=== PATIENT | female | born 1940 | race African-American/Black ===

== ENCOUNTER → 2017-01-14 | Outpatient (CLI) | payer MEDICARE, MEDICAID ==
[2017-01-14 14:41] LABS: HEMATOCRIT 32.5 % (36.0-47.0); HEMOGLOBIN 10.5 g/dL (12.0-15.5); MEAN CORPUSCULAR HEMOGLOBIN 29.6 pg (27.0-33.4); MEAN CORPUSCULAR HGB CONC 32.4 g/dL (32.0-36.0); MEAN CORPUSCULAR VOLUME 91 fl (80-97); RED BLOOD COUNT 3.55 10^6/uL (3.72-5.28); RED CELL DISTRIBUTION WIDTH 15.2 % (11.5-14.0)
[2017-01-14 15:05] LABS: ANION GAP 13 (5-19); BLOOD UREA NITROGEN 22 mg/dL (7-20); CALCIUM 9.3 mg/dL (8.4-10.2); CARBON DIOXIDE 22 mmol/L (22-30); CHLORIDE 108 mmol/L (98-107); GLUCOSE 99 mg/dL (75-110)
[2017-01-14 15:25] LABS: APPEARANCE,URINE SLIGHTLY-CLOUDY; BILIRUBIN,URINE NEGATIVE (NEGATIVE); GLUCOSE, URINE NEGATIVE (NEGATIVE); KETONES,URINE NEGATIVE (NEGATIVE); LEUKOCYTE ESTERASE,URINE NEGATIVE (NEGATIVE); NITRITE,URINE NEGATIVE (NEGATIVE); PROTEIN,URINE 100 mg/dL (NEGATIVE); URINE SPECIFIC GRAVITY 1.019
== END ==
LOC: OD 13:59
PROVIDERS: ATTEND Internal Medicine Nephrology
DX: I12.9 Hypertensive chronic kidney disease with stage 1 through stage 4 chronic kidney disease, or unspecified chronic kidney disease (principal); N18.3 Chronic kidney disease, stage 3 (moderate)
CPT/HCPCS: 36415; 80048; 81001; 84443; 85027

== ENCOUNTER → 2017-01-17 | Outpatient (CLI) | payer MEDICARE, MEDICAID ==
[2017-01-17 12:49] LABS: HEMATOCRIT 35.5 % (36.0-47.0); HEMOGLOBIN 11.4 g/dL (12.0-15.5); HGB HCT DIFFERENCE -1.3; MEAN CORPUSCULAR HEMOGLOBIN 29.8 pg (27.0-33.4); MEAN CORPUSCULAR VOLUME 93 fl (80-97); RED BLOOD COUNT 3.82 10^6/uL (3.72-5.28); RED CELL DISTRIBUTION WIDTH 15.5 % (11.5-14.0); WHITE BLOOD COUNT 5.1 10^3/uL (4.0-10.5)
--- NOTE | 2017-01-17 13:01 | EKG REPORT ---
SEVERITY:- ABNORMAL ECG - SINUS TACHYCARDIA VENTRICULAR TRIGEMINY PROBABLE LEFT VENTRICULAR HYPERTROPHY ABNORMAL T, CONSIDER ISCHEMIA, LATERAL LEADS CONSIDER OLD ANTERIOR WA : Confirmed by: Braulio Damon MD 17-Jan-2017 13:00:29
[2017-01-17 13:16] LABS: APPEARANCE,URINE SLIGHTLY-CLOUDY; BILIRUBIN,URINE NEGATIVE (NEGATIVE); GLUCOSE, URINE NEGATIVE (NEGATIVE); KETONES,URINE NEGATIVE (NEGATIVE); LEUKOCYTE ESTERASE,URINE NEGATIVE (NEGATIVE); NITRITE,URINE NEGATIVE (NEGATIVE); PROTEIN,URINE 30 mg/dL (NEGATIVE); URINE SPECIFIC GRAVITY 1.018
== END ==
LOC: OD 11:38
PROVIDERS: ATTEND Physician Assistant Medical
DX: R00.0 Tachycardia, unspecified (principal); N18.3 Chronic kidney disease, stage 3 (moderate); R60.9 Edema, unspecified; I12.9 Hypertensive chronic kidney disease with stage 1 through stage 4 chronic kidney disease, or unspecified chronic kidney disease; J81.0 Acute pulmonary edema; K59.00 Constipation, unspecified
CPT/HCPCS: 36415; 81001; 85027; 93005; 93010

== ENCOUNTER → 2017-01-20 | Outpatient (CLI) | payer MEDICARE, MEDICAID ==
--- NOTE | 2017-01-20 12:56 | RADIOLOGY REPORT (SQ) ---
EXAM DESCRIPTION: U/S RETROPERITON (RENAL/AORTA) COMPLETED DATE/TIME: 01/20/2017 12:32 pm REASON FOR STUDY: CHRONIC KIDNEY DISEASE STAGE 3 N18.3 CHRONIC KIDNEY DISEASE, STAGE 3 (MODERATE) I 12.9 HYPERTENSIVE CHRONIC KIDNEY DISEASE W STG 1-4/UNSP CHR COMPARISON: None. TECHNIQUE: Dynamic and static grayscale images acquired of the kidneys and bladder and recorded on P ACS. Additional selected color Doppler and spectral images recorded. LIMITATIONS: Evaluation of the left kidney was limited because of body habitus and bowel gas. FINDINGS: RIGHT KIDNEY: Normal size, 9.2 cm. Mild cortical thinning. Normal echogenicity. No solid or suspicious masses. No hydronephrosis. No calcifications. LEFT KIDNEY: Normal size, 8.8 cm. Normal echogenicity. No solid or suspicious masses. No hydronephr osis. No calcifications. BLADDER: Not able to be seen. OTHER FINDINGS: No other significant finding. IMPRESSION: There is mild cortical thinning. No other abnormality is appreciated in this somewhat l imited study. TECHNICAL DOCUMENTATION: JOB ID: [id number]- All Rights Reserved
== END ==
LOC: RAD 11:39
PROVIDERS: ATTEND Internal Medicine Nephrology
DX: I12.9 Hypertensive chronic kidney disease with stage 1 through stage 4 chronic kidney disease, or unspecified chronic kidney disease (principal); N18.3 Chronic kidney disease, stage 3 (moderate)
CPT/HCPCS: 76770

== ENCOUNTER → 2017-01-25 | Outpatient (CLI) | payer MEDICARE, MEDICAID ==
--- NOTE | 2017-01-26 09:07 | XCELERA REPORT ---
[address] [address] Transthoracic Echocardiogram Report Name: NEIDA YEPEZ Age: 77 yrs Gender: Female : 1940 Patient Status: Outpatient Patient Location: Study Date: 01/25/2017 11:22 AM Height: 64 in Weight: 217 lb BSA: 2.0 m2 Procedure: A complete two-dimensional transthoracic echocardiogram was performed (2D, M-mode, spectral and color flow Doppler). The study was technically adequate with some images being suboptimal in quality. Reason For Study: ACUTE PULMONARY EDEMA J81.0 Ordering Physician: Mehnaz UPTON Performed By: Kirk Candelario Interpretation Summary The Ejection Fraction estimate is 25-30% Left ventricular systolic function is severely reduced. There is borderline concentric left ventricular hypertrophy. The left ventricle is borderline dilated. Doppler measurements suggest pseudonormalized left ventricular relaxation, which is associated with grade II/IV or mild to moderate diastolic dysfunction There is apical wall akinesis There is septal wall akinesis There is mid to distal anterior wall akinesis The right ventricular systolic function is borderline reduced. The left atrium is mildly dilated. The right atrium is normal in size A patent foramen ovale is present. There is a mild to moderate amount of mitral regurgitation There is no mitral valve stenosis. There is a trace amount of aortic regurgitation There is no aortic valve stenosis Right ventricular systolic pressure is estimated to be elevated at 40- 50mmHg. There is mild to moderate pulmonary hypertension by echo There is a trace to mild amount of tricuspid regurgitation The aortic root is not well visualized. The inferior vena cava appeared normal and decreased < 50% with respiration (RAP 10-15 mmHg) Minimal pericardial effusion. MMode/2D Measurements \T\ Calculations RVDd: 2.4 cm LVIDd: 5.2 cm FS: 13.1 % Ao root diam: IVSd: 1.0 cm LVIDs: 4.5 cm EDV(Teich): 2.9 cm LVPWd: 1.2 cm 127.3 ml Ao root area: ESV(Teich): 91.6 ml 6.8 cm2 EF(Teich): 28.0 % LA dimension: 3.9 cm LVLd ap4: 9.1 cm SV(MOD-sp4): EDV(MOD-sp4): 44.0 ml 150.0 ml LVLs ap4: 7.9 cm ESV(MOD-sp4): 106.0 ml EF(MOD-sp4): 29.3 % Doppler Measurements \T\ Calculations MV E max mallorie: MV P1/2t max mallorie: Ao V2 max: LV V1 max P.3 cm/sec 79.8 cm/sec 155.1 cm/sec 2.5 mmHg MV A max mallorie: MV P1/2t: 52.3 msec Ao max PG: LV V1 max: 55.1 cm/sec MVA(P1/2t): 4.2 cm2 9.6 mmHg 79.7 cm/sec MV E/A: 1.4 MV dec slope: 446.8 cm/sec2 PA V2 max: PI end-d mallorie: TR max mallorie: RAP systole: 94.3 cm/sec 186.2 cm/sec 300.0 cm/sec 10.0 mmHg PA max PG: TR max P.6 mmHg 36.0 mmHg RVSP(TR): 46.0 mmHg Left Ventricle The left ventricle is borderline dilated. There is borderline concentric left ventricular hypertrophy. Left ventricular systolic function is severely reduced. The Ejection Fraction estimate is 25-30%. Doppler measurements suggest pseudonormalized left ventricular relaxation, which is associated with grade II/IV or mild to moderate diastolic dysfunction. There is septal wall akinesis. There is apical wall akinesis. There is mid to distal anterior wall akinesis. Right Ventricle The right ventricle is normal in size, thickness and function. There is normal right ventricular wall thickness. The right ventricular systolic function is borderline reduced. Atria The right atrium is normal in size. The left atrium is mildly dilated. A patent foramen ovale is present. Mitral Valve The mitral valve leaflets are sclerotic and show some degree of functional abnormality. There is no mitral valve stenosis. There is a mild to moderate amount of mitral regurgitation. Aortic Valve The aortic valve is sclerotic and shows some degree of functional abnormality. There is no aortic valve stenosis. There is a trace amount of aortic regurgitation. Tricuspid Valve The tricuspid valve is not well visualized, but is grossly normal. There is no tricuspid stenosis. There is a trace to mild amount of tricuspid regurgitation. There is mild to moderate pulmonary hypertension by echo. Right ventricular systolic pressure is estimated to be elevated at 40- 50mmHg. Pulmonic Valve The pulmonic valve is not well visualized. Great Vessels The aortic root is not well visualized. The inferior vena cava appeared normal and decreased < 50% with respiration (RAP 10-15 mmHg). Effusions Minimal pericardial effusion. : Mehnaz UPTON Shyamal
== END ==
LOC: SP 10:53
PROVIDERS: ATTEND Internal Medicine Nephrology
DX: J81.0 Acute pulmonary edema (principal); R00.0 Tachycardia, unspecified
CPT/HCPCS: 93306

== ENCOUNTER 2017-06-01 12:46 | Inpatient (IN) | payer MEDICARE, MEDICAID ==
[2017-06-01] MEDS ORDERED: NORMAL SALINE 1000 ML 1,000 ML IV ONE (13:19)
--- NOTE | 2017-06-01 13:24 | ER Document Report ---
ED Fall - General Mode of Arrival: Ambulatory Information source: Patient TRAVEL OUTSIDE OF THE [place] IN LAST 30 DAYS: No - General Chief Complaint: Fall Stated Complaint: FALL Time Seen by Provider: 06/01/17 12:59 Notes: Patient is a 77 year old female that presents to the emergency department today with complaints of generalized weakness. Patient states that she was weak and she lost balance during the fall. Patient states that she would normally have strength to pick herself up but she was unable to do so after this fall and she was down for 3 days on the ground. History is limited. (YORDAN MATOS) - Related data Allergies/Adverse Reactions: Penicillins Allergy (Verified 06/01/17 13:26) Home Medications: Current Home Medications Clonidine HCl 0.2 mg PO BID 06/01/17 [History] Furosemide [Lasix 40 mg Tablet] 40 mg PO DAILY 06/01/17 [History] Nitroglycerin [Nitrostat 0.4 mg (1/150 Gr) Tabs 25/Bottle] 1 tab SL Q5M PRN MDD 3 tab 06/01/17 [History] Ondansetron HCl [Zofran 4 mg Tablet] 1 tab PO TIDP PRN 06/01/17 [History] Past Medical History - General Information source: Patient - Social History Smoking Status: Unknown if Ever Smoked Cigarette use (# per day): No Chew tobacco use (# tins/day): No Frequency of alcohol use: None Drug Abuse: None Lives with: Family Family History: Reviewed & Not Pertinent Patient has suicidal ideation: No Patient has homicidal ideation: No - Past Medical History Cardiac Medical History: Reports: Hx Hypertension Past Surgical History: Reports: Hx Tonsillectomy - Immunizations Hx Diphtheria, Pertussis, Tetanus Vaccination: - unknown Review of Systems - Review of Systems Constitutional: See HPI, Weakness - general, fall and on ground for 3 days EENT: No symptoms reported Cardiovascular: No symptoms reported Respiratory: No symptoms reported Gastrointestinal: No symptoms reported Genitourinary: No symptoms reported Female Genitourinary: No symptoms reported Musculoskeletal: No symptoms reported Skin: No symptoms reported Hematologic/Lymphatic: No symptoms reported Neurological/Psychological: No symptoms reported -: Yes All other systems reviewed and negative Physical Exam - Vital signs Vitals: Temp Pulse Resp BP Pulse Ox 97.5 F 103 H 16 156/89 H 98 06/01/17 12:58 06/01/17 12:58 06/01/17 12:58 06/01/17 12:58 06/01/17 12:58 - Notes Notes: Physical Exam: General: Alert, covered in urine and feces consistent with history. HEENT: Normocephalic. Atraumatic. PERRL. Extraocular movements intact. Oropharynx clear. See neuro. Neck: Supple. Non-tender. Respiratory: No respiratory distress. Clear and equal breath sounds bilaterally. Cardiovascular: Tachycardic, regular rhythm. Abdominal: Morbidly obese. Non-tender. No distension. Normal Bowel Sounds. Back: Non-tender. No deformity or step off. Extremities: Moves all four extremities. Upper extremities: Normal inspection. Normal ROM. Lower extremities: Bilateral lower extremity edema. Normal ROM. Neurological: Normal cognition. AAOx4. Normal speech. Right sided facial tick which patient states is new. 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 Psychological: Normal affect. Normal Mood. Skin: Warm. Dry. Normal color. (YORDAN MATOS) - Vital Signs Vital signs: Temp Pulse Resp BP Pulse Ox 97.5 F 103 H 16 156/89 H 98 06/01/17 12:58 06/01/17 12:58 06/01/17 12:58 06/01/17 12:58 06/01/17 12:58 - Laboratory Laboratory results interpreted by me: 06/01/17 13:50 Urine Protein 30 H Urine Urobilinogen 4.0 H Procedures - Additional Procedures IV insertion Notes: 06/01/17 14:42 Ultrasound guided 20-gauge IV placed in the cubital fossa on the right area was cleaned with alcohol's prep blood flow no complications patient tolerated well ( ARIELLE CRAWFORD) Scribe Documentation - Scribe Written by Scribe:: Willie Sevilla, 06/01/2017 1365 acting as scribe for :: Tomasz
--- NOTE | 2017-06-01 14:00 | RADIOLOGY REPORT (SQ) ---
EXAM DESCRIPTION: CT HEAD WITHOUT COMPLETED DATE/TIME: 06/01/2017 1:41 pm REASON FOR STUDY: fall, LE weakness COMPARISON: CT brain 08/07/2015, 07/15/2015 TECHNIQUE: Axial images acquired through the brain without intravenous contrast. Images reviewed wi th bone, brain and subdural windows. Images stored on PACS. All CT scanners at this facility use dose modulation, iterative reconstruction, and/or weight based d osing when appropriate to reduce radiation dose to as low as reasonably achievable (ALARA). [facility]: Dose Right [facility]: CareDose [facility]: Dose Right [facility]: Teradose 4D [facility]: Smart Technologies RADIATION DOSE: CT Rad equipment meets quality standard of care and radiation dose reduction techniq ues were employed. CTDIvol: 64.6 mGy. DLP: 1163 mGy-cm. mGy. LIMITATIONS: None. FINDINGS: VENTRICLES: Normal size and contour. CEREBRUM: Extensive low attenuation in the bifrontal and biparietal white matter from chronic small v essel disease. 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 No CT evidence of acute large territory ischemic change, acute intracranial hemorrhage, mass effect, or midline shift. CEREBELLUM: No masses. No hemorrhage. No alteration of density. No evidence for acute infarction. EXTRAAXIAL SPACES: No fluid collections. No masses. ORBITS AND GLOBE: No intra- or extraconal masses. Normal contour of globe without masses. CALVARIUM: No fracture. PARANASAL SINUSES: No fluid or mucosal thickening. SOFT TISSUES: No mass or hematoma. OTHER: No other significant finding. IMPRESSION: Diffuse chronic small vessel ischemic change in the hemispheric white matter, left thala mus, and left basal ganglia. No acute changes EVIDENCE OF ACUTE STROKE: NO. COMMENT: Quality ID # [id number]: Final reports with documentation of one or more dose reduction techniques (e.g., Automated exposure control, adjustment of the mA and/or kV according to patient size, use of iterative reconstruction technique) TECHNICAL DOCUMENTATION: JOB ID: [id number]- All Rights Reserved
[2017-06-01 14:29] LABS: AMORPHOUS SEDIMENT,URINE TRACE /HPF; APPEARANCE,URINE SLIGHTLY-CLOUDY; BILIRUBIN,URINE NEGATIVE (NEGATIVE); GLUCOSE, URINE NEGATIVE (NEGATIVE); KETONES,URINE NEGATIVE (NEGATIVE); LEUKOCYTE ESTERASE,URINE NEGATIVE (NEGATIVE); NITRITE,URINE NEGATIVE (NEGATIVE); PROTEIN,URINE 30 mg/dL (NEGATIVE)
[2017-06-01 14:56] LABS: ABSOLUTE LYMPHOCYTES (AUTO) 0.8 10^3/uL (0.5-4.7); ABSOLUTE MONOCYTES (AUTO) 0.8 10^3/uL (0.1-1.4); ABSOLUTE NEUT (AUTO) 8.6 10^3/uL (1.7-8.2); BASOPHILS % (AUTO) 0.1 % (0-2); HEMATOCRIT 33.4 % (36.0-47.0); HGB HCT DIFFERENCE -0.4; LYMPHOCYTES % (AUTO) 7.4 % (13-45); MEAN CORPUSCULAR HEMOGLOBIN 30.7 pg (27.0-33.4); MEAN CORPUSCULAR HGB CONC 32.9 g/dL (32.0-36.0); MEAN CORPUSCULAR VOLUME 94 fl (80-97); MONOCYTES % (AUTO) 7.7 % (3-13); RED BLOOD COUNT 3.58 10^6/uL (3.72-5.28); RED CELL DISTRIBUTION WIDTH 17.5 % (11.5-14.0); SEGMENTED NEUTROPHILS % (AUTO) 84.8 % (42-78); WHITE BLOOD COUNT 10.2 10^3/uL (4.0-10.5)
[2017-06-01 15:33] LABS: ALANINE AMINOTRANSFERASE 54 U/L (9-52); ALBUMIN 3.2 g/dL (3.5-5.0); ALKALINE PHOSPHATASE 121 U/L (38-126); ANION GAP 15 (5-19); ASPARTATE AMINO TRANSFERASE 54 U/L (14-36); BILIRUBIN,TOTAL 3.1 mg/dL (0.2-1.3); BLOOD UREA NITROGEN 61 mg/dL (7-20); CALCIUM 9.4 mg/dL (8.4-10.2); CARBON DIOXIDE 24 mmol/L (22-30); CHLORIDE 116 mmol/L (98-107); CREATINE KINASE 388 U/L (30-135); CREATININE RESULT 1.91 mg/dL (0.52-1.25); GLUCOSE 90 mg/dL (75-110); MAGNESIUM 2.6 mg/dL (1.6-2.3); POTASSIUM 3.8 mmol/L (3.6-5.0); SODIUM 154.9 mmol/L (137-145); TOTAL PROTEIN 6.7 g/dL (6.3-8.2)
[2017-06-01 15:41] LABS: CREATINE KINASE MB 4.19 ng/mL (<4.55)
[2017-06-01 15:43] LABS: TROPONIN I 0.116 ng/mL
--- NOTE | 2017-06-01 19:34 | EKG REPORT ---
SEVERITY:- ABNORMAL ECG - SINUS TACHYCARDIA ATRIAL PREMATURE COMPLEX LEFT VENTRICULAR HYPERTROPHY CONSIDER ANTERIOR INFARCT : Confirmed by: Cat Lazaro MD 01-Jun-2017 19:33:05
[2017-06-01] MEDS ORDERED: NORMAL SALINE 1000 ML 1,000 ML IV PRN (20:25)
[2017-06-01] MEDS ORDERED: NITROGLYCERIN 0.4 MG/TAB 25 TAB/BOTTLE SL PRN (20:29)
--- NOTE | 2017-06-01 20:53 | PDOC H&P ---
History of Present Illness Admission Date/PCP: 06/01/17 16:28 Patient complains of: Fall at home History of Present Illness: NEIDA YEPEZ is a 77 year old female known to my practice who presented to the ED with compliant of fall at home while in the process of getting off her dinner room chair. She lost her balance and landed on the floor. Patient reported that due to her generalized weakness she was unable to lift herself off the floor and has been laying in same position for 3 days before she was discovered earlier today. She denied any preceding chest pain, palpitation or dizziness. She denied loss of consciousness, nausea, vomiting, diarrhea, or voiding symptoms. No headache . She reported right sided chest pain with motion and coughing. She has not had any thing to eat or drink in the last 3 days. Her initial evaluation in the ED was remarkable for electrolyte abnormalities and elevated serum total CK level. Her head CT scan suggested old infarcts. She was advised admission and further evaluation and management. Past Medical History Cardiac Medical History: Reports: Hypertension Hematology: Reports: Anemia Past Surgical History Past Surgical History: Reports: Tonsillectomy Social History Lives with: Family Smoking Status: Unknown if Ever Smoked Frequency of Alcohol Use: None Hx Recreational Drug Use: No Drugs: None Hx Prescription Drug Abuse: No Family History Family History: Reviewed & Not Pertinent Parental Family History Reviewed: Yes Children Family History Reviewed: Yes Sibling(s) Family History Reviewed.: Yes Medication/Allergy Home Medications: Carvedilol [Coreg 12.5 mg Tablet] 12.5 mg PO Q12 06/01/17 Clonidine HCl [Catapres 0.2 mg Tablet] 0.2 mg PO Q12 06/01/17 Furosemide [Lasix 40 mg Tablet] 40 mg PO QAM 06/01/17 Nitroglycerin [Nitrostat 0.4 mg (1/150 Gr) Tabs 25/Bottle] 1 tab SL Q5MP PRN Ondansetron HCl [Zofran 4 mg Tablet] 1 tab PO TIDP PRN 06/01/17 Allergies/Adverse Reactions: Penicillins Allergy (Verified 06/01/17 13:26) Review of Systems Constitutional: PRESENT: weakness - generalized Eyes: PRESENT: visual disturbances Ears: PRESENT: hearing changes Nose, Mouth, and Throat: ABSENT: as per HPI, headache(s), mouth pain, sore throat, vertigo, other Cardiovascular: PRESENT: chest pain - right sided with motion and coughing Respiratory: PRESENT: cough - intermittent Gastrointestinal: ABSENT: abdominal pain, constipation, diarrhea, hematemesis, hematochezia, nausea, vomiting Genitourinary: ABSENT: dysuria, hematuria Musculoskeletal: ABSENT: joint swelling Integumentary: ABSENT: rash, wounds Neurological: PRESENT: memory loss, weakness - facial related to old stroke Psychiatric: ABSENT: anxiety, depression, homidical ideation, suicidal ideation Endocrine: ABSENT: cold intolerance, heat intolerance, menstrual abnormalities, polydipsia, polyuria Hematologic/Lymphatic: ABSENT: easy bleeding, easy bruising, lymphadenopathy Allergic/Immunologic: ABSENT: seasonal rhinorrhea Physical Exam Vital Signs: Temp Pulse Resp BP Pulse Ox 97.5 F 103 H 19 165/81 H 97 06/01/17 12:58 06/01/17 12:58 06/01/17 18:01 06/01/17 18:01 06/01/17 18:01 Intake & Output 05/31/17 06/01/17 06/02/17 06:59 06:59 06:59 Intake Total 1000 Output Total 375 Balance 625 General appearance: PRESENT: no acute distress Head exam: PRESENT: atraumatic, normocephalic Eye exam: PRESENT: conjunctiva pink, EOMI, PERRLA. ABSENT: scleral icterus Mouth exam: PRESENT: dry mucosa Teeth exam: PRESENT: poor dentation Neck exam: PRESENT: full ROM. ABSENT: carotid bruit, JVD, lymphadenopathy, thyromegaly Respiratory exam: PRESENT: clear to auscultation kishan, decreased breath sounds - at lung bases Cardiovascular exam: PRESENT: RRR. ABSENT: diastolic murmur, rubs, systolic murmur Pulses: PRESENT: normal dorsalis pedis pul, +2 pedal pulses bilateral Vascular exam: PRESENT: normal capillary refill. ABSENT: pallor GI/Abdominal exam: PRESENT: normal bowel sounds, soft. ABSENT: distended, guarding, mass, organolmegaly, rebound, tenderness Rectal exam: PRESENT: deferred Gentrourinary exam: PRESENT: indwelling catheter Extremities exam: ABSENT: pedal edema Musculoskeletal exam: PRESENT: deformity - related to multiple joints involvement with arthritis Neurological exam: PRESENT: alert, awake, oriented to person, oriented to place , oriented to time, CN II-XII grossly intact, motor sensory deficit Psychiatric exam: PRESENT: appropriate affect, normal mood. ABSENT: homicidal ideation, suicidal ideation Skin exam: PRESENT: dry, intact, warm. ABSENT: cyanosis, rash Results Laboratory Results: 06/01/17 18:30 Lactic Acid 3.0 H Impressions: Head CT 06/01/17 13:19 IMPRESSION: Diffuse chronic small vessel ischemic change in the hemispheric white matter, left thalamus, and left basal ganglia. No acute changes EVIDENCE OF ACUTE STROKE: NO. Assessment & Plan - Diagnosis (1) Fall at home Qualifiers: Encounter type: initial encounter Qualified Code(s): W19.XXXA - Unspecified fall, initial encounter; Y92.099 - Unspecified place in other non- institutional residence as the place of occurrence of the external cause; Y92.099 - Unspecified place in other non-institutional residence as the place of occurrence of the external cause Is this a current diagnosis for this admission?: Yes Plan: See admitting attending orders (2) Probable sepsis Is this a current diagnosis for this admission?: Yes Plan: See admitting attending orders (3) Dehydration, severe Is this a current diagnosis for this admission?: Yes Plan: See admitting attending orders (4) Hypernatremia Is this a current diagnosis for this admission?: Yes Plan: See admitting attending orders (5) Facial droop Is this a current diagnosis for this admission?: Yes Plan: Related to prior stroke. See admitting attending orders (6) Hypertension Qualifiers: Hypertension type: essential hypertension Qualified Code(s): I10 - Essential (primary) hypertension Is this a current diagnosis for this admission?: Yes Plan: See admitting attending orders (7) Osteoarthritis Qualifiers: Osteoarthritis location: multiple joints Osteoarthritis type: primary Qualified Code(s): M15.0 - Primary generalized (osteo)arthritis Is this a current diagnosis for this admission?: Yes Plan: See admitting attending orders - Time Time Spent: 50 to 70 Minutes Medications reviewed and adjusted accordingly: Yes Anticipated discharge: Home with Homehealth Within: Other - Inpatient Certification Based on my medical assessment, after consideration of the patient's comorbidities, presenting symptoms, or acuity I expect that the services needed warrant INPATIENT care.: Yes I certify that my determination is in accordance with my understanding of Medicare's requirements for reasonable and necessary INPATIENT services [42 CFR 412.3e].: Yes Medical Necessity: Need Close Monitoring Due to Risk of Patient Decompensation, Need For IV Fluids, Need For Continuous Telemetry Monitoring, Need for IV Antibiotics, Risk of Complication if Not Cared For in Hospital 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
[2017-06-01] MEDS ORDERED: AZTREONAM 1 GM in DEXTROSE 5%-WATER 50 ML IV ONE (22:00)
[2017-06-01] MEDS: CARVEDILOL 12.5 MG TABLET PO SCH (22:55)
[2017-06-01] MEDS: CLONIDINE HCL 0.2 MG TABLET PO SCH (22:55)
[2017-06-02 05:20] LABS: ABSOLUTE LYMPHOCYTES (AUTO) 0.9 10^3/uL (0.5-4.7); ABSOLUTE MONOCYTES (AUTO) 0.6 10^3/uL (0.1-1.4); ABSOLUTE NEUT (AUTO) 6.6 10^3/uL (1.7-8.2); BASOPHILS % (AUTO) 0.3 % (0-2); EOSINOPHILS % (AUTO) 0.1 % (0-6); LYMPHOCYTES % (AUTO) 10.7 % (13-45); MEAN CORPUSCULAR HGB CONC 33.3 g/dL (32.0-36.0); MEAN CORPUSCULAR VOLUME 93 fl (80-97); MONOCYTES % (AUTO) 7.6 % (3-13); RED BLOOD COUNT 2.89 10^6/uL (3.72-5.28); RED CELL DISTRIBUTION WIDTH 17.5 % (11.5-14.0); SEGMENTED NEUTROPHILS % (AUTO) 81.3 % (42-78); WHITE BLOOD COUNT 8.1 10^3/uL (4.0-10.5)
[2017-06-02 05:53] LABS: ALANINE AMINOTRANSFERASE 45 U/L (9-52); ALBUMIN 2.3 g/dL (3.5-5.0); ALKALINE PHOSPHATASE 79 U/L (38-126); ANION GAP 15 (5-19); ASPARTATE AMINO TRANSFERASE 34 U/L (14-36); BILIRUBIN,DIRECT 1.2 mg/dL (0.0-0.4); BILIRUBIN,TOTAL 1.6 mg/dL (0.2-1.3); BLOOD UREA NITROGEN 56 mg/dL (7-20); CALCIUM 8.2 mg/dL (8.4-10.2); CARBON DIOXIDE 20 mmol/L (22-30); CHLORIDE 118 mmol/L (98-107); CREATININE RESULT 1.85 mg/dL (0.52-1.25); GLUCOSE 148 mg/dL (75-110); MAGNESIUM 2.4 mg/dL (1.6-2.3); PHOSPHORUS 4.3 mg/dL (2.5-4.5); POTASSIUM 3.6 mmol/L (3.6-5.0); SODIUM 152.6 mmol/L (137-145); TOTAL PROTEIN 5.5 g/dL (6.3-8.2)
[2017-06-02] MEDS ORDERED: WATER IV SCH (06:00)
[2017-06-02] MEDS ORDERED: AZTREONAM IV SCH (06:00)
[2017-06-02] MEDS ORDERED: DEXTROSE 5% IV SCH (06:00)
[2017-06-02] MEDS: LANSOPRAZOLE 30 MG TAB.RAP.DR PO SCH (06:14)
[2017-06-02] MEDS: AZTREONAM 0.5 GM in DEXTROSE 5%-WATER 50 ML IV SCH ×3 (06:14→22:22)
[2017-06-02] MEDS ORDERED: DEXTROSE 5%-1/2 NORMAL SALINE 1,000 ML IV PRN (10:15)
--- NOTE | 2017-06-02 10:22 | PDOC PROGRESS REPORT ---
Subjective Progress Note for:: 06/02/17 Subjective:: Was admitted yesterday because of the fall and dehydration's and renal failure and possible sepsis Patient's has a history of the right-sided facial droop which patient says since last 6 month but patients denied any weakness but the patient's CT scan was suggestive of old stroke Into the family members patient have a since weakness last 3 days before the patient was walking patient have a facial droop in the past Initial workup patient's kidney failure and possible sepsis Will start on antibiotic Patient's troponin was elevated most likely due to the chronic kidney disease She has denied any chest pain denied any shortness of the breath Physical Exam Vital Signs: Temp Pulse Resp BP Pulse Ox 98.4 F 71 18 95/43 L 100 06/02/17 07:00 06/02/17 07:00 06/02/17 07:00 06/02/17 07:00 06/02/17 07:00 Intake & Output 06/01/17 06/02/17 06/03/17 06:59 06:59 06:59 Intake Total 2234 Output Total 775 Balance 1459 General appearance: PRESENT: no acute distress Eye exam: PRESENT: PERRLA Mouth exam: PRESENT: neck supple Respiratory exam: PRESENT: clear to auscultation kishan Cardiovascular exam: PRESENT: +S1, +S2 GI/Abdominal exam: PRESENT: normal bowel sounds, soft Extremities exam: ABSENT: pedal edema Neurological exam: PRESENT: alert, awake Additional comments: Right-sided facial droops and a right-sided weakness in the both upper and lower extremities present Psychiatric exam: PRESENT: anxious Skin exam: PRESENT: dry Results Laboratory Results: 06/02/17 04:00 06/02/17 04:00 06/01/17 06/02/17 06/02/17 18:30 04:00 04:00 WBC 8.1 RBC 2.89 L Hgb 9.0 L Hct 27.0 L MCV 93 MCH 31.0 MCHC 33.3 RDW 17.5 H Plt Count 210 Seg Neutrophils % 81.3 H Lymphocytes % 10.7 L Monocytes % 7.6 Eosinophils % 0.1 Basophils % 0.3 Absolute Neutrophils 6.6 Absolute Lymphocytes 0.9 Absolute Monocytes 0.6 Absolute Eosinophils 0.0 Absolute Basophils 0.0 Sodium 152.6 H Potassium 3.6 Chloride 118 H Carbon Dioxide 20 L Anion Gap 15 BUN 56 H Creatinine 1.85 H Est GFR ( Amer) 32 L Est GFR (Non-Af Amer) 27 L Glucose 148 H Lactic Acid 3.0 H Calcium 8.2 L Phosphorus 4.3 Magnesium 2.4 H Total Bilirubin 1.6 H AST 34 ALT 45 Alkaline Phosphatase 79 Total Protein 5.5 L Albumin 2.3 L Impressions: Head CT 06/01/17 13:19 IMPRESSION: Diffuse chronic small vessel ischemic change in the hemispheric white matter, left thalamus, and left basal ganglia. No acute changes EVIDENCE OF ACUTE STROKE: NO. Assessment & Plan - Diagnosis (1) Dehydration, severe Is this a current diagnosis for this admission?: Yes Plan: Patient IV fluid to D5 one half normal saline (2) Fall at home Qualifiers: Encounter type: initial encounter Qualified Code(s): W19.XXXA - Unspecified fall, initial encounter; Y92.099 - Unspecified place in other non- institutional residence as the place of occurrence of the external cause; Y92.099 - Unspecified place in other non-institutional residence as the place of occurrence of the external cause Is this a current diagnosis for this admission?: Yes Plan: We will rule out the any acute strokes and MRI of the head at the physical therapy and speech therapy evaluations (3) Hypernatremia Is this a current diagnosis for this admission?: Yes Plan: We will change the IV fluid to D5 one half normal saline (4) Probable sepsis Is this a current diagnosis for this admission?: Yes Plan: We will wait for the cultures continues to IV antibiotic part of the chest x-ray (5) Hypertension Qualifiers: Hypertension type: essential hypertension Qualified Code(s): I10 - Essential (primary) hypertension Is this a current diagnosis for this admission?: Yes Plan: Currently stable (6) Elevated troponin Is this a current diagnosis for this admission?: Yes Plan: Likely a troponin leak will repeat the EKG and the serial cardiac enzyme - Time Time Spent with patient: 15-24 minutes Medications reviewed and adjusted accordingly: Yes Anticipated discharge: SNF Within: Other - Inpatient Certification Medical Necessity: Need Close Monitoring Due to Risk of Patient Decompensation Post Hospital Care: D/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
[2017-06-02] MEDS: ENOXAPARIN SODIUM INJ 30 MG/0.3 ML DISP.SYRIN SUBCUT SCH (10:35)
[2017-06-02] MEDS: CARVEDILOL 12.5 MG TABLET PO SCH ×2 (11:08→22:22)
[2017-06-02] MEDS: CLONIDINE HCL 0.2 MG TABLET PO SCH ×2 (11:08→22:09)
[2017-06-02 11:34] LABS: CREATINE KINASE MB 1.4 ng/mL (<4.55); TROPONIN I 0.11 ng/mL
--- NOTE | 2017-06-02 12:53 | RADIOLOGY REPORT (SQ) ---
EXAM DESCRIPTION: MRI HEAD WITHOUT COMPLETED DATE/TIME: 06/02/2017 12:41 pm REASON FOR STUDY: rt side wekness COMPARISON: CT 06/01/2017 TECHNIQUE: Multiplanar imaging includes non-contrasted T1, T2, FLAIR, and diffusion with ADC map seq uences. Images stored on PACS. Multiplanar imaging includes non-contrasted T1, T2, FLAIR, and diffusion with ADC map sequences. Add itional heme sensitive imaging. Images stored on PACS. LIMITATIONS: None. FINDINGS: ANATOMY: No anomalies. Normal vascular flow voids. Pituitary fossa normal. CSF SPACES: Atrophy induced prominence of ventricles and CSF spaces. CEREBRUM: High signal intensity lesions scattered throughout the white matter on FLAIR imaging with d istribution suggesting micro-vascular ischemic changes. No evidence of hemorrhage, mass, or extraaxi al fluid collection. POSTERIOR FOSSA: No signal alteration. No hemorrhage. No edema, masses or mass effect. Internal margy tory canals, cerebello-pontine angles, mastoids normal. DIFFUSION IMAGING: Negative for acute or sub-acute infarction. ORBITS: No masses. Globes normal. PARANASAL SINUSES: No fluid levels. Mucosa normal. OTHER: No other significant finding. IMPRESSION: ATROPHY AND CHRONIC MICRO-VASCULAR ISCHEMIC CHANGES. OTHERWISE NORMAL MRI OF THE BRAIN W ITHOUT INTRAVENOUS GADOLINIUM CONTRAST. EVIDENCE OF ACUTE STROKE: NO. TECHNICAL DOCUMENTATION: JOB ID: [id number] [employer]- All Rights Reserved
--- NOTE | 2017-06-02 13:08 | RADIOLOGY REPORT (SQ) ---
EXAM DESCRIPTION: CHEST SINGLE VIEW COMPLETED DATE/TIME: 06/02/2017 12:52 pm REASON FOR STUDY: sepsis COMPARISON: 08/07/2015 EXAM PARAMETERS: NUMBER OF VIEWS: One view. TECHNIQUE: Single frontal radiographic view of the chest acquired. RADIATION DOSE: NA LIMITATIONS: None. FINDINGS: LUNGS AND PLEURA: Extensive dense opacity at the right lung base. MEDIASTINUM AND HILAR STRUCTURES: No masses. Contour normal. HEART AND VASCULAR STRUCTURES: Heart enlarged. Vascular congestion. BONES: No acute findings. HARDWARE: None in the chest. OTHER: No other significant finding. IMPRESSION: Dense right lower lobe pneumonia. Vascular congestion P TECHNICAL DOCUMENTATION: JOB ID: [id number] [employer]- All Rights Reserved
--- NOTE | 2017-06-02 15:44 | EKG REPORT ---
SEVERITY:- ABNORMAL ECG - SINUS RHYTHM PROBABLE LEFT ATRIAL ABNORMALITY ABNRM R PROG, CONSIDER ASMI OR LEAD PLACEMENT NONSPECIFIC T ABNORMALITIES, INFERIOR LEADS BORDERLINE PROLONGED QT INTERVAL : Confirmed by: Cat Lazaro MD 02-Jun-2017 15:43:15
[2017-06-02 17:39] LABS: CREATINE KINASE MB 2.53 ng/mL (<4.55)
[2017-06-02 17:42] LABS: TROPONIN I 0.119 ng/mL
[2017-06-02] MEDS: NYSTATIN TOPICAL POWDER 15 GM TP SCH (22:23)
[2017-06-02 23:09] LABS: CREATINE KINASE MB 3.01 ng/mL (<4.55); TROPONIN I 0.105 ng/mL
[2017-06-03] MEDS: AZTREONAM 0.5 GM in DEXTROSE 5%-WATER 50 ML IV SCH ×3 (05:10→22:54)
[2017-06-03] MEDS: LANSOPRAZOLE 30 MG TAB.RAP.DR PO SCH (05:10)
[2017-06-03 06:53] LABS: ABSOLUTE EOSINOPHILS # (AUTO) 0.1 10^3/uL (0.0-0.6); ABSOLUTE LYMPHOCYTES (AUTO) 1.1 10^3/uL (0.5-4.7); BASOPHILS % (AUTO) 0.1 % (0-2); MONOCYTES % (AUTO) 10.8 % (3-13); RED CELL DISTRIBUTION WIDTH 17.1 % (11.5-14.0)
[2017-06-03 06:58] LABS: ABSOLUTE MONOCYTES (AUTO) 0.8 10^3/uL (0.1-1.4); ABSOLUTE NEUT (AUTO) 5.1 10^3/uL (1.7-8.2); EOSINOPHILS % (AUTO) 0.8 % (0-6); HEMATOCRIT 24.6 % (36.0-47.0); HGB HCT DIFFERENCE -0.9; LYMPHOCYTES % (AUTO) 15.2 % (13-45); MEAN CORPUSCULAR HEMOGLOBIN 29.7 pg (27.0-33.4); MEAN CORPUSCULAR VOLUME 93 fl (80-97); RED BLOOD COUNT 2.66 10^6/uL (3.72-5.28); SEGMENTED NEUTROPHILS % (AUTO) 73.1 % (42-78)
[2017-06-03 07:01] LABS: ANION GAP 11 (5-19); BLOOD UREA NITROGEN 52 mg/dL (7-20); CALCIUM 7.9 mg/dL (8.4-10.2); CARBON DIOXIDE 22 mmol/L (22-30); CHLORIDE 112 mmol/L (98-107); CREATININE RESULT 1.95 mg/dL (0.52-1.25); GLUCOSE 118 mg/dL (75-110); POTASSIUM 3.5 mmol/L (3.6-5.0); SODIUM 144.8 mmol/L (137-145)
[2017-06-03 07:16] LABS: HEMOGLOBIN 7.9 g/dL (12.0-15.5)
[2017-06-03] MEDS: CARVEDILOL 12.5 MG TABLET PO SCH ×2 (10:17→22:52)
[2017-06-03] MEDS: ENOXAPARIN SODIUM INJ 30 MG/0.3 ML DISP.SYRIN SUBCUT SCH (10:17)
[2017-06-03] MEDS: CLONIDINE HCL 0.2 MG TABLET PO SCH ×2 (10:17→22:53)
[2017-06-03] MEDS: NYSTATIN TOPICAL POWDER 15 GM TP SCH ×2 (10:17→22:53)
[2017-06-03] MEDS ORDERED: NORMAL SALINE 250 ML IV PRN ×2 (10:28)
[2017-06-03] MEDS ORDERED: POTASSIUM CHLORIDE 10 MEQ TABLET.SA PO ONE (10:29)
--- NOTE | 2017-06-03 11:00 | PDOC PROGRESS REPORT ---
Subjective Progress Note for:: 06/03/17 Subjective:: Patient is currently doing much better Since MRI of the head was negative for any acute stroke Patient also hemoglobin was 7.9 but patients denied any blood in the stools no black stools Patient's otherwise denied any headache denied any chest pain Physical Exam Vital Signs: Temp Pulse Resp BP Pulse Ox 98.6 F 74 18 119/55 L 100 06/03/17 07:14 06/03/17 07:14 06/03/17 07:14 06/03/17 07:14 06/03/17 07:14 Intake & Output 06/02/17 06/03/17 06/04/17 06:59 06:59 06:59 Intake Total 2234 2822 Output Total 775 800 Balance 1459 2022 General appearance: PRESENT: no acute distress Eye exam: PRESENT: PERRLA Mouth exam: PRESENT: dry mucosa Neck exam: ABSENT: carotid bruit, full ROM, JVD, lymphadenopathy, meningismus, tenderness, thyromegaly, tracheal deviation, tracheostomy, other Respiratory exam: PRESENT: clear to auscultation kishan Cardiovascular exam: PRESENT: +S1, +S2 GI/Abdominal exam: PRESENT: normal bowel sounds, soft. ABSENT: tenderness Extremities exam: ABSENT: pedal edema Neurological exam: PRESENT: alert, awake, oriented to person, oriented to place Additional comments: Right-sided facial droops Psychiatric exam: PRESENT: depressed Skin exam: PRESENT: dry Results Laboratory Results: 06/03/17 05:44 06/03/17 05:44 06/03/17 06/03/17 05:44 05:44 WBC 7.0 RBC 2.66 L Hgb 7.9 L Hct 24.6 L MCV 93 MCH 29.7 MCHC 32.0 RDW 17.1 H Plt Count 242 Seg Neutrophils % 73.1 Lymphocytes % 15.2 Monocytes % 10.8 Eosinophils % 0.8 Basophils % 0.1 Absolute Neutrophils 5.1 Absolute Lymphocytes 1.1 Absolute Monocytes 0.8 Absolute Eosinophils 0.1 Absolute Basophils 0.0 Sodium 144.8 Potassium 3.5 L Chloride 112 H Carbon Dioxide 22 Anion Gap 11 BUN 52 H Creatinine 1.95 H Est GFR ( Amer) 30 L Est GFR (Non-Af Amer) 25 L Glucose 118 H Calcium 7.9 L 06/02/17 06/02/17 06/02/17 10:58 10:58 16:35 Creatine Kinase 131 238 H CK-MB (CK-2) 1.40 Troponin I 0.110 06/02/17 06/02/17 06/02/17 16:35 22:26 22:26 Creatine Kinase 233 H CK-MB (CK-2) 2.53 3.01 Troponin I 0.119 0.105 Impressions: Head CT 06/01/17 13:19 IMPRESSION: Diffuse chronic small vessel ischemic change in the hemispheric white matter, left thalamus, and left basal ganglia. No acute changes EVIDENCE OF ACUTE STROKE: NO. Chest X-Ray 06/02/17 00:00 IMPRESSION: Dense right lower lobe pneumonia. Vascular congestion P Head MRI 06/02/17 00:00 IMPRESSION: ATROPHY AND CHRONIC MICRO-VASCULAR ISCHEMIC CHANGES. OTHERWISE NORMAL MRI OF THE BRAIN WITHOUT INTRAVENOUS GADOLINIUM CONTRAST. EVIDENCE OF ACUTE STROKE: NO. Assessment & Plan - Diagnosis (1) Dehydration, severe Is this a current diagnosis for this admission?: Yes Plan: Patient IV fluid to D5 one half normal saline (2) Fall at home Qualifiers: Encounter type: initial encounter Qualified Code(s): W19.XXXA - Unspecified fall, initial encounter; Y92.099 - Unspecified place in other non- institutional residence as the place of occurrence of the external cause; Y92.099 - Unspecified place in other non-institutional residence as the place of occurrence of the external cause Is this a current diagnosis for this admission?: Yes Plan: We will rule out the any acute strokes and MRI of the head at the physical therapy and speech therapy evaluations (3) Hypernatremia Is this a current diagnosis for this admission?: Yes Plan: Deborah all improving (4) Probable sepsis Is this a current diagnosis for this admission?: Yes Plan: We will wait for the cultures continues to IV antibiotic part of the chest x-ray (5) Hypertension Qualifiers: Hypertension type: essential hypertension Qualified Code(s): I10 - Essential (primary) hypertension Is this a current diagnosis for this admission?: Yes Plan: Currently stable (6) Elevated troponin Is this a current diagnosis for this admission?: Yes Plan: Most likely a from chronic kidney disease patient's denied any cardiac complain (7) Anemia Qualifiers: Anemia type: other cause Is this a current diagnosis for this admission?: Yes Plan: Patient with no active GI bleed will transfuse the 1 unit of the blood and may be considered a Procrit injections and also get the stool for guaiac - Time Time Spent with patient: 15-24 minutes Medications reviewed and adjusted accordingly: Yes Anticipated discharge: Other Within: Other - Inpatient Certification Medical Necessity: Need Close Monitoring Due to Risk of Patient Decompensation, Need For IV Fluids, Need for IV Antibiotics 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
--- NOTE | 2017-06-03 12:31 | RADIOLOGY REPORT (SQ) ---
EXAM DESCRIPTION: CT ABD/PELVIS NO ORAL OR IV COMPLETED DATE/TIME: 06/03/2017 12:12 pm REASON FOR STUDY: anemiaabd pain/sepsis COMPARISON: None. TECHNIQUE: CT scan of the abdomen and pelvis performed without intravenous or oral contrast. Images reviewed with lung, soft tissue, and bone windows. Reconstructed coronal and sagittal MPR images revi ewed. All images stored on PACS. All CT scanners at this facility use dose modulation, iterative reconstruction, and/or weight based d osing when appropriate to reduce radiation dose to as low as reasonably achievable (ALARA). [facility]: Dose Right [facility]: CareDose [facility]: Dose Right [facility]: Teradose 4D [facility]: Smart Thermedical RADIATION DOSE: CT Rad equipment meets quality standard of care and radiation dose reduction techniq ues were employed. CTDIvol: 26.8 mGy. DLP: 1525 mGy-cm.mGy. LIMITATIONS: Study is limited somewhat due to motion artifact and the patient's body habitus. FINDINGS: LOWER CHEST: Small right pleural effusion is identified with some associated airspace cons olidation which could represent atelectatic changes or a pneumonic infiltrate. NON-CONTRASTED LIVER, SPLEEN, ADRENALS: Evaluation limited by lack of IV contrast. No identified sign ificant masses. PANCREAS: No masses. No peripancreatic inflammatory changes. GALLBLADDER: No identified stones by CT criteria. No inflammatory changes to suggest cholecystitis. RIGHT KIDNEY AND URETER: No suspicious masses. Assessment limited by lack of IV contrast. No signif icant calcifications. No hydronephrosis or hydroureter. LEFT KIDNEY AND URETER: No suspicious masses. Assessment limited by lack of IV contrast. No signifi cant calcifications. No hydronephrosis or hydroureter. AORTA AND RETROPERITONEUM: No aneurysm. There is some ectasia of the abdominal aorta and iliac vesse ls with vascular calcifications. No retroperitoneal masses or adenopathy. BOWEL AND PERITONEAL CAVITY: No obvious masses or inflammatory changes. No free fluid. APPENDIX: Normal. PELVIS, BLADDER, AND ABDOMINAL WALL:No abnormal masses. No free fluid. The bladder is not well evalu ated due to its non distended state. Malhotra catheter is identified within the bladder. BONES: There is grade 1 anterolisthesis of L4 in relation to L5 OTHER: No other significant finding. IMPRESSION: Somewhat limited study as noted above. Small right pleural effusion with some associate d airspace consolidation which could represent atelectatic changes or pneumonic infiltrate. NO SIGNI FICANT OR ACUTE PROCESS IN THE ABDOMEN OR PELVIS. COMMENT: Quality ID # [id number]: Final reports with documentation of one or more dose reduction techniques (e.g., Automated exposure control, adjustment of the mA and/or kV according to patient size, use of iterative reconstruction technique) TECHNICAL DOCUMENTATION: JOB ID: [id number] [employer]- All Rights Reserved
--- NOTE | 2017-06-03 15:44 | PDOC CONSULTATION ---
Consultation Consult Date: 06/03/17 Attending physician:: JOE GREGG Consult reason:: Cerebrovascular accident, falls History of Present Illness Admission Date/PCP: 06/01/17 16:28 Patient complains of: Lethargy History of Present Illness: NEIDA YEPEZ is a 77 year old female known to my practice who presented to the ED with compliant of fall at home while in the process of getting off her dinner room chair. She lost her balance and landed on the floor. Patient reported that due to her generalized weakness she was unable to lift herself off the floor and has been laying in same position for 3 days before she was discovered earlier today. She denied any preceding chest pain, palpitation or dizziness. She denied loss of consciousness, nausea, vomiting, diarrhea, or voiding symptoms. No headache . She reported right sided chest pain with motion and coughing. She has not had any thing to eat or drink in the last 3 days. Her initial evaluation in the ED was remarkable for electrolyte abnormalities and elevated serum total CK level. Her head CT scan suggested old infarcts. She was advised admission and further evaluation and management. This history was reviewed and confirmed. I was asked to evaluate patient because of elevated troponin I. Patient was also noted to be more lethargic today. Patient also has an abnormal EKG. Patient on repeated questioning denied any chest pain and denied any shortness of breath. She did have a fall at home. Past Medical History Cardiac Medical History: Reports: Hypertension Hematology: Reports: Anemia Past Surgical History Past Surgical History: Reports: Tonsillectomy Social History Information Source: Patient Lives with: Family Smoking Status: Unknown if Ever Smoked Frequency of Alcohol Use: None Hx Recreational Drug Use: No Drugs: None Hx Prescription Drug Abuse: No - Advance Directive Resuscitation Status: Full Code Surrogate healthcare decision maker:: Patient's children Family History Family History: Hypertension Parental Family History Reviewed: Yes Children Family History Reviewed: Yes Sibling(s) Family History Reviewed.: Yes Medication/Allergy Home Medications: Carvedilol [Coreg 12.5 mg Tablet] 12.5 mg PO Q12 06/01/17 Clonidine HCl [Catapres 0.2 mg Tablet] 0.2 mg PO Q12 06/01/17 Furosemide [Lasix 40 mg Tablet] 40 mg PO QAM 06/01/17 Nitroglycerin [Nitrostat 0.4 mg (1/150 Gr) Tabs 25/Bottle] 1 tab SL Q5MP PRN Ondansetron HCl [Zofran 4 mg Tablet] 1 tab PO TIDP PRN 06/01/17 Allergies/Adverse Reactions: Penicillins Allergy (Verified 06/01/17 13:26) Review of Systems Review of Systems: Please see history of present illness and past medical history as wall. Constitutional: No fever or chills reported. Head : No recent chronic headaches, recent head injury. Eyes: No recent eye pain, diplopia, redness, discharge, acute visual changes. Ears: No recent chronic ear pain, acute hearing loss, ear discharge. Oral cavity: No recent ulcerations, bleeding, oral cavity discomfort. Neck: No recent acute neck pain reported. Hematologic: No recent easy bruising or bleeding or hematologic malignancy reported. Lymphatic: No recent lymphatic malignancy, chronic lymphadenopathy reported yet Cardiovascular system review: See history of present illness. Respiratory system review: No recent chronic cough, hemoptysis, blood clots in the lungs reported. Mild Shortness of breath on exertion Gastrointestinal system review: Negative for any recent acute or chronic abdominal pain, hematemesis, melena, recent change in bowel habits. Genitourinary system review: No recent acute or chronic hematuria, flank pain, UTI etc. reported. Skin system review: Negative for any recent abnormal bruising, no rash, no pruritus reported. Neurologic: History of Miller's palsy involving left side face, questionable history of prior stroke. Patient presents with fall. Psychologic: No history of major psychosis or major depression reported. Musculoskeletal: Minor aches and pains reported. No acute joint swelling reported. Endocrine: No recent polyuria, polydipsia, recent heat or cold intolerance. Physical Exam Vital Signs: Temp Pulse Resp BP Pulse Ox 98.0 F 72 18 107/56 L 100 06/03/17 11:32 06/03/17 11:32 06/03/17 11:32 06/03/17 11:32 06/03/17 11:32 Intake & Output 06/02/17 06/03/17 06/04/17 06:59 06:59 06:59 Intake Total 2234 2822 0 Output Total 775 800 Balance 1459 2022 0 Exam: GENERAL: well-nourished and in no acute distress. Alert and oriented x3, patient however noted to be lethargic. HEAD: Atraumatic, normocephalic. EYES: Pupils equal round and reactive to light, extraocular movements intact, sclera anicteric, conjunctiva are normal. ENT: TMs normal, nares patent, oropharynx clear without exudates. Moist mucous membranes. No oral ulcerations or bleeding gums noted NECK: supple without lymphadenopathy. Trachea is central. No cervical or axillary lymphadenopathy noted. Carotids are 2+, JVD WNL LUNGS: Respiration seems nonlabored, no significant accessory muscle action noted. Breath sounds clear to auscultation bilaterally and equal noted. No wheezes rales or rhonchi noted. No significant dullness noted on percussion. CHEST: Palpation of the chest wall shows no significant chest wall tenderness. No other significant abnormalities noted. 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 ABDOMEN: Soft, no significant tenderness appreciated, normoactive bowel sounds. No guarding, no rebound. No rigidity noted . No masses appreciated. EXTREMITIES: Pedal pulses are 1-2+, no calf tenderness noted. No clubbing or cyanosis.trace to 1+ pedal edema noted NEUROLOGICAL: Focused neurological exam showed no significant neurologic deficit. Normal speech, no focal weakness appreciated except for Miller's paralysis left-sided face. PSYCH: Not performed because of underlying lethargy. SKIN: No significant ecchymosis, rash, ulcerations or signs of pruritus noted. MUSCULOSKELETAL EXAM: No significant joint swelling noted. Results Laboratory Results: 06/03/17 05:44 06/03/17 05:44 06/03/17 06/03/17 06/03/17 05:44 05:44 11:30 WBC 7.0 RBC 2.66 L Hgb 7.9 L Hct 24.6 L MCV 93 MCH 29.7 MCHC 32.0 RDW 17.1 H Plt Count 242 Seg Neutrophils % 73.1 Lymphocytes % 15.2 Monocytes % 10.8 Eosinophils % 0.8 Basophils % 0.1 Absolute Neutrophils 5.1 Absolute Lymphocytes 1.1 Absolute Monocytes 0.8 Absolute Eosinophils 0.1 Absolute Basophils 0.0 Sodium 144.8 Potassium 3.5 L Chloride 112 H Carbon Dioxide 22 Anion Gap 11 BUN 52 H Creatinine 1.95 H Est GFR ( Amer) 30 L Est GFR (Non-Af Amer) 25 L Glucose 118 H Calcium 7.9 L Blood Type A POSITIVE Antibody Screen NEGATIVE 06/02/17 06/02/17 06/02/17 10:58 10:58 16:35 Creatine Kinase 131 238 H CK-MB (CK-2) 1.40 Troponin I 0.110 06/02/17 06/02/17 06/02/17 16:35 22:26 22:26 Creatine Kinase 233 H CK-MB (CK-2) 2.53 3.01 Troponin I 0.119 0.105 EKG Comments: Sinus tachycardia, QS complex V1 to V3 suggestive of prior anterior WI. Impressions: Head CT 06/01/17 13:19 IMPRESSION: Diffuse chronic small vessel ischemic change in the hemispheric white matter, left thalamus, and left basal ganglia. No acute changes EVIDENCE OF ACUTE STROKE: NO. Chest X-Ray 06/02/17 00:00 IMPRESSION: Dense right lower lobe pneumonia. Vascular congestion P Head MRI 06/02/17 00:00 IMPRESSION: ATROPHY AND CHRONIC MICRO-VASCULAR ISCHEMIC CHANGES. OTHERWISE NORMAL MRI OF THE BRAIN WITHOUT INTRAVENOUS GADOLINIUM CONTRAST. EVIDENCE OF ACUTE STROKE: NO. Abdomen/Pelvis CT 06/03/17 00:00 IMPRESSION: Somewhat limited study as noted above. Small right pleural effusion with some associated airspace consolidation which could represent atelectatic changes or pneumonic infiltrate. NO SIGNIFICANT OR ACUTE PROCESS IN THE ABDOMEN OR PELVIS. Assessment & Plan - Diagnosis (1) Elevated troponin Is this a current diagnosis for this admission?: Yes (2) Hypertension Qualifiers: Hypertension type: essential hypertension Qualified Code(s): I10 - Essential (primary) hypertension Is this a current diagnosis for this admission?: Yes (3) Fall at home Qualifiers: Encounter type: initial encounter Qualified Code(s): W19.XXXA - Unspecified fall, initial encounter; Y92.099 - Unspecified place in other non- institutional residence as the place of occurrence of the external cause; Y92.099 - Unspecified place in other non-institutional residence as the place of occurrence of the external cause Is this a current diagnosis for this admission?: Yes (4) Probable sepsis Is this a current diagnosis for this admission?: Yes (5) Anemia Qualifiers: Anemia type: unspecified type Qualified Code(s): D64.9 - Anemia, unspecified Is this a current diagnosis for this admission?: Yes (6) Abnormal electrocardiogram Is this a current diagnosis for this admission?: Yes - Notes Notes: Elevated troponin I: Exact etiology not clear but could be related to cardiac dysrhythmia, coronary artery disease, transient hypotension, hypertension. Patient will benefit from a stress test and this should be scheduled prior to discharge or as an outpatient. Hypertension: Blood pressure seems under reasonable control. Fall at home: Exact etiology not clear but could be related to cardiac dysrhythmia, severe hypertension or hypotension, electrolyte abnormalities and metabolic problem. Sepsis: Agree with obtaining blood cultures and empiric antibiotic therapy. Anemia: Patient has been noted to have significant drop in hemoglobin. Agree with blood transfusion. Abnormal electrocardiogram: Indicative of underlying CAD and prior anterior WI. 2D echo has been ordered will be reviewed. Will add Ranexa to patient's regimen. We will also recommend beta-magdalena and statin therapy. - Time Time Spent: 30 to 50 Minutes - CODE STATUS was discussed, patient remains full code. Surrogate decision-maker unchanged. Multiple medical problems were addressed. More than 50% of the time spent coordinating care, discussing management plans with involved caregivers. Management plans discussed with involved personnels. Medical decision making was of moderate to high complexity , patient's has multiple comorbidities. Medications reviewed and adjusted accordingly: Yes
--- NOTE | 2017-06-03 16:02 | XCELERA REPORT ---
[address] [address] Transthoracic Echocardiogram Report Name: NEIDA YEPEZ Age: 77 yrs Gender: Female : 1940 Patient Status: Inpatient Patient Location: [address] [place] [address] Study Date: 06/03/2017 02:48 PM Height: 67 in Weight: 187 lb BSA: 2.0 m2 Procedure: A complete two-dimensional transthoracic echocardiogram was performed (2D, M-mode, spectral and color flow Doppler). The study was technically difficult with many images being suboptimal in quality. Reason For Study: abn troponins Ordering Physician: HUDSON BENZ Performed By: Amparo Niño Interpretation Summary Left ventricular systolic function is moderate to severely reduced. The Ejection Fraction estimate is 30-35% apical and anterior wall thinning The left ventricle is mildly dilated. Doppler measurements suggest pseudonormalized left ventricular relaxation, which is associated with grade II/IV or mild to moderate diastolic dysfunction There is mid to distal anterior wall akinesis There is apical wall akinesis Borderline right ventricular enlargement. The left atrium is mildly dilated. The right atrium is normal in size There is a moderate amount of mitral regurgitation There is no mitral valve stenosis. No aortic regurgitation is present. There is no aortic valve stenosis There is a trace to mild amount of tricuspid regurgitation There is mild pulmonary hypertension by echo Right ventricular systolic pressure is estimated to be elevated at 30- 40mmHg. The aortic root is not well visualized but is probably normal size. The inferior vena cava was not well visualized There is no pericardial effusion. MMode/2D Measurements & Calculations RVDd: 2.9 cm LVIDd: 6.0 cm FS: 15.2 % MV Diam: IVSd: 0.93 cm LVIDs: 5.1 cm EDV(Teich): 2.4 cm LVPWd: 0.90 cm 181.3 ml ESV(Teich): 123.9 ml EF(Teich): 31.6 % Ao root diam: LVOT diam: 1.9 cm LA A2Cs: 26.5 cm2LA A4Cs: 2.9 cm LVOT area: 2.8 cm2 23.9 cm2 Ao root area: 6.6 cm2 LA dimension: 3.9 cm LA length: 5.5 cm LA Vol Index (BP): LA Volume: 97.9 ml 49.8 ml/m2 Doppler Measurements & Calculations MV E max mallorie: MV area (1 diam): MV P1/2t max mallorie: Ao V2 max: 61.4 cm/sec 4.4 cm2 61.7 cm/sec 159.0 cm/sec MV A max mallorie: MV Flow area MV P1/2t: 68.4 msec Ao max P.5 cm/sec MVA(P1/2t): 3.2 cm2 10.1 mmHg MV E/A: 2.0 (1diam): 4.4 cm2 MV dec slope: GERMAN(V,D): 1.6 cm2 264.1 cm/sec2 LV V1 max PG: MR max mallorie: PA V2 max: PI end-d mallorie: 3.1 mmHg 488.7 cm/sec 106.6 cm/sec 203.2 cm/sec LV V1 max: MR max PG: PA max P.5 mmHg 87.6 cm/sec 95.5 mmHg LV dP/dt: 606.0 mmHg/s TR max mallorie: 273.6 cm/sec TR max P.0 mmHg Left Ventricle The left ventricle is mildly dilated. apical and anterior wall thinning. Left ventricular systolic function is moderate to severely reduced. The Ejection Fraction estimate is 30-35%. Doppler measurements suggest pseudonormalized left ventricular relaxation, which is associated with grade II/IV or mild to moderate diastolic dysfunction. There is mid to distal anterior wall akinesis. There is apical wall akinesis. Right Ventricle Borderline right ventricular enlargement. There is normal right ventricular wall thickness. The right ventricular systolic function is normal. Atria The right atrium is normal in size. The left atrium is mildly dilated. A patent foramen ovale is present. Mitral Valve The mitral valve leaflets are sclerotic, but show no functional abnormalities. There is no mitral valve stenosis. There is a moderate amount of mitral regurgitation. Aortic Valve The aortic valve is grossly normal. There is no aortic valve stenosis. No aortic regurgitation is present. Tricuspid Valve The tricuspid valve is not well visualized, but is grossly normal. There is no tricuspid stenosis. There is a trace to mild amount of tricuspid regurgitation. There is mild pulmonary hypertension by echo. Right ventricular systolic pressure is estimated to be elevated at 30-40mmHg. Pulmonic Valve The pulmonic valve is not well visualized. Great Vessels The aortic root is not well visualized but is probably normal size. The inferior vena cava was not well visualized. Effusions There is no pericardial effusion. : HUDSON BENZ > Hudson Benz
[2017-06-03 20:08] LABS: HEMATOCRIT 30.5 % (36.0-47.0); HGB HCT DIFFERENCE 0.1; MEAN CORPUSCULAR HEMOGLOBIN 31.2 pg (27.0-33.4); MEAN CORPUSCULAR HGB CONC 33.5 g/dL (32.0-36.0); MEAN CORPUSCULAR VOLUME 93 fl (80-97); RED BLOOD COUNT 3.27 10^6/uL (3.72-5.28); RED CELL DISTRIBUTION WIDTH 16.3 % (11.5-14.0)
[2017-06-03 20:09] LABS: HEMOGLOBIN 10.2 g/dL (12.0-15.5)
[2017-06-03 22:26] LABS: ARTERIAL BLOOD BASE EXCESS -2.4 mmol/L; ARTERIAL BLOOD O2 SATURATION 88.5 % (94-98)
[2017-06-03] MEDS: RANOLAZINE 500 MG TAB.SR.12H PO SCH (22:53)
[2017-06-03] MEDS: ATORVASTATIN CALCIUM 10 MG TABLET PO SCH (22:53)
[2017-06-04] MEDS: LANSOPRAZOLE 30 MG TAB.RAP.DR PO SCH (05:42)
[2017-06-04] MEDS: AZTREONAM 0.5 GM in DEXTROSE 5%-WATER 50 ML IV SCH ×3 (05:43→22:14)
[2017-06-04 06:50] LABS: ANION GAP 10 (5-19); BLOOD UREA NITROGEN 46 mg/dL (7-20); CALCIUM 8.4 mg/dL (8.4-10.2); CARBON DIOXIDE 21 mmol/L (22-30); CHLORIDE 110 mmol/L (98-107); CREATININE RESULT 1.64 mg/dL (0.52-1.25); GLUCOSE 112 mg/dL (75-110); POTASSIUM 4.4 mmol/L (3.6-5.0); SODIUM 141.1 mmol/L (137-145)
--- NOTE | 2017-06-04 10:29 | PDOC PROGRESS REPORT ---
Subjective Progress Note for:: 06/04/17 Subjective:: Patient is currently doing fair Denied any chest pain denied any shortness of the breath Seen by the cardiology and and the Ranexa Patient's CT abdomen and pelvis was all stable Physical Exam Vital Signs: Temp Pulse Resp BP Pulse Ox 98.1 F 83 18 135/62 H 100 06/04/17 08:00 06/04/17 08:00 06/04/17 08:00 06/04/17 08:00 06/04/17 08:00 Intake & Output 06/03/17 06/04/17 06/05/17 06:59 06:59 06:59 Intake Total 2822 3725 Output Total 800 750 Balance 2021 2975 Weight 97.3 kg General appearance: PRESENT: no acute distress Eye exam: PRESENT: PERRLA Mouth exam: PRESENT: dry mucosa Neck exam: ABSENT: JVD Respiratory exam: PRESENT: clear to auscultation kishan Cardiovascular exam: PRESENT: +S1, +S2 GI/Abdominal exam: PRESENT: normal bowel sounds, soft Extremities exam: ABSENT: pedal edema Neurological exam: PRESENT: alert, awake, oriented to person, oriented to place Skin exam: PRESENT: dry Results Laboratory Results: 06/03/17 19:55 06/04/17 05:31 06/03/17 06/03/17 06/03/17 11:30 19:55 21:50 WBC 7.0 RBC 3.27 L Hgb 10.2 L D Hct 30.5 L MCV 93 MCH 31.2 MCHC 33.5 RDW 16.3 H Plt Count 236 Carbonic Acid 1.33 HCO3/H2CO3 Ratio 17:1 ABG pH 7.34 L ABG pCO2 44.3 ABG pO2 58.0 L ABG HCO3 23.4 ABG O2 Saturation 88.5 L ABG Base Excess -2.4 FiO2 3L Sodium Potassium Chloride Carbon Dioxide Anion Gap BUN Creatinine Est GFR ( Amer) Est GFR (Non-Af Amer) Glucose Calcium Blood Type A POSITIVE Antibody Screen NEGATIVE 06/04/17 05:31 WBC RBC Hgb Hct MCV MCH MCHC RDW Plt Count Carbonic Acid HCO3/H2CO3 Ratio ABG pH ABG pCO2 ABG pO2 ABG HCO3 ABG O2 Saturation ABG Base Excess FiO2 Sodium 141.1 Potassium 4.4 Chloride 110 H Carbon Dioxide 21 L Anion Gap 10 BUN 46 H Creatinine 1.64 H Est GFR ( Amer) 37 L Est GFR (Non-Af Amer) 30 L Glucose 112 H Calcium 8.4 Blood Type Antibody Screen 06/02/17 06/02/17 06/02/17 10:58 10:58 16:35 Creatine Kinase 131 238 H CK-MB (CK-2) 1.40 Troponin I 0.110 06/02/17 06/02/17 06/02/17 16:35 22:26 22:26 Creatine Kinase 233 H CK-MB (CK-2) 2.53 3.01 Troponin I 0.119 0.105 Impressions: Head CT 06/01/17 13:19 IMPRESSION: Diffuse chronic small vessel ischemic change in the hemispheric white matter, left thalamus, and left basal ganglia. No acute changes EVIDENCE OF ACUTE STROKE: NO. Chest X-Ray 06/02/17 00:00 IMPRESSION: Dense right lower lobe pneumonia. Vascular congestion P Head MRI 06/02/17 00:00 IMPRESSION: ATROPHY AND CHRONIC MICRO-VASCULAR ISCHEMIC CHANGES. OTHERWISE NORMAL MRI OF THE BRAIN WITHOUT INTRAVENOUS GADOLINIUM CONTRAST. EVIDENCE OF ACUTE STROKE: NO. Abdomen/Pelvis CT 06/03/17 00:00 IMPRESSION: Somewhat limited study as noted above. Small right pleural effusion with some associated airspace consolidation which could represent atelectatic changes or pneumonic infiltrate. NO SIGNIFICANT OR ACUTE PROCESS IN THE ABDOMEN OR PELVIS. Assessment & Plan - Diagnosis (1) Dehydration, severe Is this a current diagnosis for this admission?: Yes Plan: Currently all stable (2) Fall at home Qualifiers: Encounter type: initial encounter Qualified Code(s): W19.XXXA - Unspecified fall, initial encounter; Y92.099 - Unspecified place in other non- institutional residence as the place of occurrence of the external cause; Y92.099 - Unspecified place in other non-institutional residence as the place of occurrence of the external cause Is this a current diagnosis for this admission?: Yes Plan: We will rule out the any acute strokes and MRI of the head at the physical therapy and speech therapy evaluations (3) Hypernatremia Is this a current diagnosis for this admission?: Yes Plan: Deborah all improving (4) Probable sepsis Is this a current diagnosis for this admission?: Yes Plan: We will wait for the cultures continues to IV antibiotic part of the chest x-ray (5) Hypertension Qualifiers: Hypertension type: essential hypertension Qualified Code(s): I10 - Essential (primary) hypertension Is this a current diagnosis for this admission?: Yes Plan: Currently stable (6) Elevated troponin Is this a current diagnosis for this admission?: Yes Plan: Currently stable follow with the cardiology (7) Anemia Qualifiers: Anemia type: other cause Is this a current diagnosis for this admission?: Yes Plan: Post blood transfusions - Time Time Spent with patient: 15-24 minutes Medications reviewed and adjusted accordingly: Yes Anticipated discharge: Other Within: Other - Inpatient Certification Medical Necessity: Need Close Monitoring Due to Risk of Patient Decompensation, Need for IV Antibiotics 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
[2017-06-04] MEDS: CARVEDILOL 12.5 MG TABLET PO SCH ×2 (11:15→22:14)
[2017-06-04] MEDS: ENOXAPARIN SODIUM INJ 30 MG/0.3 ML DISP.SYRIN SUBCUT SCH (11:15)
[2017-06-04] MEDS: NYSTATIN TOPICAL POWDER 15 GM TP SCH ×2 (11:15→22:13)
[2017-06-04] MEDS: CLONIDINE HCL 0.2 MG TABLET PO SCH ×2 (11:15→22:14)
[2017-06-04] MEDS: RANOLAZINE 500 MG TAB.SR.12H PO SCH ×2 (11:17→22:14)
--- NOTE | 2017-06-04 16:57 | PDOC PROGRESS REPORT ---
Subjective Progress Note for:: 06/04/17 Subjective:: Patient doing somewhat better. She still remains quite ill. She is more alert. Chest x-ray and CT scan report reviewed. It seems patient may have underlying CHF from pleural effusion. Patient did receive some blood transfusion. 2D echo results reviewed showed severely depressed LVEF with evidence of prior myocardial infarction. So far telemetry strips not showing any sustained tachycardia or bradycardia arrhythmias. Patient is maintaining sinus rhythm. Physical Exam Vital Signs: Temp Pulse Resp BP Pulse Ox 98.3 F 77 18 120/54 L 100 06/04/17 12:00 06/04/17 14:00 06/04/17 12:00 06/04/17 12:00 06/04/17 12:00 Intake & Output 06/03/17 06/04/17 06/05/17 06:59 06:59 06:59 Intake Total 2822 3725 Output Total 800 750 Balance 2021 2975 Weight 97.3 kg Exam: GENERAL: well-nourished and in no acute distress. Alert and oriented x3 HEAD: Atraumatic, normocephalic. EYES: Pupils equal round and reactive to light, extraocular movements intact, sclera anicteric, conjunctiva are normal. ENT: TMs normal, nares patent, oropharynx clear without exudates. Moist mucous membranes. No oral ulcerations or bleeding gums noted NECK: supple without lymphadenopathy. Trachea is central. No cervical or axillary lymphadenopathy noted. Carotids are 2+, JVD WNL LUNGS: Respiration seems nonlabored, no significant accessory muscle action noted. Bibasilar fine crackles noted and right basal dullness noted on percussion. CHEST: Palpation of the chest wall shows no significant chest wall tenderness. No other significant abnormalities noted. 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 ABDOMEN: Soft, no significant tenderness appreciated, normoactive bowel sounds. No guarding, no rebound. No rigidity noted . No masses appreciated. EXTREMITIES: Pedal pulses are 1-2+, no calf tenderness noted. No clubbing or cyanosis. 1+ pedal edema noted NEUROLOGICAL: Focused neurological exam showed no significant neurologic deficit. Normal speech, no focal weakness appreciated. PSYCH: Normal mood, normal affect. Judgment and insight within normal limits. SKIN: No significant ecchymosis, rash, ulcerations or signs of pruritus noted. MUSCULOSKELETAL EXAM: No significant joint swelling noted. Results Laboratory Results: 06/03/17 19:55 06/04/17 05:31 06/03/17 06/03/17 06/04/17 19:55 21:50 05:31 WBC 7.0 RBC 3.27 L Hgb 10.2 L D Hct 30.5 L MCV 93 MCH 31.2 MCHC 33.5 RDW 16.3 H Plt Count 236 Carbonic Acid 1.33 HCO3/H2CO3 Ratio 17:1 ABG pH 7.34 L ABG pCO2 44.3 ABG pO2 58.0 L ABG HCO3 23.4 ABG O2 Saturation 88.5 L ABG Base Excess -2.4 FiO2 3L Sodium 141.1 Potassium 4.4 Chloride 110 H Carbon Dioxide 21 L Anion Gap 10 BUN 46 H Creatinine 1.64 H Est GFR ( Amer) 37 L Est GFR (Non-Af Amer) 30 L Glucose 112 H Calcium 8.4 06/02/17 06/02/17 06/02/17 10:58 10:58 16:35 Creatine Kinase 131 238 H CK-MB (CK-2) 1.40 Troponin I 0.110 06/02/17 06/02/17 06/02/17 16:35 22:26 22:26 Creatine Kinase 233 H CK-MB (CK-2) 2.53 3.01 Troponin I 0.119 0.105 Impressions: Head CT 06/01/17 13:19 IMPRESSION: Diffuse chronic small vessel ischemic change in the hemispheric white matter, left thalamus, and left basal ganglia. No acute changes EVIDENCE OF ACUTE STROKE: NO. Chest X-Ray 06/02/17 00:00 IMPRESSION: Dense right lower lobe pneumonia. Vascular congestion P Head MRI 06/02/17 00:00 IMPRESSION: ATROPHY AND CHRONIC MICRO-VASCULAR ISCHEMIC CHANGES. OTHERWISE NORMAL MRI OF THE BRAIN WITHOUT INTRAVENOUS GADOLINIUM CONTRAST. EVIDENCE OF ACUTE STROKE: NO. Abdomen/Pelvis CT 06/03/17 00:00 IMPRESSION: Somewhat limited study as noted above. Small right pleural effusion with some associated airspace consolidation which could represent atelectatic changes or pneumonic infiltrate. NO SIGNIFICANT OR ACUTE PROCESS IN THE ABDOMEN OR PELVIS. Assessment & Plan - Diagnosis (1) Elevated troponin Is this a current diagnosis for this admission?: Yes (2) Hypertension Qualifiers: Hypertension type: essential hypertension Qualified Code(s): I10 - Essential (primary) hypertension Is this a current diagnosis for this admission?: Yes (3) Fall at home Qualifiers: Encounter type: initial encounter Qualified Code(s): W19.XXXA - Unspecified fall, initial encounter; Y92.099 - Unspecified place in other non- institutional residence as the place of occurrence of the external cause; Y92.099 - Unspecified place in other non-institutional residence as the place of occurrence of the external cause Is this a current diagnosis for this admission?: Yes (4) Probable sepsis Is this a current diagnosis for this admission?: Yes (5) Anemia Qualifiers: Anemia type: unspecified type Qualified Code(s): D64.9 - Anemia, unspecified Is this a current diagnosis for this admission?: Yes (6) Abnormal electrocardiogram Is this a current diagnosis for this admission?: Yes (7) Congestive heart failure Qualifiers: Congestive heart failure type: combined Congestive heart failure chronicity : chronic Qualified Code(s): I50.42 - Chronic combined systolic (congestive) and diastolic (congestive) heart failure Is this a current diagnosis for this admission?: Yes - Notes Notes: Elevated troponin I: Exact etiology not clear but could be related to cardiac dysrhythmia, coronary artery disease, transient hypotension, hypertension. Patient will benefit from a stress test and this should be scheduled prior to discharge or as an outpatient. Troponin I elevation has remained stable. Feel that patient had chronic CHF and also had a prior myocardial infarction sometimes ago as there is already thinning of the myocardial wall. Hypertension: Blood pressure seems under reasonable control. Fall at home: Exact etiology not clear but could be related to cardiac dysrhythmia, severe hypertension or hypotension, electrolyte abnormalities and metabolic problem. Sepsis: Agree with obtaining blood cultures and empiric antibiotic therapy. Anemia: Patient has been noted to have significant drop in hemoglobin. Agree with blood transfusion. Abnormal electrocardiogram: Indicative of underlying CAD and prior anterior GA. Recommend ASHANTI inhibitor/ARB/entresto therapy. Will add Ranexa to patient's regimen. We will also recommend beta-magdalena and statin therapy. - Time Time with patient: 15-25 minutes
[2017-06-04] MEDS: DOCUSATE SODIUM 100 MG CAPSULE PO SCH (17:30)
[2017-06-04] MEDS: ATORVASTATIN CALCIUM 10 MG TABLET PO SCH (22:14)
[2017-06-05] MEDS: LANSOPRAZOLE 30 MG TAB.RAP.DR PO SCH (05:29)
[2017-06-05] MEDS: AZTREONAM 0.5 GM in DEXTROSE 5%-WATER 50 ML IV SCH ×3 (05:30→22:20)
[2017-06-05 07:59] LABS: ANION GAP 13 (5-19); BLOOD UREA NITROGEN 47 mg/dL (7-20); CALCIUM 8.1 mg/dL (8.4-10.2); CARBON DIOXIDE 19 mmol/L (22-30); CHLORIDE 108 mmol/L (98-107); CREATININE RESULT 1.34 mg/dL (0.52-1.25); GLUCOSE 95 mg/dL (75-110); POTASSIUM 4.9 mmol/L (3.6-5.0)
[2017-06-05] MEDS: ENOXAPARIN SODIUM INJ 30 MG/0.3 ML DISP.SYRIN SUBCUT SCH (10:29)
[2017-06-05] MEDS: FUROSEMIDE 20 MG TABLET PO SCH (10:31)
[2017-06-05] MEDS: CARVEDILOL 12.5 MG TABLET PO SCH ×2 (10:32→22:19)
[2017-06-05] MEDS: CLONIDINE HCL 0.2 MG TABLET PO SCH ×2 (10:32→22:19)
[2017-06-05] MEDS: RANOLAZINE 500 MG TAB.SR.12H PO SCH ×2 (10:35→22:19)
[2017-06-05] MEDS: NYSTATIN TOPICAL POWDER 15 GM TP SCH ×2 (10:37→22:19)
[2017-06-05] MEDS: POLYETHYLENE GLYCOL 3350 POWDER 17 GM/1 PACKET PO SCH (10:37)
[2017-06-05] MEDS: DOCUSATE SODIUM 100 MG CAPSULE PO SCH ×2 (10:37→18:39)
--- NOTE | 2017-06-05 10:42 | PDOC PROGRESS REPORT ---
Subjective Progress Note for:: 06/05/17 Subjective:: Patient is currently doing fair Had any chest pain Denied shortness of the breath Physical Exam Vital Signs: Temp Pulse Resp BP Pulse Ox 98.3 F 73 20 122/72 100 06/05/17 07:42 06/05/17 07:42 06/05/17 07:42 06/05/17 07:42 06/05/17 07:42 Intake & Output 06/04/17 06/05/17 06/06/17 06:59 06:59 06:59 Intake Total 3725 1045 Output Total 750 750 Balance 2975 295 Weight 97.3 kg 96.6 kg General appearance: PRESENT: no acute distress, well-developed, well-nourished Head exam: PRESENT: atraumatic, normocephalic Eye exam: PRESENT: conjunctiva pink, EOMI, PERRLA. ABSENT: scleral icterus Ear exam: PRESENT: normal external ear exam Mouth exam: PRESENT: moist, tongue midline Neck exam: PRESENT: full ROM. ABSENT: carotid bruit, JVD, lymphadenopathy, thyromegaly Respiratory exam: PRESENT: clear to auscultation kishan Cardiovascular exam: PRESENT: RRR. ABSENT: diastolic murmur, rubs, systolic murmur Pulses: PRESENT: normal dorsalis pedis pul, +2 pedal pulses bilateral Vascular exam: PRESENT: normal capillary refill GI/Abdominal exam: PRESENT: normal bowel sounds, soft. ABSENT: distended, guarding, mass, organolmegaly, rebound, tenderness Rectal exam: PRESENT: deferred Neurological exam: PRESENT: alert, awake, oriented to person, oriented to place , oriented to time, oriented to situation, CN II-XII grossly intact. ABSENT: motor sensory deficit Psychiatric exam: PRESENT: appropriate affect, normal mood. ABSENT: homicidal ideation, suicidal ideation Skin exam: PRESENT: dry, intact, warm. ABSENT: cyanosis, rash Results Laboratory Results: 06/03/17 19:55 06/05/17 07:24 06/05/17 07:24 Sodium 140.0 Potassium 4.9 Chloride 108 H Carbon Dioxide 19 L Anion Gap 13 BUN 47 H Creatinine 1.34 H Est GFR ( Amer) 47 L Est GFR (Non-Af Amer) 38 L Glucose 95 Calcium 8.1 L 06/02/17 06/02/17 06/02/17 10:58 10:58 16:35 Creatine Kinase 131 238 H CK-MB (CK-2) 1.40 Troponin I 0.110 06/02/17 06/02/17 06/02/17 16:35 22:26 22:26 Creatine Kinase 233 H CK-MB (CK-2) 2.53 3.01 Troponin I 0.119 0.105 Impressions: Head CT 06/01/17 13:19 IMPRESSION: Diffuse chronic small vessel ischemic change in the hemispheric white matter, left thalamus, and left basal ganglia. No acute changes EVIDENCE OF ACUTE STROKE: NO. Chest X-Ray 06/02/17 00:00 IMPRESSION: Dense right lower lobe pneumonia. Vascular congestion P Head MRI 06/02/17 00:00 IMPRESSION: ATROPHY AND CHRONIC MICRO-VASCULAR ISCHEMIC CHANGES. OTHERWISE NORMAL MRI OF THE BRAIN WITHOUT INTRAVENOUS GADOLINIUM CONTRAST. EVIDENCE OF ACUTE STROKE: NO. Abdomen/Pelvis CT 06/03/17 00:00 IMPRESSION: Somewhat limited study as noted above. Small right pleural effusion with some associated airspace consolidation which could represent atelectatic changes or pneumonic infiltrate. NO SIGNIFICANT OR ACUTE PROCESS IN THE ABDOMEN OR PELVIS. Assessment & Plan - Diagnosis (1) Dehydration, severe Is this a current diagnosis for this admission?: Yes Plan: resolved (2) Fall at home Qualifiers: Encounter type: initial encounter Qualified Code(s): W19.XXXA - Unspecified fall, initial encounter; Y92.099 - Unspecified place in other non- institutional residence as the place of occurrence of the external cause; Y92.099 - Unspecified place in other non-institutional residence as the place of occurrence of the external cause Is this a current diagnosis for this admission?: Yes Plan: We will rule out the any acute strokes and MRI of the head at the physical therapy and speech therapy evaluations (3) Hypernatremia Is this a current diagnosis for this admission?: Yes Plan: Resolved (4) Probable sepsis Is this a current diagnosis for this admission?: Yes Plan: We will wait for the cultures continues to IV antibiotic part of the chest x-ray (5) Hypertension Qualifiers: Hypertension type: essential hypertension Qualified Code(s): I10 - Essential (primary) hypertension Is this a current diagnosis for this admission?: Yes Plan: Currently stable (6) Elevated troponin Is this a current diagnosis for this admission?: Yes Plan: Currently on the Lasix and the Ranexa follow with the cardiology (7) Anemia Qualifiers: Anemia type: other cause Is this a current diagnosis for this admission?: Yes Plan: B consider GI consult in the morning - Time Time Spent with patient: 15-24 minutes Medications reviewed and adjusted accordingly: Yes Anticipated discharge: SNF Within: Other - Inpatient Certification Medical Necessity: Need Close Monitoring Due to Risk of Patient Decompensation Post Hospital Care: D/C 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
[2017-06-05 11:13] LABS: ABSOLUTE EOSINOPHILS # (AUTO) 0.1 10^3/uL (0.0-0.6); ABSOLUTE LYMPHOCYTES (AUTO) 0.9 10^3/uL (0.5-4.7); ABSOLUTE MONOCYTES (AUTO) 0.8 10^3/uL (0.1-1.4); BASOPHILS % (AUTO) 0.3 % (0-2); EOSINOPHILS % (AUTO) 0.8 % (0-6); HEMATOCRIT 30.9 % (36.0-47.0); HEMOGLOBIN 10.1 g/dL (12.0-15.5); HGB HCT DIFFERENCE -0.6; LYMPHOCYTES % (AUTO) 12.6 % (13-45); MEAN CORPUSCULAR HEMOGLOBIN 30.7 pg (27.0-33.4); MEAN CORPUSCULAR HGB CONC 32.6 g/dL (32.0-36.0); MEAN CORPUSCULAR VOLUME 94 fl (80-97); MONOCYTES % (AUTO) 12.1 % (3-13); RED BLOOD COUNT 3.27 10^6/uL (3.72-5.28); RED CELL DISTRIBUTION WIDTH 16.5 % (11.5-14.0); SEGMENTED NEUTROPHILS % (AUTO) 74.2 % (42-78); WHITE BLOOD COUNT 6.8 10^3/uL (4.0-10.5)
[2017-06-05] MEDS ORDERED: FUROSEMIDE INJ/PF 20 MG/2 ML SDV IV ONE (14:00)
--- NOTE | 2017-06-05 20:21 | PDOC PROGRESS REPORT ---
Subjective Progress Note for:: 06/05/17 Subjective:: Patient doing somewhat better. She still remains quite ill. She is more alert. Chest x-ray and CT scan report reviewed. It seems patient may have underlying CHF from pleural effusion. Patient did receive some blood transfusion. 2D echo results reviewed showed severely depressed LVEF with evidence of prior myocardial infarction. So far telemetry strips not showing any sustained tachycardia or bradycardia arrhythmias. Patient is maintaining sinus rhythm. Nurse told me that she has noted some apneic spell in this lady. Patient was also noted to be somewhat volume overloaded. IV Lasix 20 mg was ordered. Have also started patient on entresto. Physical Exam Vital Signs: Temp Pulse Resp BP Pulse Ox 98.1 F 85 20 127/79 H 92 06/05/17 15:50 06/05/17 19:00 06/05/17 15:50 06/05/17 15:50 06/05/17 15:50 Intake & Output 06/04/17 06/05/17 06/06/17 06:59 06:59 06:59 Intake Total 3725 1045 830 Output Total 750 750 550 Balance 2975 295 280 Weight 97.3 kg 96.6 kg Exam: GENERAL: well-nourished and in no acute distress. Alert and oriented x3 HEAD: Atraumatic, normocephalic. EYES: Pupils equal round and reactive to light, extraocular movements intact, sclera anicteric, conjunctiva are normal. ENT: TMs normal, nares patent, oropharynx clear without exudates. Moist mucous membranes. No oral ulcerations or bleeding gums noted NECK: supple without lymphadenopathy. Trachea is central. No cervical or axillary lymphadenopathy noted. Carotids are 2+, JVD 8-10 cm LUNGS: Respiration seems nonlabored, no significant accessory muscle action noted. Bibasilar fine crackles with right basal dullness noted on percussion. CHEST: Palpation of the chest wall shows no significant chest wall tenderness. No other significant abnormalities noted. 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 ABDOMEN: Soft, no significant tenderness appreciated, normoactive bowel sounds. No guarding, no rebound. No rigidity noted . No masses appreciated. EXTREMITIES: Pedal pulses are 1-2+, no calf tenderness noted. No clubbing or cyanosis.trace to 1+ pedal edema noted NEUROLOGICAL: Focused neurological exam showed no significant neurologic deficit. Normal speech, no focal weakness appreciated, except lower motor neuron type left side face. PSYCH: Normal mood, normal affect. Judgment and insight within normal limits. SKIN: No significant ecchymosis, rash, ulcerations or signs of pruritus noted. MUSCULOSKELETAL EXAM: No significant joint swelling noted. Results Laboratory Results: 06/05/17 07:24 06/05/17 07:24 06/05/17 06/05/17 07:24 07:24 WBC 6.8 RBC 3.27 L Hgb 10.1 L Hct 30.9 L MCV 94 MCH 30.7 MCHC 32.6 RDW 16.5 H Plt Count 261 Seg Neutrophils % 74.2 Lymphocytes % 12.6 L Monocytes % 12.1 Eosinophils % 0.8 Basophils % 0.3 Absolute Neutrophils 5.0 Absolute Lymphocytes 0.9 Absolute Monocytes 0.8 Absolute Eosinophils 0.1 Absolute Basophils 0.0 Sodium 140.0 Potassium 4.9 Chloride 108 H Carbon Dioxide 19 L Anion Gap 13 BUN 47 H Creatinine 1.34 H Est GFR ( Amer) 47 L Est GFR (Non-Af Amer) 38 L Glucose 95 Calcium 8.1 L 06/02/17 06/02/17 06/02/17 10:58 10:58 16:35 Creatine Kinase 131 238 H CK-MB (CK-2) 1.40 Troponin I 0.110 06/02/17 06/02/17 06/02/17 16:35 22:26 22:26 Creatine Kinase 233 H CK-MB (CK-2) 2.53 3.01 Troponin I 0.119 0.105 EKG Comments: Sinus rhythm with occasional APCs and VPCs. Impressions: Head CT 06/01/17 13:19 IMPRESSION: Diffuse chronic small vessel ischemic change in the hemispheric white matter, left thalamus, and left basal ganglia. No acute changes EVIDENCE OF ACUTE STROKE: NO. Chest X-Ray 06/02/17 00:00 IMPRESSION: Dense right lower lobe pneumonia. Vascular congestion P Head MRI 06/02/17 00:00 IMPRESSION: ATROPHY AND CHRONIC MICRO-VASCULAR ISCHEMIC CHANGES. OTHERWISE NORMAL MRI OF THE BRAIN WITHOUT INTRAVENOUS GADOLINIUM CONTRAST. EVIDENCE OF ACUTE STROKE: NO. Abdomen/Pelvis CT 06/03/17 00:00 IMPRESSION: Somewhat limited study as noted above. Small right pleural effusion with some associated airspace consolidation which could represent atelectatic changes or pneumonic infiltrate. NO SIGNIFICANT OR ACUTE PROCESS IN THE ABDOMEN OR PELVIS. Assessment & Plan - Diagnosis (1) Elevated troponin Is this a current diagnosis for this admission?: Yes (2) Hypertension Qualifiers: Hypertension type: essential hypertension Qualified Code(s): I10 - Essential (primary) hypertension Is this a current diagnosis for this admission?: Yes (3) Fall at home Qualifiers: Encounter type: initial encounter Qualified Code(s): W19.XXXA - Unspecified fall, initial encounter; Y92.099 - Unspecified place in other non- institutional residence as the place of occurrence of the external cause; Y92.099 - Unspecified place in other non-institutional residence as the place of occurrence of the external cause Is this a current diagnosis for this admission?: Yes (4) Probable sepsis Is this a current diagnosis for this admission?: Yes (5) Anemia Qualifiers: Anemia type: unspecified type Qualified Code(s): D64.9 - Anemia, unspecified Is this a current diagnosis for this admission?: Yes (6) Abnormal electrocardiogram Is this a current diagnosis for this admission?: Yes (7) Congestive heart failure Qualifiers: Congestive heart failure type: combined Congestive heart failure chronicity : chronic Qualified Code(s): I50.42 - Chronic combined systolic (congestive) and diastolic (congestive) heart failure Is this a current diagnosis for this admission?: Yes - Notes Notes: Congestive heart failure: Most likely related to systolic and diastolic dysfunction combined with some volume overload. Anemia contributing. Have placed patient on entresto and also gave orders for IV Lasix 20 mg. Elevated troponin I: Exact etiology not clear but could be related to cardiac dysrhythmia, coronary artery disease, transient hypotension, hypertension. Patient will benefit from a stress test and this should be scheduled prior to discharge or as an outpatient. Troponin I elevation has remained stable. Feel that patient had chronic CHF and also had a prior myocardial infarction sometimes ago as there is already thinning of the myocardial wall. Hypertension: Blood pressure seems under reasonable control. Fall at home: Exact etiology not clear but could be related to cardiac dysrhythmia, severe hypertension or hypotension, electrolyte abnormalities and metabolic problem. Sepsis: Agree with obtaining blood cultures and empiric antibiotic therapy. Anemia: Patient has been noted to have significant drop in hemoglobin. Patient received blood transfusion. Maintain hemoglobin above 9 g percent. Abnormal electrocardiogram: Indicative of underlying CAD and prior anterior WI. Recommend ASHANTI inhibitor/ARB/entresto therapy. Patient's medical regimen has been optimized. Dr. Lazaro similar to follow from tomorrow. - Time Time with patient: Greater than 35 minutes - More than 50% of the time spent coordinating care, discussing management plans with involved caregivers. Management plans discussed with involved personnels. Medical decision making was of moderate to high complexity, patient's has multiple comorbidities. Medications reviewed and adjusted accordingly: Yes
[2017-06-05] MEDS: ATORVASTATIN CALCIUM 10 MG TABLET PO SCH (22:19)
[2017-06-05] MEDS: SACUBITRIL/VALSARTAN 24 MG/26 MG TABLET PO SCH (22:19)
[2017-06-06] MEDS: LANSOPRAZOLE 30 MG TAB.RAP.DR PO SCH (06:02)
[2017-06-06] MEDS: AZTREONAM 0.5 GM in DEXTROSE 5%-WATER 50 ML IV SCH ×2 (06:02→13:40)
[2017-06-06 07:32] LABS: ABSOLUTE EOSINOPHILS # (AUTO) 0.1 10^3/uL (0.0-0.6); ABSOLUTE NEUT (AUTO) 4.7 10^3/uL (1.7-8.2); BASOPHILS % (AUTO) 0.4 % (0-2); EOSINOPHILS % (AUTO) 1.2 % (0-6); HEMATOCRIT 33.2 % (36.0-47.0); HEMOGLOBIN 10.8 g/dL (12.0-15.5); HGB HCT DIFFERENCE -0.8; LYMPHOCYTES % (AUTO) 14.9 % (13-45); MEAN CORPUSCULAR HEMOGLOBIN 30.3 pg (27.0-33.4); MEAN CORPUSCULAR HGB CONC 32.5 g/dL (32.0-36.0); MEAN CORPUSCULAR VOLUME 93 fl (80-97); MONOCYTES % (AUTO) 14.1 % (3-13); RED BLOOD COUNT 3.56 10^6/uL (3.72-5.28); RED CELL DISTRIBUTION WIDTH 16.4 % (11.5-14.0); SEGMENTED NEUTROPHILS % (AUTO) 69.4 % (42-78); WHITE BLOOD COUNT 6.8 10^3/uL (4.0-10.5)
[2017-06-06 09:28] LABS: ANION GAP 9 (5-19); BLOOD UREA NITROGEN 47 mg/dL (7-20); CALCIUM 8.6 mg/dL (8.4-10.2); CARBON DIOXIDE 22 mmol/L (22-30); CHLORIDE 109 mmol/L (98-107); CREATININE RESULT 1.43 mg/dL (0.52-1.25); GLUCOSE 106 mg/dL (75-110); POTASSIUM 5.1 mmol/L (3.6-5.0); SODIUM 139.8 mmol/L (137-145)
[2017-06-06] MEDS: FUROSEMIDE 20 MG TABLET PO SCH (10:41)
[2017-06-06] MEDS: POLYETHYLENE GLYCOL 3350 POWDER 17 GM/1 PACKET PO SCH (10:41)
[2017-06-06] MEDS: CLONIDINE HCL 0.2 MG TABLET PO SCH ×2 (10:41→22:07)
[2017-06-06] MEDS: CARVEDILOL 12.5 MG TABLET PO SCH ×2 (10:41→22:07)
[2017-06-06] MEDS: DOCUSATE SODIUM 100 MG CAPSULE PO SCH ×2 (10:41→16:52)
[2017-06-06] MEDS: RANOLAZINE 500 MG TAB.SR.12H PO SCH ×2 (10:41→22:07)
[2017-06-06] MEDS: SACUBITRIL/VALSARTAN 24 MG/26 MG TABLET PO SCH ×2 (10:42→22:07)
[2017-06-06] MEDS: ENOXAPARIN SODIUM INJ 30 MG/0.3 ML DISP.SYRIN SUBCUT SCH (10:42)
[2017-06-06] MEDS: NYSTATIN TOPICAL POWDER 15 GM TP SCH ×2 (10:42→22:07)
--- NOTE | 2017-06-06 18:10 | PDOC PROGRESS REPORT ---
Subjective Progress Note for:: 06/06/17 Subjective:: Nursing staff reported some degree of difficulty with swallowing, particular with thin liquid. P.O intake fair. There is concern with constipation. No chest pain or difficulty with breathing. Interval events and cardiology consultation and recommendations noted. Reason For Visit: SEVERE DEHYDRATION,FALL Physical Exam Vital Signs: Temp Pulse Resp BP Pulse Ox 98.2 F 72 18 116/61 98 06/06/17 15:00 06/06/17 15:00 06/06/17 15:00 06/06/17 15:00 06/06/17 15:00 Intake & Output 06/05/17 06/06/17 06/07/17 06:59 06:59 06:59 Intake Total 1045 1313 168 Output Total 197 002 9413 Balance 295 363 -832 Weight 96.6 kg General appearance: PRESENT: no acute distress, cooperative Head exam: PRESENT: atraumatic, normocephalic Eye exam: PRESENT: conjunctiva pink, EOMI, PERRLA. ABSENT: scleral icterus Mouth exam: PRESENT: dry mucosa - fairly dry Teeth exam: PRESENT: poor dentation Respiratory exam: PRESENT: decreased breath sounds - at lung bases Cardiovascular exam: PRESENT: RRR. ABSENT: diastolic murmur, rubs, systolic murmur Vascular exam: PRESENT: normal capillary refill. ABSENT: pallor GI/Abdominal exam: PRESENT: normal bowel sounds, soft. ABSENT: distended, guarding, mass, organolmegaly, rebound, tenderness Extremities exam: ABSENT: pedal edema Musculoskeletal exam: PRESENT: deformity - due to multiple joints involvement with arthritis Neurological exam: PRESENT: alert - and appropriate in simple responses, awake, motor sensory deficit Psychiatric exam: PRESENT: appropriate affect, normal mood. ABSENT: homicidal ideation, suicidal ideation Skin exam: PRESENT: dry, intact, warm. ABSENT: cyanosis, rash Results Laboratory Results: 06/06/17 06:15 06/06/17 08:51 06/06/17 06/06/17 06/06/17 06:15 06:15 08:51 WBC 6.8 RBC 3.56 L Hgb 10.8 L Hct 33.2 L MCV 93 MCH 30.3 MCHC 32.5 RDW 16.4 H Plt Count 254 Seg Neutrophils % 69.4 Lymphocytes % 14.9 Monocytes % 14.1 H Eosinophils % 1.2 Basophils % 0.4 Absolute Neutrophils 4.7 Absolute Lymphocytes 1.0 Absolute Monocytes 1.0 Absolute Eosinophils 0.1 Absolute Basophils 0.0 Sodium Cancelled 139.8 Potassium Cancelled 5.1 H Chloride Cancelled 109 H Carbon Dioxide Cancelled 22 Anion Gap Cancelled 9 BUN Cancelled 47 H Creatinine Cancelled 1.43 H Est GFR ( Amer) Cancelled 43 L Est GFR (Non-Af Amer) Cancelled 36 L Glucose Cancelled 106 Calcium Cancelled 8.6 06/02/17 06/02/17 06/02/17 10:58 10:58 16:35 Creatine Kinase 131 238 H CK-MB (CK-2) 1.40 Troponin I 0.110 06/02/17 06/02/17 06/02/17 16:35 22:26 22:26 Creatine Kinase 233 H CK-MB (CK-2) 2.53 3.01 Troponin I 0.119 0.105 Impressions: Head CT 06/01/17 13:19 IMPRESSION: Diffuse chronic small vessel ischemic change in the hemispheric white matter, left thalamus, and left basal ganglia. No acute changes EVIDENCE OF ACUTE STROKE: NO. Chest X-Ray 06/02/17 00:00 IMPRESSION: Dense right lower lobe pneumonia. Vascular congestion P Head MRI 06/02/17 00:00 IMPRESSION: ATROPHY AND CHRONIC MICRO-VASCULAR ISCHEMIC CHANGES. OTHERWISE NORMAL MRI OF THE BRAIN WITHOUT INTRAVENOUS GADOLINIUM CONTRAST. EVIDENCE OF ACUTE STROKE: NO. Abdomen/Pelvis CT 06/03/17 00:00 IMPRESSION: Somewhat limited study as noted above. Small right pleural effusion with some associated airspace consolidation which could represent atelectatic changes or pneumonic infiltrate. NO SIGNIFICANT OR ACUTE PROCESS IN THE ABDOMEN OR PELVIS. Assessment & Plan - Diagnosis (1) Fall at home Qualifiers: Encounter type: initial encounter Qualified Code(s): W19.XXXA - Unspecified fall, initial encounter; Y92.099 - Unspecified place in other non- institutional residence as the place of occurrence of the external cause; Y92.099 - Unspecified place in other non-institutional residence as the place of occurrence of the external cause Is this a current diagnosis for this admission?: Yes (2) Probable sepsis Is this a current diagnosis for this admission?: Yes (3) Dehydration, severe Is this a current diagnosis for this admission?: Yes (4) Hypernatremia Is this a current diagnosis for this admission?: Yes (5) Facial droop Is this a current diagnosis for this admission?: Yes (6) Hypertension Qualifiers: Hypertension type: essential hypertension Qualified Code(s): I10 - Essential (primary) hypertension Is this a current diagnosis for this admission?: Yes (7) Osteoarthritis Qualifiers: Osteoarthritis location: multiple joints Osteoarthritis type: primary Qualified Code(s): M15.0 - Primary generalized (osteo)arthritis Is this a current diagnosis for this admission?: Yes (8) Combined systolic and diastolic congestive heart failure Qualifiers: Congestive heart failure chronicity: chronic Qualified Code(s): I50.42 - Chronic combined systolic (congestive) and diastolic (congestive) heart failure Is this a current diagnosis for this admission?: Yes Plan: Continue current medication management. Monitor BP and renal indices on diuretic therapy with Entresto. (9) Constipation by delayed colonic transit Is this a current diagnosis for this admission?: Yes Plan: Continue Polyethylene Glycol. Add Dulcolax 10 mg HI x 1 dose tonight. - Time Time Spent with patient: 35 or more minutes Medications reviewed and adjusted accordingly: Yes Anticipated discharge: SNF - for short term rehabilitation Within: Other - Inpatient Certification Based on my medical assessment, after consideration of the patient's comorbidities, presenting symptoms, or acuity I expect that the services needed warrant INPATIENT care.: Yes I certify that my determination is in accordance with my understanding of Medicare's requirements for reasonable and necessary INPATIENT services [42 CFR 412.3e].: Yes Medical Necessity: Need Close Monitoring Due to Risk of Patient Decompensation, Need For Continuous Telemetry Monitoring, Need for IV Antibiotics, Risk of Complication if Not Cared For in Hospital Post Hospital Care: D/C or Transfer Summary - Plan Summary Plan Summary: D/C Aztreonam. See other attending physician orders. environmental emergencies planner will look into SNF placement for rehabilitation when medically cleared.
[2017-06-06] MEDS: ATORVASTATIN CALCIUM 10 MG TABLET PO SCH (22:07)
--- NOTE | 2017-06-06 22:13 | PROGRESS NOTE E ---
Progress Note NAME: NEIDA YEPEZ : 1940 AGE: 77Y DATE: 06/06/2017 ROOM: 528 SUBJECTIVE: The patient is very lethargic and appears to be short of breath. She is very drowsy and answers in monosyllables. She complains of shortness of breath. She does have some PND and orthopnea. She has no leg edema. Note that the patient has no arrhythmias. There are no TIA or CVA symptoms. OBJECTIVE: GENERAL: On examination the patient is moderately obese, in distress due to shortness of breath. HEENT: Head is atraumatic, normocephalic. Eyes: Pupils are equal, round and regular, reactive to light and accommodation. Extraocular movements are normal. There is no conjunctival pallor. There is no scleral icterus. ENT is negative. NECK: Supple. There is a JVD present. There is no lymphadenopathy. There is no goiter. Carotids are equal. There is no bruit. LUNGS: Show absent breath sounds in both bases with a few rales. HEART: There is murmur of mitral regurgitation and tricuspid regurgitation present. S1 and S2 is heard. There is no S3 gallop. There is no S4 gallop. There is a systolic murmur in the left sternal border and the apex. There is no rub. ABDOMEN: Soft, nontender. There is no hepatosplenomegaly. Bowel sounds are well heard. There are no tender areas or masses. EXTREMITIES: Femorals are diminished. There are no femoral bruits. Leg pulses are diminished. There is trace pedal edema noted. CENTRAL NERVOUS SYSTEM: The patient is conscious, awake, but very drowsy and lethargic, but moves all 4 extremities. PSYCHIATRIC: The patient is not in a state to examine the patient psychiatrically. INTAKE/OUTPUT: The patient's 24-hour intake is 1313 mL, output is 915 mL. DIAGNOSTIC STUDIES: Note that the patient's echocardiogram done on 06/03, shows severely depressed ejection fraction of 30-35%. The patient's sodium is 139.8, potassium 5.1, chloride is 109, CO2 is 22. The patient's BUN is 47, creatinine 1.43, and GFR is 43 mL which is stage 4 chronic kidney disease. IMPRESSION: 1. CONGESTIVE HEART FAILURE. 2. ELEVATED TROPONIN I. 3. HYPERTENSION. 4. FALL AT HOME. 5. CONGESTIVE HEART FAILURE, ACUTE ON CHRONIC. 6. CARDIOMYOPATHY WITH SEVERELY REDUCED LV EJECTION FRACTION. 7. PROBABLE SEPSIS. 8. ANEMIA. 9. ABNORMAL EKG. PLAN: The congestive heart failure is likely related to systolic and diastolic dysfunction combined with some volume overload due to the patient's renal function. Anemia was contributing to this. The patient has been started on Entresto and also is on day 6. The patient is also on Coreg. Elevated troponin I exactly not clear but most likely related to the patient's congestive heart failure, transient hypotension, and hypertension. Blood pressure seems to be under reasonably at home. Fall at home, not clear but could be related to severe hypertension or hypotension. Continue current treatment. The patient's EKG shows underlying CAD and prior anterior [place]. Recommend Entresto therapy. Note 35 minutes spent on the patient with more than 50% of the time spent on direct patient care. The patient's medications have been reviewed and continue the patient's Coreg, atorvastatin, and the patient's Entresto. Continue the patient on Lasix. We will check a chest x-ray in the a.m. CODE STATUS: Note that the patient is a full code. Her granddaughter is the surrogate healthcare decision maker. DICTATING PHYSICIAN: RADHA RAHMAN M.D. [id number] CORINNA#: [id number] ID: [id number] JOB#: [id number] ACCT: [id number] cc: >
[2017-06-07 05:40] LABS: ANION GAP 10 (5-19); BLOOD UREA NITROGEN 44 mg/dL (7-20); CALCIUM 8.7 mg/dL (8.4-10.2); CARBON DIOXIDE 23 mmol/L (22-30); CHLORIDE 108 mmol/L (98-107); CREATININE RESULT 1.29 mg/dL (0.52-1.25); GLUCOSE 73 mg/dL (75-110); SODIUM 141.3 mmol/L (137-145)
[2017-06-07] MEDS: LANSOPRAZOLE 30 MG TAB.RAP.DR PO SCH (05:47)
[2017-06-07] MEDS: ENOXAPARIN SODIUM INJ 30 MG/0.3 ML DISP.SYRIN SUBCUT SCH (09:19)
[2017-06-07] MEDS: NYSTATIN TOPICAL POWDER 15 GM TP SCH ×2 (09:26→22:02)
[2017-06-07] MEDS: DOCUSATE SODIUM 100 MG CAPSULE PO SCH ×2 (09:29→18:25)
[2017-06-07] MEDS: FUROSEMIDE 20 MG TABLET PO SCH (09:29)
[2017-06-07] MEDS: CARVEDILOL 12.5 MG TABLET PO SCH ×2 (09:29→21:23)
[2017-06-07] MEDS: CLONIDINE HCL 0.2 MG TABLET PO SCH ×2 (09:29→21:23)
[2017-06-07] MEDS: RANOLAZINE 500 MG TAB.SR.12H PO SCH ×2 (09:34→21:24)
[2017-06-07] MEDS: POLYETHYLENE GLYCOL 3350 POWDER 17 GM/1 PACKET PO SCH (09:34)
[2017-06-07] MEDS: SACUBITRIL/VALSARTAN 24 MG/26 MG TABLET PO SCH ×2 (09:34→21:23)
[2017-06-07] MEDS ORDERED: BISACODYL 10 MG SUPP.RECT PR ONE (15:00)
--- NOTE | 2017-06-07 20:02 | PDOC PROGRESS REPORT ---
Subjective Progress Note for:: 06/07/17 Subjective:: Patient reported satisfactory bowel movement post administration of Dulcolax suppository earlier today. No abdominal pain , nausea or vomiting. Patient reported improved P.O intake at dinner. No chest pain or difficulty with breathing. No fever or chills. Reason For Visit: SEVERE DEHYDRATION,FALL Physical Exam Vital Signs: Temp Pulse Resp BP Pulse Ox 98.2 F 76 16 119/62 99 06/07/17 16:27 06/07/17 16:27 06/07/17 16:27 06/07/17 16:27 06/07/17 16:27 Intake & Output 06/06/17 06/07/17 06/08/17 06:59 06:59 06:59 Intake Total 1313 273 430 Output Total 950 2600 600 Balance 880 -2411 -265 Weight 96.6 kg Physical Exam: General appearance: PRESENT: no acute distress, cooperative Head exam: PRESENT: atraumatic, normocephalic Eye exam: PRESENT: conjunctiva pink, EOMI, PERRLA. ABSENT: scleral icterus Mouth exam: PRESENT: dry mucosa - fairly dry Teeth exam: PRESENT: poor dentition Respiratory exam: PRESENT: decreased breath sounds - at lung bases Cardiovascular exam: PRESENT: RRR. ABSENT: diastolic murmur, rubs, systolic murmur Vascular exam: PRESENT: normal capillary refill. ABSENT: pallor GI/Abdominal exam: PRESENT: normal bowel sounds, soft. ABSENT: distended, guarding, mass, organomegaly, rebound, tenderness Extremities exam: ABSENT: pedal edema Musculoskeletal exam: PRESENT: deformity - due to multiple joints involvement with arthritis Neurological exam: PRESENT: alert - and appropriate in simple responses, awake, motor sensory deficit Psychiatric exam: PRESENT: appropriate affect, normal mood. ABSENT: homicidal ideation, suicidal ideation Skin exam: PRESENT: dry, intact, warm. ABSENT: cyanosis, rash Results Laboratory Results: 06/06/17 06:15 06/07/17 04:02 06/07/17 04:02 Sodium 141.3 Potassium 5.0 Chloride 108 H Carbon Dioxide 23 Anion Gap 10 BUN 44 H Creatinine 1.29 H Est GFR ( Amer) 49 L Est GFR (Non-Af Amer) 40 L Glucose 73 L Calcium 8.7 11/23/17 11/23/17 11/23/17 10:58 10:58 16:35 Creatine Kinase 131 238 H CK-MB (CK-2) 1.40 Troponin I 0.110 06/02/17 06/02/17 06/02/17 16:35 22:26 22:26 Creatine Kinase 233 H CK-MB (CK-2) 2.53 3.01 Troponin I 0.119 0.105 Impressions: Head CT 06/01/17 13:19 IMPRESSION: Diffuse chronic small vessel ischemic change in the hemispheric white matter, left thalamus, and left basal ganglia. No acute changes EVIDENCE OF ACUTE STROKE: NO. Chest X-Ray 06/02/17 00:00 IMPRESSION: Dense right lower lobe pneumonia. Vascular congestion P Head MRI 06/02/17 00:00 IMPRESSION: ATROPHY AND CHRONIC MICRO-VASCULAR ISCHEMIC CHANGES. OTHERWISE NORMAL MRI OF THE BRAIN WITHOUT INTRAVENOUS GADOLINIUM CONTRAST. EVIDENCE OF ACUTE STROKE: NO. Abdomen/Pelvis CT 06/03/17 00:00 IMPRESSION: Somewhat limited study as noted above. Small right pleural effusion with some associated airspace consolidation which could represent atelectatic changes or pneumonic infiltrate. NO SIGNIFICANT OR ACUTE PROCESS IN THE ABDOMEN OR PELVIS. Assessment & Plan - Diagnosis (1) Fall at home Qualifiers: Encounter type: initial encounter Qualified Code(s): W19.XXXA - Unspecified fall, initial encounter; Y92.099 - Unspecified place in other non- institutional residence as the place of occurrence of the external cause; Y92.099 - Unspecified place in other non-institutional residence as the place of occurrence of the external cause Is this a current diagnosis for this admission?: Yes (2) Probable sepsis Is this a current diagnosis for this admission?: Yes (3) Dehydration, severe Is this a current diagnosis for this admission?: Yes (4) Hypernatremia Is this a current diagnosis for this admission?: Yes (5) Facial droop Is this a current diagnosis for this admission?: Yes (6) Hypertension Qualifiers: Hypertension type: essential hypertension Qualified Code(s): I10 - Essential (primary) hypertension Is this a current diagnosis for this admission?: Yes (7) Osteoarthritis Qualifiers: Osteoarthritis location: multiple joints Osteoarthritis type: primary Qualified Code(s): M15.0 - Primary generalized (osteo)arthritis Is this a current diagnosis for this admission?: Yes (8) Combined systolic and diastolic congestive heart failure Qualifiers: Congestive heart failure chronicity: chronic Qualified Code(s): I50.42 - Chronic combined systolic (congestive) and diastolic (congestive) heart failure Is this a current diagnosis for this admission?: Yes (9) Constipation by delayed colonic transit Is this a current diagnosis for this admission?: Yes - Time Time Spent with patient: 25-34 minutes Medications reviewed and adjusted accordingly: Yes Anticipated discharge: SNF - for short term rehabilitation. Within: Other - Inpatient Certification Based on my medical assessment, after consideration of the patient's comorbidities, presenting symptoms, or acuity I expect that the services needed warrant INPATIENT care.: Yes I certify that my determination is in accordance with my understanding of Medicare's requirements for reasonable and necessary INPATIENT services [42 CFR 412.3e].: Yes Medical Necessity: Need Close Monitoring Due to Risk of Patient Decompensation, Need For IV Fluids, Need For Continuous Telemetry Monitoring, Need for IV Antibiotics, Risk of Diagnosis Which Will Require Inpatient Eval/Care/Monitoring Post Hospital Care: D/C or Transfer Summary - Plan Summary Plan Summary: Continue current medication management. Disposition plan for SNF short term rehabilitation was discussed with patient during this bedside visit and she is in agreement.
[2017-06-07] MEDS: ATORVASTATIN CALCIUM 10 MG TABLET PO SCH (21:23)
--- NOTE | 2017-06-07 23:18 | PROGRESS NOTE E ---
Progress Note NAME: NEIDA YEPEZ : 1940 AGE: 77Y DATE: 06/07/2017 ROOM: 528 SUBJECTIVE: When I saw the patient, she was still lethargic and short of breath. She denies any chest pain or discomfort. Oral intake last night was not very good. There was no arrhythmia seen and there were no TIA or CVA symptoms. She does have some PND and orthopnea. She also has some shortness of breath. OBJECTIVE: GENERAL: On examination the patient is moderately obese and looks chronically ill. VITAL SIGNS: She is afebrile with a temperature of 98.1 degrees Fahrenheit, pulse of 77 beats per minute, blood pressure 96/45, respirations of 14 per minute, 02 sats are 99% on 2.5 L nasal cannula. HEENT: Head is atraumatic, normocephalic. Eyes: Pupils are equal, round and regular, reactive to light and accommodation. Extraocular movements are normal. There is no conjunctival pallor. There is no scleral icterus. ENT is negative. NECK: Supple. There is JVD present. There is no lymphadenopathy. There is no goiter. Carotids are equal. There is no bruit. LUNGS: Show absent breath sounds in both bases with a few rales. HEART: There is murmur of mitral regurgitation and tricuspid regurgitation present. S1 and S2 is heard. There is no S3 gallop. There is no S4 gallop. There is a systolic murmur in the left sternal border and the apex. There is no rub. ABDOMEN: Soft, nontender. There is no hepatosplenomegaly. Bowel sounds are well heard. There are no tender areas or masses. EXTREMITIES: Femorals are diminished. There are no femoral bruits. Leg pulses are diminished. There is trace pedal edema noted. There is no cyanosis or clubbing. CENTRAL NERVOUS SYSTEM: The patient is awake but very drowsy and lethargic but moves all 4 extremities. PSYCHIATRIC: The patient is not in a state to examine the patient's psyche. DIAGNOSTIC STUDIES: The patient's sodium is 141.3, potassium 5.0, chloride is 108, CO2 is 23. The patient's BUN is 44, creatinine 1.29, and GFR is reduced at 49, which is chronic kidney disease stage 3. The patient's 24 hour intake is 273 mL; output is 2600 mL. IMPRESSION: 1. CONGESTIVE HEART FAILURE. 2. ELEVATED TROPONIN I. 3. HYPERTENSION. 4. FALL AT HOME. 5. CONGESTIVE HEART FAILURE, ACUTE ON CHRONIC. 6. CARDIOMYOPATHY WITH SEVERELY REDUCED LV EJECTION FRACTION. 7. PROBABLE SEPSIS. 8. ANEMIA. 9. ABNORMAL EKG. PLAN: Would recommend to continue the patient's Coreg. The patient is also on *------*. Continue diuretics. The patient's medications have been reviewed. Continue Ranexa. Continue atorvastatin. Note: The patient's decision making was highly complex in nature in view of the patient not doing much improvement on current therapy. Discussed with attending physician. Note: 35 minutes spent on this patient with more than 50% of the time spent on direct patient care and also review of the patient's medications. DICTATING PHYSICIAN: RADHA RAHMAN M.D. [id number] MERAY#: [id number] ID: [id number] JOB#: [id number] ACCT: [id number] cc: >
[2017-06-08] MEDS: LANSOPRAZOLE 30 MG TAB.RAP.DR PO SCH (05:38)
[2017-06-08 07:45] LABS: ANION GAP 8 (5-19); BLOOD UREA NITROGEN 39 mg/dL (7-20); CALCIUM 8.8 mg/dL (8.4-10.2); CARBON DIOXIDE 26 mmol/L (22-30); CHLORIDE 108 mmol/L (98-107); CREATININE RESULT 1.12 mg/dL (0.52-1.25); GLUCOSE 73 mg/dL (75-110); POTASSIUM 5.3 mmol/L (3.6-5.0); SODIUM 142.1 mmol/L (137-145)
[2017-06-08] MEDS: FUROSEMIDE 20 MG TABLET PO SCH (11:38)
[2017-06-08] MEDS: POLYETHYLENE GLYCOL 3350 POWDER 17 GM/1 PACKET PO SCH (11:38)
[2017-06-08] MEDS: CLONIDINE HCL 0.2 MG TABLET PO SCH ×2 (11:39→21:07)
[2017-06-08] MEDS: DOCUSATE SODIUM 100 MG CAPSULE PO SCH ×2 (11:39→17:15)
[2017-06-08] MEDS: RANOLAZINE 500 MG TAB.SR.12H PO SCH ×2 (11:39→21:08)
[2017-06-08] MEDS: SACUBITRIL/VALSARTAN 24 MG/26 MG TABLET PO SCH ×2 (11:40→21:08)
[2017-06-08] MEDS: NYSTATIN TOPICAL POWDER 15 GM TP SCH ×2 (11:40→21:08)
[2017-06-08] MEDS: CARVEDILOL 12.5 MG TABLET PO SCH ×2 (11:40→21:08)
[2017-06-08] MEDS: ENOXAPARIN SODIUM INJ 30 MG/0.3 ML DISP.SYRIN SUBCUT SCH (11:41)
--- NOTE | 2017-06-08 18:41 | PDOC PROGRESS REPORT ---
Subjective Progress Note for:: 06/08/17 Subjective:: Patient denied any chest pain or difficulty with breathing. No abdominal pain , nausea or vomiting. Patient reported improved P.O intake at dinner. No fever or chills. Reason For Visit: SEVERE DEHYDRATION,FALL Physical Exam Vital Signs: Temp Pulse Resp BP Pulse Ox 97.4 F 80 14 119/56 L 96 06/08/17 15:21 06/08/17 15:21 06/08/17 15:21 06/08/17 15:21 06/08/17 15:21 Intake & Output 06/07/17 06/08/17 06/09/17 06:59 06:59 06:59 Intake Total 273 533 Output Total 2600 1100 Balance -2327 -567 Weight 96.6 kg Physical Exam: General appearance: PRESENT: no acute distress, cooperative Head exam: PRESENT: atraumatic, normocephalic Eye exam: PRESENT: conjunctiva pink, EOMI, PERRLA. ABSENT: scleral icterus Mouth exam: PRESENT: dry mucosa - fairly dry Teeth exam: PRESENT: poor dentition Respiratory exam: PRESENT: decreased breath sounds - at lung bases Cardiovascular exam: PRESENT: RRR. ABSENT: diastolic murmur, rubs, systolic murmur Vascular exam: PRESENT: normal capillary refill. ABSENT: pallor GI/Abdominal exam: PRESENT: normal bowel sounds, soft. ABSENT: distended, guarding, mass, organomegaly, rebound, tenderness Extremities exam: ABSENT: pedal edema Musculoskeletal exam: PRESENT: deformity - due to multiple joints involvement with arthritis Neurological exam: PRESENT: alert - and appropriate in simple responses, awake, motor sensory deficit Psychiatric exam: PRESENT: appropriate affect, normal mood. ABSENT: homicidal ideation, suicidal ideation Skin exam: PRESENT: dry, intact, warm. ABSENT: cyanosis, rash Results Laboratory Results: 06/06/17 06:15 06/08/17 06:17 06/08/17 06:17 Sodium 142.1 Potassium 5.3 H Chloride 108 H Carbon Dioxide 26 Anion Gap 8 BUN 39 H Creatinine 1.12 Est GFR ( Amer) 57 L Est GFR (Non-Af Amer) 47 L Glucose 73 L Calcium 8.8 06/02/17 06/02/17 06/02/17 10:58 10:58 16:35 Creatine Kinase 131 238 H CK-MB (CK-2) 1.40 Troponin I 0.110 06/02/17 06/02/17 06/02/17 16:35 22:26 22:26 Creatine Kinase 233 H CK-MB (CK-2) 2.53 3.01 Troponin I 0.119 0.105 Impressions: Head CT 06/01/17 13:19 IMPRESSION: Diffuse chronic small vessel ischemic change in the hemispheric white matter, left thalamus, and left basal ganglia. No acute changes EVIDENCE OF ACUTE STROKE: NO. Chest X-Ray 06/02/17 00:00 IMPRESSION: Dense right lower lobe pneumonia. Vascular congestion P Head MRI 06/02/17 00:00 IMPRESSION: ATROPHY AND CHRONIC MICRO-VASCULAR ISCHEMIC CHANGES. OTHERWISE NORMAL MRI OF THE BRAIN WITHOUT INTRAVENOUS GADOLINIUM CONTRAST. EVIDENCE OF ACUTE STROKE: NO. Abdomen/Pelvis CT 06/03/17 00:00 IMPRESSION: Somewhat limited study as noted above. Small right pleural effusion with some associated airspace consolidation which could represent atelectatic changes or pneumonic infiltrate. NO SIGNIFICANT OR ACUTE PROCESS IN THE ABDOMEN OR PELVIS. Assessment & Plan - Diagnosis (1) Fall at home Qualifiers: Encounter type: initial encounter Qualified Code(s): W19.XXXA - Unspecified fall, initial encounter; Y92.099 - Unspecified place in other non- institutional residence as the place of occurrence of the external cause; Y92.099 - Unspecified place in other non-institutional residence as the place of occurrence of the external cause Is this a current diagnosis for this admission?: Yes (2) Probable sepsis Is this a current diagnosis for this admission?: Yes (3) Dehydration, severe Is this a current diagnosis for this admission?: Yes (4) Hypernatremia Is this a current diagnosis for this admission?: Yes (5) Facial droop Is this a current diagnosis for this admission?: Yes (6) Hypertension Qualifiers: Hypertension type: essential hypertension Qualified Code(s): I10 - Essential (primary) hypertension Is this a current diagnosis for this admission?: Yes (7) Osteoarthritis Qualifiers: Osteoarthritis location: multiple joints Osteoarthritis type: primary Qualified Code(s): M15.0 - Primary generalized (osteo)arthritis Is this a current diagnosis for this admission?: Yes (8) Combined systolic and diastolic congestive heart failure Qualifiers: Congestive heart failure chronicity: chronic Qualified Code(s): I50.42 - Chronic combined systolic (congestive) and diastolic (congestive) heart failure Is this a current diagnosis for this admission?: Yes (9) Constipation by delayed colonic transit Is this a current diagnosis for this admission?: Yes - Time Time Spent with patient: 25-34 minutes Medications reviewed and adjusted accordingly: Yes Anticipated discharge: SNF - for STR stay. Within: Other - Inpatient Certification Based on my medical assessment, after consideration of the patient's comorbidities, presenting symptoms, or acuity I expect that the services needed warrant INPATIENT care.: Yes I certify that my determination is in accordance with my understanding of Medicare's requirements for reasonable and necessary INPATIENT services [42 CFR 412.3e].: Yes Medical Necessity: Need Close Monitoring Due to Risk of Patient Decompensation, Need For Continuous Telemetry Monitoring, Risk of Complication if Not Cared For in Hospital Post Hospital Care: D/C or Transfer Summary - Plan Summary Plan Summary: Continue current medication management. Obtain BMP in AM.
[2017-06-08] MEDS: ATORVASTATIN CALCIUM 10 MG TABLET PO SCH (21:07)
--- NOTE | 2017-06-09 02:03 | PROGRESS NOTE E ---
Progress Note NAME: NEIDA YEPEZ : 1940 AGE: 77Y DATE: 06/08/2017 ROOM: 528 SUBJECTIVE: Note, that the patient is still lethargic but less so, and also less short of breath. She claims that she is not short of breath and is able to lie down flat. There is no PND. There is no chest pain. There is no arrhythmia seen but the patient does appear to be mildly short of breath. She states that she ate better today. There is only trace pedal edema noted in the extremities. OBJECTIVE: GENERAL: On examination, the patient is moderately obese, seems to be chronically ill. VITAL SIGNS: She is afebrile with a temperature of 97.6 degrees Fahrenheit, pulse 89 beats per minute, blood pressure 129/63, respirations 14 per minute, O2 sats are 99% on 2.5L of nasal cannula. HEAD: Atraumatic, normocephalic. EYES: Pupils are equal, round, regular, and reactive to light and accommodation. Extraocular movements are normal. There is no conjunctival pallor. There is no scleral icterus. ENT: Negative. NECK: Supple. There is still some mild JVD present. Carotids are equal. There is no bruit. There is no goiter. There is no lymphadenopathy. LUNGS: Absent breath sounds in both the bases and a few rales. CARDIAC: There is murmur of mitral regurgitation and tricuspid regurgitation present. S1 and S2 are heard. There is no S3 gallop. There is no S4 gallop. There is a systolic murmur in the left sternal border and the apex. There is no rub. ABDOMEN: Soft, nontender. There is no hepatosplenomegaly. Bowel sounds are well heard. There are no tender areas or masses. EXTREMITIES: Femorals are diminished. There are no femoral bruits. Leg pulses are diminished. There is trace pedal edema. There is no cyanosis or clubbing. CENTRAL NERVOUS SYSTEM: The patient is awake but drowsy and *------*. Moves all 4 extremities. PSYCHIATRIC: The patient is not in a state to examine the patient's psych. The patient's 24-hour intake is 533 mL; output is 1160 mL. LABORATORY DATA: Sodium 142.1, potassium is elevated at 5.3, chloride is 108, CO2 is 26, BUN is 39, creatinine is 1.12, GFR is 57 mL which is CKD stage 3. Glucose is 73, calcium is 8.8. IMPRESSION: 1. CONGESTIVE HEART FAILURE WITH SLIGHT IMPROVEMENT. 2. ELEVATED TROPONIN I. 3. HYPERTENSION. 4. FALL AT HOME. 5. CONGESTIVE HEART FAILURE, ACUTE ON CHRONIC. 6. CARDIOMYOPATHY WITH SEVERELY REDUCED LV EJECTION FRACTION. 7. PROBABLE SEPSIS. 8. ANEMIA. 9. ABNORMAL EKG. PLAN: 1. Continue the patient's Coreg. 2. Continue diuretics. 3. Continue Ranexa. 4. Continue atorvastatin. TIME SPENT: Note that 30 minutes was spent on this patient with more than 50% of the time spent on direct patient care, and also review of the patient's medications. Note that the patient's decision making was moderate to highly complex in nature. I discussed with the attending on the case. We will follow with you. DICTATING PHYSICIAN: RADHA RAHMAN M.D. [id number] MERAY#: [id number] ID: [id number] JOB#: [id number] ACCT: [id number] cc: >
[2017-06-09] MEDS: LANSOPRAZOLE 30 MG TAB.RAP.DR PO SCH (05:30)
[2017-06-09 07:35] LABS: ANION GAP 9 (5-19); BLOOD UREA NITROGEN 32 mg/dL (7-20); CALCIUM 8.9 mg/dL (8.4-10.2); CARBON DIOXIDE 26 mmol/L (22-30); CHLORIDE 106 mmol/L (98-107); CREATININE RESULT 0.99 mg/dL (0.52-1.25); GLUCOSE 85 mg/dL (75-110); POTASSIUM 4.9 mmol/L (3.6-5.0); SODIUM 141.3 mmol/L (137-145)
[2017-06-09 08:03] VITALS: BP 158/77
--- NOTE | 2017-06-09 08:36 | PDOC TRANSFER SUMMARY ---
General - Admit/Disc Date/PCP Admission Date/Primary Care Provider: 06/01/17 16:28 Discharge Date: 06/09/17 - Discharge Diagnosis (1) Fall at home Is this a current diagnosis for this admission?: Yes (2) Probable sepsis Is this a current diagnosis for this admission?: Yes (3) Dehydration, severe Is this a current diagnosis for this admission?: Yes (4) Hypernatremia Is this a current diagnosis for this admission?: Yes (5) Facial droop Is this a current diagnosis for this admission?: Yes (6) Hypertension Is this a current diagnosis for this admission?: Yes (7) Osteoarthritis Is this a current diagnosis for this admission?: Yes (8) Combined systolic and diastolic congestive heart failure Is this a current diagnosis for this admission?: Yes (9) Constipation by delayed colonic transit Is this a current diagnosis for this admission?: Yes - Additional Information Resuscitation Status: Full Code Discharge Diet: Cardiac Discharge Activity: Activity As Tolerated, Slowly Increase Activity Home Medications: Carvedilol [Coreg 12.5 mg Tablet] 12.5 mg PO Q12 06/01/17 Clonidine HCl [Catapres 0.2 mg Tablet] 0.2 mg PO Q12 06/01/17 Nitroglycerin [Nitrostat 0.4 mg (1/150 Gr) Tabs 25/Bottle] 1 tab SL Q5MP PRN Ondansetron HCl [Zofran 4 mg Tablet] 1 tab PO TIDP PRN 06/01/17 Atorvastatin Calcium [Lipitor 10 mg Tablet] 10 mg PO QHS tablet 06/09/17 Furosemide [Lasix 20 mg Tablet] 20 mg PO DAILY tablet 06/09/17 Nystatin [Mycostatin Topical Powder 15 gm] 1 applic TP Q12 bottle 06/09/17 Polyethylene Glycol 3350 [Miralax Powder 17 gm/Packet] 17 gm PO DAILY powd.pack 06/09/17 Ranolazine [Ranexa 500 mg Tab.sr] 500 mg PO Q12 #0 tab.sr.12h 06/09/17 Sacubitril/Valsartan [Entresto 24 mg/26 mg Tablet] 1 tab PO Q12 tablet History of Present Illness Admission Date/PCP: 05/12/2017 GUILLERMINA HAROONBryson Patient complains of: Fall and inability to get off the floor History of Present Illness: NEIDA YEPEZ is a 77 year old female known to my practice who presented to the ED with compliant of fall at home while in the process of getting off her dinner room chair. She lost her balance and landed on the floor. Patient reported that due to her generalized weakness she was unable to lift herself off the floor and has been laying in same position for 3 days before she was discovered earlier today. She denied any preceding chest pain, palpitation or dizziness. She denied loss of consciousness, nausea, vomiting, diarrhea, or voiding symptoms. No headache . She reported right sided chest pain with motion and coughing. She has not had any thing to eat or drink in the last 3 days. Her initial evaluation in the ED was remarkable for electrolyte abnormalities and elevated serum total CK level. Her head CT scan suggested old infarcts. She was advised admission for further evaluation and management. Hospital Course Hospital Course: Patient was found dehydrated and did improve with IV fluid infusion support. She was treated for presumptive UTI based on her urinalysis findings and generalized weakness. Her blood and urine cultures were no growth after appropriate days of incubation. She was seen in consultation by Dr Walker due to concern for acute on chronic CHF. Her echocardiogram did suggest combine systolic and diastolic CHF. Her mediation was adjusted as needed. Patient did participate minimally in physical therapy sessions. She is agreeable to transfer to [facility] for short term rehabilitation therapy. She will be discharged to the facility today. Physical Exam Vital Signs: Temp Pulse Resp BP Pulse Ox 97.3 F 86 16 158/77 H 98 06/09/17 07:34 06/09/17 07:34 06/09/17 07:34 06/09/17 07:34 06/09/17 07:34 Intake & Output 06/08/17 06/09/17 06/10/17 06:59 06:59 06:59 Intake Total 533 443 Output Total 1100 1275 Balance -567 -832 Weight 96.6 kg General appearance: PRESENT: no acute distress, cooperative Head exam: PRESENT: atraumatic, normocephalic Eye exam: PRESENT: conjunctiva pink, EOMI, PERRLA. ABSENT: scleral icterus Mouth exam: PRESENT: dry mucosa - fairly dry Teeth exam: PRESENT: poor dentition Respiratory exam: PRESENT: decreased breath sounds - at lung bases Cardiovascular exam: PRESENT: RRR. ABSENT: diastolic murmur, rubs, systolic murmur Vascular exam: PRESENT: normal capillary refill. ABSENT: pallor GI/Abdominal exam: PRESENT: normal bowel sounds, soft. ABSENT: distended, guarding, mass, organomegaly, rebound, tenderness Extremities exam: ABSENT: pedal edema Musculoskeletal exam: PRESENT: deformity - due to multiple joints involvement with arthritis Neurological exam: PRESENT: alert - and appropriate in simple responses, awake, motor sensory deficit Psychiatric exam: PRESENT: appropriate affect, normal mood. ABSENT: homicidal ideation, suicidal ideation Skin exam: PRESENT: dry, intact, warm. ABSENT: cyanosis, rash Results Laboratory Results: 06/06/17 06:15 06/09/17 06:11 06/09/17 06:11 Sodium 141.3 Potassium 4.9 Chloride 106 Carbon Dioxide 26 Anion Gap 9 BUN 32 H Creatinine 0.99 Est GFR ( Amer) > 60 Est GFR (Non-Af Amer) 55 L Glucose 85 Calcium 8.9 06/02/17 06/02/17 06/02/17 10:58 10:58 16:35 Creatine Kinase 131 238 H CK-MB (CK-2) 1.40 Troponin I 0.110 06/02/17 06/02/17 06/02/17 16:35 22:26 22:26 Creatine Kinase 233 H CK-MB (CK-2) 2.53 3.01 Troponin I 0.119 0.105 Impressions: Head CT 06/01/17 13:19 IMPRESSION: Diffuse chronic small vessel ischemic change in the hemispheric white matter, left thalamus, and left basal ganglia. No acute changes EVIDENCE OF ACUTE STROKE: NO. Chest X-Ray 06/02/17 00:00 IMPRESSION: Dense right lower lobe pneumonia. Vascular congestion P Head MRI 06/02/17 00:00 IMPRESSION: ATROPHY AND CHRONIC MICRO-VASCULAR ISCHEMIC CHANGES. OTHERWISE NORMAL MRI OF THE BRAIN WITHOUT INTRAVENOUS GADOLINIUM CONTRAST. EVIDENCE OF ACUTE STROKE: NO. Abdomen/Pelvis CT 06/03/17 00:00 IMPRESSION: Somewhat limited study as noted above. Small right pleural effusion with some associated airspace consolidation which could represent atelectatic changes or pneumonic infiltrate. NO SIGNIFICANT OR ACUTE PROCESS IN THE ABDOMEN OR PELVIS. Transfer Plan - Disposition Transfer Plan: [facility] for [facility] term rehabilitation stay. She will follow up with me in the office upon discharge from the facility. - Time Spent with Patient Time spent with patient: Greater than 30 Minutes - More than 50 % of my time was spent in care coordination and advance directive discussion with patient. She remain a full code at this time. Qualifiers PATEINT BEING DISCHARGED WITH ANY OF THE FOLLOWING DIAGNOSIS?: Heart Failure HF Pt being discharged on ACEI for LVEF less than 40%?: No Reason(s) for not prescribing ACEI:: Contraindicated HF Pt being discharged on ARBS for LVEF less than 40%?: Yes Reason(s) for not prescribing Warfarin:: Not indicated HF Pt discharged on evidence-based Beta Juan:: Yes Plan Discharge Plan: Transfer to [facility] for short term rehabilitation. Follow up in the office upon discharge from the facility
[2017-06-09] MEDS: RANOLAZINE 500 MG TAB.SR.12H PO SCH (09:34)
[2017-06-09] MEDS: CARVEDILOL 12.5 MG TABLET PO SCH (09:34)
[2017-06-09] MEDS: CLONIDINE HCL 0.2 MG TABLET PO SCH (09:34)
[2017-06-09] MEDS: FUROSEMIDE 20 MG TABLET PO SCH (09:34)
[2017-06-09] MEDS: ENOXAPARIN SODIUM INJ 30 MG/0.3 ML DISP.SYRIN SUBCUT SCH (09:34)
[2017-06-09] MEDS: SACUBITRIL/VALSARTAN 24 MG/26 MG TABLET PO SCH (09:34)
[2017-06-09] MEDS: DOCUSATE SODIUM 100 MG CAPSULE PO SCH (09:34)
[2017-06-09] MEDS: POLYETHYLENE GLYCOL 3350 POWDER 17 GM/1 PACKET PO SCH (09:34)
[2017-06-09] MEDS: NYSTATIN TOPICAL POWDER 15 GM TP SCH (09:35)
== END 2017-06-09 12:00 | DRG 640 ==
LOC: ER 12:46 → EH 16:28 → 5 19:45
PROVIDERS: ADMIT Internal Medicine Geriatric Medicine; ATTEND Internal Medicine Geriatric Medicine
DX: E87.0 Hyperosmolality and hypernatremia (principal); E86.0 Dehydration; I50.43 Acute on chronic combined systolic (congestive) and diastolic (congestive) heart failure; I42.9 Cardiomyopathy, unspecified; A41.9 Sepsis, unspecified organism; N39.0 Urinary tract infection, site not specified; D64.9 Anemia, unspecified; I11.0 Hypertensive heart disease with heart failure; K59.00 Constipation, unspecified; I69.392 Facial weakness following cerebral infarction; M19.90 Unspecified osteoarthritis, unspecified site; Z79.899 Other long term (current) drug therapy; Z88.0 Allergy status to penicillin; W19.XXXA Unspecified fall, initial encounter; Y93.9 Activity, unspecified; Y92.019 Unspecified place in single-family (private) house as the place of occurrence of the external cause; Y99.9 Unspecified external cause status
CPT/HCPCS: 36415; 36430; 51702; 70450; 70551; 71010; 74176; 80048; 80053; 81001; 82550; 82553; 82803; 83605; 83735; 84100; 84443; 84484; 85025; 85027; 86850; 86900; 86901; 86920; 87040; 87086; 93005; 93010; 93306; 96360; 99285; G8978-GP; G8979-GP; G8996-GN; G8997-GN; G8998-GN; J1650; J1940; J3490; J7030; P9016

== ENCOUNTER 2017-06-29 22:20 | Inpatient (IN) | payer MEDICARE, MEDICAID ==
--- NOTE | 2017-06-29 22:38 | ER Document Report ---
ED Respiratory Problem - General Chief Complaint: Shortness Of Breath Stated Complaint: SHORTNESS OF BREATH Time Seen by Provider: 06/29/17 22:28 Notes: 77 years old female with multiple medical history, including CHF, brought in today with 1 nausea duration of increase in shortness of breath. She states she has been having shortness of breath for a month. Largely bedbound. And the facility also noted swelling of both extra lower extremities. Patient denies any chest pain left arm numbness tingling sensation nausea vomiting. Denies any fever chills cough or other constitutional symptoms. TRAVEL OUTSIDE OF THE [place] IN LAST 30 DAYS: No - Related Data Allergies/Adverse Reactions: Penicillins Allergy (Verified 06/01/17 13:26) Past Medical History - Social History Smoking Status: Former Smoker Family History: Hypertension - Past Medical History Cardiac Medical History: Reports: Hx Hypertension Renal/ Medical History: Denies: Hx Peritoneal Dialysis Past Surgical History: Reports: Hx Tonsillectomy - Immunizations Hx Diphtheria, Pertussis, Tetanus Vaccination: - unknown Review of Systems - Review of Systems Notes: REVIEW OF SYSTEMS: CONSTITUTIONAL : Denies fever, chills, or sweats. Denies recent illness. EENT: Denies eye, ear, throat, or mouth pain or symptoms. Denies nasal or sinus congestion or discharge. Denies throat, tongue, or mouth swelling or difficulty swallowing. CARDIOVASCULAR: Denies chest pain. Denies palpitations or racing or irregular heart beat. Denies ankle edema. RESPIRATORY: As per history of complain GASTROINTESTINAL: Denies abdominal pain or distention. Denies nausea, vomiting , or diarrhea. Denies blood in vomitus, stools, or per rectum. Denies black, tarry stools. Denies constipation. GENITOURINARY: Denies difficulty urinating, painful urination, burning, frequency, blood in urine, or discharge. FEMALE GENITOURINARY: Denies vaginal bleeding, heavy or abnormal periods, irregular periods. Denies vaginal discharge or odor. MUSCULOSKELETAL: Denies back or neck pain or stiffness. Denies joint pain or swelling. SKIN: HEMATOLOGIC : Denies easy bruising or bleeding. LYMPHATIC: Denies swollen, enlarged glands. NEUROLOGICAL: Denies confusion or altered mental status. Denies passing out or loss of consciousness. Denies dizziness or lightheadedness. Denies headache. Denies weakness or paralysis or loss of use of either side. Denies problems with gait or speech. Denies sensory loss, numbness, or tingling. Denies seizures. PSYCHIATRIC: Denies anxiety or stress. Denies depression, suicidal ideation, or homicidal ideation. ALL OTHER SYSTEMS REVIEWED AND NEGATIVE. PHYSICAL EXAMINATION: GENERAL: Hirsutism noted over the face,Not in acute distress, HEAD: Atraumatic, normocephalic. EYES: Pupils equal round and reactive to light, extraocular movements intact, conjunctiva are normal. ENT: Nares patent, oropharynx clear without exudates. Moist mucous membranes. NECK: Normal range of motion, supple without lymphadenopathy LUNGS: Breath sounds clear to auscultation bilaterally and equal. No wheezes rales or rhonchi. No obvious rales or rhonchi is heard HEART: Regular rate and rhythm without murmurs ABDOMEN: Soft, nontender, nondistended abdomen. No guarding, no rebound. No masses appreciated. Female : deferred Musculoskeletal: No cyanosis, 2-3+ pitting edema noted over the ankle, no discoloration of the skin. NEUROLOGICAL: Cranial nerves grossly intact. Normal speech, normal gait. Normal sensory, motor exams PSYCH: Normal mood, normal affect. SKIN: Warm, Dry, normal turgor, no rashes or lesions noted. Dictation was performed using [employer] voice recognition software Physical Exam - Vital signs Vitals: Resp BP Pulse Ox 17 158/93 H 100 06/29/17 22:31 06/29/17 22:31 06/29/17 22:31 Course - Re-evaluation Re-evalutation: 06/30/17 05:32 Case was discussed with primary care physician, admitted to the hospital - Vital Signs Vital signs: Temp Pulse Resp BP Pulse Ox 98.3 F 13 140/65 H 100 06/30/17 03:10 06/30/17 02:01 06/30/17 02:01 06/30/17 02:01 - Laboratory Result Diagrams: 06/30/17 00:44 06/30/17 00:44 Laboratory results interpreted by me: 06/30/17 06/30/17 06/30/17 00:44 00:44 00:44 RBC 2.94 L Hgb 9.3 L Hct 27.9 L RDW 15.9 H Plt Count 142 L Carbon Dioxide 31 H BUN 25 H Creatinine 1.64 H Est GFR ( Amer) 37 L Est GFR (Non-Af Amer) 30 L Glucose 132 H Creatine Kinase 27 L NT-Pro-B Natriuret Pep 59878 H Total Protein 5.8 L Albumin 2.8 L Urine Urobilinogen Ur Leukocyte Esterase 06/30/17 03:40 RBC Hgb Hct RDW Plt Count Carbon Dioxide BUN Creatinine Est GFR ( Amer) Est GFR (Non-Af Amer) Glucose Creatine Kinase NT-Pro-B Natriuret Pep Total Protein Albumin Urine Urobilinogen 4.0 H Ur Leukocyte Esterase TRACE H Discharge - Discharge Clinical Impression: Congestive heart failure Qualifiers: Congestive heart failure type: systolic Congestive heart failure chronicity: acute Qualified Code(s): I50.21 - Acute systolic (congestive) heart failure Pneumonia Qualifiers: Pneumonia type: due to unspecified organism Laterality: right Lung location: lower lobe of lung Qualified Code(s): J18.1 - Lobar pneumonia, unspecified organism Admitting Provider: [facility] Unit Admitted: [facility]
[2017-06-30 01:14] LABS: ABSOLUTE EOSINOPHILS # (AUTO) 0.1 10^3/uL (0.0-0.6); ABSOLUTE LYMPHOCYTES (AUTO) 1.2 10^3/uL (0.5-4.7); ABSOLUTE MONOCYTES (AUTO) 0.6 10^3/uL (0.1-1.4); BASOPHILS % (AUTO) 0.6 % (0-2); EOSINOPHILS % (AUTO) 2.5 % (0-6); HEMATOCRIT 27.9 % (36.0-47.0); HEMOGLOBIN 9.3 g/dL (12.0-15.5); LYMPHOCYTES % (AUTO) 24.4 % (13-45); MEAN CORPUSCULAR HEMOGLOBIN 31.6 pg (27.0-33.4); MEAN CORPUSCULAR HGB CONC 33.3 g/dL (32.0-36.0); MEAN CORPUSCULAR VOLUME 95 fl (80-97); MONOCYTES % (AUTO) 12.1 % (3-13); RED BLOOD COUNT 2.94 10^6/uL (3.72-5.28); RED CELL DISTRIBUTION WIDTH 15.9 % (11.5-14.0); SEGMENTED NEUTROPHILS % (AUTO) 60.4 % (42-78); WHITE BLOOD COUNT 4.9 10^3/uL (4.0-10.5)
[2017-06-30 01:18] LABS: ALANINE AMINOTRANSFERASE 21 U/L (9-52); ALBUMIN 2.8 g/dL (3.5-5.0); ALKALINE PHOSPHATASE 69 U/L (38-126); ANION GAP 8 (5-19); ASPARTATE AMINO TRANSFERASE 17 U/L (14-36); BILIRUBIN,DIRECT 0.2 mg/dL (0.0-0.4); BILIRUBIN,TOTAL 0.4 mg/dL (0.2-1.3); BLOOD UREA NITROGEN 25 mg/dL (7-20); CALCIUM 8.8 mg/dL (8.4-10.2); CARBON DIOXIDE 31 mmol/L (22-30); CHLORIDE 105 mmol/L (98-107); CREATINE KINASE 27 U/L (30-135); CREATININE RESULT 1.64 mg/dL (0.52-1.25); GLUCOSE 132 mg/dL (75-110); POTASSIUM 4.5 mmol/L (3.6-5.0); SODIUM 144.1 mmol/L (137-145); TOTAL PROTEIN 5.8 g/dL (6.3-8.2)
[2017-06-30 01:35] LABS: TROPONIN I 0.047 ng/mL
--- NOTE | 2017-06-30 04:10 | RADIOLOGY REPORT (SQ) ---
EXAM DESCRIPTION: CHEST SINGLE VIEW CLINICAL HISTORY: 77 years, Female, diff breathing COMPARISON: 06/02/2017. NUMBER OF VIEWS: 1 FINDINGS: Moderate mixed interstitial and airspace patchiness of both lung harrell along the right lung base and left upper lobe. Small obscuration/effusion of the right costophrenic angle. Moderate right lung volume. Moderate enlargement of the cardiac silhouette. Atherosclerosis. IMPRESSION: Multifocal pneumonia pattern. Differential diagnosis includes CHF. Interval worsening. 2010 [employer]- All Rights Reserved
[2017-06-30 04:17] LABS: AMORPHOUS SEDIMENT,URINE TRACE /HPF; APPEARANCE,URINE SLIGHTLY-CLOUDY; BILIRUBIN,URINE NEGATIVE (NEGATIVE); GLUCOSE, URINE NEGATIVE (NEGATIVE); KETONES,URINE NEGATIVE (NEGATIVE); LEUKOCYTE ESTERASE,URINE TRACE (NEGATIVE); NITRITE,URINE NEGATIVE (NEGATIVE); PROTEIN,URINE NEGATIVE (NEGATIVE); URINE SPECIFIC GRAVITY 1.019
[2017-06-30] MEDS ORDERED: FUROSEMIDE INJ/PF 20 MG/2 ML SDV IV ONE (04:26)
[2017-06-30] MEDS ORDERED: LEVOFLOXACIN 500 MG/D5W RTU 500 MG/100 ML RTUPB IV ONE (04:33)
[2017-06-30] MEDS ORDERED: (PENDING PHARMACY ID) (Ondansetron Hcl [Zofran 4 Mg Tablet] 4 MG) PO PRN (14:23)
[2017-06-30] MEDS ORDERED: NITROGLYCERIN 0.4 MG/TAB 25 TAB/BOTTLE SL PRN (14:23)
[2017-06-30] MEDS ORDERED: ONDANSETRON 4 MG TAB.RAPDIS PO PRN (14:25)
[2017-06-30 16:18] LABS: CREATINE KINASE MB 0.91 ng/mL (<4.55); TROPONIN I 0.052 ng/mL
[2017-06-30] MEDS: NYSTATIN TOPICAL POWDER 15 GM TP SCH (17:40)
[2017-06-30] MEDS: CLONIDINE HCL 0.2 MG TABLET PO SCH (21:11)
[2017-06-30] MEDS: RANOLAZINE 500 MG TAB.SR.12H PO SCH (21:12)
[2017-06-30] MEDS: SACUBITRIL/VALSARTAN 24 MG/26 MG TABLET PO SCH (21:12)
[2017-06-30] MEDS: ATORVASTATIN CALCIUM 10 MG TABLET PO SCH (21:12)
[2017-06-30] MEDS: CARVEDILOL 12.5 MG TABLET PO SCH (21:12)
--- NOTE | 2017-06-30 21:41 | PDOC H&P ---
History of Present Illness Admission Date/PCP: 06/30/17 07:11 MIKO GOMEZ MD History of Present Illness: NEIDA YEPEZ is a 77 year old female,, She has chronic combined systolic and diastolic heart failure she was recently discharged from this hospital on 2016 to longterm for rehabilitation, she was transferred from the longterm to the emergency room because of progressive shortness of breath, she was evaluated in the ER she was found to be in congestive heart failure. Past Medical History Cardiac Medical History: Reports: Congestive Heart Failure, Hyperlipidema, Hypertension Hematology: Reports: Anemia Past Surgical History Past Surgical History: Reports: Tonsillectomy Social History Smoking Status: Current Some Day Smoker Number of Years Smokin Last Time Smoked: couple of weeks ago Frequency of Alcohol Use: None Hx Recreational Drug Use: No Drugs: None Hx Prescription Drug Abuse: No - Advance Directive Resuscitation Status: Full Code Family History Family History: Hypertension Parental Family History Reviewed: Yes Children Family History Reviewed: Yes Sibling(s) Family History Reviewed.: Yes Medication/Allergy Home Medications: Atorvastatin Calcium [Lipitor 10 mg Tablet] 10 mg PO QHS 06/30/17 Carvedilol [Coreg 12.5 mg Tablet] 12.5 mg PO Q12 06/30/17 Clonidine HCl [Catapres 0.2 mg Tablet] 0.2 mg PO Q12 06/30/17 Furosemide [Lasix 20 mg Tablet] 20 mg PO DAILY 06/30/17 Nitroglycerin [Nitrostat 0.4 mg (1/150 Gr) Tabs 25/Bottle] 1 tab SL Q5MP PRN Nystatin [Mycostatin Topical Powder 15 gm] 1 applic TP BID 06/30/17 Ondansetron HCl [Zofran 4 mg Tablet] 4 mg PO TIDP PRN 06/30/17 Polyethylene Glycol 3350 [Miralax Powder 17 gm/Packet] 1 packet PO DAILY Ranolazine [Ranexa 500 mg Tab.sr] 500 mg PO Q12 06/30/17 Sacubitril/Valsartan [Entresto 24 mg/26 mg Tablet] 1 tab PO Q12 06/30/17 Allergies/Adverse Reactions: Penicillins Allergy (Verified 06/01/17 13:26) Review of Systems Constitutional: ABSENT: chills, fever(s), headache(s), weight gain, weight loss Eyes: ABSENT: visual disturbances Ears: ABSENT: hearing changes Cardiovascular: PRESENT: dyspnea on exertion, edema Respiratory: ABSENT: cough, hemoptysis Gastrointestinal: ABSENT: abdominal pain, constipation, diarrhea, hematemesis, hematochezia, nausea, vomiting Genitourinary: ABSENT: dysuria, hematuria Musculoskeletal: ABSENT: joint swelling Integumentary: ABSENT: rash, wounds Neurological: ABSENT: abnormal gait, abnormal speech, confusion, dizziness, focal weakness, syncope Psychiatric: ABSENT: anxiety, depression, homidical ideation, suicidal ideation Endocrine: ABSENT: cold intolerance, heat intolerance, menstrual abnormalities, polydipsia, polyuria Hematologic/Lymphatic: ABSENT: easy bleeding, easy bruising, lymphadenopathy Physical Exam Vital Signs: Temp Pulse Resp BP Pulse Ox 98.4 F 90 18 148/67 H 100 06/30/17 20:37 06/30/17 20:37 06/30/17 20:37 06/30/17 20:37 06/30/17 20:37 Intake & Output 06/29/17 06/30/17 07/01/17 06:59 06:59 06:59 Intake Total 10 Balance 10 Weight 98.1 kg General appearance: PRESENT: mild distress Head exam: PRESENT: atraumatic, normocephalic Eye exam: PRESENT: conjunctiva pink, EOMI, PERRLA Neck exam: PRESENT: full ROM Respiratory exam: PRESENT: crackles Cardiovascular exam: PRESENT: RRR, +S1, +S2 GI/Abdominal exam: PRESENT: normal bowel sounds, soft Rectal exam: PRESENT: deferred Extremities exam: PRESENT: pedal edema, other Neurological exam: PRESENT: alert Psychiatric exam: PRESENT: appropriate affect, normal mood Skin exam: PRESENT: dry, intact, warm. ABSENT: cyanosis, rash Results Laboratory Results: 06/30/17 06/30/17 15:35 15:35 Creatine Kinase 32 CK-MB (CK-2) 0.91 Troponin I 0.052 Impressions: Chest X-Ray 06/30/17 00:00 IMPRESSION: Multifocal pneumonia pattern. Differential diagnosis includes CHF. Interval worsening. 2010 [employer]- All Rights Reserved Assessment & Plan - Diagnosis (1) Acute combined systolic (congestive) and diastolic (congestive) heart failure Is this a current diagnosis for this admission?: Yes Plan: Patient presented with acute exacerbation of chronic systolic heart failure she is admitted for management
[2017-06-30] MEDS: NORMAL SALINE 250 ML with FUROSEMIDE 250 MG IV PRN ×2 (22:24)
[2017-06-30 22:31] LABS: CREATINE KINASE MB 0.69 ng/mL (<4.55); TROPONIN I 0.051 ng/mL
[2017-07-01 06:44] LABS: CREATINE KINASE MB 0.52 ng/mL (<4.55); TROPONIN I 0.049 ng/mL
[2017-07-01 08:57] LABS: ALANINE AMINOTRANSFERASE 19 U/L (9-52); ALBUMIN 2.6 g/dL (3.5-5.0); ALKALINE PHOSPHATASE 67 U/L (38-126); ANION GAP 8 (5-19); ASPARTATE AMINO TRANSFERASE 13 U/L (14-36); BILIRUBIN,DIRECT 0.3 mg/dL (0.0-0.4); BILIRUBIN,TOTAL 0.6 mg/dL (0.2-1.3); BLOOD UREA NITROGEN 21 mg/dL (7-20); CALCIUM 8.9 mg/dL (8.4-10.2); CARBON DIOXIDE 32 mmol/L (22-30); CHLORIDE 102 mmol/L (98-107); CREATININE RESULT 1.56 mg/dL (0.52-1.25); GLUCOSE 97 mg/dL (75-110); POTASSIUM 4.5 mmol/L (3.6-5.0); SODIUM 141.8 mmol/L (137-145); TOTAL PROTEIN 5.6 g/dL (6.3-8.2)
[2017-07-01] MEDS: CARVEDILOL 12.5 MG TABLET PO SCH ×2 (09:19→21:54)
[2017-07-01] MEDS: POLYETHYLENE GLYCOL 3350 POWDER 17 GM/1 PACKET PO SCH (09:20)
[2017-07-01] MEDS: SACUBITRIL/VALSARTAN 24 MG/26 MG TABLET PO SCH (09:20)
[2017-07-01] MEDS: CLONIDINE HCL 0.2 MG TABLET PO SCH ×2 (09:20→21:53)
[2017-07-01] MEDS: NYSTATIN TOPICAL POWDER 15 GM TP SCH ×2 (09:20→17:06)
[2017-07-01] MEDS: RANOLAZINE 500 MG TAB.SR.12H PO SCH ×2 (09:20→21:53)
[2017-07-01] MEDS ORDERED: SACUBITRIL/VALSARTAN 24 MG/26 MG TABLET PO ONE (10:00)
[2017-07-01] MEDS ORDERED: FUROSEMIDE 20 MG TABLET PO SCH (10:00)
[2017-07-01] MEDS ORDERED: FUROSEMIDE INJ/PF 40 MG/4 ML SDV IV SCH (10:00)
--- NOTE | 2017-07-01 20:33 | PDOC PROGRESS REPORT ---
Subjective Progress Note for:: 07/01/17 Subjective:: Patient was admitted for the management of decompensated chronic systolic and diastolic heart failure. She is presently on intravenous furosemide infusion she is diuresing quite effectively she also add the medication entresto dose adjusted upwards. She was seen by the bedside she was coherent she told me she feels better she is less edematous Reason For Visit: CHF Physical Exam Vital Signs: Temp Pulse Resp BP Pulse Ox 97.7 F 73 16 131/55 H 100 07/01/17 15:16 07/01/17 19:00 07/01/17 15:16 07/01/17 15:16 07/01/17 15:16 Intake & Output 06/30/17 07/01/17 07/02/17 06:59 06:59 06:59 Intake Total 567 931 Output Total 6945 0865 Balance -883 -1894 Weight 96.8 kg General appearance: PRESENT: no acute distress Eye exam: PRESENT: PERRLA Respiratory exam: PRESENT: clear to auscultation kishan Cardiovascular exam: PRESENT: +S1, +S2 GI/Abdominal exam: PRESENT: soft Extremities exam: PRESENT: pedal edema Neurological exam: PRESENT: alert, CN II-XII grossly intact Results Laboratory Results: 07/01/17 05:39 07/01/17 05:39 Sodium 141.8 Potassium 4.5 Chloride 102 Carbon Dioxide 32 H Anion Gap 8 BUN 21 H Creatinine 1.56 H Est GFR ( Amer) 39 L Est GFR (Non-Af Amer) 32 L Glucose 97 Calcium 8.9 Total Bilirubin 0.6 AST 13 L ALT 19 Alkaline Phosphatase 67 Total Protein 5.6 L Albumin 2.6 L 06/30/17 06/30/17 06/30/17 15:35 15:35 21:40 Creatine Kinase 32 < 20 L CK-MB (CK-2) 0.91 Troponin I 0.052 06/30/17 07/01/17 07/01/17 21:40 05:39 05:39 Creatine Kinase < 20 L CK-MB (CK-2) 0.69 0.52 Troponin I 0.051 0.049 Impressions: Chest X-Ray 06/30/17 00:00 IMPRESSION: Multifocal pneumonia pattern. Differential diagnosis includes CHF. Interval worsening. 2010 [employer] All Rights Reserved Assessment & Plan - Diagnosis (1) Acute combined systolic (congestive) and diastolic (congestive) heart failure Is this a current diagnosis for this admission?: Yes Plan: She will continue the present intravenous furosemide infusion
[2017-07-01] MEDS: NORMAL SALINE 250 ML with FUROSEMIDE 250 MG IV PRN ×2 (21:29)
[2017-07-01] MEDS: ATORVASTATIN CALCIUM 10 MG TABLET PO SCH (21:53)
[2017-07-01] MEDS: SACUBITRIL/VALSARTAN 49 MG/51 MG TABLET PO SCH (21:55)
[2017-07-01 22:04] LABS: ABSOLUTE EOSINOPHILS # (AUTO) 0.1 10^3/uL (0.0-0.6); ABSOLUTE LYMPHOCYTES (AUTO) 1.2 10^3/uL (0.5-4.7); ABSOLUTE MONOCYTES (AUTO) 0.5 10^3/uL (0.1-1.4); ABSOLUTE NEUT (AUTO) 2.2 10^3/uL (1.7-8.2); BASOPHILS % (AUTO) 0.9 % (0-2); EOSINOPHILS % (AUTO) 2.2 % (0-6); HEMATOCRIT 30.7 % (36.0-47.0); HEMOGLOBIN 10.2 g/dL (12.0-15.5); HGB HCT DIFFERENCE -0.1; LYMPHOCYTES % (AUTO) 29.6 % (13-45); MEAN CORPUSCULAR HEMOGLOBIN 31.2 pg (27.0-33.4); MEAN CORPUSCULAR HGB CONC 33.2 g/dL (32.0-36.0); MEAN CORPUSCULAR VOLUME 94 fl (80-97); MONOCYTES % (AUTO) 11.6 % (3-13); RED BLOOD COUNT 3.27 10^6/uL (3.72-5.28); RED CELL DISTRIBUTION WIDTH 15.5 % (11.5-14.0); SEGMENTED NEUTROPHILS % (AUTO) 55.7 % (42-78)
[2017-07-02] MEDS: RANOLAZINE 500 MG TAB.SR.12H PO SCH (09:18)
[2017-07-02] MEDS: CLONIDINE HCL 0.2 MG TABLET PO SCH (09:18)
[2017-07-02] MEDS: CARVEDILOL 12.5 MG TABLET PO SCH (09:18)
[2017-07-02] MEDS: SACUBITRIL/VALSARTAN 49 MG/51 MG TABLET PO SCH (09:18)
[2017-07-02] MEDS: NYSTATIN TOPICAL POWDER 15 GM TP SCH (09:19)
[2017-07-02] MEDS: POLYETHYLENE GLYCOL 3350 POWDER 17 GM/1 PACKET PO SCH (09:19)
[2017-07-02 09:23] LABS: ALANINE AMINOTRANSFERASE 18 U/L (9-52); ALBUMIN 2.7 g/dL (3.5-5.0); ALKALINE PHOSPHATASE 70 U/L (38-126); ASPARTATE AMINO TRANSFERASE 13 U/L (14-36); BILIRUBIN,DIRECT 0.3 mg/dL (0.0-0.4); BILIRUBIN,TOTAL 0.5 mg/dL (0.2-1.3); BLOOD UREA NITROGEN 22 mg/dL (7-20); CALCIUM 8.8 mg/dL (8.4-10.2); CHLORIDE 92 mmol/L (98-107); CREATININE RESULT 1.52 mg/dL (0.52-1.25); GLUCOSE 93 mg/dL (75-110); POTASSIUM 3.7 mmol/L (3.6-5.0); TOTAL PROTEIN 5.8 g/dL (6.3-8.2)
[2017-07-02 09:30] LABS: ANION GAP 8 (5-19); CARBON DIOXIDE 39 mmol/L (22-30)
--- NOTE | 2017-07-02 14:31 | PDOC TRANSFER SUMMARY ---
General - Admit/Disc Date/PCP Admission Date/Primary Care Provider: 06/30/17 07:11 MIKO GOMEZ MD Discharge Date: 07/02/17 - Discharge Diagnosis (1) Acute combined systolic (congestive) and diastolic (congestive) heart failure Is this a current diagnosis for this admission?: Yes - Additional Information Resuscitation Status: Full Code Discharge Activity: Activity As Tolerated, Balance Activity w/Rest, Weigh Daily Prescriptions: Torsemide [Demadex] 20 mg PO DAILY #900 tablet Home Medications: Atorvastatin Calcium [Lipitor 10 mg Tablet] 10 mg PO QHS 06/30/17 Carvedilol [Coreg 12.5 mg Tablet] 12.5 mg PO Q12 06/30/17 Clonidine HCl [Catapres 0.2 mg Tablet] 0.2 mg PO Q12 06/30/17 Nitroglycerin [Nitrostat 0.4 mg (1/150 Gr) Tabs 25/Bottle] 1 tab SL Q5MP PRN Nystatin [Mycostatin Topical Powder 15 gm] 1 applic TP BID 06/30/17 Ondansetron HCl [Zofran 4 mg Tablet] 4 mg PO TIDP PRN 06/30/17 Polyethylene Glycol 3350 [Miralax Powder 17 gm/Packet] 1 packet PO DAILY Ranolazine [Ranexa 500 mg Tab.sr] 500 mg PO Q12 06/30/17 Sacubitril/Valsartan [Entresto 49 mg/51 mg Tablet] 1 tab PO Q12 tablet Torsemide [Demadex] 20 mg PO DAILY #900 tablet 07/02/17 History of Present Illness Admission Date/PCP: 06/30/17 07:11 MIKO GOMEZ MD History of Present Illness: NEIDA YEPEZ is a 77 year old female,, She has chronic combined systolic and diastolic heart failure she was recently [facility] this [facility], she was transferred from the jail to the emergency room because of progressive shortness of breath, she was evaluated in the ER she was found to be in congestive heart failure. Hospital Course Hospital Course: Patient was admitted for the management of decompensated chronic combined systolic and diastolic heart failure. She was treated with IV furosemide infusion she diuresed very well, she uses entresto, the dose was adjusted upwards. She came from [facility] home we are she is presently undergoing rehabilitation/physical therapy. She be transferred back to continue the physical therapy, the furosemide was discontinued and she is prescribed Demadex in place of furosemide Physical Exam Vital Signs: Temp Pulse Resp BP Pulse Ox 97.5 F 72 16 126/57 H 100 07/02/17 11:28 07/02/17 11:28 07/02/17 11:28 07/02/17 11:28 07/02/17 11:28 Intake & Output 07/01/17 07/02/17 07/03/17 06:59 06:59 06:59 Intake Total 567 1233 237 Output Total 1450 6076 1200 Balance -723 -4843 -963 Weight 96.8 kg 95.1 kg General appearance: PRESENT: no acute distress, well-developed, well-nourished Head exam: PRESENT: atraumatic, normocephalic Eye exam: PRESENT: conjunctiva pink, EOMI, PERRLA Ear exam: PRESENT: normal external ear exam Mouth exam: PRESENT: moist, tongue midline Respiratory exam: PRESENT: clear to auscultation kishan Cardiovascular exam: PRESENT: RRR Pulses: PRESENT: normal dorsalis pedis pul Vascular exam: PRESENT: normal capillary refill GI/Abdominal exam: PRESENT: normal bowel sounds, soft Rectal exam: PRESENT: deferred Extremities exam: PRESENT: full ROM Neurological exam: PRESENT: alert Psychiatric exam: PRESENT: appropriate affect, normal mood Skin exam: PRESENT: dry, intact, warm Results Laboratory Results: 07/01/17 21:40 07/02/17 08:30 07/01/17 07/02/17 21:40 08:30 WBC 4.0 RBC 3.27 L Hgb 10.2 L Hct 30.7 L MCV 94 MCH 31.2 MCHC 33.2 RDW 15.5 H Plt Count 195 Seg Neutrophils % 55.7 Lymphocytes % 29.6 Monocytes % 11.6 Eosinophils % 2.2 Basophils % 0.9 Absolute Neutrophils 2.2 Absolute Lymphocytes 1.2 Absolute Monocytes 0.5 Absolute Eosinophils 0.1 Absolute Basophils 0.0 Sodium 139.0 Potassium 3.7 Chloride 92 L Carbon Dioxide 39 H Anion Gap 8 BUN 22 H Creatinine 1.52 H Est GFR ( Amer) 40 L Est GFR (Non-Af Amer) 33 L Glucose 93 Calcium 8.8 Total Bilirubin 0.5 AST 13 L ALT 18 Alkaline Phosphatase 70 Total Protein 5.8 L Albumin 2.7 L 06/30/17 06/30/17 06/30/17 15:35 15:35 21:40 Creatine Kinase 32 < 20 L CK-MB (CK-2) 0.91 Troponin I 0.052 06/30/17 07/01/17 07/01/17 21:40 05:39 05:39 Creatine Kinase < 20 L CK-MB (CK-2) 0.69 0.52 Troponin I 0.051 0.049 Impressions: Chest X-Ray 06/30/17 00:00 IMPRESSION: Multifocal pneumonia pattern. Differential diagnosis includes CHF. Interval worsening. 2011 [employer]- All Rights Reserved
[2017-07-02 17:12] VITALS: BP 130/40
== END 2017-07-02 17:39 | DRG 291 ==
LOC: ER 22:20 → EH 06-30 07:11 → 3W 06-30 12:27
PROVIDERS: ADMIT Internal Medicine; ATTEND Internal Medicine
DX: I50.43 Acute on chronic combined systolic (congestive) and diastolic (congestive) heart failure (principal); J18.1 Lobar pneumonia, unspecified organism; E78.5 Hyperlipidemia, unspecified; I11.0 Hypertensive heart disease with heart failure; D64.9 Anemia, unspecified; F17.210 Nicotine dependence, cigarettes, uncomplicated; Z79.899 Other long term (current) drug therapy; Z88.0 Allergy status to penicillin; Z82.49 Family history of ischemic heart disease and other diseases of the circulatory system
CPT/HCPCS: 36415; 71010; 80053; 81001; 82550; 82553; 83880; 84484; 85025; 87040; 87077; 87186; 96365; 96375; 99285; G8978-GP; G8979-GP; J1940; J1956; J3490; J7050

== ENCOUNTER 2017-07-13 03:21 | Inpatient (IN) | payer MEDICARE, MEDICAID ==
[2017-07-13] MEDS ORDERED: NITROGLYCERIN 2% OINTMENT 1 GM PACKET TP ONE (03:40)
[2017-07-13] MEDS ORDERED: FUROSEMIDE INJ/PF 40 MG/4 ML SDV IV ONE (03:40)
--- NOTE | 2017-07-13 03:46 | ER Document Report ---
ED Respiratory Problem - General Stated Complaint: DIFFICULTY BREATHING Time Seen by Provider: 07/13/17 03:34 Notes: Patient is a 77 year old female that comes from [place] [facility] for chief complaint of difficulty breathing. Patient comes by EMS, was given 1 sublingual nitroglycerin, 325 mg of aspirin. Patient states that she has had increased difficulty breathing over the past day, states yesterday she felt fine , she denies chest pain, nausea or vomiting, abdominal pain, fever. Past medical history of CHF, on torsemide 20 mg daily, also has a history of hypertension and hyperlipidemia. TRAVEL OUTSIDE OF THE [place] IN LAST 30 DAYS: No - Related Data Allergies/Adverse Reactions: Penicillins Allergy (Verified 06/01/17 13:26) Past Medical History - General Information source: Patient, Transfer Record, Emergency Med Personnel - Social History Smoking Status: Current Every Day Smoker Smoking Education Provided: Yes - <3 min Frequency of alcohol use: None Drug Abuse: None Lives with: Intermediate Family History: Hypertension - Past Medical History Cardiac Medical History: Reports: Hx Congestive Heart Failure, Hx Hypercholesterolemia, Hx Hypertension Renal/ Medical History: Denies: Hx Peritoneal Dialysis Past Surgical History: Reports: Hx Tonsillectomy - Immunizations Hx Diphtheria, Pertussis, Tetanus Vaccination: - unknown Review of Systems - Review of Systems Constitutional: See HPI EENT: No symptoms reported Cardiovascular: See HPI Respiratory: See HPI Gastrointestinal: No symptoms reported Genitourinary: No symptoms reported Female Genitourinary: No symptoms reported Musculoskeletal: No symptoms reported Skin: No symptoms reported Hematologic/Lymphatic: No symptoms reported Neurological/Psychological: No symptoms reported Physical Exam - Vital signs Vitals: Resp Pulse Ox 23 H 100 07/13/17 03:41 07/13/17 03:41 Interpretation: Normal - General General appearance: Alert, Anxious In distress: Mild - HEENT Head: Normocephalic, Atraumatic Eyes: Normal Pupils: PERRL - Respiratory Respiratory status: Respiratory distress, Labored, Tachypnea Breath sounds: Decreased air movement, Rales - Cardiovascular Rhythm: Regular, Tachycardia Heart sounds: Normal auscultation, S1 appreciated, S2 appreciated Murmur: No - Abdominal Inspection: Normal Distension: No distension Bowel sounds: Normal Tenderness: Nontender Organomegaly: No organomegaly - Back Back: Normal, Nontender - Extremities General upper extremity: Normal inspection, Nontender, Normal color, Normal ROM , Normal temperature General lower extremity: Normal inspection, Nontender, Normal color, Normal ROM , Normal temperature, Normal weight bearing. No: Laron's sign - Neurological Neuro grossly intact: Yes Cognition: Normal Orientation: AAOx4 [place] Coma Scale Eye Opening: Spontaneous [place] Coma Scale Verbal: Oriented [place] Coma Scale Motor: Obeys Commands [place] Coma Scale Total: 15 Speech: Normal Motor strength normal: LUE, RUE, LLE, RLE Sensory: Normal - Psychological Associated symptoms: Normal affect, Normal mood - Skin Skin Temperature: Warm Skin Moisture: Dry Skin Color: Normal Course - Re-evaluation Re-evalutation: On my initial evaluation patient is tachypneic with respirations in the 30s, she has rales on exam, she has moderate respiratory distress. Tachycardic. Pulse oxygenation 83-85% on room air. Patient was sat upright, placed on oxygen , BiPAP was called for. Will monitor closely. EKG showing sinus tachycardia at a rate of 124. There is artifact. No T-wave inversions or ST segment elevation in consecutive leads. V2 questionable in appearance but there is no elevation in consecutive leads and when evaluated closely does not appear to be any significant elevation. Reviewed with Dr. Bejarano. Patient denying any chest pain, just shortness of breath. Patient reevaluated, she no longer has tachypnea or labored breathing, still has rales on examination, hypoxia resolved. She states she is comfortable on BiPAP. Patient has been given nitroglycerin, Lasix. CBC unremarkable, chemistry approximately baseline, troponin comparable to prior , BNP is significantly elevated compared to prior. Chest x-ray showing pneumonia versus CHF, presentation is consistent with CHF exacerbation, she does not have a fever or leukocytosis, I do not suspect pneumonia at this time. 07/13/[address] Bejarano. Discussed with Dr. Valiente, patient's provider, patient will be admitted to the [facility]. Patient states agreement with this plan. - Vital Signs Vital signs: Temp Pulse Resp BP Pulse Ox 23 H 100 07/13/17 03:41 07/13/17 03:41 - Laboratory Result Diagrams: 07/13/17 03:55 07/13/17 03:55 Laboratory results interpreted by me: 07/13/17 07/13/17 07/13/17 03:55 03:55 03:55 RBC 3.25 L Hgb 9.9 L Hct 30.8 L RDW 15.1 H VBG HCO3 Carbon Dioxide 33 H BUN 32 H Creatinine 1.74 H Est GFR ( Amer) 34 L Est GFR (Non-Af Amer) 28 L Glucose 145 H Direct Bilirubin 0.6 H NT-Pro-B Natriuret Pep 97857 H Albumin 3.4 L 07/13/17 03:55 RBC Hgb Hct RDW VBG HCO3 35.0 H Carbon Dioxide BUN Creatinine Est GFR ( Amer) Est GFR (Non-Af Amer) Glucose Direct Bilirubin NT-Pro-B Natriuret Pep Albumin Critical Care Note - Critical Care Note Total time excluding time spent on procedures (mins): 35 - Respiratory distress , hypoxia, CHF exacerbation Comments: Please allow 35 minutes of critical care time for treatment of patient with respiratory distress, hypoxia, CHF exacerbation. Multiple re-evaluations. Treatment with nitroglycerin, Lasix, BiPAP therapy. Time spent reviewing previous records. Consultation and admission to the hospital. Discharge - Discharge Clinical Impression: Respiratory distress, Hypoxia Acute exacerbation of CHF (congestive heart failure) Qualifiers: Congestive heart failure type: combined Qualified Code(s): I50.43 - Acute on chronic combined systolic (congestive) and diastolic (congestive) heart failure Condition: Stable Disposition: ADMITTED INPATIENT Admitting Provider: Hospitalist Unit Admitted: [facility]
[2017-07-13 04:11] LABS: VENOUS BLOOD BASE EXCESS 8.6 mmol/L; VENOUS BLOOD PH 7.4 (7.30-7.42)
[2017-07-13 04:13] LABS: ABSOLUTE EOSINOPHILS # (AUTO) 0.1 10^3/uL (0.0-0.6); ABSOLUTE LYMPHOCYTES (AUTO) 1.1 10^3/uL (0.5-4.7); ABSOLUTE MONOCYTES (AUTO) 0.5 10^3/uL (0.1-1.4); ABSOLUTE NEUT (AUTO) 5.8 10^3/uL (1.7-8.2); BASOPHILS % (AUTO) 0.5 % (0-2); EOSINOPHILS % (AUTO) 1.8 % (0-6); HEMATOCRIT 30.8 % (36.0-47.0); HEMOGLOBIN 9.9 g/dL (12.0-15.5); LYMPHOCYTES % (AUTO) 14.2 % (13-45); MEAN CORPUSCULAR HEMOGLOBIN 30.4 pg (27.0-33.4); MEAN CORPUSCULAR VOLUME 95 fl (80-97); MONOCYTES % (AUTO) 7.2 % (3-13); PLATELET COUNT 288 10^3/uL (150-450); RED BLOOD COUNT 3.25 10^6/uL (3.72-5.28); RED CELL DISTRIBUTION WIDTH 15.1 % (11.5-14.0); SEGMENTED NEUTROPHILS % (AUTO) 76.3 % (42-78); TOTAL CELLS COUNTED % (AUTO) 100 %; WHITE BLOOD COUNT 7.6 10^3/uL (4.0-10.5)
--- NOTE | 2017-07-13 04:35 | RADIOLOGY REPORT (SQ) ---
EXAM DESCRIPTION: CHEST SINGLE VIEW CLINICAL HISTORY: 77 years, Female, shortness of breath, hypoxia COMPARISON: 06/30/2017. LIMITATIONS: None. FINDINGS: Mixed small airspace and mild interstitial opacity, small opacity-effusion of the right costophrenic angle, mild enlargement of the cardiac silhouette, and atherosclerosis. Mild osteoarthritis and disc desiccation. IMPRESSION: Multifocal pneumonia and/or CHF pattern similar in appearance compared with prior exam from 06/30/2017. Differential diagnosis includes chronic interstitial lung disease. Cannot exclude underlying neoplastic processes. Consider 7-12 week surveillance radiographs with clinically warranted therapy. 2010 [employer]- All Rights Reserved
[2017-07-13 04:38] LABS: ALANINE AMINOTRANSFERASE 23 U/L (9-52); ALBUMIN 3.4 g/dL (3.5-5.0); ALKALINE PHOSPHATASE 76 U/L (38-126); ANION GAP 12 (5-19); ASPARTATE AMINO TRANSFERASE 20 U/L (14-36); BILIRUBIN,DIRECT 0.6 mg/dL (0.0-0.4); BILIRUBIN,TOTAL 0.9 mg/dL (0.2-1.3); BLOOD UREA NITROGEN 32 mg/dL (7-20); CALCIUM 9.2 mg/dL (8.4-10.2); CARBON DIOXIDE 33 mmol/L (22-30); CHLORIDE 99 mmol/L (98-107); GLUCOSE 145 mg/dL (75-110); POTASSIUM 4.5 mmol/L (3.6-5.0); SODIUM 144.2 mmol/L (137-145)
[2017-07-13 04:50] LABS: TROPONIN I 0.043 ng/mL
--- NOTE | 2017-07-13 10:29 | EKG REPORT ---
SEVERITY:- ABNORMAL ECG - SINUS TACHYCARDIA PROBABLE LVH WITH SECONDARY REPOL ABNRM : Confirmed by: Hudson Walker 13-Jul-2017 10:28:50
[2017-07-13] MEDS ORDERED: (PENDING PHARMACY ID) (Ondansetron Hcl [Zofran 4 Mg Tablet] 4 MG) PO PRN (16:15)
[2017-07-13] MEDS ORDERED: NITROGLYCERIN 0.4 MG/TAB 25 TAB/BOTTLE SL PRN (16:15)
[2017-07-13] MEDS ORDERED: ONDANSETRON 4 MG TAB.RAPDIS PO PRN (17:20)
[2017-07-13 17:36] LABS: INTERNATIONAL RATION (INR) 1.15; PROTHROMBIN TIME 15.5 SEC (11.4-15.4)
[2017-07-13 17:37] LABS: PARTIAL THROMBOPLASTIN TIME 28.1 SEC (23.5-35.8)
[2017-07-13 17:51] LABS: ARTERIAL BLOOD BASE EXCESS 8.5 mmol/L; ARTERIAL BLOOD H2CO3 1.66 mmol/L (1.05-1.35); ARTERIAL BLOOD HCO3 35.3 mmol/L (20-26); ARTERIAL BLOOD O2 SATURATION 97.2 % (94-98); ARTERIAL BLOOD PCO2 55.1 mmHg (35-45); ARTERIAL BLOOD PH 7.42 (7.35-7.45); ARTERIAL BLOOD PO2 94.3 mmHg (80-100)
[2017-07-13 17:58] LABS: ARTERIAL BLOOD FIO2 40%
[2017-07-13] MEDS: CARVEDILOL 12.5 MG TABLET PO SCH (17:59)
[2017-07-13] MEDS: RANOLAZINE 500 MG TAB.SR.12H PO SCH (18:00)
[2017-07-13] MEDS: FUROSEMIDE 20 MG TABLET PO SCH (18:00)
[2017-07-13] MEDS: SACUBITRIL/VALSARTAN 49 MG/51 MG TABLET PO SCH (18:00)
[2017-07-13] MEDS: CLONIDINE HCL 0.2 MG TABLET PO SCH (18:00)
[2017-07-13] MEDS: POLYETHYLENE GLYCOL 3350 POWDER 17 GM/1 PACKET PO SCH (18:01)
[2017-07-13] MEDS: NYSTATIN TOPICAL POWDER 15 GM TP SCH (18:01)
[2017-07-13 18:02] LABS: CREATINE KINASE MB 0.82 ng/mL (<4.55); TROPONIN I 0.063 ng/mL
[2017-07-13 18:06] LABS: FREE T4 (FREE THYROXINE) 1.91 ng/dL (0.78-2.19)
[2017-07-13 18:20] LABS: THYROID STIMULATING HORMONE 0.61 uIU/mL (0.47-4.68)
--- NOTE | 2017-07-13 22:27 | PDOC H&P ---
History of Present Illness Admission Date/PCP: 07/13/17 05:43 MIKO GOMEZ MD History of Present Illness: NEIDA YEPEZ is a 77 year old female, She has history of chronic systolic and diastolic heart failure, she was recently admitted to this hospital, [facility] at that time she was admitted for decompensated chronic systolic heart failure she now present with similar symptoms of shortness of breath in the emergency room she was found to be hypoxemic and she was supported with a noninvasive positive pressure ventilation BiPAP machine. Past Medical History Cardiac Medical History: Reports: Congestive Heart Failure, Hyperlipidema, Hypertension Psychiatric Medical History: Denies: Depression Hematology: Reports: Anemia Past Surgical History Past Surgical History: Reports: Tonsillectomy Social History Lives with: Prison Smoking Status: Current Some Day Smoker Number of Years Smokin Frequency of Alcohol Use: None Hx Recreational Drug Use: No Drugs: None Hx Prescription Drug Abuse: No Family History Family History: Hypertension Medication/Allergy Home Medications: Atorvastatin Calcium [Lipitor 10 mg Tablet] 10 mg PO QHS 06/30/17 Carvedilol [Coreg 12.5 mg Tablet] 12.5 mg PO Q12 06/30/17 Clonidine HCl [Catapres 0.2 mg Tablet] 0.2 mg PO Q12 06/30/17 Nitroglycerin [Nitrostat 0.4 mg (1/150 Gr) Tabs 25/Bottle] 1 tab SL Q5MP PRN Nystatin [Mycostatin Topical Powder 15 gm] 1 applic TP BID 06/30/17 Ondansetron HCl [Zofran 4 mg Tablet] 4 mg PO TIDP PRN 06/30/17 Polyethylene Glycol 3350 [Miralax Powder 17 gm/Packet] 1 packet PO DAILY Ranolazine [Ranexa 500 mg Tab.sr] 500 mg PO Q12 06/30/17 Sacubitril/Valsartan [Entresto 49 mg/51 mg Tablet] 1 tab PO Q12 tablet Furosemide [Lasix 20 mg Tablet] 20 mg PO DAILY 07/13/17 Allergies/Adverse Reactions: Penicillins Allergy (Verified 06/01/17 13:26) Physical Exam Vital Signs: Temp Pulse Resp BP Pulse Ox 98.3 F 72 23 H 124/42 L 100 07/13/17 15:54 07/13/17 15:54 07/13/17 17:10 07/13/17 15:54 07/13/17 17:10 Intake & Output 07/12/17 07/13/17 07/14/17 06:59 06:59 06:59 Intake Total 20 Balance 20 Weight 95.254 kg Results Laboratory Results: 07/13/17 07/13/17 17:05 17:10 Carbonic Acid 1.66 H HCO3/H2CO3 Ratio 21:1 ABG pH 7.42 ABG pCO2 55.1 H ABG pO2 94.3 ABG HCO3 35.3 H ABG O2 Saturation 97.2 ABG Base Excess 8.5 FiO2 40% TSH 0.61 Free T4 1.91 07/13/17 07/13/17 17:05 17:05 Creatine Kinase 38 CK-MB (CK-2) 0.82 Troponin I 0.063 Impressions: Chest X-Ray 07/13/17 03:42 IMPRESSION: Multifocal pneumonia and/or CHF pattern similar in appearance compared with prior exam from 06/30/2017. Differential diagnosis includes chronic interstitial lung disease. Cannot exclude underlying neoplastic processes. Consider 7-12 week surveillance radiographs with clinically warranted therapy. 2011 [employer]- All Rights Reserved
[2017-07-13] MEDS: ATORVASTATIN CALCIUM 10 MG TABLET PO SCH (23:00)
[2017-07-13] MEDS: HEPARIN SOD (PORCINE) 5,000 UNIT/ML 1 ML SYRINGE SUBCUT SCH (23:00)
[2017-07-13 23:18] LABS: CREATINE KINASE MB 1.1 ng/mL (<4.55); TROPONIN I 0.052 ng/mL
[2017-07-14 04:55] LABS: ABSOLUTE EOSINOPHILS # (AUTO) 0.1 10^3/uL (0.0-0.6); ABSOLUTE MONOCYTES (AUTO) 0.4 10^3/uL (0.1-1.4); ABSOLUTE NEUT (AUTO) 2.2 10^3/uL (1.7-8.2); BASOPHILS % (AUTO) 0.6 % (0-2); EOSINOPHILS % (AUTO) 3.5 % (0-6); HEMATOCRIT 25.5 % (36.0-47.0); HEMOGLOBIN 8.6 g/dL (12.0-15.5); LYMPHOCYTES % (AUTO) 26.1 % (13-45); MEAN CORPUSCULAR HEMOGLOBIN 31.7 pg (27.0-33.4); MEAN CORPUSCULAR HGB CONC 33.6 g/dL (32.0-36.0); MEAN CORPUSCULAR VOLUME 94 fl (80-97); PLATELET COUNT 243 10^3/uL (150-450); RED CELL DISTRIBUTION WIDTH 14.8 % (11.5-14.0); SEGMENTED NEUTROPHILS % (AUTO) 58.8 % (42-78); TOTAL CELLS COUNTED % (AUTO) 100 %; WHITE BLOOD COUNT 3.8 10^3/uL (4.0-10.5)
[2017-07-14 05:12] LABS: ALANINE AMINOTRANSFERASE 27 U/L (9-52); ALBUMIN 3.1 g/dL (3.5-5.0); ALKALINE PHOSPHATASE 71 U/L (38-126); ASPARTATE AMINO TRANSFERASE 16 U/L (14-36); BILIRUBIN,DIRECT 0.5 mg/dL (0.0-0.4); BILIRUBIN,TOTAL 0.7 mg/dL (0.2-1.3); CHOLESTEROL 157.88 mg/dL (0-200); CREATINE KINASE 42 U/L (30-135); TOTAL PROTEIN 6.4 g/dL (6.3-8.2); TRIGLYCERIDES 75 mg/dL (<150)
[2017-07-14 05:22] LABS: CREATINE KINASE MB 0.87 ng/mL (<4.55); TROPONIN I 0.044 ng/mL
[2017-07-14 05:24] LABS: DIRECT LDL 87 mg/dL (<100)
[2017-07-14 05:27] LABS: APPEARANCE,URINE CLOUDY; BILIRUBIN,URINE NEGATIVE (NEGATIVE); COLOR,URINE AMBER; GLUCOSE, URINE NEGATIVE (NEGATIVE); KETONES,URINE NEGATIVE (NEGATIVE); LEUKOCYTE ESTERASE,URINE TRACE (NEGATIVE); NITRITE,URINE NEGATIVE (NEGATIVE); PROTEIN,URINE NEGATIVE (NEGATIVE); URINE SPECIFIC GRAVITY 1.014
[2017-07-14] MEDS: CLONIDINE HCL 0.2 MG TABLET PO SCH ×2 (06:52→17:36)
[2017-07-14] MEDS: CARVEDILOL 12.5 MG TABLET PO SCH ×2 (06:52→17:35)
[2017-07-14] MEDS: SACUBITRIL/VALSARTAN 49 MG/51 MG TABLET PO SCH ×2 (06:52→17:36)
[2017-07-14] MEDS: RANOLAZINE 500 MG TAB.SR.12H PO SCH ×2 (06:52→17:36)
[2017-07-14] MEDS: HEPARIN SOD (PORCINE) 5,000 UNIT/ML 1 ML SYRINGE SUBCUT SCH ×3 (06:52→21:41)
[2017-07-14] MEDS: NYSTATIN TOPICAL POWDER 15 GM TP SCH ×2 (09:45→17:37)
--- NOTE | 2017-07-14 13:18 | PDOC H&P ---
History of Present Illness Admission Date/PCP: 07/13/17 05:43 MIKO GOMEZ MD History of Present Illness: Patient 77-year-old female with history of combined chronic systolic and diastolic heart failure, she was just recently discharged from this hospital on 07/02/2017 when she presented with acute decompensated chronic systolic and diastolic heart failure. On the last admission the entresto dose was adjusted, she was also taken off furosemide this was changed to Demadex, she came to the emergency room for evaluation of shortness of breath, in the emergency room she was supported with a noninvasive positive pressure ventilation BiPAP machine. Past Medical History Cardiac Medical History: Reports: Congestive Heart Failure, Hyperlipidema, Hypertension Hematology: Reports: Anemia Past Surgical History Past Surgical History: Reports: Tonsillectomy Social History Lives with: Shelter Smoking Status: Current Some Day Smoker Number of Years Smokin Frequency of Alcohol Use: None Hx Recreational Drug Use: No Drugs: None Hx Prescription Drug Abuse: No Family History Family History: Hypertension Parental Family History Reviewed: Yes Children Family History Reviewed: Yes Sibling(s) Family History Reviewed.: Yes Medication/Allergy Home Medications: RX: Atorvastatin Calcium [Lipitor 10 mg Tablet] 10 mg PO QHS 06/30/17 RX: Carvedilol [Coreg 12.5 mg Tablet] 12.5 mg PO Q12 06/30/17 RX: Clonidine HCl [Catapres 0.2 mg Tablet] 0.2 mg PO Q12 06/30/17 RX: Nitroglycerin [Nitrostat 0.4 mg (1/150 Gr) Tabs 25/Bottle] 1 tab SL Q5MP PRN 06/30/17 RX: Nystatin [Mycostatin Topical Powder 15 gm] 1 applic TP BID 06/30/17 RX: Ondansetron HCl [Zofran 4 mg Tablet] 4 mg PO TIDP PRN 06/30/17 RX: Polyethylene Glycol 3350 [Miralax Powder 17 gm/Packet] 1 packet PO DAILY RX: Ranolazine [Ranexa 500 mg Tab.sr] 500 mg PO Q12 06/30/17 RX: Sacubitril/Valsartan [Entresto 49 mg/51 mg Tablet] 1 tab PO Q12 tablet Furosemide [Lasix 20 mg Tablet] 20 mg PO DAILY 07/13/17 Allergies/Adverse Reactions: Penicillins Allergy (Verified 06/01/17 13:26) Review of Systems Constitutional: PRESENT: weakness Eyes: ABSENT: visual disturbances Ears: ABSENT: hearing changes Cardiovascular: PRESENT: dyspnea on exertion, orthropnea Respiratory: PRESENT: cough, dyspnea Gastrointestinal: ABSENT: abdominal pain, constipation, diarrhea, hematemesis, hematochezia, nausea, vomiting Genitourinary: ABSENT: dysuria, hematuria Musculoskeletal: ABSENT: joint swelling Integumentary: ABSENT: rash, wounds Neurological: ABSENT: abnormal gait, abnormal speech, confusion, dizziness, focal weakness, syncope Psychiatric: ABSENT: anxiety, depression, homidical ideation, suicidal ideation Endocrine: ABSENT: cold intolerance, heat intolerance, menstrual abnormalities, polydipsia, polyuria Hematologic/Lymphatic: ABSENT: easy bleeding, easy bruising, lymphadenopathy Physical Exam Vital Signs: Temp Pulse Resp BP Pulse Ox 98.7 F 83 23 H 119/53 L 100 07/14/17 11:44 07/14/17 11:44 07/14/17 11:44 07/14/17 11:44 07/14/17 11:44 Intake & Output 07/13/17 07/14/17 07/15/17 06:59 06:59 06:59 Intake Total 257 237 Output Total 2 Balance 257 235 Weight 89.1 kg General appearance: PRESENT: no acute distress, well-developed, well-nourished Head exam: PRESENT: atraumatic, normocephalic Eye exam: PRESENT: conjunctiva pink, EOMI, PERRLA Ear exam: PRESENT: normal external ear exam Mouth exam: PRESENT: moist, tongue midline Neck exam: PRESENT: full ROM Respiratory exam: PRESENT: crackles Cardiovascular exam: PRESENT: RRR, +S1, +S2 Pulses: PRESENT: normal dorsalis pedis pul, +2 pedal pulses bilateral Vascular exam: PRESENT: normal capillary refill GI/Abdominal exam: PRESENT: normal bowel sounds, soft Rectal exam: PRESENT: deferred Neurological exam: PRESENT: alert, awake, oriented to person, oriented to place , oriented to time, oriented to situation, CN II-XII grossly intact Psychiatric exam: PRESENT: appropriate affect, normal mood Skin exam: PRESENT: dry, intact, warm Results Laboratory Results: 07/14/17 04:38 07/13/17 07/13/17 07/14/17 17:05 17:10 04:38 WBC RBC Hgb Hct MCV MCH MCHC RDW Plt Count Seg Neutrophils % Lymphocytes % Monocytes % Eosinophils % Basophils % Absolute Neutrophils Absolute Lymphocytes Absolute Monocytes Absolute Eosinophils Absolute Basophils Carbonic Acid 1.66 H HCO3/H2CO3 Ratio 21:1 ABG pH 7.42 ABG pCO2 55.1 H ABG pO2 94.3 ABG HCO3 35.3 H ABG O2 Saturation 97.2 ABG Base Excess 8.5 FiO2 40% Total Bilirubin 0.7 AST 16 ALT 27 Alkaline Phosphatase 71 Total Protein 6.4 Albumin 3.1 L Triglycerides 75 Cholesterol 157.88 LDL Cholesterol Direct 87 VLDL Cholesterol 15.0 HDL Cholesterol 38 L TSH 0.61 Free T4 1.91 Urine Color Urine Appearance Urine pH Ur Specific [place] Urine Protein Urine Glucose (UA) Urine Ketones Urine Blood Urine Nitrite Ur Leukocyte Esterase Urine WBC (Auto) Urine RBC (Auto) 07/14/17 07/14/17 04:38 05:00 WBC 3.8 L RBC 2.70 L Hgb 8.6 L Hct 25.5 L MCV 94 MCH 31.7 MCHC 33.6 RDW 14.8 H Plt Count 243 Seg Neutrophils % 58.8 Lymphocytes % 26.1 Monocytes % 11.0 Eosinophils % 3.5 Basophils % 0.6 Absolute Neutrophils 2.2 Absolute Lymphocytes 1.0 Absolute Monocytes 0.4 Absolute Eosinophils 0.1 Absolute Basophils 0.0 Carbonic Acid HCO3/H2CO3 Ratio ABG pH ABG pCO2 ABG pO2 ABG HCO3 ABG O2 Saturation ABG Base Excess FiO2 Total Bilirubin AST ALT Alkaline Phosphatase Total Protein Albumin Triglycerides Cholesterol LDL Cholesterol Direct VLDL Cholesterol HDL Cholesterol TSH Free T4 Urine Color ERICA Urine Appearance CLOUDY Urine pH 5.0 Ur Specific [place] 1.014 Urine Protein NEGATIVE Urine Glucose (UA) NEGATIVE Urine Ketones NEGATIVE Urine Blood NEGATIVE Urine Nitrite NEGATIVE Ur Leukocyte Esterase TRACE H Urine WBC (Auto) 14 Urine RBC (Auto) 13 07/13/17 07/13/17 07/13/17 17:05 17:05 22:15 Creatine Kinase 38 41 CK-MB (CK-2) 0.82 Troponin I 0.063 07/13/17 07/14/17 07/14/17 22:15 04:38 04:38 Creatine Kinase 42 CK-MB (CK-2) 1.10 0.87 Troponin I 0.052 0.044 Impressions: Chest X-Ray 07/13/17 03:42 IMPRESSION: Multifocal pneumonia and/or CHF pattern similar in appearance compared with prior exam from 06/30/2017. Differential diagnosis includes chronic interstitial lung disease. Cannot exclude underlying neoplastic processes. Consider 7-12 week surveillance radiographs with clinically warranted therapy. 2010 [employer]- All Rights Reserved Assessment & Plan - Diagnosis (1) Acute combined systolic and diastolic ACC/AHA stage C congestive heart failure Is this a current diagnosis for this admission?: Yes Plan: She is admitted for management
[2017-07-14] MEDS ORDERED: ACETAMINOPHEN 325 MG TABLET PO PRN (13:25)
--- NOTE | 2017-07-14 16:03 | RADIOLOGY REPORT (SQ) ---
EXAM DESCRIPTION: NM LUNG VENT/PERF SCAN COMPLETED DATE/TIME: 07/14/2017 3:44 pm REASON FOR STUDY: SUSPECT PE COMPARISON: Single-view chest radiograph from yesterday. RADIONUCLIDE AND DOSE: 5.07 millicuries TC-99m MAA Intravenous 30.4 millicuries TC-99m DTPA Inhaled aerosol TECHNIQUE: Eight views of the lungs acquired post ventilation of DTPA aerosol. Eight matching views of the lungs acquired following injection of MAA. LIMITATIONS: None. FINDINGS: VENTILATION: Symmetric and homogeneous distribution of DTPA aerosol during ventilatory pha se. No significant areas of photopenia. PERFUSION: Perfusion images with normal homogenous activity and no wedge-shaped or segmental defects. No ventilation-perfusion mismatches. OTHER: No other significant finding. IMPRESSION: NORMAL VENTILATION-PERFUSION LUNG SCAN. NEGATIVE FOR PULMONARY EMBOLI. TECHNICAL DOCUMENTATION: JOB ID: [id number] [employer]- All Rights Reserved
--- NOTE | 2017-07-14 17:07 | PDOC PROGRESS REPORT ---
Subjective Progress Note for:: 07/14/17 Subjective:: She was seen by the bedside VQ scan was done it was negative for pulmonary embolus, she has no new complaints today Reason For Visit: HEART FAILURE Physical Exam Vital Signs: Temp Pulse Resp BP Pulse Ox 98.7 F 84 23 H 119/53 L 100 07/14/17 11:44 07/14/17 14:00 07/14/17 11:44 07/14/17 11:44 07/14/17 11:44 Intake & Output 07/13/17 07/14/17 07/15/17 06:59 06:59 06:59 Intake Total 257 237 Output Total 2 Balance 257 235 Weight 89.1 kg General appearance: PRESENT: no acute distress, well-developed, well-nourished Head exam: PRESENT: atraumatic, normocephalic Eye exam: PRESENT: conjunctiva pink, EOMI, PERRLA Ear exam: PRESENT: normal external ear exam Mouth exam: PRESENT: moist, tongue midline Neck exam: PRESENT: full ROM Respiratory exam: PRESENT: clear to auscultation kishan Cardiovascular exam: PRESENT: RRR, +S1, +S2 Pulses: PRESENT: normal dorsalis pedis pul, +2 pedal pulses bilateral Vascular exam: PRESENT: normal capillary refill GI/Abdominal exam: PRESENT: normal bowel sounds, soft Rectal exam: PRESENT: deferred Neurological exam: PRESENT: alert, awake, oriented to person, oriented to place , oriented to time, oriented to situation, CN II-XII grossly intact. ABSENT: motor sensory deficit Psychiatric exam: PRESENT: appropriate affect, normal mood. ABSENT: homicidal ideation, suicidal ideation Skin exam: PRESENT: dry, intact, warm. ABSENT: cyanosis, rash Results Laboratory Results: 07/14/17 04:38 07/13/17 07/13/17 07/14/17 17:05 17:10 04:38 WBC RBC Hgb Hct MCV MCH MCHC RDW Plt Count Seg Neutrophils % Lymphocytes % Monocytes % Eosinophils % Basophils % Absolute Neutrophils Absolute Lymphocytes Absolute Monocytes Absolute Eosinophils Absolute Basophils Carbonic Acid 1.66 H HCO3/H2CO3 Ratio 21:1 ABG pH 7.42 ABG pCO2 55.1 H ABG pO2 94.3 ABG HCO3 35.3 H ABG O2 Saturation 97.2 ABG Base Excess 8.5 FiO2 40% Total Bilirubin 0.7 AST 16 ALT 27 Alkaline Phosphatase 71 Total Protein 6.4 Albumin 3.1 L Triglycerides 75 Cholesterol 157.88 LDL Cholesterol Direct 87 VLDL Cholesterol 15.0 HDL Cholesterol 38 L TSH 0.61 Free T4 1.91 Urine Color Urine Appearance Urine pH Ur Specific [place] Urine Protein Urine Glucose (UA) Urine Ketones Urine Blood Urine Nitrite Ur Leukocyte Esterase Urine WBC (Auto) Urine RBC (Auto) 07/14/17 07/14/17 04:38 05:00 WBC 3.8 L RBC 2.70 L Hgb 8.6 L Hct 25.5 L MCV 94 MCH 31.7 MCHC 33.6 RDW 14.8 H Plt Count 243 Seg Neutrophils % 58.8 Lymphocytes % 26.1 Monocytes % 11.0 Eosinophils % 3.5 Basophils % 0.6 Absolute Neutrophils 2.2 Absolute Lymphocytes 1.0 Absolute Monocytes 0.4 Absolute Eosinophils 0.1 Absolute Basophils 0.0 Carbonic Acid HCO3/H2CO3 Ratio ABG pH ABG pCO2 ABG pO2 ABG HCO3 ABG O2 Saturation ABG Base Excess FiO2 Total Bilirubin AST ALT Alkaline Phosphatase Total Protein Albumin Triglycerides Cholesterol LDL Cholesterol Direct VLDL Cholesterol HDL Cholesterol TSH Free T4 Urine Color ERICA Urine Appearance CLOUDY Urine pH 5.0 Ur Specific [place] 1.014 Urine Protein NEGATIVE Urine Glucose (UA) NEGATIVE Urine Ketones NEGATIVE Urine Blood NEGATIVE Urine Nitrite NEGATIVE Ur Leukocyte Esterase TRACE H Urine WBC (Auto) 14 Urine RBC (Auto) 13 07/13/17 07/13/17 07/13/17 17:05 17:05 22:15 Creatine Kinase 38 41 CK-MB (CK-2) 0.82 Troponin I 0.063 07/13/17 07/14/17 07/14/17 22:15 04:38 04:38 Creatine Kinase 42 CK-MB (CK-2) 1.10 0.87 Troponin I 0.052 0.044 Impressions: Lung Scan-VQ NM 07/13/17 00:00 IMPRESSION: NORMAL VENTILATION-PERFUSION LUNG SCAN. NEGATIVE FOR PULMONARY EMBOLI. Chest X-Ray 07/13/17 03:42 IMPRESSION: Multifocal pneumonia and/or CHF pattern similar in appearance compared with prior exam from 06/30/2017. Differential diagnosis includes chronic interstitial lung disease. Cannot exclude underlying neoplastic processes. Consider 7-12 week surveillance radiographs with clinically warranted therapy. 2010 [employer]- All Rights Reserved Assessment & Plan - Diagnosis (1) Acute combined systolic and diastolic ACC/AHA stage C congestive heart failure Is this a current diagnosis for this admission?: Yes Plan: Continue treatment
[2017-07-14] MEDS: FUROSEMIDE 20 MG TABLET PO SCH (17:36)
[2017-07-14] MEDS: POLYETHYLENE GLYCOL 3350 POWDER 17 GM/1 PACKET PO SCH (17:37)
[2017-07-14] MEDS: ATORVASTATIN CALCIUM 10 MG TABLET PO SCH (21:41)
[2017-07-15] MEDS: HEPARIN SOD (PORCINE) 5,000 UNIT/ML 1 ML SYRINGE SUBCUT SCH ×2 (05:36→13:46)
[2017-07-15] MEDS: RANOLAZINE 500 MG TAB.SR.12H PO SCH (05:36)
[2017-07-15] MEDS: CARVEDILOL 12.5 MG TABLET PO SCH (05:36)
[2017-07-15] MEDS: SACUBITRIL/VALSARTAN 49 MG/51 MG TABLET PO SCH (05:36)
[2017-07-15] MEDS: CLONIDINE HCL 0.2 MG TABLET PO SCH (05:36)
[2017-07-15 05:44] LABS: ABSOLUTE EOSINOPHILS # (AUTO) 0.1 10^3/uL (0.0-0.6); ABSOLUTE LYMPHOCYTES (AUTO) 1.1 10^3/uL (0.5-4.7); ABSOLUTE MONOCYTES (AUTO) 0.5 10^3/uL (0.1-1.4); ABSOLUTE NEUT (AUTO) 2.3 10^3/uL (1.7-8.2); BASOPHILS % (AUTO) 0.5 % (0-2); EOSINOPHILS % (AUTO) 3.2 % (0-6); HEMATOCRIT 25.3 % (36.0-47.0); HEMOGLOBIN 8.4 g/dL (12.0-15.5); LYMPHOCYTES % (AUTO) 27.8 % (13-45); MEAN CORPUSCULAR HEMOGLOBIN 31.3 pg (27.0-33.4); MEAN CORPUSCULAR HGB CONC 33.4 g/dL (32.0-36.0); MEAN CORPUSCULAR VOLUME 94 fl (80-97); MONOCYTES % (AUTO) 12.2 % (3-13); PLATELET COUNT 241 10^3/uL (150-450); RED BLOOD COUNT 2.69 10^6/uL (3.72-5.28); RED CELL DISTRIBUTION WIDTH 14.2 % (11.5-14.0); SEGMENTED NEUTROPHILS % (AUTO) 56.3 % (42-78); TOTAL CELLS COUNTED % (AUTO) 100 %; WHITE BLOOD COUNT 4.1 10^3/uL (4.0-10.5)
[2017-07-15] MEDS: NYSTATIN TOPICAL POWDER 15 GM TP SCH (10:33)
--- NOTE | 2017-07-15 11:28 | PDOC TRANSFER SUMMARY ---
General - Admit/Disc Date/PCP Admission Date/Primary Care Provider: 07/13/17 05:43 MIKO GOMEZ MD Discharge Date: 07/15/17 - Discharge Diagnosis (1) Acute combined systolic and diastolic ACC/AHA stage C congestive heart failure Is this a current diagnosis for this admission?: Yes - Additional Information Home Medications: Atorvastatin Calcium [Lipitor 10 mg Tablet] 10 mg PO QHS 06/30/17 Carvedilol [Coreg 12.5 mg Tablet] 12.5 mg PO Q12 06/30/17 Clonidine HCl [Catapres 0.2 mg Tablet] 0.2 mg PO Q12 06/30/17 Nitroglycerin [Nitrostat 0.4 mg (1/150 Gr) Tabs 25/Bottle] 1 tab SL Q5MP PRN Nystatin [Mycostatin Topical Powder 15 gm] 1 applic TP BID 06/30/17 Ondansetron HCl [Zofran 4 mg Tablet] 4 mg PO TIDP PRN 06/30/17 Polyethylene Glycol 3350 [Miralax Powder 17 gm/Packet] 1 packet PO DAILY Ranolazine [Ranexa 500 mg Tab.sr] 500 mg PO Q12 06/30/17 Sacubitril/Valsartan [Entresto 49 mg/51 mg Tablet] 1 tab PO Q12 tablet Furosemide [Lasix 20 mg Tablet] 20 mg PO DAILY 07/13/17 History of Present Illness Admission Date/PCP: 07/13/17 05:43 MIKO GOMEZ MD History of Present Illness: NEIDA YEPEZ is a 77 year old female patient was admitted when she presented with acute combined systolic and diastolic heart failure Hospital Course Hospital Course: She was admitted for the management of acute combined systolic and diastolic heart failure, she was continued on her regular medication for CHF, she required noninvasive positive pressure ventilation with BiPAP initially on admission but for the most part she uses the device at night when she sleeps suggesting that she may need sleep study to determine if she has sleep apnea and she may require the device at night. [facility] is presently the [facility], [facility] for [facility] care and also for physical therapy which she needs the most. She may need to use positive pressure ventilation at night. She presently uses BiPAP with the setting of IPAP 14 EPAP 10 Physical Exam Vital Signs: Temp Pulse Resp BP Pulse Ox 97.5 F 75 21 H 130/63 H 100 07/15/17 07:38 07/15/17 07:38 07/15/17 07:38 07/15/17 07:38 07/15/17 07:38 Intake & Output 07/14/17 07/15/17 07/16/17 06:59 06:59 06:59 Intake Total 257 745 Output Total 2 Balance 257 743 Weight 89.1 kg 94.7 kg General appearance: PRESENT: no acute distress, well-developed, well-nourished Head exam: PRESENT: atraumatic, normocephalic Eye exam: PRESENT: conjunctiva pink, EOMI, PERRLA Ear exam: PRESENT: normal external ear exam Mouth exam: PRESENT: moist, tongue midline Respiratory exam: PRESENT: clear to auscultation kishan Cardiovascular exam: PRESENT: RRR, +S1, systolic murmur Pulses: PRESENT: normal dorsalis pedis pul Vascular exam: PRESENT: normal capillary refill GI/Abdominal exam: PRESENT: normal bowel sounds, soft Rectal exam: PRESENT: deferred Extremities exam: PRESENT: full ROM. ABSENT: calf tenderness, clubbing, pedal edema Neurological exam: PRESENT: alert, awake, oriented to person, oriented to place , oriented to time, oriented to situation, CN II-XII grossly intact Psychiatric exam: PRESENT: appropriate affect, normal mood Skin exam: PRESENT: dry, intact, warm Results Laboratory Results: 07/15/17 04:54 07/15/17 04:54 WBC 4.1 RBC 2.69 L Hgb 8.4 L Hct 25.3 L MCV 94 MCH 31.3 MCHC 33.4 RDW 14.2 H Plt Count 241 Seg Neutrophils % 56.3 Lymphocytes % 27.8 Monocytes % 12.2 Eosinophils % 3.2 Basophils % 0.5 Absolute Neutrophils 2.3 Absolute Lymphocytes 1.1 Absolute Monocytes 0.5 Absolute Eosinophils 0.1 Absolute Basophils 0.0 07/13/17 07/13/17 07/13/17 17:05 17:05 22:15 Creatine Kinase 38 41 CK-MB (CK-2) 0.82 Troponin I 0.063 01/03/18 01/04/18 01/04/18 22:15 04:38 04:38 Creatine Kinase 42 CK-MB (CK-2) 1.10 0.87 Troponin I 0.052 0.044 Impressions: Lung Scan-VQ NM 07/13/17 00:00 IMPRESSION: NORMAL VENTILATION-PERFUSION LUNG SCAN. NEGATIVE FOR PULMONARY EMBOLI. Chest X-Ray 07/13/17 03:42 IMPRESSION: Multifocal pneumonia and/or CHF pattern similar in appearance compared with prior exam from 06/30/2017. Differential diagnosis includes chronic interstitial lung disease. Cannot exclude underlying neoplastic processes. Consider 7-12 week surveillance radiographs with clinically warranted therapy. 2010 [employer]- All Rights Reserved Plan Discharge Plan: [facility] be transferred [facility] to the [facility] for [facility] care, she should use noninvasive positive pressure ventilation with BiPAP at night for sleep, the setting should be IPAP 14, EPAP 10 FiO2 21%
[2017-07-15 12:48] VITALS: BP 144/82
== END 2017-07-15 15:16 | DRG 293 ==
LOC: ER 03:21 → EH 05:43 → 3W 13:51
PROVIDERS: ADMIT Internal Medicine; ATTEND Internal Medicine
PROC: 5A09457 Assistance with Respiratory Ventilation, 24-96 Consecutive Hours, Continuous Positive Airway Pressure (ICD-10-PCS; principal; 2017-07-13)
DX: I11.0 Hypertensive heart disease with heart failure (principal); I50.43 Acute on chronic combined systolic (congestive) and diastolic (congestive) heart failure; E78.5 Hyperlipidemia, unspecified; F17.200 Nicotine dependence, unspecified, uncomplicated; E78.00 Pure hypercholesterolemia, unspecified; Z82.49 Family history of ischemic heart disease and other diseases of the circulatory system; Z88.0 Allergy status to penicillin; Z79.899 Other long term (current) drug therapy
CPT/HCPCS: 36415; 36600; 71045; 78582; 80053; 80061; 80076; 81001; 82550; 82553; 82803; 83036; 83880; 84439; 84443; 84484; 85025; 85610; 85730; 93005; 93010; 94660; 96374; 99285; A9540; A9567; J1644; J1940; J3490; Q9969

== ENCOUNTER 2017-08-15 13:24 | Inpatient (IN) | payer MEDICARE, MEDICAID ==
[2017-08-15 14:11] LABS: INTERNATIONAL RATION (INR) 1.15; PROTHROMBIN TIME 15.5 SEC (11.4-15.4)
--- NOTE | 2017-08-15 14:25 | RADIOLOGY REPORT (SQ) ---
EXAM DESCRIPTION: CHEST SINGLE VIEW COMPLETED DATE/TIME: 08/15/2017 2:17 pm REASON FOR STUDY: bed 15 sepsis protocol COMPARISON: Chest films 06/02/2017, 06/30/2017, 07/13/2017 EXAM PARAMETERS: NUMBER OF VIEWS: One view. TECHNIQUE: Single frontal radiographic view of the chest acquired. RADIATION DOSE: NA LIMITATIONS: None. FINDINGS: LUNGS AND PLEURA: Minimal bibasilar airspace disease atelectasis versus developing pneumon ia. There is mild perihilar airspace disease left greater than right, question mild pulmonary edema. Trace right pleural fluid in the lateral costophrenic sulcus. No pneumothorax MEDIASTINUM AND HILAR STRUCTURES: No masses. Contour normal. HEART AND VASCULAR STRUCTURES: Stable moderate to marked cardiomegaly BONES: No acute findings. HARDWARE: None in the chest. OTHER: No other significant finding. IMPRESSION: Mild bibasilar airspace disease atelectasis versus pneumonia. Trace right pleural effusion and mild bilateral perihilar airspace disease left greater than right, q uestion mild fluid overload or pulmonary edema TECHNICAL DOCUMENTATION: JOB ID: [id number]- All Rights Reserved
[2017-08-15 14:27] LABS: ABSOLUTE LYMPHOCYTES (AUTO) 1.1 10^3/uL (0.5-4.7); ABSOLUTE MONOCYTES (AUTO) 0.4 10^3/uL (0.1-1.4); BASOPHILS % (AUTO) 0.7 % (0-2); EOSINOPHILS % (AUTO) 0.3 % (0-6); HEMATOCRIT 27.1 % (36.0-47.0); LYMPHOCYTES % (AUTO) 19.5 % (13-45); MEAN CORPUSCULAR HEMOGLOBIN 31.8 pg (27.0-33.4); MEAN CORPUSCULAR HGB CONC 33.1 g/dL (32.0-36.0); MEAN CORPUSCULAR VOLUME 96 fl (80-97); RED BLOOD COUNT 2.82 10^6/uL (3.72-5.28); RED CELL DISTRIBUTION WIDTH 15.8 % (11.5-14.0); SEGMENTED NEUTROPHILS % (AUTO) 72.5 % (42-78); TOTAL CELLS COUNTED % (AUTO) 100 %; WHITE BLOOD COUNT 5.5 10^3/uL (4.0-10.5)
[2017-08-15 14:46] LABS: PLATELET COUNT 262 10^3/uL (150-450)
[2017-08-15 14:47] LABS: ANISOCYTOSIS SLIGHT; HYPOCHROMASIA 1+; PLATELET CLUMPS PRESENT; POLYCHROMASIA 1+; ROULEAUX SLIGHT; TOXIC GRANULATION SLIGHT; TOXIC VACUOLATION PRESENT
--- NOTE | 2017-08-15 14:53 | RADIOLOGY REPORT (SQ) ---
EXAM DESCRIPTION: CT HEAD WITHOUT COMPLETED DATE/TIME: 08/15/2017 2:42 pm REASON FOR STUDY: facial droop left COMPARISON: MRI brain 06/02/2017 CT brain 06/01/2017, 08/07/2015, 07/15/2015 TECHNIQUE: Axial images acquired through the brain without intravenous contrast. Images reviewed wi th bone, brain and subdural windows. Images stored on PACS. All CT scanners at this facility use dose modulation, iterative reconstruction, and/or weight based d osing when appropriate to reduce radiation dose to as low as reasonably achievable (ALARA). [facility]: Dose Right [facility]: CareDose [facility]: Dose Right [facility]: Teradose 4D [facility]: [employer] RADIATION DOSE: CT Rad equipment meets quality standard of care and radiation dose reduction techniq ues were employed. CTDIvol: 64.6 mGy. DLP: 1163 mGy-cm. mGy. LIMITATIONS: Motion artifact FINDINGS: VENTRICLES: Normal size and contour. CEREBRUM: No CT evidence of large territory acute ischemic change, acute intracranial hemorrhage, mas s effect, or midline shift. Extensive low attenuation in the bifrontal and biparietal white matter wi th old lacunar infarcts in the bilateral basal ganglia CEREBELLUM: Motion artifact through the posterior fossa structures. No midline shift or acute hemorr amy EXTRAAXIAL SPACES: No fluid collections. No masses. ORBITS AND GLOBE: No intra- or extraconal masses. Normal contour of globe without masses. CALVARIUM: No fracture. PARANASAL SINUSES: No fluid or mucosal thickening. SOFT TISSUES: No mass or hematoma. OTHER: No other significant finding. IMPRESSION: Limited study from motion artifact. No acute findings. 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 EVIDENCE OF ACUTE STROKE: NO. COMMENT: Quality ID # [id number]: Final reports with documentation of one or more dose reduction techniques (e.g., Automated exposure control, adjustment of the mA and/or kV according to patient size, use of iterative reconstruction technique) TECHNICAL DOCUMENTATION: JOB ID: [id number] [employer]- All Rights Reserved
[2017-08-15] MEDS ORDERED: FUROSEMIDE INJ/PF 40 MG/4 ML SDV IV ONE (15:00)
[2017-08-15 15:47] LABS: APPEARANCE,URINE SLIGHTLY-CLOUDY; BILIRUBIN,URINE NEGATIVE (NEGATIVE); COLOR,URINE YELLOW; GLUCOSE, URINE NEGATIVE (NEGATIVE); KETONES,URINE NEGATIVE (NEGATIVE); LEUKOCYTE ESTERASE,URINE TRACE (NEGATIVE); NITRITE,URINE NEGATIVE (NEGATIVE); PROTEIN,URINE 30 mg/dL (NEGATIVE); URINE SPECIFIC GRAVITY 1.016
--- NOTE | 2017-08-15 16:36 | ER Document Report ---
ED General - General Chief Complaint: Respiratory Distress Stated Complaint: SHORTNESS OF BREATH Time Seen by Provider: 08/15/17 14:08 Mode of Arrival: Stretcher Information source: Patient, Emergency Med Personnel, [facility] Records TRAVEL OUTSIDE OF THE [place] IN LAST 30 DAYS: No - HPI Patient complains to provider of: SOB Onset: Other - [employer] Quality of pain: No pain Associated symptoms: Shortness of breath. denies: Chest pain, Chills, Nonproductive cough, Productive cough, Fever, Vomiting, Slow to respond, Sweating Exacerbated by: Movement Similar symptoms previously: Yes Recently seen / treated by doctor: Yes Notes: Patient states that she was short of breath at 2 AM. It resolved and then she became more short of breath just prior to arrival. Patient states she used to live alone in an apartment but now she is in a penit[facility]. She states she is on O2 at the penitentiary at all times. She is nonambulatory. Is have a history of tobacco abuse. Pulse ox is 80% at the penitentiary prior to arrival - Related Data Allergies/Adverse Reactions: Penicillins Allergy (Verified 08/15/17 18:01) Past Medical History - General Information source: Patient, Transfer Record, Emergency Med Personnel, [facility] Records - Social History Smoking Status: Current Some Day Smoker Chew tobacco use (# tins/day): No Frequency of alcohol use: None Drug Abuse: None Lives with: Long-Term Family History: Hypertension Patient has suicidal ideation: No Patient has homicidal ideation: No - Past Medical History Cardiac Medical History: Reports: Hx Congestive Heart Failure, Hx Hypercholesterolemia, Hx Hypertension Renal/ Medical History: Denies: Hx Peritoneal Dialysis Psychiatric Medical History: Denies: Hx Depression Infectious Medical History: Reports: Other - sepsis Past Surgical History: Reports: Hx Tonsillectomy - Immunizations Hx Diphtheria, Pertussis, Tetanus Vaccination: - unknown Review of Systems - Review of Systems Constitutional: No symptoms reported EENT: No symptoms reported Cardiovascular: No symptoms reported Respiratory: Short of breath Gastrointestinal: No symptoms reported Genitourinary: No symptoms reported Female Genitourinary: No symptoms reported Musculoskeletal: Leg swelling Skin: No symptoms reported Hematologic/Lymphatic: No symptoms reported Neurological/Psychological: No symptoms reported Physical Exam - Vital signs Vitals: Resp Pulse Ox 26 H 95 08/15/17 13:41 08/15/17 13:41 Heart rate is 89 pulse ox is 100% on 2 L - Notes Notes: PHYSICAL EXAMINATION: GENERAL: Obese -Hungarian female sitting up in bed. Mild respiratory distress. HEAD: Atraumatic, normocephalic. EYES: Pupils equal round and reactive to light, extraocular movements intact, conjunctiva are normal. ENT: Nares patent, oropharynx clear without exudates. Moist mucous membranes. NECK: Normal range of motion, supple without lymphadenopathy LUNGS: Breath sounds clear to auscultation bilaterally and equal. No wheezes rales or rhonchi. HEART: Regular rate and rhythm ABDOMEN: Obese, soft, nontender, nondistended abdomen. No guarding, no rebound. No masses appreciated. Female : deferred Musculoskeletal: +2 pitting edema b/l LE. Patient can lift the left leg off the bed just slightly. Her right leg she can contract the muscles but she cannot lift it off the bed. NEUROLOGICAL: Cranial nerves grossly intact with the exception of the facial droop. Patient states it is like that because she does not have her dentures in on the right side. Normal speech Normal sensory. PSYCH: Normal mood, normal affect. SKIN: Warm, Dry, normal turgor, no rashes or lesions noted. Course - Re-evaluation Re-evalutation: 08/15/17 16:36 Continue to wait for chemistries. The first chemistries were hemolyzed. Lab was called. They just now took the blood. Waiting for results so I can have the patient admitted. 08/15/17 18:31 I called the lab looking for the troponin. She states that the initial troponin hemolyzed. And then the lab did not redraw the correct tube when they redrew chemistries. So I asked her simply to please come draw blood now for troponin she stated they are on their way. 08/15/17 20:17 Labs- All tests 24 hr 08/15/17 08/15/17 08/15/17 13:46 14:06 14:06 WBC 5.5 RBC 2.82 L Hgb 9.0 L Hct 27.1 L MCV 96 MCH 31.8 MCHC 33.1 RDW 15.8 H Plt Count 262 Seg Neutrophils % 72.5 Lymphocytes % 19.5 Monocytes % 7.0 Eosinophils % 0.3 Basophils % 0.7 Absolute Neutrophils 4.0 Absolute Lymphocytes 1.1 Absolute Monocytes 0.4 Absolute Eosinophils 0.0 Absolute Basophils 0.0 Toxic Granulation SLIGHT Toxic Vacuolation PRESENT Clumped Platelets PRESENT Platelet Comment Not Reportable Polychromasia 1+ Hypochromasia 1+ Anisocytosis SLIGHT Rouleaux SLIGHT PT 15.5 H INR 1.15 VBG pH VBG pCO2 VBG HCO3 VBG Base Excess Sodium Cancelled Potassium Cancelled Chloride Cancelled Carbon Dioxide Cancelled Anion Gap Cancelled BUN Cancelled Creatinine Cancelled Est GFR ( Amer) Cancelled Est GFR (Non-Af Amer) Cancelled Glucose Cancelled POC Glucose Lactic Acid Calcium Cancelled Total Bilirubin Cancelled Direct Bilirubin Cancelled Neonat Total Bilirubin Cancelled Neonat Direct Bilirubin Cancelled Neonat Indirect Bili Cancelled AST Cancelled ALT Cancelled Alkaline Phosphatase Cancelled Troponin I Total Protein Cancelled Albumin Cancelled Urine Color Urine Appearance Urine pH Ur Specific [place] Urine Protein Urine Glucose (UA) Urine Ketones Urine Blood Urine Nitrite Urine Bilirubin Urine Urobilinogen Ur Leukocyte Esterase Urine WBC (Auto) Urine RBC (Auto) U Hyaline Cast (Auto) Urine Bacteria (Auto) Squamous Epi Cells Auto Urine Mucus (Auto) Urine Ascorbic Acid 08/15/17 08/15/17 08/15/17 14:06 14:06 14:06 WBC RBC Hgb Hct MCV MCH MCHC RDW Plt Count Seg Neutrophils % Lymphocytes % Monocytes % Eosinophils % Basophils % Absolute Neutrophils Absolute Lymphocytes Absolute Monocytes Absolute Eosinophils Absolute Basophils Toxic Granulation Toxic Vacuolation Clumped Platelets Platelet Comment Polychromasia Hypochromasia Anisocytosis Rouleaux PT INR VBG pH Cancelled VBG pCO2 Cancelled VBG HCO3 Cancelled VBG Base Excess Cancelled Sodium Potassium Chloride Carbon Dioxide Anion Gap BUN Creatinine Est GFR ( Amer) Est GFR (Non-Af Amer) Glucose POC Glucose Lactic Acid 1.5 Calcium Total Bilirubin Direct Bilirubin Neonat Total Bilirubin Neonat Direct Bilirubin Neonat Indirect Bili AST ALT Alkaline Phosphatase Troponin I Cancelled Total Protein Albumin Urine Color Urine Appearance Urine pH Ur Specific [place] Urine Protein Urine Glucose (UA) Urine Ketones Urine Blood Urine Nitrite Urine Bilirubin Urine Urobilinogen Ur Leukocyte Esterase Urine WBC (Auto) Urine RBC (Auto) U Hyaline Cast (Auto) Urine Bacteria (Auto) Squamous Epi Cells Auto Urine Mucus (Auto) Urine Ascorbic Acid 08/15/17 08/15/17 08/15/17 14:20 15:06 16:44 WBC RBC Hgb Hct MCV MCH MCHC RDW Plt Count Seg Neutrophils % Lymphocytes % Monocytes % Eosinophils % Basophils % Absolute Neutrophils Absolute Lymphocytes Absolute Monocytes Absolute Eosinophils Absolute Basophils Toxic Granulation Toxic Vacuolation Clumped Platelets Platelet Comment Polychromasia Hypochromasia Anisocytosis Rouleaux PT INR VBG pH VBG pCO2 VBG HCO3 VBG Base Excess Sodium 141.7 Potassium 4.7 Chloride 102 Carbon Dioxide 31 H Anion Gap 9 BUN 24 H Creatinine 1.62 H Est GFR ( Amer) 37 L Est GFR (Non-Af Amer) 31 L Glucose 90 POC Glucose 109 Lactic Acid Calcium 9.8 Total Bilirubin 0.9 Direct Bilirubin 0.5 H Neonat Total Bilirubin Not Reportable Neonat Direct Bilirubin Not Reportable Neonat Indirect Bili Not Reportable AST 16 ALT 17 Alkaline Phosphatase 61 Troponin I Total Protein 6.9 Albumin 3.6 Urine Color YELLOW Urine Appearance SLIGHTLY-CLOUDY Urine pH 6.0 Ur Specific [place] 1.016 Urine Protein 30 H Urine Glucose (UA) NEGATIVE Urine Ketones NEGATIVE Urine Blood NEGATIVE Urine Nitrite NEGATIVE Urine Bilirubin NEGATIVE Urine Urobilinogen 4.0 H Ur Leukocyte Esterase TRACE H Urine WBC (Auto) 3 Urine RBC (Auto) 0 U Hyaline Cast (Auto) 5 Urine Bacteria (Auto) TRACE Squamous Epi Cells Auto 2 Urine Mucus (Auto) RARE Urine Ascorbic Acid NEGATIVE 08/15/17 08/15/17 16:44 17:30 WBC RBC Hgb Hct MCV MCH MCHC RDW Plt Count Seg Neutrophils % Lymphocytes % Monocytes % Eosinophils % Basophils % Absolute Neutrophils Absolute Lymphocytes Absolute Monocytes Absolute Eosinophils Absolute Basophils Toxic Granulation Toxic Vacuolation Clumped Platelets Platelet Comment Polychromasia Hypochromasia Anisocytosis Rouleaux PT INR VBG pH Cancelled 7.37 VBG pCO2 Cancelled 54.8 VBG HCO3 Cancelled 30.6 VBG Base Excess Cancelled 4.3 Sodium Potassium Chloride Carbon Dioxide Anion Gap BUN Creatinine Est GFR ( Amer) Est GFR (Non-Af Amer) Glucose POC Glucose Lactic Acid Calcium Total Bilirubin Direct Bilirubin Neonat Total Bilirubin Neonat Direct Bilirubin Neonat Indirect Bili AST ALT Alkaline Phosphatase Troponin I Total Protein Albumin Urine Color Urine Appearance Urine pH Ur Specific [place] Urine Protein Urine Glucose (UA) Urine Ketones Urine Blood Urine Nitrite Urine Bilirubin Urine Urobilinogen Ur Leukocyte Esterase Urine WBC (Auto) Urine RBC (Auto) U Hyaline Cast (Auto) Urine Bacteria (Auto) Squamous Epi Cells Auto Urine Mucus (Auto) Urine Ascorbic Acid Head CT 08/15/17 14:21 IMPRESSION: Limited study from motion artifact. No acute findings. 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 EVIDENCE OF ACUTE STROKE: NO. Chest X-Ray 08/15/17 18:54 IMPRESSION: No interval changes. Continued cardiomegaly and bilateral perihilar airspace disease concerning for heart failure. Patient was eating and she did have a choking episode. She did not become hypoxic however she stated she was short of breath. Repeat chest x-ray did not show any change. Patient remained stable at baseline. I did talk to Dr. Sue and he will put in orders for the patient. 08/15/17 20:18 - Vital Signs Vital signs: Temp Pulse Resp BP Pulse Ox 29 H 158/84 H 97 08/15/17 19:00 08/15/17 18:02 08/15/17 19:00 - Laboratory Result Diagrams: 08/15/17 14:06 08/15/17 16:44 Laboratory results interpreted by me: 08/15/17 08/15/17 08/15/17 13:46 14:06 15:06 RBC 2.82 L Hgb 9.0 L Hct 27.1 L RDW 15.8 H PT 15.5 H Carbon Dioxide BUN Creatinine Est GFR ( Amer) Est GFR (Non-Af Amer) Direct Bilirubin Urine Protein 30 H Urine Urobilinogen 4.0 H Ur Leukocyte Esterase TRACE H 08/15/17 16:44 RBC Hgb Hct RDW PT Carbon Dioxide 31 H BUN 24 H Creatinine 1.62 H Est GFR ( Amer) 37 L Est GFR (Non-Af Amer) 31 L Direct Bilirubin 0.5 H Urine Protein Urine Urobilinogen Ur Leukocyte Esterase - Diagnostic Test Radiology reviewed: Image reviewed, Reports reviewed - EKG Interpretation by Al EKG shows normal: Sinus rhythm Rate: Tachycardia - 101 [place]/QRS: Left axis deviation When compared to previous EKG there are: No significant change Discharge - Discharge Clinical Impression: CHF (congestive heart failure), Anemia, Obesity, Class II, BMI 35.0-39.9, with comorbidity (see actual BMI), Respiratory distress Condition: Stable Disposition: ADMITTED INPATIENT Admitting Provider: [facility] Unit Admitted: Telemetry
[2017-08-15 17:12] LABS: ALANINE AMINOTRANSFERASE 17 U/L (9-52); ALBUMIN 3.6 g/dL (3.5-5.0); ALKALINE PHOSPHATASE 61 U/L (38-126); ANION GAP 9 (5-19); ASPARTATE AMINO TRANSFERASE 16 U/L (14-36); BILIRUBIN,DIRECT 0.5 mg/dL (0.0-0.4); BILIRUBIN,TOTAL 0.9 mg/dL (0.2-1.3); BLOOD UREA NITROGEN 24 mg/dL (7-20); CALCIUM 9.8 mg/dL (8.4-10.2); CARBON DIOXIDE 31 mmol/L (22-30); CHLORIDE 102 mmol/L (98-107); GLUCOSE 90 mg/dL (75-110); POTASSIUM 4.7 mmol/L (3.6-5.0); SODIUM 141.7 mmol/L (137-145); TOTAL PROTEIN 6.9 g/dL (6.3-8.2)
[2017-08-15 17:38] LABS: VENOUS BLOOD BASE EXCESS 4.3 mmol/L; VENOUS BLOOD HCO3 30.6 mmol/L (20-32); VENOUS BLOOD PCO2 54.8 mmHg (35-63); VENOUS BLOOD PH 7.37 (7.30-7.42)
--- NOTE | 2017-08-15 19:26 | RADIOLOGY REPORT (SQ) ---
EXAM DESCRIPTION: CHEST SINGLE VIEW COMPLETED DATE/TIME: 08/15/2017 7:14 pm REASON FOR STUDY: sob while eating COMPARISON: Same day follow-up. Previous film 1400 hours EXAM PARAMETERS: NUMBER OF VIEWS: One view. TECHNIQUE: Single frontal radiographic view of the chest acquired. RADIATION DOSE: NA LIMITATIONS: None. FINDINGS: LUNGS AND PLEURA: Continued bilateral perihilar airspace disease concerning for heart fail ure. Pneumonia could present a similar appearance. Blunted costophrenic angles. Stable. MEDIASTINUM AND HILAR STRUCTURES: Stable. HEART AND VASCULAR STRUCTURES: Cardiomegaly stable. Likely vascular congestion. BONES: No acute findings. HARDWARE: None in the chest. OTHER: No other significant finding. IMPRESSION: No interval changes. Continued cardiomegaly and bilateral perihilar airspace disease co ncerning for heart failure. TECHNICAL DOCUMENTATION: JOB ID: [id number] [employer]- All Rights Reserved
[2017-08-15 20:45] LABS: TROPONIN I 0.141 ng/mL
--- NOTE | 2017-08-15 22:32 | EKG REPORT ---
SEVERITY:- OTHERWISE NORMAL ECG - SINUS TACHYCARDIA BORDERLINE LEFT AXIS DEVIATION : Confirmed by: Hudson Walker 15-Aug-2017 22:31:56
[2017-08-15] MEDS ORDERED: ONDANSETRON 4 MG TAB.RAPDIS PO PRN (22:53)
[2017-08-15] MEDS ORDERED: ACETAMINOPHEN 325 MG TABLET PO PRN (22:53)
[2017-08-15] MEDS ORDERED: NITROGLYCERIN 0.4 MG/TAB 25 TAB/BOTTLE SL PRN (22:53)
[2017-08-15] MEDS ORDERED: CARVEDILOL 12.5 MG TABLET PO ONE (23:30)
[2017-08-15] MEDS ORDERED: FUROSEMIDE 20 MG TABLET PO ONE (23:30)
[2017-08-15] MEDS ORDERED: SACUBITRIL/VALSARTAN 49 MG/51 MG TABLET PO ONE (23:30)
[2017-08-15] MEDS ORDERED: POLYETHYLENE GLYCOL 3350 POWDER 17 GM/1 PACKET PO ONE (23:30)
[2017-08-15] MEDS ORDERED: CLONIDINE HCL 0.2 MG TABLET PO ONE (23:30)
[2017-08-15] MEDS ORDERED: RANOLAZINE 500 MG TAB.SR.12H PO ONE (23:30)
[2017-08-15] MEDS ORDERED: ATORVASTATIN CALCIUM 10 MG TABLET PO ONE (23:30)
[2017-08-16] MEDS ORDERED: RANOLAZINE 500 MG TAB.SR.12H PO ONE (00:42)
[2017-08-16 05:19] LABS: CREATINE KINASE MB 0.9 ng/mL (<4.55)
[2017-08-16 05:28] LABS: TROPONIN I 0.138 ng/mL
[2017-08-16] MEDS ORDERED: FUROSEMIDE 20 MG TABLET PO SCH (10:00)
[2017-08-16] MEDS: RANOLAZINE 500 MG TAB.SR.12H PO SCH ×2 (10:35→21:44)
[2017-08-16] MEDS: CLONIDINE HCL 0.2 MG TABLET PO SCH ×2 (10:35→21:45)
[2017-08-16] MEDS: SACUBITRIL/VALSARTAN 49 MG/51 MG TABLET PO SCH ×2 (10:35→21:44)
[2017-08-16] MEDS: CARVEDILOL 12.5 MG TABLET PO SCH ×2 (10:35→21:44)
[2017-08-16] MEDS: POLYETHYLENE GLYCOL 3350 POWDER 17 GM/1 PACKET PO SCH (10:36)
[2017-08-16] MEDS: NYSTATIN TOPICAL POWDER 15 GM TP SCH ×2 (10:36→17:35)
[2017-08-16 13:04] LABS: CREATINE KINASE MB 0.68 ng/mL (<4.55); TROPONIN I 0.104 ng/mL
--- NOTE | 2017-08-16 17:40 | PDOC H&P ---
History of Present Illness Admission Date/PCP: 08/15/17 20:05 MIKO GOMEZ MD History of Present Illness: NEIDA YEPEZ is a 77 year old female, she has a history of chronic combined systolic and diastolic heart failure, chronic kidney disease stage III, morbid obesity, presently residing in detention home at [place], multiple hospitalization for decompensated chronic systolic heart failure. She also have obstructive sleep apnea, on BiPAP machine, she was [facility] for evaluation of shortness of breath she was found to be in CHF. Past Medical History Cardiac Medical History: Reports: Hyperlipidema, Hypertension, Other - Chronic systolic heart failure Renal/ Medical History: Reports: Chronic Kidney Disease Hematology: Reports: Anemia Past Surgical History Past Surgical History: Reports: Tonsillectomy Social History Lives with: Long Term Smoking Status: Current Some Day Smoker Frequency of Alcohol Use: None Hx Recreational Drug Use: No Drugs: None Hx Prescription Drug Abuse: No Family History Family History: Hypertension Parental Family History Reviewed: Yes Children Family History Reviewed: Yes Sibling(s) Family History Reviewed.: Yes Medication/Allergy Home Medications: Acetaminophen [Tylenol 325 mg Tablet] 650 mg PO Q6HP PRN 08/15/17 Atorvastatin Calcium [Lipitor 10 mg Tablet] 10 mg PO QHS 08/15/17 Carvedilol [Coreg 12.5 mg Tablet] 12.5 mg PO Q12 08/15/17 Clonidine HCl [Catapres 0.2 mg Tablet] 0.2 mg PO Q12 08/15/17 Furosemide [Lasix 20 mg Tablet] 20 mg PO DAILY 08/15/17 Nitroglycerin [Nitrostat 0.4 mg (1/150 Gr) Tabs 25/Bottle] 1 tab SL Q5MP PRN 11/25 Nystatin [Mycostatin Topical Powder 15 gm] 1 applic TP BID 08/15/17 Ondansetron HCl [Zofran 4 mg Tablet] 4 mg PO TIDP PRN 08/15/17 Polyethylene Glycol 3350 [Miralax Powder 17 gm/Packet] 1 packet PO DAILY Ranolazine [Ranexa] 500 mg PO Q12 08/15/17 Sacubitril/Valsartan [Entresto 49 mg-51 mg Tablet] 1 each PO Q12 02/05/18 Allergies/Adverse Reactions: Penicillins Allergy (Verified 08/15/17 18:01) Review of Systems Constitutional: ABSENT: chills, fever(s), headache(s), weight gain, weight loss Eyes: ABSENT: visual disturbances Ears: ABSENT: hearing changes Cardiovascular: PRESENT: dyspnea on exertion, edema Respiratory: ABSENT: cough, hemoptysis Gastrointestinal: ABSENT: abdominal pain, constipation, diarrhea, hematemesis, hematochezia, nausea, vomiting Genitourinary: ABSENT: dysuria, hematuria Musculoskeletal: ABSENT: joint swelling Integumentary: ABSENT: rash, wounds Neurological: ABSENT: abnormal gait, abnormal speech, confusion, dizziness, focal weakness, syncope Psychiatric: ABSENT: anxiety, depression, homidical ideation, suicidal ideation Endocrine: ABSENT: cold intolerance, heat intolerance, menstrual abnormalities, polydipsia, polyuria Hematologic/Lymphatic: ABSENT: easy bleeding, easy bruising, lymphadenopathy Physical Exam Vital Signs: Temp Pulse Resp BP Pulse Ox 97.5 F 75 20 111/49 L 99 08/16/17 16:14 08/16/17 16:14 08/16/17 16:14 08/16/17 16:14 08/16/17 16:14 Intake & Output 08/15/17 08/16/17 08/17/17 06:59 06:59 06:59 Intake Total 402 Output Total 1400 Balance -998 Weight 101.4 kg Head exam: PRESENT: atraumatic, normocephalic Eye exam: PRESENT: conjunctiva pink, EOMI, PERRLA Ear exam: PRESENT: normal external ear exam Mouth exam: PRESENT: moist, tongue midline Neck exam: PRESENT: full ROM Respiratory exam: PRESENT: crackles Cardiovascular exam: PRESENT: RRR, +S1, +S2 Pulses: PRESENT: normal dorsalis pedis pul, +2 pedal pulses bilateral Vascular exam: PRESENT: normal capillary refill GI/Abdominal exam: PRESENT: normal bowel sounds, soft Rectal exam: PRESENT: deferred Neurological exam: PRESENT: alert, awake, oriented to person, oriented to place , oriented to time, oriented to situation, CN II-XII grossly intact Psychiatric exam: PRESENT: appropriate affect, normal mood Skin exam: PRESENT: dry, intact, warm Results Laboratory Results: 08/16/17 08/16/17 08/16/17 03:56 03:56 12:19 Creatine Kinase 36 27 L CK-MB (CK-2) 0.90 Troponin I 0.138 08/16/17 12:19 Creatine Kinase CK-MB (CK-2) 0.68 Troponin I 0.104 Impressions: Head CT 08/15/17 14:21 IMPRESSION: Limited study from motion artifact. No acute findings. 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 EVIDENCE OF ACUTE STROKE: NO. Chest X-Ray 08/15/17 18:54 IMPRESSION: No interval changes. Continued cardiomegaly and bilateral perihilar airspace disease concerning for heart failure. Assessment & Plan - Diagnosis (1) Acute combined systolic and diastolic heart failure Is this a current diagnosis for this admission?: Yes Plan: She has chronic systolic heart failure, now presents with decompensated acute on chronic systolic heart failure, [facility], patient with recurrent hospital admission for decompensated CHF despite optimization of medical therapy (2) Morbid obesity Is this a current diagnosis for this admission?: Yes (3) Coronary artery disease Qualifiers: Coronary Disease-Associated Artery/Lesion type: [place] artery [place] vs. transplanted heart: [place] heart Associated angina: angina presence unspecified Qualified Code(s): I25.10 - Atherosclerotic heart disease of [place] coronary artery without angina pectoris Is this a current diagnosis for this admission?: Yes (4) Debility Is this a current diagnosis for this admission?: Yes
[2017-08-16] MEDS: FUROSEMIDE INJ/PF 40 MG/4 ML SDV IV SCH (17:51)
--- NOTE | 2017-08-16 21:08 | PDOC PROGRESS REPORT ---
Subjective Progress Note for:: 08/16/17 Subjective:: Patient was admitted for the management of decompensated chronic systolic heart failure, consultation to be requested from cardiology Reason For Visit: CHF EXACERBATION Physical Exam Vital Signs: Temp Pulse Resp BP Pulse Ox 97.5 F 75 20 111/49 L 99 08/16/17 16:14 08/16/17 16:14 08/16/17 16:14 08/16/17 16:14 08/16/17 16:14 Intake & Output 08/15/17 08/16/17 08/17/17 06:59 06:59 06:59 Intake Total 402 460 Output Total 1400 600 Balance -998 -140 Weight 101.4 kg General appearance: PRESENT: mild distress Head exam: PRESENT: atraumatic, normocephalic Eye exam: PRESENT: EOMI, PERRLA. ABSENT: scleral icterus Ear exam: PRESENT: normal external ear exam Mouth exam: PRESENT: moist, tongue midline Neck exam: PRESENT: full ROM Respiratory exam: PRESENT: clear to auscultation kishan Cardiovascular exam: PRESENT: RRR, +S1, +S2, systolic murmur Vascular exam: PRESENT: normal capillary refill GI/Abdominal exam: PRESENT: normal bowel sounds, soft Rectal exam: PRESENT: deferred Neurological exam: PRESENT: alert, CN II-XII grossly intact. ABSENT: motor sensory deficit Skin exam: PRESENT: dry, intact, warm Results Laboratory Results: 08/16/17 08/16/17 08/16/17 03:56 03:56 12:19 Creatine Kinase 36 27 L CK-MB (CK-2) 0.90 Troponin I 0.138 08/16/17 12:19 Creatine Kinase CK-MB (CK-2) 0.68 Troponin I 0.104 Impressions: Head CT 08/15/17 14:21 IMPRESSION: Limited study from motion artifact. No acute findings. 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 EVIDENCE OF ACUTE STROKE: NO. Chest X-Ray 08/15/17 18:54 IMPRESSION: No interval changes. Continued cardiomegaly and bilateral perihilar airspace disease concerning for heart failure. Assessment & Plan - Diagnosis (1) Acute combined systolic and diastolic heart failure Is this a current diagnosis for this admission?: Yes Plan: She will continue anti-CHF regimen (2) Coronary artery disease Qualifiers: Coronary Disease-Associated Artery/Lesion type: [place] artery [place] vs. transplanted heart: [place] heart Associated angina: angina presence unspecified Qualified Code(s): I25.10 - Atherosclerotic heart disease of [place] coronary artery without angina pectoris Is this a current diagnosis for this admission?: Yes (3) Debility Is this a current diagnosis for this admission?: Yes
[2017-08-16 21:23] LABS: CREATINE KINASE MB 0.59 ng/mL (<4.55); TROPONIN I 0.091 ng/mL
[2017-08-16] MEDS: ATORVASTATIN CALCIUM 10 MG TABLET PO SCH (21:44)
--- NOTE | 2017-08-16 22:53 | EKG REPORT ---
SEVERITY:- ABNORMAL ECG - SINUS RHYTHM PROBABLE LEFT ATRIAL ABNORMALITY LEFT VENTRICULAR HYPERTROPHY BORDERLINE T ABNORMALITIES, INFERIOR LEADS : Confirmed by: Hudson Walker 16-Aug-2017 22:52:01
[2017-08-17] MEDS: POLYETHYLENE GLYCOL 3350 POWDER 17 GM/1 PACKET PO SCH (09:32)
[2017-08-17] MEDS: CLONIDINE HCL 0.2 MG TABLET PO SCH ×2 (09:32→21:28)
[2017-08-17] MEDS: SACUBITRIL/VALSARTAN 49 MG/51 MG TABLET PO SCH ×2 (09:32→21:28)
[2017-08-17] MEDS: CARVEDILOL 12.5 MG TABLET PO SCH ×2 (09:32→21:28)
[2017-08-17] MEDS: RANOLAZINE 500 MG TAB.SR.12H PO SCH ×2 (09:32→21:28)
[2017-08-17] MEDS: NYSTATIN TOPICAL POWDER 15 GM TP SCH ×2 (09:33→17:43)
[2017-08-17] MEDS: FUROSEMIDE INJ/PF 40 MG/4 ML SDV IV SCH (17:43)
[2017-08-17] MEDS: ATORVASTATIN CALCIUM 10 MG TABLET PO SCH (21:29)
--- NOTE | 2017-08-17 21:51 | PDOC PROGRESS REPORT ---
Subjective Progress Note for:: 08/17/17 Subjective:: She was seen by the bedside, she is diuresing very well Reason For Visit: CHF EXACERBATION Physical Exam Vital Signs: Temp Pulse Resp BP Pulse Ox 98.0 F 69 20 143/64 H 97 08/17/17 19:40 08/17/17 19:40 08/17/17 19:40 08/17/17 19:40 08/17/17 19:40 Intake & Output 08/16/17 08/17/17 08/18/17 06:59 06:59 06:59 Intake Total 402 782 620 Output Total 1400 1650 Balance -998 -868 620 Weight 101.4 kg 103.7 kg General appearance: PRESENT: no acute distress Eye exam: PRESENT: PERRLA Respiratory exam: PRESENT: clear to auscultation kishan Cardiovascular exam: PRESENT: +S1, +S2 GI/Abdominal exam: PRESENT: soft Neurological exam: PRESENT: alert Results Laboratory Results: 08/16/17 08/16/17 08/16/17 03:56 03:56 12:19 Creatine Kinase 36 27 L CK-MB (CK-2) 0.90 Troponin I 0.138 08/16/17 08/16/17 08/16/17 12:19 20:47 20:47 Creatine Kinase 30 CK-MB (CK-2) 0.68 0.59 Troponin I 0.104 0.091 Impressions: Head CT 08/15/17 14:21 IMPRESSION: Limited study from motion artifact. No acute findings. 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 EVIDENCE OF ACUTE STROKE: NO. Chest X-Ray 08/15/17 18:54 IMPRESSION: No interval changes. Continued cardiomegaly and bilateral perihilar airspace disease concerning for heart failure. Assessment & Plan - Diagnosis (1) Acute combined systolic and diastolic heart failure Is this a current diagnosis for this admission?: Yes Plan: Continue present treatment
[2017-08-17 22:34] LABS: ABSOLUTE EOSINOPHILS # (AUTO) 0.1 10^3/uL (0.0-0.6); ABSOLUTE LYMPHOCYTES (AUTO) 1.2 10^3/uL (0.5-4.7); ABSOLUTE MONOCYTES (AUTO) 0.6 10^3/uL (0.1-1.4); ABSOLUTE NEUT (AUTO) 2.3 10^3/uL (1.7-8.2); BASOPHILS % (AUTO) 0.6 % (0-2); EOSINOPHILS % (AUTO) 2.5 % (0-6); HEMATOCRIT 24.6 % (36.0-47.0); HEMOGLOBIN 8.1 g/dL (12.0-15.5); LYMPHOCYTES % (AUTO) 28.5 % (13-45); MEAN CORPUSCULAR HEMOGLOBIN 31.4 pg (27.0-33.4); MEAN CORPUSCULAR HGB CONC 32.9 g/dL (32.0-36.0); MEAN CORPUSCULAR VOLUME 95 fl (80-97); MONOCYTES % (AUTO) 13.2 % (3-13); PLATELET COUNT 214 10^3/uL (150-450); RED BLOOD COUNT 2.58 10^6/uL (3.72-5.28); RED CELL DISTRIBUTION WIDTH 16.1 % (11.5-14.0); SEGMENTED NEUTROPHILS % (AUTO) 55.2 % (42-78); TOTAL CELLS COUNTED % (AUTO) 100 %; WHITE BLOOD COUNT 4.2 10^3/uL (4.0-10.5)
[2017-08-17 22:52] LABS: ALANINE AMINOTRANSFERASE 17 U/L (9-52); ALBUMIN 2.8 g/dL (3.5-5.0); ALKALINE PHOSPHATASE 43 U/L (38-126); ASPARTATE AMINO TRANSFERASE 17 U/L (14-36); BILIRUBIN,DIRECT 0.4 mg/dL (0.0-0.4); BILIRUBIN,TOTAL 0.7 mg/dL (0.2-1.3); BLOOD UREA NITROGEN 22 mg/dL (7-20); CALCIUM 8.5 mg/dL (8.4-10.2); GLUCOSE 108 mg/dL (75-110); TOTAL PROTEIN 5.6 g/dL (6.3-8.2)
[2017-08-17 23:04] LABS: ANION GAP 6 (5-19); CARBON DIOXIDE 33 mmol/L (22-30); CHLORIDE 101 mmol/L (98-107); SODIUM 139.7 mmol/L (137-145)
[2017-08-18 07:59] LABS: ABSOLUTE EOSINOPHILS # (AUTO) 0.1 10^3/uL (0.0-0.6); ABSOLUTE LYMPHOCYTES (AUTO) 1.3 10^3/uL (0.5-4.7); ABSOLUTE MONOCYTES (AUTO) 0.5 10^3/uL (0.1-1.4); ABSOLUTE NEUT (AUTO) 2.1 10^3/uL (1.7-8.2); BASOPHILS % (AUTO) 0.8 % (0-2); EOSINOPHILS % (AUTO) 2.8 % (0-6); HEMATOCRIT 25.8 % (36.0-47.0); HEMOGLOBIN 8.5 g/dL (12.0-15.5); LYMPHOCYTES % (AUTO) 31.3 % (13-45); MEAN CORPUSCULAR HEMOGLOBIN 31.7 pg (27.0-33.4); MEAN CORPUSCULAR HGB CONC 32.9 g/dL (32.0-36.0); MEAN CORPUSCULAR VOLUME 96 fl (80-97); PLATELET COUNT 218 10^3/uL (150-450); RED BLOOD COUNT 2.68 10^6/uL (3.72-5.28); RED CELL DISTRIBUTION WIDTH 16.2 % (11.5-14.0); SEGMENTED NEUTROPHILS % (AUTO) 52.1 % (42-78); TOTAL CELLS COUNTED % (AUTO) 100 %
--- NOTE | 2017-08-18 09:19 | EKG REPORT ---
SEVERITY:- ABNORMAL ECG - SINUS RHYTHM PROBABLE LEFT ATRIAL ABNORMALITY ANTERIOR INFARCT, AGE INDETERMINATE : Confirmed by: Hudson Walker 18-Aug-2017 09:18:43
[2017-08-18] MEDS: NYSTATIN TOPICAL POWDER 15 GM TP SCH ×2 (09:51→16:28)
[2017-08-18] MEDS: CLONIDINE HCL 0.2 MG TABLET PO SCH ×2 (09:52→21:23)
[2017-08-18] MEDS: CARVEDILOL 12.5 MG TABLET PO SCH ×2 (09:52→21:23)
[2017-08-18] MEDS: RANOLAZINE 500 MG TAB.SR.12H PO SCH ×2 (09:52→21:24)
[2017-08-18] MEDS: POLYETHYLENE GLYCOL 3350 POWDER 17 GM/1 PACKET PO SCH (09:52)
[2017-08-18] MEDS: SACUBITRIL/VALSARTAN 49 MG/51 MG TABLET PO SCH ×2 (09:52→21:24)
--- NOTE | 2017-08-18 11:17 | PDOC PROGRESS REPORT ---
Subjective Progress Note for:: 08/17/17 Subjective:: Patient is denying any chest pain. She remains somewhat short of breath. Patient claims that she cannot walk or ambulate. Patient otherwise denying any other significant complaints. Reason For Visit: CHF EXACERBATION Physical Exam Vital Signs: Temp Pulse Resp BP Pulse Ox 98.2 F 68 16 128/62 H 99 08/17/17 16:21 08/17/17 16:21 08/17/17 16:21 08/17/17 16:21 08/17/17 16:21 Intake & Output 08/16/17 08/17/17 08/18/17 06:59 06:59 06:59 Intake Total 402 782 620 Output Total 1400 1650 Balance -998 -868 620 Weight 101.4 kg 103.7 kg Exam: GENERAL: well-nourished and in no acute distress. Alert and oriented x3 HEAD: Atraumatic, normocephalic. EYES: Pupils equal round and reactive to light, extraocular movements intact, sclera anicteric, conjunctiva are normal. ENT: TMs normal, nares patent, oropharynx clear without exudates. Moist mucous membranes. No oral ulcerations or bleeding gums noted NECK: supple without lymphadenopathy. Trachea is central. No cervical or axillary lymphadenopathy noted. Carotids are 2+, JVD WNL LUNGS: Respiration seems nonlabored, no significant accessory muscle action noted. Bibasilar fine crackles are noted. No wheezes rales or rhonchi noted. No significant dullness noted on percussion. CHEST: Palpation of the chest wall shows no significant chest wall tenderness. No other significant abnormalities noted. 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 ABDOMEN: Soft, no significant tenderness appreciated, normoactive bowel sounds. No guarding, no rebound. No rigidity noted . No masses appreciated. EXTREMITIES: Pedal pulses are 1-2+, no calf tenderness noted. No clubbing or cyanosis. 1+ pedal edema noted NEUROLOGICAL: Focused neurological exam showed no significant neurologic deficit. Normal speech, no focal weakness appreciated. PSYCH: Normal mood, normal affect. Judgment and insight within normal limits. SKIN: No significant ecchymosis, rash, ulcerations or signs of pruritus noted. MUSCULOSKELETAL EXAM: No significant joint swelling noted. Results Laboratory Results: 08/16/17 08/16/17 08/16/17 03:56 03:56 12:19 Creatine Kinase 36 27 L CK-MB (CK-2) 0.90 Troponin I 0.138 08/16/17 08/16/17 08/16/17 12:19 20:47 20:47 Creatine Kinase 30 CK-MB (CK-2) 0.68 0.59 Troponin I 0.104 0.091 EKG Comments: Telemetry strips shows patient maintaining sinus rhythm Impressions: Head CT 08/15/17 14:21 IMPRESSION: Limited study from motion artifact. No acute findings. 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 EVIDENCE OF ACUTE STROKE: NO. Chest X-Ray 08/15/17 18:54 IMPRESSION: No interval changes. Continued cardiomegaly and bilateral perihilar airspace disease concerning for heart failure. Assessment & Plan - Diagnosis (1) Acute combined systolic and diastolic heart failure Is this a current diagnosis for this admission?: Yes (2) Elevated troponin Is this a current diagnosis for this admission?: Yes (3) Hypertension Qualifiers: Hypertension type: essential hypertension Qualified Code(s): I10 - Essential (primary) hypertension (4) Chronic kidney disease Qualifiers: Chronic kidney disease stage: stage 3 (moderate) Qualified Code(s): N18.3 - Chronic kidney disease, stage 3 (moderate) Is this a current diagnosis for this admission?: Yes (5) Coronary artery disease Qualifiers: Coronary Disease-Associated Artery/Lesion type: [place] artery [place] vs. transplanted heart: [place] heart Associated angina: angina presence unspecified Qualified Code(s): I25.10 - Atherosclerotic heart disease of [place] coronary artery without angina pectoris Is this a current diagnosis for this admission?: Yes (6) Ischemic cardiomyopathy Is this a current diagnosis for this admission?: Yes - Notes Notes: Patient doing reasonably stable on current therapy. Continue current therapy. We will discuss with toeing stockings about further management plans. Currently patient felt a borderline candidate for ischemia evaluation. Patient' s medical regimen reviewed. - Time Time with patient: 15-25 minutes - CODE STATUS was discussed, patient remains full code. Surrogate decision-maker unchanged. Multiple medical problems were addressed. More than 50% of the time spent coordinating care, discussing management plans with involved caregivers. Management plans discussed with involved personnels. Medical decision making was of moderate to high complexity , patient's has multiple comorbidities. Medications reviewed and adjusted accordingly: Yes
--- NOTE | 2017-08-18 11:22 | PDOC PROGRESS REPORT ---
Subjective Progress Note for:: 08/18/17 Subjective:: Patient is denying any chest pain. Patient comfortable laying in bed. Patient claims that she cannot walk or ambulate. Patient otherwise denying any other significant complaints. Telemetry strips reviewed showed sinus rhythm. Twelve-lead EKG is reviewed showed QS complex in V1 to V3 suggestive of prior anterior myocardial infarction , no acute ST-T wave changes noted. 2D echo has yet not been performed. Reason For Visit: CHF EXACERBATION Physical Exam Vital Signs: Temp Pulse Resp BP Pulse Ox 98.0 F 74 20 164/76 H 98 08/18/17 07:41 08/18/17 07:41 08/18/17 03:28 08/18/17 07:41 08/18/17 07:41 Intake & Output 08/17/17 08/18/17 08/19/17 06:59 06:59 06:59 Intake Total 782 740 Output Total 1650 1200 Balance -868 -460 Weight 103.7 kg 102.3 kg Exam: GENERAL: well-nourished and in no acute distress. Alert and oriented x3 HEAD: Atraumatic, normocephalic. EYES: Pupils equal round and reactive to light, extraocular movements intact, sclera anicteric, conjunctiva are normal. ENT: TMs normal, nares patent, oropharynx clear without exudates. Moist mucous membranes. No oral ulcerations or bleeding gums noted NECK: supple without lymphadenopathy. Trachea is central. No cervical or axillary lymphadenopathy noted. Carotids are 2+, JVD WNL LUNGS: Respiration seems nonlabored, no significant accessory muscle action noted. Breath sounds clear to auscultation bilaterally and equal noted. No wheezes rales or rhonchi noted. No significant dullness noted on percussion. CHEST: Palpation of the chest wall shows no significant chest wall tenderness. No other significant abnormalities noted. 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 ABDOMEN: Soft, no significant tenderness appreciated, normoactive bowel sounds. No guarding, no rebound. No rigidity noted . No masses appreciated. EXTREMITIES: Pedal pulses are 1-2+, no calf tenderness noted. No clubbing or cyanosis.trace to 1+ pedal edema noted NEUROLOGICAL: Focused neurological exam showed no significant neurologic deficit. Normal speech, patient does claim bilateral leg weakness.. PSYCH: Normal mood, normal affect. Judgment and insight within normal limits. SKIN: No significant ecchymosis, rash, ulcerations or signs of pruritus noted. MUSCULOSKELETAL EXAM: No significant joint swelling noted. Patient complains of bilateral lower extremity weakness. Results Laboratory Results: 08/18/17 06:50 08/17/17 08/17/17 08/18/17 22:24 22:24 06:50 WBC 4.2 4.0 RBC 2.58 L 2.68 L Hgb 8.1 L 8.5 L Hct 24.6 L 25.8 L MCV 95 96 MCH 31.4 31.7 MCHC 32.9 32.9 RDW 16.1 H 16.2 H Plt Count 214 218 Seg Neutrophils % 55.2 52.1 Lymphocytes % 28.5 31.3 Monocytes % 13.2 H 13.0 Eosinophils % 2.5 2.8 Basophils % 0.6 0.8 Absolute Neutrophils 2.3 2.1 Absolute Lymphocytes 1.2 1.3 Absolute Monocytes 0.6 0.5 Absolute Eosinophils 0.1 0.1 Absolute Basophils 0.0 0.0 Sodium 139.7 Potassium 4.0 Chloride 101 Carbon Dioxide 33 H Anion Gap 6 BUN 22 H Creatinine 1.40 H Est GFR ( Amer) 44 L Est GFR (Non-Af Amer) 37 L Glucose 108 Calcium 8.5 Total Bilirubin 0.7 AST 17 ALT 17 Alkaline Phosphatase 43 Total Protein 5.6 L Albumin 2.8 L 08/18/17 06:50 WBC RBC Hgb Hct MCV MCH MCHC RDW Plt Count Seg Neutrophils % Lymphocytes % Monocytes % Eosinophils % Basophils % Absolute Neutrophils Absolute Lymphocytes Absolute Monocytes Absolute Eosinophils Absolute Basophils Sodium Cancelled Potassium Cancelled Chloride Cancelled Carbon Dioxide Cancelled Anion Gap Cancelled BUN Cancelled Creatinine Cancelled Est GFR ( Amer) Cancelled Est GFR (Non-Af Amer) Cancelled Glucose Cancelled Calcium Cancelled Total Bilirubin Cancelled AST Cancelled ALT Cancelled Alkaline Phosphatase Cancelled Total Protein Cancelled Albumin Cancelled 08/16/17 08/16/17 08/16/17 03:56 03:56 12:19 Creatine Kinase 36 27 L CK-MB (CK-2) 0.90 Troponin I 0.138 02/06/18 02/06/18 02/06/18 12:19 20:47 20:47 Creatine Kinase 30 CK-MB (CK-2) 0.68 0.59 Troponin I 0.104 0.091 EKG Comments: Twelve-lead EKG reviewed showed QS complex in V1 through V3 without any acute ST -T wave changes. Telemetry strip shows sinus rhythm no sustained tachycardia or bradycardia arrhythmias noted. Impressions: Head CT 08/15/17 14:21 IMPRESSION: Limited study from motion artifact. No acute findings. 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 EVIDENCE OF ACUTE STROKE: NO. Chest X-Ray 08/15/17 18:54 IMPRESSION: No interval changes. Continued cardiomegaly and bilateral perihilar airspace disease concerning for heart failure. Assessment & Plan - Diagnosis (1) Acute combined systolic and diastolic heart failure Is this a current diagnosis for this admission?: Yes (2) Elevated troponin Is this a current diagnosis for this admission?: Yes (3) Hypertension Qualifiers: Hypertension type: essential hypertension Qualified Code(s): I10 - Essential (primary) hypertension (4) Debility, unspecified Is this a current diagnosis for this admission?: Yes (5) Chronic kidney disease Qualifiers: Chronic kidney disease stage: stage 3 (moderate) Qualified Code(s): N18.3 - Chronic kidney disease, stage 3 (moderate) Is this a current diagnosis for this admission?: Yes (6) Coronary artery disease Qualifiers: Coronary Disease-Associated Artery/Lesion type: [place] artery [place] vs. transplanted heart: [place] heart Associated angina: angina presence unspecified Qualified Code(s): I25.10 - Atherosclerotic heart disease of [place] coronary artery without angina pectoris Is this a current diagnosis for this admission?: Yes (7) Ischemic cardiomyopathy Is this a current diagnosis for this admission?: Yes - Notes Notes: Acute on chronic systolic and diastolic CHF. Currently patient diuresing well and seems reasonably well compensated. Patient is able to lay flat in bed without any shortness of breath. Patient has not been ambulating. Patient does have a Malhotra catheter. Cardiomyopathy: Patient has history of depressed LVEF. Medical regimen reviewed and seems fairly satisfactory. Have increased carvedilol to 25 mg p.o. every 12. May consider adding Norvasc if needed for blood pressure control. Elevated troponin: Most likely related to CHF. 2D echo is still pending. Feel patient is most likely just a borderline candidate for ischemia evaluation. Will discuss with primary care attending regarding this. Hypertension: Blood pressure is slightly on the high side. Have increase carvedilol to 25 mg p.o twice daily. Continue other antihypertensive therapy. General debility: Patient will benefit from physical therapy and general ambulation. This was discussed with the patient. - Time Time with patient: 15-25 minutes - CODE STATUS was discussed, patient remains full code. Surrogate decision-maker unchanged. Multiple medical problems were addressed. More than 50% of the time spent coordinating care, discussing management plans with involved caregivers. Management plans discussed with involved personnels. Medical decision making was of moderate to high complexity , patient's has multiple comorbidities. Medications reviewed and adjusted accordingly: Yes
[2017-08-18 11:23] LABS: ALANINE AMINOTRANSFERASE 18 U/L (9-52); ALBUMIN 3.1 g/dL (3.5-5.0); ALKALINE PHOSPHATASE 57 U/L (38-126); ANION GAP 10 (5-19); ASPARTATE AMINO TRANSFERASE 13 U/L (14-36); BILIRUBIN,DIRECT 0.4 mg/dL (0.0-0.4); BILIRUBIN,TOTAL 0.8 mg/dL (0.2-1.3); BLOOD UREA NITROGEN 21 mg/dL (7-20); CALCIUM 9.1 mg/dL (8.4-10.2); CARBON DIOXIDE 31 mmol/L (22-30); CHLORIDE 100 mmol/L (98-107); GLUCOSE 123 mg/dL (75-110); SODIUM 140.9 mmol/L (137-145); TOTAL PROTEIN 6.1 g/dL (6.3-8.2)
[2017-08-18] MEDS: FUROSEMIDE INJ/PF 40 MG/4 ML SDV IV SCH (16:28)
--- NOTE | 2017-08-18 19:31 | XCELERA REPORT ---
[address] [address] Transthoracic Echocardiogram Report Name: NEIDA YEPEZ Age: 77 yrs Gender: Female : 1940 Patient Status: Inpatient Patient Location: [address] [place] [address] Study Date: 08/18/2017 09:57 AM Height: 64 in Weight: 223 lb BSA: 2.0 m2 Procedure: A complete two-dimensional transthoracic echocardiogram was performed (2D, M-mode, spectral and color flow Doppler). The study was technically difficult with many images being suboptimal in quality. Reason For Study: nstemi Ordering Physician: HUDSON BENZ Performed By: Amparo Niño Interpretation Summary The Ejection Fraction estimate is 25-30% Left ventricular systolic function is severely reduced. There is borderline concentric left ventricular hypertrophy. The left ventricle is severely dilated. Doppler measurements suggest pseudonormalized left ventricular relaxation, which is associated with grade II/IV or mild to moderate diastolic dysfunction There is mid to distal anterior wall akinesis There is apical wall akinesis The right ventricular systolic function is mildly reduced. The right ventricle is mildly dilated. The right atrium is moderately dilated. The left atrium is mildly dilated. There is a trace to mild amount of mitral regurgitation There is no mitral valve stenosis. There is a trace amount of aortic regurgitation There is no aortic valve stenosis There is a mild amount of tricuspid regurgitation There is mild pulmonary hypertension by echo Right ventricular systolic pressure is estimated to be elevated at 40- 50mmHg. The aortic root is not well visualized but is probably normal size. The inferior vena cava appeared normal and decreased > 50% with respiration (RAP 5-10 mmHg) There is no pericardial effusion. MMode/2D Measurements & Calculations RVDd: 2.8 cm LVIDd: 7.2 cm FS: 15.4 % Ao root diam: 2.6 cm IVSd: 0.97 cm LVIDs: 6.1 cm EDV(Teich): 269.7 ml LVPWd: 1.00 cm ESV(Teich): 184.4 ml Ao root area: 5.1 cm2 EF(Teich): 31.6 % LA dimension: 4.1 cm Doppler Measurements & Calculations MV E max mallorie: MV P1/2t max mallorie: Ao V2 max: LV V1 max P.3 cm/sec 95.8 cm/sec 146.6 cm/sec 3.7 mmHg MV A max mallorie: MV P1/2t: 49.8 msec Ao max PG: LV V1 max: 71.1 cm/sec 8.6 mmHg 96.3 cm/sec MV E/A: 1.3 MVA(P1/2t): 4.4 cm2 MV dec slope: 563.6 cm/sec2 MV dec time: 0.17 sec PA V2 max: PI end-d mallorie: TR max mallorie: 73.5 cm/sec 192.7 cm/sec 304.0 cm/sec PA max PG: TR max P.2 mmHg 37.0 mmHg Left Ventricle The left ventricle is severely dilated. There is borderline concentric left ventricular hypertrophy. Left ventricular systolic function is severely reduced. The Ejection Fraction estimate is 25-30%. Doppler measurements suggest pseudonormalized left ventricular relaxation, which is associated with grade II/IV or mild to moderate diastolic dysfunction. There is mid to distal anterior wall akinesis. There is apical wall akinesis. Right Ventricle The right ventricle is mildly dilated. There is normal right ventricular wall thickness. The right ventricular systolic function is mildly reduced. Atria The right atrium is moderately dilated. The left atrium is mildly dilated. Interarterial septum not well visualized and not well dopplered. Cannot comment on ASD/PFO presence. Mitral Valve The mitral valve is grossly normal. There is no mitral valve stenosis. There is a trace to mild amount of mitral regurgitation. Aortic Valve The aortic valve is grossly normal. There is no aortic valve stenosis. There is a trace amount of aortic regurgitation. Tricuspid Valve The tricuspid valve is not well visualized, but is grossly normal. There is no tricuspid stenosis. There is a mild amount of tricuspid regurgitation. There is mild pulmonary hypertension by echo. Right ventricular systolic pressure is estimated to be elevated at 40-50mmHg. Pulmonic Valve The pulmonic valve is not well visualized. There is a mild amount of pulmonic regurgitation. Great Vessels The aortic root is not well visualized but is probably normal size. The inferior vena cava appeared normal and decreased > 50% with respiration (RAP 5-10 mmHg). Effusions There is no pericardial effusion. : HUDSON BENZ > Hudson Benz
--- NOTE | 2017-08-18 20:48 | PDOC CONSULTATION ---
Consultation Consult Date: 08/16/17 Attending physician:: MIKO GOMEZ Consult reason:: CHF History of Present Illness Admission Date/PCP: 08/15/17 20:05 MIKO GOMEZ MD Patient complains of: Shortness of breath and marked weakness History of Present Illness: NEIDA YEPEZ is a 77 year old female, she has a history of chronic combined systolic and diastolic heart failure, chronic kidney disease stage III, morbid obesity, presently residing in [facility] at [place], multiple hospitalization for decompensated chronic systolic heart failure. She also have obstructive sleep apnea, on BiPAP machine, she was transferred to the emergency room from the custodial for evaluation of shortness of breath she was found to be in CHF. Subsequently patient's troponin I came back elevated. On repeated questioning patient denied any chest pain. Patient describes significant ambulatory dysfunction and not being able to ambulate. Patient denied any sustained palpitations, syncope, near syncope. This history was reviewed and confirmed. This history was also supplemented. Past Medical History Cardiac Medical History: Reports: Congestive Heart Failure, Coronary Artery Disease, Myocardial Infarction, Hyperlipidema, Hypertension Renal/ Medical History: Reports: Chronic Kidney Disease Psychiatric Medical History: Denies: Depression Hematology: Reports: Anemia Past Surgical History Past Surgical History: Reports: Tonsillectomy Social History Information Source: Patient Lives with: [facility] Smoking Status: Current Some Day Smoker Frequency of Alcohol Use: None Hx Recreational Drug Use: No Drugs: None Hx Prescription Drug Abuse: No - Advance Directive Resuscitation Status: Full Code Family History Family History: Hypertension Parental Family History Reviewed: Yes Children Family History Reviewed: Yes Sibling(s) Family History Reviewed.: Yes Medication/Allergy Home Medications: Acetaminophen [Tylenol 325 mg Tablet] 650 mg PO Q6HP PRN 08/15/17 Atorvastatin Calcium [Lipitor 10 mg Tablet] 10 mg PO QHS 08/15/17 Carvedilol [Coreg 12.5 mg Tablet] 12.5 mg PO Q12 08/15/17 Clonidine HCl [Catapres 0.2 mg Tablet] 0.2 mg PO Q12 08/15/17 Furosemide [Lasix 20 mg Tablet] 20 mg PO DAILY 08/15/17 Nitroglycerin [Nitrostat 0.4 mg (1/150 Gr) Tabs 25/Bottle] 1 tab SL Q5MP PRN 11/25 Nystatin [Mycostatin Topical Powder 15 gm] 1 applic TP BID 08/15/17 Ondansetron HCl [Zofran 4 mg Tablet] 4 mg PO TIDP PRN 08/15/17 Polyethylene Glycol 3350 [Miralax Powder 17 gm/Packet] 1 packet PO DAILY Ranolazine [Ranexa] 500 mg PO Q12 08/15/17 Sacubitril/Valsartan [Entresto 49 mg-51 mg Tablet] 1 each PO Q12 08/15/17 Allergies/Adverse Reactions: Penicillins Allergy (Verified 08/15/17 18:01) Review of Systems Review of Systems: Please see history of present illness and past medical history as wall. Constitutional: No fever or chills reported. Head : No recent chronic headaches, recent head injury. Eyes: No recent eye pain, diplopia, redness, discharge, acute visual changes. Ears: No recent chronic ear pain, acute hearing loss, ear discharge. Oral cavity: No recent ulcerations, bleeding, oral cavity discomfort. Neck: No recent acute neck pain reported. Hematologic: No recent easy bruising or bleeding or hematologic malignancy reported. Lymphatic: No recent lymphatic malignancy, chronic lymphadenopathy reported yet Cardiovascular system review: See history of present illness. Respiratory system review: No recent chronic cough, hemoptysis, blood clots in the lungs reported. Shortness of breath on exertion Gastrointestinal system review: Negative for any recent acute or chronic abdominal pain, hematemesis, melena, recent change in bowel habits. Genitourinary system review: No recent acute or chronic hematuria, flank pain, UTI etc. reported. Skin system review: Negative for any recent abnormal bruising, no rash, no pruritus reported. Neurologic: No prior history of strokes, mini strokes, seizure disorder. Patient described marked weakness of both lower extremities. Psychologic: No history of major psychosis or major depression reported. Musculoskeletal: Minor aches and pains reported. No acute joint swelling reported. Patient claims generalized muscle weakness and marked weakness of both lower extremity. Endocrine: No recent polyuria, polydipsia, recent heat or cold intolerance. Physical Exam Vital Signs: Temp Pulse Resp BP Pulse Ox 97.5 F 75 20 111/49 L 99 08/16/17 16:14 08/16/17 16:14 08/16/17 16:14 08/16/17 16:14 08/16/17 16:14 Intake & Output 08/15/17 08/16/17 08/17/17 06:59 06:59 06:59 Intake Total 402 460 Output Total 1400 600 Balance -998 -140 Weight 101.4 kg Exam: GENERAL: well-nourished and in no acute distress. Alert and oriented x3 HEAD: Atraumatic, normocephalic. EYES: Pupils equal round and reactive to light, extraocular movements intact, sclera anicteric, conjunctiva are normal. ENT: TMs normal, nares patent, oropharynx clear without exudates. Moist mucous membranes. No oral ulcerations or bleeding gums noted NECK: supple without lymphadenopathy. Trachea is central. No cervical or axillary lymphadenopathy noted. Carotids are 2+, JVD WNL LUNGS: Respiration seems nonlabored, no significant accessory muscle action noted. Bibasilar fine crackles noted. No wheezes rales or rhonchi noted. No significant dullness noted on percussion. CHEST: Palpation of the chest wall shows no significant chest wall tenderness. No other significant abnormalities noted. 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 ABDOMEN: Soft, no significant tenderness appreciated, normoactive bowel sounds. No guarding, no rebound. No rigidity noted . No masses appreciated. EXTREMITIES: Pedal pulses are 1-2+, no calf tenderness noted. No clubbing or cyanosis.trace to 1+ pedal edema noted NEUROLOGICAL: Focused neurological exam showed no significant neurologic deficit. Normal speech, no focal weakness appreciated. PSYCH: Normal mood, normal affect. Judgment and insight within normal limits. SKIN: No significant ecchymosis, rash, ulcerations or signs of pruritus noted. MUSCULOSKELETAL EXAM: No significant joint swelling noted. Results Laboratory Results: 08/16/17 08/16/17 08/16/17 03:56 03:56 12:19 Creatine Kinase 36 27 L CK-MB (CK-2) 0.90 Troponin I 0.138 08/16/17 12:19 Creatine Kinase CK-MB (CK-2) 0.68 Troponin I 0.104 EKG Comments: Sinus tachycardia, loss of R-wave anterior precordial lead consistent with prior anterior myocardial infarction. No acute ST-T wave changes noted Impressions: Head CT 08/15/17 14:21 IMPRESSION: Limited study from motion artifact. No acute findings. 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 EVIDENCE OF ACUTE STROKE: NO. Chest X-Ray 08/15/17 18:54 IMPRESSION: No interval changes. Continued cardiomegaly and bilateral perihilar airspace disease concerning for heart failure. Assessment & Plan - Diagnosis (1) Acute on chronic combined systolic and diastolic congestive heart failure Is this a current diagnosis for this admission?: Yes (2) Elevated troponin Is this a current diagnosis for this admission?: Yes (3) Coronary artery disease Qualifiers: Coronary Disease-Associated Artery/Lesion type: [place] artery [place] vs. transplanted heart: [place] heart Associated angina: angina presence unspecified Qualified Code(s): I25.10 - Atherosclerotic heart disease of [place] coronary artery without angina pectoris Is this a current diagnosis for this admission?: Yes (4) Hypertension Qualifiers: Hypertension type: essential hypertension Qualified Code(s): I10 - Essential (primary) hypertension Is this a current diagnosis for this admission?: Yes (5) Debility Is this a current diagnosis for this admission?: Yes (6) Chronic kidney disease Qualifiers: Chronic kidney disease stage: stage 3 (moderate) Qualified Code(s): N18.3 - Chronic kidney disease, stage 3 (moderate) Is this a current diagnosis for this admission?: Yes (7) Ischemic cardiomyopathy Is this a current diagnosis for this admission?: Yes - Notes Notes: Acute on chronic combined systolic and diastolic heart failure: Agree with diuretic therapy. Patient's medical regimen reviewed and seems to be satisfactory. Will gradually escalate this regimen. Elevated troponin I: Probably related to CHF and hypoxemia. Patient denies any chest pain. Patient would be a poor candidate for any ischemia evaluation unless she has chest pain which is unrelieved by medical therapy. Coronary artery disease: Will optimize therapy. Currently therapy seems satisfactory. Hypertension: Recommend good control of blood pressure but avoid any hypo-or hypertension. General debility: Patient will benefit from physical therapy. Patient describes mild generalized weakness and bilateral lower extremity weakness. - Time Time Spent: 30 to 50 Minutes - CODE STATUS was discussed, patient remains full code. Surrogate decision-maker unchanged. Multiple medical problems were addressed. More than 50% of the time spent coordinating care, discussing management plans with involved caregivers. Management plans discussed with involved personnels. Medical decision making was of moderate to high complexity , patient's has multiple comorbidities. Medications reviewed and adjusted accordingly: Yes
[2017-08-18] MEDS: ATORVASTATIN CALCIUM 10 MG TABLET PO SCH (21:23)
--- NOTE | 2017-08-18 21:24 | PDOC PROGRESS REPORT ---
Subjective Progress Note for:: 08/18/17 Subjective:: Patient was seen by the bedside, she complained of pain in the right big toe, on inspection of the toe she has ingrown toenail. She lost the IV access and the IV furosemide was transitioned to p.o. Reason For Visit: CHF EXACERBATION Physical Exam Vital Signs: Temp Pulse Resp BP Pulse Ox 98.0 F 67 16 115/54 L 98 08/18/17 15:24 08/18/17 15:24 08/18/17 15:24 08/18/17 15:24 08/18/17 15:24 Intake & Output 08/17/17 08/18/17 08/19/17 06:59 06:59 06:59 Intake Total 782 740 450 Output Total 1650 1200 200 Balance -868 -460 250 Weight 103.7 kg 102.3 kg Head exam: PRESENT: atraumatic, normocephalic Eye exam: PRESENT: conjunctiva pink, EOMI, PERRLA Ear exam: PRESENT: normal external ear exam Mouth exam: PRESENT: moist, tongue midline Neck exam: PRESENT: full ROM Respiratory exam: PRESENT: clear to auscultation kishan Cardiovascular exam: PRESENT: RRR, +S1, +S2 Vascular exam: PRESENT: normal capillary refill GI/Abdominal exam: PRESENT: normal bowel sounds, soft Rectal exam: PRESENT: deferred Neurological exam: PRESENT: alert Skin exam: PRESENT: dry, intact, warm Results Laboratory Results: 08/18/17 06:50 08/18/17 10:37 08/17/17 08/17/17 08/18/17 22:24 22:24 06:50 WBC 4.2 4.0 RBC 2.58 L 2.68 L Hgb 8.1 L 8.5 L Hct 24.6 L 25.8 L MCV 95 96 MCH 31.4 31.7 MCHC 32.9 32.9 RDW 16.1 H 16.2 H Plt Count 214 218 Seg Neutrophils % 55.2 52.1 Lymphocytes % 28.5 31.3 Monocytes % 13.2 H 13.0 Eosinophils % 2.5 2.8 Basophils % 0.6 0.8 Absolute Neutrophils 2.3 2.1 Absolute Lymphocytes 1.2 1.3 Absolute Monocytes 0.6 0.5 Absolute Eosinophils 0.1 0.1 Absolute Basophils 0.0 0.0 Sodium 139.7 Potassium 4.0 Chloride 101 Carbon Dioxide 33 H Anion Gap 6 BUN 22 H Creatinine 1.40 H Est GFR ( Amer) 44 L Est GFR (Non-Af Amer) 37 L Glucose 108 Calcium 8.5 Total Bilirubin 0.7 AST 17 ALT 17 Alkaline Phosphatase 43 Total Protein 5.6 L Albumin 2.8 L 08/18/17 08/18/17 06:50 10:37 WBC RBC Hgb Hct MCV MCH MCHC RDW Plt Count Seg Neutrophils % Lymphocytes % Monocytes % Eosinophils % Basophils % Absolute Neutrophils Absolute Lymphocytes Absolute Monocytes Absolute Eosinophils Absolute Basophils Sodium Cancelled 140.9 Potassium Cancelled 4.0 Chloride Cancelled 100 Carbon Dioxide Cancelled 31 H Anion Gap Cancelled 10 BUN Cancelled 21 H Creatinine Cancelled 1.43 H Est GFR ( Amer) Cancelled 43 L Est GFR (Non-Af Amer) Cancelled 36 L Glucose Cancelled 123 H Calcium Cancelled 9.1 Total Bilirubin Cancelled 0.8 AST Cancelled 13 L ALT Cancelled 18 Alkaline Phosphatase Cancelled 57 Total Protein Cancelled 6.1 L Albumin Cancelled 3.1 L 08/16/17 08/16/17 08/16/17 03:56 03:56 12:19 Creatine Kinase 36 27 L CK-MB (CK-2) 0.90 Troponin I 0.138 08/16/17 08/16/17 08/16/17 12:19 20:47 20:47 Creatine Kinase 30 CK-MB (CK-2) 0.68 0.59 Troponin I 0.104 0.091 Impressions: Head CT 08/15/17 14:21 IMPRESSION: Limited study from motion artifact. No acute findings. 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 EVIDENCE OF ACUTE STROKE: NO. Chest X-Ray 08/15/17 18:54 IMPRESSION: No interval changes. Continued cardiomegaly and bilateral perihilar airspace disease concerning for heart failure. Assessment & Plan - Diagnosis (1) Acute combined systolic and diastolic heart failure Is this a current diagnosis for this admission?: Yes (2) Coronary artery disease Qualifiers: Coronary Disease-Associated Artery/Lesion type: [place] artery [place] vs. transplanted heart: [place] heart Associated angina: angina presence unspecified Qualified Code(s): I25.10 - Atherosclerotic heart disease of [place] coronary artery without angina pectoris Is this a current diagnosis for this admission?: Yes (3) Debility Is this a current diagnosis for this admission?: Yes
[2017-08-19] MEDS: POLYETHYLENE GLYCOL 3350 POWDER 17 GM/1 PACKET PO SCH (09:37)
[2017-08-19] MEDS: SACUBITRIL/VALSARTAN 49 MG/51 MG TABLET PO SCH ×2 (09:37→21:44)
[2017-08-19] MEDS: RANOLAZINE 500 MG TAB.SR.12H PO SCH ×2 (09:37→21:43)
[2017-08-19] MEDS: FUROSEMIDE 40 MG TABLET PO SCH ×2 (09:38→18:20)
[2017-08-19] MEDS: CARVEDILOL 12.5 MG TABLET PO SCH ×2 (09:38→21:44)
[2017-08-19] MEDS: CLONIDINE HCL 0.2 MG TABLET PO SCH ×2 (09:38→21:44)
[2017-08-19] MEDS: NYSTATIN TOPICAL POWDER 15 GM TP SCH ×2 (09:39→18:23)
--- NOTE | 2017-08-19 20:29 | PDOC PROGRESS REPORT ---
Subjective Progress Note for:: 08/19/17 Subjective:: Patient is denying any chest pain. Noted to be comfortable today and resting in bed propped up. No longer short of breath. Patient has some nasal cannula with some oxygen supplementation.. Patient claims that she cannot walk or ambulate. Patient otherwise denying any other significant complaints. Reason For Visit: CHF EXACERBATION Physical Exam Vital Signs: Temp Pulse Resp BP Pulse Ox 97.8 F 62 17 122/56 L 99 08/19/17 19:25 08/19/17 19:25 08/19/17 19:25 08/19/17 19:25 08/19/17 19:25 Intake & Output 08/18/17 08/19/17 08/20/17 06:59 06:59 06:59 Intake Total 740 570 496 Output Total 1200 1150 425 Balance -460 -580 71 Weight 102.3 kg Exam: GENERAL: well-nourished and in no acute distress. Alert and oriented x3 HEAD: Atraumatic, normocephalic. EYES: Pupils equal round and reactive to light, extraocular movements intact, sclera anicteric, conjunctiva are normal. ENT: TMs normal, nares patent, oropharynx clear without exudates. Moist mucous membranes. No oral ulcerations or bleeding gums noted NECK: supple without lymphadenopathy. Trachea is central. No cervical or axillary lymphadenopathy noted. Carotids are 2+, JVD WNL LUNGS: Respiration seems nonlabored, no significant accessory muscle action noted. Breath sounds clear to auscultation bilaterally and equal noted. No wheezes rales or rhonchi noted. No significant dullness noted on percussion. CHEST: Palpation of the chest wall shows no significant chest wall tenderness. No other significant abnormalities noted. 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 ABDOMEN: Soft, no significant tenderness appreciated, normoactive bowel sounds. No guarding, no rebound. No rigidity noted . No masses appreciated. EXTREMITIES: Pedal pulses are 1-2+, no calf tenderness noted. No clubbing or cyanosis.trace to 1+ pedal edema noted NEUROLOGICAL: Focused neurological exam showed no significant neurologic deficit. Normal speech, no focal weakness appreciated. PSYCH: Normal mood, normal affect. Judgment and insight within normal limits. SKIN: No significant ecchymosis, rash, ulcerations or signs of pruritus noted. MUSCULOSKELETAL EXAM: No significant joint swelling noted. Results Laboratory Results: 08/18/17 06:50 08/18/17 10:37 08/16/17 08/16/17 08/16/17 03:56 03:56 12:19 Creatine Kinase 36 27 L CK-MB (CK-2) 0.90 Troponin I 0.138 08/16/17 08/16/17 08/16/17 12:19 20:47 20:47 Creatine Kinase 30 CK-MB (CK-2) 0.68 0.59 Troponin I 0.104 0.091 EKG Comments: Showed sinus rhythm without any sustained tacky or bradycardia arrhythmias. Impressions: Head CT 08/15/17 14:21 IMPRESSION: Limited study from motion artifact. No acute findings. 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 EVIDENCE OF ACUTE STROKE: NO. Chest X-Ray 08/15/17 18:54 IMPRESSION: No interval changes. Continued cardiomegaly and bilateral perihilar airspace disease concerning for heart failure. Assessment & Plan - Diagnosis (1) Acute combined systolic and diastolic heart failure Is this a current diagnosis for this admission?: Yes (2) Elevated troponin Is this a current diagnosis for this admission?: Yes (3) Hypertension Qualifiers: Hypertension type: essential hypertension Qualified Code(s): I10 - Essential (primary) hypertension Is this a current diagnosis for this admission?: Yes (4) Ischemic cardiomyopathy Is this a current diagnosis for this admission?: Yes (5) Coronary artery disease Qualifiers: Coronary Disease-Associated Artery/Lesion type: [place] artery [place] vs. transplanted heart: [place] heart Associated angina: angina presence unspecified Qualified Code(s): I25.10 - Atherosclerotic heart disease of [place] coronary artery without angina pectoris Is this a current diagnosis for this admission?: Yes (6) Chronic kidney disease Qualifiers: Chronic kidney disease stage: stage 3 (moderate) Qualified Code(s): N18.3 - Chronic kidney disease, stage 3 (moderate) Is this a current diagnosis for this admission?: Yes - Notes Notes: 2D echo results reviewed. It shows apical and distal anterior wall akinesia consistent with underlying coronary artery disease and ischemic cardiomyopathy. LVEF is significantly depressed. However because of patient's marked general debility, do not feel patient will be a candidate for any cardiac catheterization in the absence of significant anginal symptoms. Feel that patient would also be not an optimal candidate for defibrillator placement. At this point will recommend optimization of medical therapy for both CAD and cardiomyopathy. Patient's medical regimen reviewed and seems to be in good regimen. Will discuss with Dr. Valiente. - Time Time with patient: 15-25 minutes - CODE STATUS was discussed, patient remains full code. Surrogate decision-maker unchanged. Multiple medical problems were addressed. More than 50% of the time spent coordinating care, discussing management plans with involved caregivers. Management plans discussed with involved personnels. Medical decision making was of moderate to high complexity , patient's has multiple comorbidities. Medications reviewed and adjusted accordingly: Yes
[2017-08-19] MEDS: ATORVASTATIN CALCIUM 10 MG TABLET PO SCH (21:44)
[2017-08-20] MEDS: POLYETHYLENE GLYCOL 3350 POWDER 17 GM/1 PACKET PO SCH (10:20)
[2017-08-20] MEDS: SACUBITRIL/VALSARTAN 49 MG/51 MG TABLET PO SCH ×2 (10:20→23:20)
[2017-08-20] MEDS: CLONIDINE HCL 0.2 MG TABLET PO SCH ×2 (10:21→23:20)
[2017-08-20] MEDS: CARVEDILOL 12.5 MG TABLET PO SCH ×2 (10:21→23:20)
[2017-08-20] MEDS: FUROSEMIDE 40 MG TABLET PO SCH ×2 (10:21→17:11)
[2017-08-20] MEDS: RANOLAZINE 500 MG TAB.SR.12H PO SCH ×2 (10:21→23:20)
[2017-08-20] MEDS: NYSTATIN TOPICAL POWDER 15 GM TP SCH ×2 (10:22→17:11)
--- NOTE | 2017-08-20 15:33 | PDOC PROGRESS REPORT ---
Subjective Progress Note for:: 08/20/17 Subjective:: Patient is denying any chest pain. Noted to be comfortable today and resting in bed propped up. No longer short of breath. Patient has some nasal cannula with some oxygen supplementation.. Patient claims that she cannot walk or ambulate. Patient otherwise denying any other significant complaints. Patient today noted to be alert and oriented 3 and was able to tell current president' s name. Reason For Visit: CHF EXACERBATION Physical Exam Vital Signs: Temp Pulse Resp BP Pulse Ox 98.1 F 71 16 136/46 H 97 08/20/17 12:17 08/20/17 12:17 08/20/17 12:17 08/20/17 12:17 08/20/17 12:17 Intake & Output 08/19/17 08/20/17 08/21/17 06:59 06:59 06:59 Intake Total 570 696 Output Total 1150 425 Balance -580 271 Weight 102.4 kg Exam: GENERAL: well-nourished and in no acute distress. Alert and oriented x3 HEAD: Atraumatic, normocephalic. EYES: Pupils equal round and reactive to light, extraocular movements intact, sclera anicteric, conjunctiva are normal. ENT: TMs normal, nares patent, oropharynx clear without exudates. Moist mucous membranes. No oral ulcerations or bleeding gums noted NECK: supple without lymphadenopathy. Trachea is central. No cervical or axillary lymphadenopathy noted. Carotids are 2+, JVD WNL LUNGS: Respiration seems nonlabored, no significant accessory muscle action noted. Breath sounds clear to auscultation bilaterally and equal noted. No wheezes rales or rhonchi noted. No significant dullness noted on percussion. CHEST: Palpation of the chest wall shows no significant chest wall tenderness. No other significant abnormalities noted. 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 ABDOMEN: Soft, no significant tenderness appreciated, normoactive bowel sounds. No guarding, no rebound. No rigidity noted . No masses appreciated. EXTREMITIES: Pedal pulses are 1-2+, no calf tenderness noted. No clubbing or cyanosis.trace to 1+ pedal edema noted NEUROLOGICAL: Focused neurological exam showed no significant neurologic deficit. Normal speech, generalized weakness and bilateral lower extremity weakness subjectively. Full exam was not performed. PSYCH: Normal mood, normal affect. Judgment and insight within normal limits. SKIN: No significant ecchymosis, rash, ulcerations or signs of pruritus noted. MUSCULOSKELETAL EXAM: No significant joint swelling noted. Results Laboratory Results: 08/18/17 06:50 08/18/17 10:37 08/16/17 08/16/17 08/16/17 03:56 03:56 12:19 Creatine Kinase 36 27 L CK-MB (CK-2) 0.90 Troponin I 0.138 08/16/17 08/16/17 08/16/17 12:19 20:47 20:47 Creatine Kinase 30 CK-MB (CK-2) 0.68 0.59 Troponin I 0.104 0.091 EKG Comments: Shows sinus rhythm without any sustained tacky or bradycardia arrhythmias. Impressions: Head CT 08/15/17 14:21 IMPRESSION: Limited study from motion artifact. No acute findings. 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 EVIDENCE OF ACUTE STROKE: NO. Chest X-Ray 08/15/17 18:54 IMPRESSION: No interval changes. Continued cardiomegaly and bilateral perihilar airspace disease concerning for heart failure. Assessment & Plan - Diagnosis (1) Acute combined systolic and diastolic heart failure Is this a current diagnosis for this admission?: Yes (2) Elevated troponin Is this a current diagnosis for this admission?: Yes (3) Hypertension Qualifiers: Hypertension type: essential hypertension Qualified Code(s): I10 - Essential (primary) hypertension Is this a current diagnosis for this admission?: Yes (4) Ischemic cardiomyopathy Is this a current diagnosis for this admission?: Yes (5) Coronary artery disease Qualifiers: Coronary Disease-Associated Artery/Lesion type: [place] artery [place] vs. transplanted heart: [place] heart Associated angina: angina presence unspecified Qualified Code(s): I25.10 - Atherosclerotic heart disease of [place] coronary artery without angina pectoris Is this a current diagnosis for this admission?: Yes (6) Chronic kidney disease Qualifiers: Chronic kidney disease stage: stage 3 (moderate) Qualified Code(s): N18.3 - Chronic kidney disease, stage 3 (moderate) Is this a current diagnosis for this admission?: Yes - Notes Notes: Patient seems compensated as regards CHF. Coronary artery disease seems stable without any symptoms of angina. Blood pressure seems reasonably well controlled. Medical regimen reviewed and seems satisfactory. Will continue to follow patient because of significant cardiac problems. - Time Time with patient: 15-25 minutes - CODE STATUS was discussed, patient remains full code. Surrogate decision-maker unchanged. Multiple medical problems were addressed. More than 50% of the time spent coordinating care, discussing management plans with involved caregivers. Management plans discussed with involved personnels. Medical decision making was of moderate to high complexity , patient's has multiple comorbidities. Medications reviewed and adjusted accordingly: Yes
--- NOTE | 2017-08-20 20:04 | PDOC PROGRESS REPORT ---
Subjective Progress Note for:: 08/19/17 Subjective:: She stays by herself until she was admitted to halfway home for rehabilitation due to inability to walk/ambulate, she has had multiple hospital admission for decompensated CHF. Reason For Visit: CHF EXACERBATION Physical Exam Vital Signs: Temp Pulse Resp BP Pulse Ox 97.6 F 73 18 147/60 H 96 08/20/17 16:27 08/20/17 17:14 08/20/17 16:27 08/20/17 17:14 08/20/17 16:27 Intake & Output 08/19/17 08/20/17 08/21/17 06:59 06:59 06:59 Intake Total 611 001 8919 Output Total 1150 425 650 Balance -580 271 640 Weight 102.4 kg General appearance: PRESENT: no acute distress, well-developed, well-nourished Head exam: PRESENT: atraumatic, normocephalic Eye exam: PRESENT: conjunctiva pink, EOMI, PERRLA Ear exam: PRESENT: normal external ear exam Mouth exam: PRESENT: moist, tongue midline Neck exam: PRESENT: full ROM Respiratory exam: PRESENT: clear to auscultation kishan Cardiovascular exam: PRESENT: RRR, +S1, +S2 Vascular exam: PRESENT: normal capillary refill GI/Abdominal exam: PRESENT: normal bowel sounds, soft Rectal exam: PRESENT: deferred Neurological exam: PRESENT: alert Psychiatric exam: PRESENT: appropriate affect, normal mood Skin exam: PRESENT: dry, intact, warm. ABSENT: cyanosis, rash Results Laboratory Results: 08/18/17 06:50 08/18/17 10:37 08/16/17 08/16/17 08/16/17 03:56 03:56 12:19 Creatine Kinase 36 27 L CK-MB (CK-2) 0.90 Troponin I 0.138 08/16/17 08/16/17 08/16/17 12:19 20:47 20:47 Creatine Kinase 30 CK-MB (CK-2) 0.68 0.59 Troponin I 0.104 0.091 Impressions: Head CT 08/15/17 14:21 IMPRESSION: Limited study from motion artifact. No acute findings. 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 EVIDENCE OF ACUTE STROKE: NO. Chest X-Ray 08/15/17 18:54 IMPRESSION: No interval changes. Continued cardiomegaly and bilateral perihilar airspace disease concerning for heart failure. Assessment & Plan - Diagnosis (1) Acute combined systolic and diastolic heart failure Is this a current diagnosis for this admission?: Yes (2) Coronary artery disease Qualifiers: Coronary Disease-Associated Artery/Lesion type: [place] artery [place] vs. transplanted heart: [place] heart Associated angina: angina presence unspecified Qualified Code(s): I25.10 - Atherosclerotic heart disease of [place] coronary artery without angina pectoris Is this a current diagnosis for this admission?: Yes (3) Debility Is this a current diagnosis for this admission?: Yes (4) Paraplegia Is this a current diagnosis for this admission?: Yes
--- NOTE | 2017-08-20 20:05 | PDOC PROGRESS REPORT ---
Subjective Progress Note for:: 08/20/17 Subjective:: She stays by herself until she was admitted to [facility] for rehabilitation due to inability to walk/ambulate, she has had multiple hospital admission for decompensated CHF. Reason For Visit: CHF EXACERBATION Physical Exam Vital Signs: Temp Pulse Resp BP Pulse Ox 97.6 F 73 18 147/60 H 96 08/20/17 16:27 08/20/17 17:14 08/20/17 16:27 08/20/17 17:14 08/20/17 16:27 Intake & Output 08/19/17 08/20/17 08/21/17 06:59 06:59 06:59 Intake Total 296 685 2416 Output Total 1150 425 650 Balance -580 271 640 Weight 102.4 kg General appearance: PRESENT: no acute distress, well-developed, well-nourished Head exam: PRESENT: atraumatic, normocephalic Eye exam: PRESENT: conjunctiva pink, EOMI, PERRLA Ear exam: PRESENT: normal external ear exam Mouth exam: PRESENT: moist, tongue midline Neck exam: PRESENT: full ROM Respiratory exam: PRESENT: clear to auscultation kishan Cardiovascular exam: PRESENT: RRR, +S1, +S2 Vascular exam: PRESENT: normal capillary refill GI/Abdominal exam: PRESENT: normal bowel sounds, soft Rectal exam: PRESENT: deferred Neurological exam: PRESENT: alert Psychiatric exam: PRESENT: appropriate affect, normal mood Skin exam: PRESENT: dry, intact, warm. ABSENT: cyanosis, rash Results Laboratory Results: 08/18/17 06:50 08/18/17 10:37 08/16/17 08/16/17 08/16/17 03:56 03:56 12:19 Creatine Kinase 36 27 L CK-MB (CK-2) 0.90 Troponin I 0.138 08/16/17 08/16/17 08/16/17 12:19 20:47 20:47 Creatine Kinase 30 CK-MB (CK-2) 0.68 0.59 Troponin I 0.104 0.091 Impressions: Head CT 08/15/17 14:21 IMPRESSION: Limited study from motion artifact. No acute findings. 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 EVIDENCE OF ACUTE STROKE: NO. Chest X-Ray 08/15/17 18:54 IMPRESSION: No interval changes. Continued cardiomegaly and bilateral perihilar airspace disease concerning for heart failure. Assessment & Plan - Diagnosis (1) Acute combined systolic and diastolic heart failure Is this a current diagnosis for this admission?: Yes (2) Coronary artery disease Qualifiers: Coronary Disease-Associated Artery/Lesion type: [place] artery [place] vs. transplanted heart: [place] heart Associated angina: angina presence unspecified Qualified Code(s): I25.10 - Atherosclerotic heart disease of [place] coronary artery without angina pectoris Is this a current diagnosis for this admission?: Yes (3) Debility Is this a current diagnosis for this admission?: Yes (4) Paraplegia Is this a current diagnosis for this admission?: Yes - Plan Summary Plan Summary: MRI of LS-spine and brain ordered for evaluation of paraplegia
[2017-08-20] MEDS: ATORVASTATIN CALCIUM 10 MG TABLET PO SCH (23:20)
--- NOTE | 2017-08-21 09:32 | RADIOLOGY REPORT (SQ) ---
EXAM DESCRIPTION: MRI HEAD WITHOUT COMPLETED DATE/TIME: 08/21/2017 9:19 am REASON FOR STUDY: paraparesis COMPARISON: CT dated 08/15/2017. MR dated 06/02/2017. TECHNIQUE: Multiplanar imaging includes non-contrasted T1, T2, FLAIR, and diffusion with ADC map seq uences. Images stored on PACS. LIMITATIONS: None. FINDINGS: ANATOMY: No anomalies. Normal vascular flow voids. Pituitary fossa normal. CSF SPACES: Atrophy induced prominence of ventricles and CSF spaces. CEREBRUM: High signal intensity lesions scattered throughout the white matter on FLAIR imaging with d istribution suggesting micro-vascular ischemic changes. No evidence of hemorrhage, mass, or extraaxi al fluid collection. POSTERIOR FOSSA: No signal alteration. No hemorrhage. No edema, masses or mass effect. Internal margy tory canals, cerebello-pontine angles, mastoids normal. DIFFUSION IMAGING: Negative for acute or sub-acute infarction. ORBITS: No masses. Globes normal. PARANASAL SINUSES: No fluid levels. Mucosa normal. OTHER: No other significant finding. IMPRESSION: ATROPHY AND CHRONIC MICRO-VASCULAR ISCHEMIC CHANGES. OTHERWISE NORMAL MRI OF THE BRAIN W ITHOUT INTRAVENOUS GADOLINIUM CONTRAST. EVIDENCE OF ACUTE STROKE: NO. TECHNICAL DOCUMENTATION: JOB ID: [id number] [employer]- All Rights Reserved
--- NOTE | 2017-08-21 09:35 | RADIOLOGY REPORT (SQ) ---
EXAM DESCRIPTION: MRI LUMBAR SPINE WITHOUT COMPLETED DATE/TIME: 08/21/2017 9:19 am REASON FOR STUDY: paraparesis COMPARISON: 01/23/2007. TECHNIQUE: Sagittal and Axial imaging includes T1, T2, STIR and gradient echo sequences. Coronal T2/ HASTE imaging. LIMITATIONS: None. FINDINGS: VISUALIZED UPPER ABDOMEN: Limited evaluation. No acute or suspicious findings suggested. SEGMENTATION: No transitional anatomy. The lowest well-developed disc space is labeled L5-S1. ALIGNMENT: 5 mm anterolisthesis of L 4 on L5. VERTEBRAE: Intact. BONE MARROW: Normal. No marrow replacement or reactive changes. DISC SIGNAL: Normal. No significant abnormal signal or loss of height. POSTERIOR ELEMENTS: Generally intact. No pars defect evident. HARDWARE: None in the spine. CORD AND CONUS: Normal in size and signal intensity. Conus at the appropriate level. SOFT TISSUES: No aortic aneurysm seen. No bulky retroperitoneal adenopathy or mass. No paraspinal mas s or fluid. L1-L2: No significant disc bulge. Mild facet arthropathy. No significant spinal stenosis or exit fo raminal stenosis. L2-L3: No significant disc bulge. Mild facet arthropathy. No significant spinal stenosis or exit fo raminal stenosis. L3-L4: Minimal diffuse posterior annular bulge. Moderate to severe facet arthropathy. No significan t spinal stenosis or exit foraminal stenosis. L4-L5: Mild diffuse posterior bulge. Severe facet arthropathy. No significant spinal stenosis. Mil d to moderate exit foraminal stenosis, worse on the right. L5-S1: Small left paracentral disc bulge. Left lateral recess stenosis with mild impingement of the left S1 nerve root. Moderate facet arthropathy. No significant spinal stenosis or exit foraminal st enosis. LOWER THORACIC: Incompletely imaged. No stenosis seen. SACRUM: Visualized upper sacrum intact. OTHER: No other significant findings. IMPRESSION: MULTILEVEL CHRONIC DEGENERATIVE CHANGES DESCRIBED ABOVE. SMALL LEFT PARACENTRAL DISC BULGE AT L5-S1 WITH IMPINGEMENT OF THE LEFT S1 NERVE ROOT. TECHNICAL DOCUMENTATION: JOB ID: [id number] [employer]- All Rights Reserved
[2017-08-21] MEDS: CARVEDILOL 12.5 MG TABLET PO SCH ×2 (09:55→21:47)
[2017-08-21] MEDS: RANOLAZINE 500 MG TAB.SR.12H PO SCH ×2 (09:56→21:48)
[2017-08-21] MEDS: CLONIDINE HCL 0.2 MG TABLET PO SCH (09:56)
[2017-08-21] MEDS: FUROSEMIDE 40 MG TABLET PO SCH ×2 (09:56→17:36)
[2017-08-21] MEDS: SACUBITRIL/VALSARTAN 49 MG/51 MG TABLET PO SCH (09:57)
[2017-08-21] MEDS: POLYETHYLENE GLYCOL 3350 POWDER 17 GM/1 PACKET PO SCH (09:57)
[2017-08-21] MEDS: NYSTATIN TOPICAL POWDER 15 GM TP SCH ×2 (09:59→17:37)
--- NOTE | 2017-08-21 14:26 | PDOC PROGRESS REPORT ---
Subjective Progress Note for:: 08/21/17 Subjective:: No new complaints except complaining of weakness both lower extremity. Results of brain MRI and lumbosacral spine MRI were reviewed. Patient is denying any chest pain. Noted to be comfortable today and resting in bed propped up. No longer short of breath. Patient has some nasal cannula with some oxygen supplementation.. Patient claims that she cannot walk or ambulate. Patient otherwise denying any other significant complaints. Reason For Visit: CHF EXACERBATION Physical Exam Vital Signs: Temp Pulse Resp BP Pulse Ox 98.2 F 70 18 121/53 L 100 08/21/17 11:39 08/21/17 14:00 08/21/17 11:39 08/21/17 11:39 08/21/17 11:39 Intake & Output 08/20/17 08/21/17 08/22/17 06:59 06:59 06:59 Intake Total 696 1690 Output Total 425 1000 Balance 271 690 Weight 102.4 kg Exam: GENERAL: well-nourished and in no acute distress. Alert and oriented x3 HEAD: Atraumatic, normocephalic. EYES: Pupils equal round and reactive to light, extraocular movements intact, sclera anicteric, conjunctiva are normal. ENT: TMs normal, nares patent, oropharynx clear without exudates. Moist mucous membranes. No oral ulcerations or bleeding gums noted NECK: supple without lymphadenopathy. Trachea is central. No cervical or axillary lymphadenopathy noted. Carotids are 2+, JVD WNL LUNGS: Respiration seems nonlabored, no significant accessory muscle action noted. Breath sounds clear to auscultation bilaterally and equal noted. No wheezes rales or rhonchi noted. No significant dullness noted on percussion. CHEST: Palpation of the chest wall shows no significant chest wall tenderness. No other significant abnormalities noted. HEART: [place] [employer], No PSH, 1/6 DARCI aortic area, 1/6 [place] systolic murmur mitral area, no rubs, no gallops. ABDOMEN: Soft, no significant tenderness appreciated, normoactive bowel sounds. No guarding, no rebound. No rigidity noted . No masses appreciated. EXTREMITIES: Pedal pulses are 1-2+, no calf tenderness noted. No clubbing or cyanosis.trace+ pedal edema noted NEUROLOGICAL: Focused neurological exam showed no significant neurologic deficit. Normal speech, bilateral lower extremity weakness appreciated. PSYCH: Normal mood, normal affect. Judgment and insight within normal limits. SKIN: No significant ecchymosis, rash, ulcerations or signs of pruritus noted. MUSCULOSKELETAL EXAM: No significant joint swelling noted. Results Laboratory Results: 08/18/17 06:50 08/18/17 10:37 08/16/17 08/16/17 08/16/17 03:56 03:56 12:19 Creatine Kinase 36 27 L CK-MB (CK-2) 0.90 Troponin I 0.138 08/16/17 08/16/17 08/16/17 12:19 20:47 20:47 Creatine Kinase 30 CK-MB (CK-2) 0.68 0.59 Troponin I 0.104 0.091 Impressions: Head CT 08/15/17 14:21 IMPRESSION: Limited study from motion artifact. No acute findings. 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 EVIDENCE OF ACUTE STROKE: NO. Chest X-Ray 08/15/17 18:54 IMPRESSION: No interval changes. Continued cardiomegaly and bilateral perihilar airspace disease concerning for heart failure. Head MRI 08/21/17 00:00 IMPRESSION: ATROPHY AND CHRONIC MICRO-VASCULAR ISCHEMIC CHANGES. OTHERWISE NORMAL MRI OF THE BRAIN WITHOUT INTRAVENOUS GADOLINIUM CONTRAST. EVIDENCE OF ACUTE STROKE: NO. Lumbar Spine MRI 08/21/17 00:00 IMPRESSION: MULTILEVEL CHRONIC DEGENERATIVE CHANGES DESCRIBED ABOVE. SMALL LEFT PARACENTRAL DISC BULGE AT L5-S1 WITH IMPINGEMENT OF THE LEFT S1 NERVE ROOT. Assessment & Plan - Diagnosis (1) Acute combined systolic and diastolic heart failure Is this a current diagnosis for this admission?: Yes (2) Elevated troponin Is this a current diagnosis for this admission?: Yes (3) Hypertension Qualifiers: Hypertension type: essential hypertension Qualified Code(s): I10 - Essential (primary) hypertension Is this a current diagnosis for this admission?: Yes (4) Ischemic cardiomyopathy Is this a current diagnosis for this admission?: Yes (5) Coronary artery disease Qualifiers: Coronary Disease-Associated Artery/Lesion type: [place] artery [place] vs. transplanted heart: [place] heart Associated angina: angina presence unspecified Qualified Code(s): I25.10 - Atherosclerotic heart disease of [place] coronary artery without angina pectoris Is this a current diagnosis for this admission?: Yes (6) Chronic kidney disease Qualifiers: Chronic kidney disease stage: stage 3 (moderate) Qualified Code(s): N18.3 - Chronic kidney disease, stage 3 (moderate) Is this a current diagnosis for this admission?: Yes - Notes Notes: Patient has remained stable for several days from cardiac standpoint. Patient does have significant cardiac related issues but has been stable. Her main concern at this point is difficulty with ambulation. So far on telemetry reviewed I have not noted any significant cardiac dysrhythmia. Patient medical regimen reviewed and is noted to be very satisfactory. At this point will sign off. Please reconsult if needed. - Time Time with patient: 15-25 minutes - CODE STATUS was discussed, patient remains full code. Surrogate decision-maker unchanged. Multiple medical problems were addressed. More than 50% of the time spent coordinating care, discussing management plans with involved caregivers. Management plans discussed with involved personnels. Medical decision making was of moderate to high complexity , patient's has multiple comorbidities. Medications reviewed and adjusted accordingly: Yes
--- NOTE | 2017-08-21 16:07 | PDOC PROGRESS REPORT ---
Subjective Progress Note for:: 08/21/17 Subjective:: She was seen by the bedside, MRI lumbar spine, showed multilevel chronic degenerative changes, small left paracentral disc bulge at L5-S1 with impingement of the left S1 nerve root MRI brain showed atrophy and chronic microvascular changes. No explanation for leg weakness on the basis of the MRI report, we will order a lumbar puncture. She is stable from cardiac standpoint , she was seen by newspaper vendor Dr. Walker, he signed off on the case today. Reason For Visit: CHF EXACERBATION Physical Exam Vital Signs: Temp Pulse Resp BP Pulse Ox 98.2 F 70 18 121/53 L 100 08/21/17 11:39 08/21/17 14:00 08/21/17 11:39 08/21/17 11:39 08/21/17 11:39 Intake & Output 08/20/17 08/21/17 08/22/17 06:59 06:59 06:59 Intake Total 696 1690 Output Total 425 1000 Balance 271 690 Weight 102.4 kg General appearance: PRESENT: no acute distress Eye exam: PRESENT: PERRLA Respiratory exam: PRESENT: clear to auscultation kishan Cardiovascular exam: PRESENT: +S1, +S2 GI/Abdominal exam: PRESENT: soft Neurological exam: PRESENT: alert, motor sensory deficit Results Laboratory Results: 08/18/17 06:50 08/18/17 10:37 08/16/17 08/16/17 08/16/17 03:56 03:56 12:19 Creatine Kinase 36 27 L CK-MB (CK-2) 0.90 Troponin I 0.138 08/16/17 08/16/17 08/16/17 12:19 20:47 20:47 Creatine Kinase 30 CK-MB (CK-2) 0.68 0.59 Troponin I 0.104 0.091 Impressions: Head CT 08/15/17 14:21 IMPRESSION: Limited study from motion artifact. No acute findings. 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 EVIDENCE OF ACUTE STROKE: NO. Chest X-Ray 08/15/17 18:54 IMPRESSION: No interval changes. Continued cardiomegaly and bilateral perihilar airspace disease concerning for heart failure. Head MRI 08/21/17 00:00 IMPRESSION: ATROPHY AND CHRONIC MICRO-VASCULAR ISCHEMIC CHANGES. OTHERWISE NORMAL MRI OF THE BRAIN WITHOUT INTRAVENOUS GADOLINIUM CONTRAST. EVIDENCE OF ACUTE STROKE: NO. Lumbar Spine MRI 08/21/17 00:00 IMPRESSION: MULTILEVEL CHRONIC DEGENERATIVE CHANGES DESCRIBED ABOVE. SMALL LEFT PARACENTRAL DISC BULGE AT L5-S1 WITH IMPINGEMENT OF THE LEFT S1 NERVE ROOT. Assessment & Plan - Diagnosis (1) Acute combined systolic and diastolic heart failure Is this a current diagnosis for this admission?: Yes (2) Coronary artery disease Qualifiers: Coronary Disease-Associated Artery/Lesion type: [place] artery [place] vs. transplanted heart: [place] heart Associated angina: angina presence unspecified Qualified Code(s): I25.10 - Atherosclerotic heart disease of [place] coronary artery without angina pectoris Is this a current diagnosis for this admission?: Yes (3) Debility Is this a current diagnosis for this admission?: Yes (4) Paraplegia Is this a current diagnosis for this admission?: Yes Plan: There is no explanation for the paraplegia on the basis of the MRI of the brain and the LS-spine.Will order lumbar puncture
[2017-08-21 17:21] LABS: INTERNATIONAL RATION (INR) 1.03; PROTHROMBIN TIME 14.3 SEC (11.4-15.4)
[2017-08-21] MEDS: ATORVASTATIN CALCIUM 10 MG TABLET PO SCH (21:48)
[2017-08-22] MEDS: CLONIDINE HCL 0.2 MG TABLET PO SCH ×3 (04:23→22:38)
[2017-08-22] MEDS: SACUBITRIL/VALSARTAN 49 MG/51 MG TABLET PO SCH ×3 (04:23→22:38)
[2017-08-22] MEDS: CARVEDILOL 12.5 MG TABLET PO SCH ×2 (09:15→22:38)
[2017-08-22] MEDS: NYSTATIN TOPICAL POWDER 15 GM TP SCH ×2 (09:15→17:04)
[2017-08-22] MEDS: FUROSEMIDE 40 MG TABLET PO SCH ×2 (09:16→17:01)
[2017-08-22] MEDS: RANOLAZINE 500 MG TAB.SR.12H PO SCH ×2 (09:16→22:38)
[2017-08-22] MEDS: POLYETHYLENE GLYCOL 3350 POWDER 17 GM/1 PACKET PO SCH (09:16)
--- NOTE | 2017-08-22 11:23 | RADIOLOGY REPORT (SQ) ---
EXAM DESCRIPTION: LUMBAR PUNCTURE; FLUORO/NEEDLE PLACEMENT/SPINE COMPLETED DATE/TIME: 08/22/2017 10:58 am REASON FOR STUDY: r/o guillian -barre syndrome; GULLIAN-BARRE SYNDROME COMPARISON: None. FLUOROSCOPY TIME: 0.2 minutes. 1 images saved to PACS. TECHNIQUE: Fluoroscopic guided lumbar puncture. LIMITATIONS: None. PROCEDURE: After written consent and assessment were obtained, the patient was brought into the fluo roscopy room and placed prone on the table. The patient's lower back was prepped in a sterile fashio n and an entry site was selected under live fluoroscopic guidance. The entry site was anesthetized wi th 1% lidocaine. A 18 gauge needle was advanced through the skin and into the thecal sac at the level of L2-L3. After approximately 11 ml was drained, the needle was removed and a sterile bandage was pl aced of the site. Specimens were sent to the lab for testing. A fluoroscopic spot image was saved t o PACS confirming level access. FINDINGS: Traumatic tap. Initially the fluid was blood tinged with progressive clearing. IMPRESSION: Lumbar puncture under fluoroscopy. No immediate complication. COMMENT: Patient medication list reviewed: Yes- Quality ID# [id number]:Eligible professional attests to doc umenting in the medical record they obtained, updated, or reviewed the patient's current medications. . Quality ID 145: Final reports for procedures using fluoroscopy that document radiation exposure kerri carroll, or exposure time and number of fluorographic images (if radiation exposure indices are not avail able) TECHNICAL DOCUMENTATION: JOB ID: [id number] [employer]- All Rights Reserved
[2017-08-22 11:42] LABS: COLOR TUBE 1 PINK; COLOR TUBE 2 PINK; CSF TUBE NUMBER 3
[2017-08-22 11:43] LABS: APPEARANCE TUBE 1 HAZY; APPEARANCE TUBE 2 HAZY; APPEARANCE TUBE 3 HAZY; APPEARANCE TUBE 4 SLIGHTLY HAZY; COLOR TUBE 4 COLORLESS; CSF TOTAL VOLUME 9.5 CC; RED BLOOD CELL,CSF 1005 /uL (0-10); VOLUME TUBE 4 3.5 CC
[2017-08-22 11:44] LABS: WHITE BLOOD CELL,CSF 1 /uL (0-5)
[2017-08-22 11:56] LABS: GLUCOSE,CSF 71 mg/dL (40-70); PROTEIN,CSF 45 mg/dL (12-60)
[2017-08-22 12:06] LABS: H. INFLUENZAE TYPE B AG NEGATIVE (NEGATIVE); S. PNEUMONIAE AG NEGATIVE (NEGATIVE); STREP. GROUP B AG NEGATIVE (NEGATIVE)
--- NOTE | 2017-08-22 21:42 | PDOC PROGRESS REPORT ---
Subjective Progress Note for:: 08/22/17 Subjective:: Patient was seen by the bedside she had lumbar puncture done today, the CSF protein and the white cell count is normal. She had MRI of the LS , MRI of the brain there is no definitive explanation for the weakness of lower extremities Reason For Visit: CHF EXACERBATION Physical Exam Vital Signs: Temp Pulse Resp BP Pulse Ox 97.2 F 67 17 138/62 H 100 08/22/17 19:35 08/22/17 19:35 08/22/17 19:35 08/22/17 19:35 08/22/17 19:35 Intake & Output 08/21/17 08/22/17 08/23/17 06:59 06:59 06:59 Intake Total 1690 1370 502 Output Total 1000 1225 1100 Balance 690 145 -598 Weight 103.9 kg General appearance: PRESENT: no acute distress Eye exam: PRESENT: PERRLA Respiratory exam: PRESENT: clear to auscultation kishan Cardiovascular exam: PRESENT: +S1, +S2 GI/Abdominal exam: PRESENT: soft Neurological exam: PRESENT: alert, motor sensory deficit Results Laboratory Results: 08/18/17 06:50 08/18/17 10:37 08/22/17 08/22/17 08/22/17 10:37 10:37 10:37 Fluid Tube Number 3 CSF Volume 9.5 CSF WBC 1 CSF RBC 1005 H CSF Color (1) PINK CSF Appearance (1) HAZY CSF Color (2) PINK CSF Appearance (2) HAZY CSF Color (3) CSF Appearance (3) HAZY CSF Color (4) COLORLESS CSF Appearance (4) SLIGHTLY HAZY CSF Comment Y CSF Glucose 71 H CSF Total Protein 45 08/22/17 10:37 Cerebral Spinal Fluid - Csf Gram Stain - Final 08/16/17 08/16/17 08/16/17 03:56 03:56 12:19 Creatine Kinase 36 27 L CK-MB (CK-2) 0.90 Troponin I 0.138 08/16/17 08/16/17 08/16/17 12:19 20:47 20:47 Creatine Kinase 30 CK-MB (CK-2) 0.68 0.59 Troponin I 0.104 0.091 Impressions: Head CT 08/15/17 14:21 IMPRESSION: Limited study from motion artifact. No acute findings. 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 EVIDENCE OF ACUTE STROKE: NO. Chest X-Ray 08/15/17 18:54 IMPRESSION: No interval changes. Continued cardiomegaly and bilateral perihilar airspace disease concerning for heart failure. Head MRI 08/21/17 00:00 IMPRESSION: ATROPHY AND CHRONIC MICRO-VASCULAR ISCHEMIC CHANGES. OTHERWISE NORMAL MRI OF THE BRAIN WITHOUT INTRAVENOUS GADOLINIUM CONTRAST. EVIDENCE OF ACUTE STROKE: NO. Lumbar Spine MRI 08/21/17 00:00 IMPRESSION: MULTILEVEL CHRONIC DEGENERATIVE CHANGES DESCRIBED ABOVE. SMALL LEFT PARACENTRAL DISC BULGE AT L5-S1 WITH IMPINGEMENT OF THE LEFT S1 NERVE ROOT. Guidance Fluoroscopy 08/22/17 00:00 IMPRESSION: Lumbar puncture under fluoroscopy. No immediate complication. Lumbar Puncture 08/22/17 00:00 IMPRESSION: Lumbar puncture under fluoroscopy. No immediate complication. Assessment & Plan - Diagnosis (1) Acute combined systolic and diastolic heart failure Is this a current diagnosis for this admission?: Yes (2) Coronary artery disease Qualifiers: Coronary Disease-Associated Artery/Lesion type: [place] artery [place] vs. transplanted heart: [place] heart Associated angina: angina presence unspecified Qualified Code(s): I25.10 - Atherosclerotic heart disease of [place] coronary artery without angina pectoris Is this a current diagnosis for this admission?: Yes (3) Debility Is this a current diagnosis for this admission?: Yes (4) Paraplegia Is this a current diagnosis for this admission?: Yes
[2017-08-22] MEDS: ATORVASTATIN CALCIUM 10 MG TABLET PO SCH (22:38)
[2017-08-23 10:00] LABS: ABSOLUTE EOSINOPHILS # (AUTO) 0.1 10^3/uL (0.0-0.6); ABSOLUTE MONOCYTES (AUTO) 0.3 10^3/uL (0.1-1.4); ABSOLUTE NEUT (AUTO) 2.1 10^3/uL (1.7-8.2); BASOPHILS % (AUTO) 0.5 % (0-2); HEMATOCRIT 30.5 % (36.0-47.0); HEMOGLOBIN 9.8 g/dL (12.0-15.5); LYMPHOCYTES % (AUTO) 29.6 % (13-45); MEAN CORPUSCULAR HGB CONC 32.3 g/dL (32.0-36.0); MEAN CORPUSCULAR VOLUME 96 fl (80-97); MONOCYTES % (AUTO) 8.3 % (3-13); PLATELET COUNT 121 10^3/uL (150-450); RED BLOOD COUNT 3.17 10^6/uL (3.72-5.28); RED CELL DISTRIBUTION WIDTH 15.7 % (11.5-14.0); SEGMENTED NEUTROPHILS % (AUTO) 58.6 % (42-78); TOTAL CELLS COUNTED % (AUTO) 100 %; WHITE BLOOD COUNT 3.5 10^3/uL (4.0-10.5)
[2017-08-23] MEDS: SACUBITRIL/VALSARTAN 49 MG/51 MG TABLET PO SCH ×2 (10:02→23:10)
[2017-08-23] MEDS: POLYETHYLENE GLYCOL 3350 POWDER 17 GM/1 PACKET PO SCH (10:02)
[2017-08-23] MEDS: FUROSEMIDE 40 MG TABLET PO SCH ×2 (10:02→17:03)
[2017-08-23] MEDS: RANOLAZINE 500 MG TAB.SR.12H PO SCH ×2 (10:02→23:10)
[2017-08-23] MEDS: CLONIDINE HCL 0.2 MG TABLET PO SCH ×2 (10:02→23:10)
[2017-08-23] MEDS: CARVEDILOL 12.5 MG TABLET PO SCH ×2 (10:02→23:09)
[2017-08-23 10:12] LABS: ALANINE AMINOTRANSFERASE 15 U/L (9-52); ALBUMIN 2.9 g/dL (3.5-5.0); ALKALINE PHOSPHATASE 53 U/L (38-126); ANION GAP 8 (5-19); ASPARTATE AMINO TRANSFERASE 14 U/L (14-36); BILIRUBIN,DIRECT 0.6 mg/dL (0.0-0.4); BILIRUBIN,TOTAL 0.6 mg/dL (0.2-1.3); BLOOD UREA NITROGEN 30 mg/dL (7-20); CARBON DIOXIDE 34 mmol/L (22-30); CHLORIDE 98 mmol/L (98-107); GLUCOSE 130 mg/dL (75-110); POTASSIUM 3.8 mmol/L (3.6-5.0); SODIUM 139.6 mmol/L (137-145); TOTAL PROTEIN 6.1 g/dL (6.3-8.2)
--- NOTE | 2017-08-23 18:35 | PDOC TRANSFER SUMMARY ---
General - Admit/Disc Date/PCP Admission Date/Primary Care Provider: 08/15/17 20:05 MIKO GOMEZ MD Discharge Date: 08/24/17 - Discharge Diagnosis (1) Acute combined systolic and diastolic heart failure Is this a current diagnosis for this admission?: Yes (2) Coronary artery disease Is this a current diagnosis for this admission?: Yes (3) Debility Is this a current diagnosis for this admission?: Yes (4) Paraplegia Is this a current diagnosis for this admission?: Yes - Additional Information Resuscitation Status: Full Code Discharge Diet: Cardiac Discharge Activity: Activity As Tolerated, Balance Activity w/Rest, Weigh Daily Prescriptions: Carvedilol [Coreg 12.5 mg Tablet] 25 mg PO Q12 #60 tablet Clonidine HCl 0.1 mg PO BID #60 tablet Furosemide [Lasix 40 mg Tablet] 40 mg PO BID #60 tablet Sacubitril/Valsartan [Entresto 97 mg-103 mg Tablet] 1 each PO BID #60 tablet Home Medications: Acetaminophen [Tylenol 325 mg Tablet] 650 mg PO Q6HP PRN 08/15/17 Atorvastatin Calcium [Lipitor 10 mg Tablet] 10 mg PO QHS 08/15/17 Nitroglycerin [Nitrostat 0.4 mg (1/150 Gr) Tabs 25/Bottle] 1 tab SL Q5MP PRN 11/25 Nystatin [Mycostatin Topical Powder 15 gm] 1 applic TP BID 08/15/17 Ondansetron HCl [Zofran 4 mg Tablet] 4 mg PO TIDP PRN 08/15/17 Polyethylene Glycol 3350 [Miralax Powder 17 gm/Packet] 1 packet PO DAILY Carvedilol [Coreg 12.5 mg Tablet] 25 mg PO Q12 #60 tablet 08/23/17 Clonidine HCl 0.1 mg PO BID #60 tablet 08/23/17 Furosemide [Lasix 40 mg Tablet] 40 mg PO BID #60 tablet 08/23/17 Sacubitril/Valsartan [Entresto 97 mg-103 mg Tablet] 1 each PO BID #60 tablet History of Present Illness Admission Date/PCP: 08/15/17 20:05 MIKO GOMEZ MD History of Present Illness: Patient presented with acute systolic heart failure Hospital Course Hospital Course: She has chronic systolic and diastolic heart failure she presented with decompensated congestive heart failure, she was treated with diuretic, she was seen by Dr. Walker, cardiology. She diuresed effectively, she has paraparesis, in the [facility] for [facility] the etiology of the paraparesis is not clear MRI of the brain, MRI of the spinal, lumbar spine was done did not show any significant disease to explain the weakness of the lower extremities because of concern for Guillain-Lewis syndrome lumbar puncture was done but it was normal the CSF protein, glucose was low normal on the CSF cell count was normal. She be transferred back to halfway to continue rehabilitation and physical therapy. The medication for CHF was adjusted, the entresto dose was adjusted upwards. Physical Exam Vital Signs: Temp Pulse Resp BP Pulse Ox 97.2 F 63 19 109/44 L 100 08/23/17 15:15 08/23/17 15:15 08/23/17 15:15 08/23/17 15:15 08/23/17 15:15 Intake & Output 08/22/17 08/23/17 08/24/17 06:59 06:59 06:59 Intake Total 1370 802 857 Output Total 1225 1675 525 Balance 145 -873 332 Weight 103.9 kg 103 kg General appearance: PRESENT: no acute distress, well-developed, well-nourished Head exam: PRESENT: atraumatic, normocephalic Eye exam: PRESENT: conjunctiva pink, EOMI, PERRLA. ABSENT: scleral icterus Ear exam: PRESENT: normal external ear exam Mouth exam: PRESENT: moist, tongue midline Respiratory exam: PRESENT: clear to auscultation kishan Cardiovascular exam: PRESENT: RRR Pulses: PRESENT: normal dorsalis pedis pul Vascular exam: PRESENT: normal capillary refill GI/Abdominal exam: PRESENT: normal bowel sounds, soft Rectal exam: PRESENT: deferred Extremities exam: PRESENT: full ROM Neurological exam: PRESENT: alert Skin exam: PRESENT: dry, intact, warm Results Laboratory Results: 08/23/17 09:37 08/23/17 09:37 08/23/17 08/23/17 09:37 09:37 WBC 3.5 L RBC 3.17 L Hgb 9.8 L Hct 30.5 L MCV 96 MCH 31.0 MCHC 32.3 RDW 15.7 H Plt Count 121 L Seg Neutrophils % 58.6 Lymphocytes % 29.6 Monocytes % 8.3 Eosinophils % 3.0 Basophils % 0.5 Absolute Neutrophils 2.1 Absolute Lymphocytes 1.0 Absolute Monocytes 0.3 Absolute Eosinophils 0.1 Absolute Basophils 0.0 Sodium 139.6 Potassium 3.8 Chloride 98 Carbon Dioxide 34 H Anion Gap 8 BUN 30 H Creatinine 1.49 H Est GFR ( Amer) 41 L Est GFR (Non-Af Amer) 34 L Glucose 130 H Calcium 9.0 Total Bilirubin 0.6 AST 14 ALT 15 Alkaline Phosphatase 53 Total Protein 6.1 L Albumin 2.9 L 08/22/17 10:37 Cerebral Spinal Fluid - Csf Gram Stain - Final 08/16/17 08/16/17 08/16/17 03:56 03:56 12:19 Creatine Kinase 36 27 L CK-MB (CK-2) 0.90 Troponin I 0.138 08/16/17 08/16/17 08/16/17 12:19 20:47 20:47 Creatine Kinase 30 CK-MB (CK-2) 0.68 0.59 Troponin I 0.104 0.091 Impressions: Head CT 08/15/17 14:21 IMPRESSION: Limited study from motion artifact. No acute findings. 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 EVIDENCE OF ACUTE STROKE: NO. Chest X-Ray 08/15/17 18:54 IMPRESSION: No interval changes. Continued cardiomegaly and bilateral perihilar airspace disease concerning for heart failure. Head MRI 08/21/17 00:00 IMPRESSION: ATROPHY AND CHRONIC MICRO-VASCULAR ISCHEMIC CHANGES. OTHERWISE NORMAL MRI OF THE BRAIN WITHOUT INTRAVENOUS GADOLINIUM CONTRAST. EVIDENCE OF ACUTE STROKE: NO. Lumbar Spine MRI 08/21/17 00:00 IMPRESSION: MULTILEVEL CHRONIC DEGENERATIVE CHANGES DESCRIBED ABOVE. SMALL LEFT PARACENTRAL DISC BULGE AT L5-S1 WITH IMPINGEMENT OF THE LEFT S1 NERVE ROOT. Guidance Fluoroscopy 08/22/17 00:00 IMPRESSION: Lumbar puncture under fluoroscopy. No immediate complication. Lumbar Puncture 08/22/17 00:00
--- NOTE | 2017-08-23 18:36 | PDOC PROGRESS REPORT ---
Subjective Progress Note for:: 08/22/17 Subjective:: Patient was seen by the bedside, she be [facility] morning Reason For Visit: CHF EXACERBATION Physical Exam Vital Signs: Temp Pulse Resp BP Pulse Ox 97.2 F 63 19 109/44 L 100 08/23/17 15:15 08/23/17 15:15 08/23/17 15:15 08/23/17 15:15 08/23/17 15:15 Intake & Output 08/22/17 08/23/17 08/24/17 06:59 06:59 06:59 Intake Total 1370 802 857 Output Total 1225 1675 525 Balance 145 -873 332 Weight 103.9 kg 103 kg General appearance: PRESENT: no acute distress Eye exam: PRESENT: PERRLA Respiratory exam: PRESENT: clear to auscultation kishan Cardiovascular exam: PRESENT: +S1, +S2 GI/Abdominal exam: PRESENT: soft Neurological exam: PRESENT: alert Results Laboratory Results: 08/23/17 09:37 08/23/17 09:37 08/23/17 08/23/17 09:37 09:37 WBC 3.5 L RBC 3.17 L Hgb 9.8 L Hct 30.5 L MCV 96 MCH 31.0 MCHC 32.3 RDW 15.7 H Plt Count 121 L Seg Neutrophils % 58.6 Lymphocytes % 29.6 Monocytes % 8.3 Eosinophils % 3.0 Basophils % 0.5 Absolute Neutrophils 2.1 Absolute Lymphocytes 1.0 Absolute Monocytes 0.3 Absolute Eosinophils 0.1 Absolute Basophils 0.0 Sodium 139.6 Potassium 3.8 Chloride 98 Carbon Dioxide 34 H Anion Gap 8 BUN 30 H Creatinine 1.49 H Est GFR ( Amer) 41 L Est GFR (Non-Af Amer) 34 L Glucose 130 H Calcium 9.0 Total Bilirubin 0.6 AST 14 ALT 15 Alkaline Phosphatase 53 Total Protein 6.1 L Albumin 2.9 L 08/22/17 10:37 Cerebral Spinal Fluid - Csf Gram Stain - Final 08/16/17 08/16/17 08/16/17 03:56 03:56 12:19 Creatine Kinase 36 27 L CK-MB (CK-2) 0.90 Troponin I 0.138 08/16/17 08/16/17 08/16/17 12:19 20:47 20:47 Creatine Kinase 30 CK-MB (CK-2) 0.68 0.59 Troponin I 0.104 0.091 Impressions: Head CT 08/15/17 14:21 IMPRESSION: Limited study from motion artifact. No acute findings. 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 EVIDENCE OF ACUTE STROKE: NO. Chest X-Ray 08/15/17 18:54 IMPRESSION: No interval changes. Continued cardiomegaly and bilateral perihilar airspace disease concerning for heart failure. Head MRI 08/21/17 00:00 IMPRESSION: ATROPHY AND CHRONIC MICRO-VASCULAR ISCHEMIC CHANGES. OTHERWISE NORMAL MRI OF THE BRAIN WITHOUT INTRAVENOUS GADOLINIUM CONTRAST. EVIDENCE OF ACUTE STROKE: NO. Lumbar Spine MRI 08/21/17 00:00 IMPRESSION: MULTILEVEL CHRONIC DEGENERATIVE CHANGES DESCRIBED ABOVE. SMALL LEFT PARACENTRAL DISC BULGE AT L5-S1 WITH IMPINGEMENT OF THE LEFT S1 NERVE ROOT. Guidance Fluoroscopy 08/22/17 00:00 IMPRESSION: Lumbar puncture under fluoroscopy. No immediate complication. Lumbar Puncture 08/22/17 00:00 IMPRESSION: Lumbar puncture under fluoroscopy. No immediate complication. Assessment & Plan - Diagnosis (1) Acute combined systolic and diastolic heart failure Is this a current diagnosis for this admission?: Yes (2) Coronary artery disease Qualifiers: Coronary Disease-Associated Artery/Lesion type: [place] artery [place] vs. transplanted heart: [place] heart Associated angina: angina presence unspecified Qualified Code(s): I25.10 - Atherosclerotic heart disease of [place] coronary artery without angina pectoris Is this a current diagnosis for this admission?: Yes (3) Debility Is this a current diagnosis for this admission?: Yes (4) Paraplegia Is this a current diagnosis for this admission?: Yes
[2017-08-23 22:37] LABS: HSV I DNA Negative (Negative)
[2017-08-23] MEDS: ATORVASTATIN CALCIUM 10 MG TABLET PO SCH (23:10)
[2017-08-24 08:18] LABS: HSV II DNA Negative (Negative)
[2017-08-24] MEDS: POLYETHYLENE GLYCOL 3350 POWDER 17 GM/1 PACKET PO SCH (10:54)
[2017-08-24] MEDS: SACUBITRIL/VALSARTAN 49 MG/51 MG TABLET PO SCH (10:55)
[2017-08-24] MEDS: CARVEDILOL 12.5 MG TABLET PO SCH (10:55)
[2017-08-24] MEDS: CLONIDINE HCL 0.2 MG TABLET PO SCH (10:55)
[2017-08-24] MEDS: FUROSEMIDE 40 MG TABLET PO SCH (10:55)
[2017-08-24] MEDS: RANOLAZINE 500 MG TAB.SR.12H PO SCH (10:55)
[2017-08-24 12:34] VITALS: BP 126/47
[2017-08-24 15:39] LABS: ALPHA-2-GLOBULIN 6.8 % (3.0-12.6); CSF ALBUMIN 34.9 % (56.8-76.4); TOTAL PROTEIN CSF PE 30.3 mg/dL (0.0-44.0)
[2017-08-25 07:23] LABS: CSF PE GAMMA GLOBULIN 13.4 % (3.0-13.0); PROT ELEC MSPIKE Not Observed % (Not Observed)
== END 2017-08-24 15:30 | DRG 291 ==
LOC: ER 13:24 → EH 20:05 → 5 21:05
PROVIDERS: ADMIT Internal Medicine; ATTEND Internal Medicine
PROC: 009U3ZX Drainage of Spinal Canal, Percutaneous Approach, Diagnostic (ICD-10-PCS; principal; 2017-08-22)
PROC: B01B1ZZ Fluoroscopy of Spinal Cord using Low Osmolar Contrast (ICD-10-PCS; 2017-08-22)
DX: I13.0 Hypertensive heart and chronic kidney disease with heart failure and stage 1 through stage 4 chronic kidney disease, or unspecified chronic kidney disease (principal); I50.43 Acute on chronic combined systolic (congestive) and diastolic (congestive) heart failure; G82.20 Paraplegia, unspecified; E78.5 Hyperlipidemia, unspecified; F17.200 Nicotine dependence, unspecified, uncomplicated; E78.00 Pure hypercholesterolemia, unspecified; I25.10 Atherosclerotic heart disease of native coronary artery without angina pectoris; N18.3 Chronic kidney disease, stage 3 (moderate); G47.33 Obstructive sleep apnea (adult) (pediatric); E66.01 Morbid (severe) obesity due to excess calories; R74.8 Abnormal levels of other serum enzymes; I25.5 Ischemic cardiomyopathy; L60.0 Ingrowing nail; Z68.39 Body mass index [BMI] 39.0-39.9, adult; I25.2 Old myocardial infarction; Z88.0 Allergy status to penicillin; Z99.81 Dependence on supplemental oxygen; Z82.49 Family history of ischemic heart disease and other diseases of the circulatory system; Z79.899 Other long term (current) drug therapy
CPT/HCPCS: 36415; 51702; 62270; 70450; 70551; 71045; 72148; 77003; 80053; 81001; 82550; 82553; 82803; 82945; 82962; 83605; 83880; 83916; 84157; 84166; 84484; 85025; 85610; 85730; 86403; 87015; 87040; 87070; 87077; 87086; 87116; 87186; 87205; 87206; 87210; 87252; 87529; 89050; 93005; 93010; 93306; 96374; 99285; J1940; J3490

== ENCOUNTER 2017-11-07 23:29 | Inpatient (IN) | payer MEDICARE, MEDICAID ==
--- NOTE | 2017-11-07 23:45 | ER Document Report ---
ED General - General Mode of Arrival: Medic Information source: Emergency Med Personnel TRAVEL OUTSIDE OF THE [place] IN LAST 30 DAYS: No <ALVARO CATALAN - Last Filed: 11/08/17 00:00> <MARLON TRISTAN - Last Filed: 11/08/17 01:56> - General Stated Complaint: RESPIRATORY DISTRESS Time Seen by Provider: 11/07/17 23:32 Notes: Patient is a 77 year old female with a history of CHF, CAD, [place], HTN, high cholesterol presents to the emergency department [facility] jail complaining due to respiratory distress. EMS states the patient was being changed when there was a sudden onset of shortness of breath as well as immobilization of the legs and arms. Upon arrival to the scene EMS state the patient had an oxygen rate of 70 on 3L of [place]. They proceeded to give 15 L of NRB which brought the patients SPO2 rate to 100%. EMS also reports a blood pressure of 190/102 upon arrival to the scene as well as the patient being able to movers her upper and lower extremities. Patient states she sleeps with BiPAP at night. (ALVARO CATALAN) - Related Data Allergies/Adverse Reactions: Penicillins Allergy (Verified 08/15/17 18:01) Past Medical History - General Information source: Emergency Med Personnel - Social History Smoking Status: Current Some Day Smoker Frequency of alcohol use: None Family History: Hypertension - Past Medical History Cardiac Medical History: Reports: Hx Congestive Heart Failure, Hx Coronary Artery Disease, Hx Heart Attack, Hx Hypercholesterolemia, Hx Hypertension Renal/ Medical History: Denies: Hx Peritoneal Dialysis Psychiatric Medical History: Denies: Hx Depression Past Surgical History: Reports: Hx Tonsillectomy - Immunizations Hx Diphtheria, Pertussis, Tetanus Vaccination: - unknown <ALVARO CATALAN - Last Filed: 11/08/17 00:00> Review of Systems - Review of Systems Constitutional: No symptoms reported EENT: No symptoms reported Cardiovascular: No symptoms reported Respiratory: See HPI Gastrointestinal: No symptoms reported Genitourinary: No symptoms reported Female Genitourinary: No symptoms reported Musculoskeletal: No symptoms reported Skin: No symptoms reported Hematologic/Lymphatic: No symptoms reported Neurological/Psychological: No symptoms reported -: Yes All other systems reviewed and negative <ALVARO CATALAN - Last Filed: 11/08/17 00:00> Physical Exam - Vital signs Interpretation: Tachypneic - General General appearance: Alert In distress: Mild - Respiratory Respiratory status: Respiratory distress Breath sounds: Decreased air movement, Rhonchi - Cardiovascular Rhythm: Regular - Abdominal Inspection: Obese - Back Back: Normal - Extremities General upper extremity: Normal inspection, Nontender, Normal ROM General lower extremity: Edema - 3+ lower extremities, Normal ROM - Neurological Neuro grossly intact: Yes [place] Coma Scale Eye Opening: Spontaneous [place] Coma Scale Verbal: Confused [place] Coma Scale Motor: Obeys Commands [place] Coma Scale Total: 14 - Psychological Associated symptoms: Normal affect, Normal mood - Skin Skin Temperature: Warm Skin Moisture: Dry Skin Color: Normal <MARLON TRISTAN - Last Filed: 11/08/17 01:56> - Vital signs Vitals: BP Pulse Ox 157/70 H 100 11/07/17 23:36 11/07/17 23:36 Course <ALVARO CATALAN - Last Filed: 11/08/17 00:00> - Laboratory Result Diagrams: 11/07/17 23:50 11/07/17 23:50 <MARLON TRISTAN - Last Filed: 11/08/17 01:56> - Re-evaluation Re-evalutation: 11/08/17 00:25 Patient still tachypneic. CO2 in the 80s. BiPAP ordered 11/08/17 00:55 Resting comfortably on BiPAP. 11/08/17 01:20 Patient is a 77-year-old female who is a full code. Patient presents with respiratory distress that began while she was lying down and they were changing her at her facility. Patient has a history of systolic and diastolic heart failure. She presented with respiratory distress and rhonchi in her bases bilaterally. Her initial oxygen saturation have been 70s for EMS. Patient was initially placed on 2 L nasal cannula here but due to her blood gas and respiratory status was upgraded to BiPAP. Patient has been given IV Lasix and nitroglycerin paste. Given her chest x-ray and BNP of 50,000, it is quite convincing with her physical exam that she is in respiratory distress due to heart failure. She has been discussed with Dr. Valiente and will be admitted to the [facility]. Explained this to patient who is agreeable to this plan. Stable at the time of admission (MARLON TRISTAN) - Vital Signs Vital signs: Temp Pulse Resp BP Pulse Ox 13 173/85 H 100 11/08/17 00:41 11/08/17 00:01 11/08/17 00:41 - Laboratory Laboratory results interpreted by me: 11/07/17 11/07/17 11/07/17 23:50 23:50 23:50 WBC 3.2 L RBC 2.97 L Hgb 9.0 L Hct 28.5 L MCHC 31.7 L RDW 15.9 H PT 16.2 H VBG pH VBG pCO2 VBG HCO3 Carbon Dioxide 34 H BUN 30 H Creatinine 1.41 H Est GFR ( Amer) 44 L Est GFR (Non-Af Amer) 36 L Glucose 157 H Direct Bilirubin 0.6 H AST 13 L NT-Pro-B Natriuret Pep 11/07/17 11/07/17 23:50 23:50 WBC RBC Hgb Hct MCHC RDW PT VBG pH 7.26 L VBG pCO2 81.1 H* VBG HCO3 35.3 H Carbon Dioxide BUN Creatinine Est GFR ( Amer) Est GFR (Non-Af Amer) Glucose Direct Bilirubin AST NT-Pro-B Natriuret Pep 77969 H Critical Care Note - Critical Care Note Total time excluding time spent on procedures (mins): 45 - Evaluation and management of respiratory distress, management of heart failure, multiple re- evaluations, coordination of admission, counseling of patient <MARLON TRISTAN - Last Filed: 11/08/17 01:56> Discharge <ALVARO CATALAN - Last Filed: 11/08/17 00:00> - Discharge Admitting Provider: Jossynj Unit Admitted: [facility] <MARLON TRISTAN - Last Filed: 11/08/17 01:56> - Discharge Clinical Impression: Obesity, Class II, 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 (MARLON TRISTAN) Scribe Documentation - Scribe Written by Willie:: Willie Grant, 11/07/2017 23:59 acting as scribe for :: Zack <ALVARO CATALAN - Last Filed: 11/08/17 00:00>
[2017-11-08 00:11] LABS: ABSOLUTE LYMPHOCYTES (AUTO) 0.6 10^3/uL (0.5-4.7); ABSOLUTE MONOCYTES (AUTO) 0.3 10^3/uL (0.1-1.4); ABSOLUTE NEUT (AUTO) 2.2 10^3/uL (1.7-8.2); BASOPHILS % (AUTO) 0.3 % (0-2); EOSINOPHILS % (AUTO) 0.9 % (0-6); HEMATOCRIT 28.5 % (36.0-47.0); LYMPHOCYTES % (AUTO) 18.8 % (13-45); MEAN CORPUSCULAR HEMOGLOBIN 30.5 pg (27.0-33.4); MEAN CORPUSCULAR HGB CONC 31.7 g/dL (32.0-36.0); MEAN CORPUSCULAR VOLUME 96 fl (80-97); MONOCYTES % (AUTO) 10.6 % (3-13); PLATELET COUNT 193 10^3/uL (150-450); RED BLOOD COUNT 2.97 10^6/uL (3.72-5.28); RED CELL DISTRIBUTION WIDTH 15.9 % (11.5-14.0); SEGMENTED NEUTROPHILS % (AUTO) 69.4 % (42-78); TOTAL CELLS COUNTED % (AUTO) 100 %; WHITE BLOOD COUNT 3.2 10^3/uL (4.0-10.5)
[2017-11-08 00:17] LABS: INTERNATIONAL RATION (INR) 1.24; PROTHROMBIN TIME 16.2 SEC (11.4-15.4); VENOUS BLOOD BASE EXCESS 5.4 mmol/L; VENOUS BLOOD HCO3 35.3 mmol/L (20-32); VENOUS BLOOD PH 7.26 (7.30-7.42)
[2017-11-08 00:26] LABS: VENOUS BLOOD PCO2 81.1 mmHg (35-63)
--- NOTE | 2017-11-08 00:27 | RADIOLOGY REPORT (SQ) ---
EXAM DESCRIPTION: CHEST SINGLE VIEW CLINICAL HISTORY: SOB COMPARISON: 08/15/2017 FINDINGS: Single frontal view of the chest. Atherosclerotic calcification tortuosity of the thoracic aorta. Cardiomegaly. Leads overlie the chest. Small bilateral pleural effusions with pulmonary vascular congestion. No pneumothorax. No acute osseous abnormality. Upper abdominal soft tissues are unremarkable. IMPRESSION: 1. Cardiomegaly with pulmonary vascular congestion and bilateral pleural effusions. Underlying consolidation not excluded. Continued follow-up to resolution recommended.
[2017-11-08] MEDS ORDERED: FUROSEMIDE INJ/PF 40 MG/4 ML SDV IV ONE ×2 (00:29→01:57)
[2017-11-08 00:41] LABS: ALANINE AMINOTRANSFERASE 18 U/L (9-52); ALBUMIN 3.7 g/dL (3.5-5.0); ALKALINE PHOSPHATASE 55 U/L (38-126); ANION GAP 10 (5-19); ASPARTATE AMINO TRANSFERASE 13 U/L (14-36); BILIRUBIN,DIRECT 0.6 mg/dL (0.0-0.4); BILIRUBIN,TOTAL 0.7 mg/dL (0.2-1.3); BLOOD UREA NITROGEN 30 mg/dL (7-20); CALCIUM 9.3 mg/dL (8.4-10.2); CARBON DIOXIDE 34 mmol/L (22-30); CHLORIDE 101 mmol/L (98-107); GLUCOSE 157 mg/dL (75-110); POTASSIUM 4.7 mmol/L (3.6-5.0); SODIUM 144.6 mmol/L (137-145); TOTAL PROTEIN 7.2 g/dL (6.3-8.2)
[2017-11-08 00:52] LABS: TROPONIN I 0.055 ng/mL
[2017-11-08] MEDS ORDERED: NITROGLYCERIN 2% OINTMENT 1 GM PACKET TP ONE (01:08)
[2017-11-08 03:31] LABS: APPEARANCE,URINE SLIGHTLY-CLOUDY; BILIRUBIN,URINE NEGATIVE (NEGATIVE); COLOR,URINE YELLOW; GLUCOSE, URINE NEGATIVE (NEGATIVE); KETONES,URINE NEGATIVE (NEGATIVE); LEUKOCYTE ESTERASE,URINE MODERATE (NEGATIVE); NITRITE,URINE NEGATIVE (NEGATIVE); PROTEIN,URINE 30 mg/dL (NEGATIVE); URINE SPECIFIC GRAVITY 1.014
[2017-11-08] MEDS: CLONIDINE HCL 0.2 MG TABLET PO SCH (09:50)
[2017-11-08] MEDS: CARVEDILOL 12.5 MG TABLET PO SCH (09:51)
[2017-11-08] MEDS ORDERED: FUROSEMIDE INJ/PF 40 MG/4 ML SDV IV SCH (10:00)
[2017-11-08] MEDS: SACUBITRIL/VALSARTAN 49 MG/51 MG TABLET PO SCH (11:23)
[2017-11-08 13:41] LABS: ARTERIAL BLOOD BASE EXCESS 7.8 mmol/L; ARTERIAL BLOOD FIO2 2L; ARTERIAL BLOOD H2CO3 2.13 mmol/L (1.05-1.35); ARTERIAL BLOOD HCO3 35.5 mmol/L (20-26); ARTERIAL BLOOD O2 SATURATION 96.1 % (94-98); ARTERIAL BLOOD PH 7.32 (7.35-7.45); ARTERIAL BLOOD PO2 91.7 mmHg (80-100); ARTERIAL BLOOD TOTAL CO2 37.7 mmol/L (21-25)
[2017-11-08 13:42] LABS: ARTERIAL BLOOD PCO2 70.9 mmHg (35-45)
--- NOTE | 2017-11-08 14:28 | EKG REPORT ---
SEVERITY:- BORDERLINE ECG - SINUS RHYTHM PROBABLE LEFT ATRIAL ABNORMALITY CONSIDER ANTERIOR INFARCT : Confirmed by: Hudson Walker 08-Nov-2017 14:27:04
[2017-11-08] MEDS ORDERED: NITROGLYCERIN 0.4 MG/TAB 25 TAB/BOTTLE SL PRN (18:41)
[2017-11-08] MEDS ORDERED: (PENDING PHARMACY ID) (Ondansetron Hcl [Zofran 4 Mg Tablet] 4 MG) PO PRN (18:41)
[2017-11-08] MEDS ORDERED: ACETAMINOPHEN 325 MG TABLET PO PRN (18:41)
[2017-11-08] MEDS ORDERED: CLONIDINE HCL 0.2 MG TABLET PO SCH (18:45)
[2017-11-08] MEDS ORDERED: SACUBITRIL/VALSARTAN 49 MG/51 MG TABLET PO SCH (18:45)
[2017-11-08] MEDS ORDERED: CARVEDILOL 12.5 MG TABLET PO SCH (19:00)
[2017-11-08] MEDS ORDERED: NYSTATIN TOPICAL POWDER 15 GM TOP ONE (20:00)
[2017-11-08 20:44] LABS: VENOUS BLOOD BASE EXCESS 7.1 mmol/L; VENOUS BLOOD HCO3 34.9 mmol/L (20-32); VENOUS BLOOD PH 7.32 (7.30-7.42)
[2017-11-08 20:47] LABS: VENOUS BLOOD PCO2 69.8 mmHg (35-63)
--- NOTE | 2017-11-08 21:09 | PDOC H&P ---
History of Present Illness Admission Date/PCP: 11/08/17 01:18 MIKO GOMEZ MD History of Present Illness: NEIDA YEPEZ is a 77 year old female,She has a history of chronic systolic and diastolic heart failure, paraplegia, resident of the long-term at [place] she came to the emergency room last night for evaluation of shortness of breath , she was found to be in congestive heart failure, the blood gas that was done showed hypercapnic respiratory acidosis, the breathing was supported with noninvasive positive pressure ventilation ,BiPAP. She is admitted to intermediate care unit. I discussed CODE STATUS with the patient, she has a history of multiple hospital admission for decompensated chronic systolic heart failure but patient insisted she wanted to be a full code she has always maintained that stance on CODE STATUS. She is paraplegic she is nonambulatory essentially bedbound the last time she was admitted she was evaluated for the paraplegia MRI brain was done and also lumbar spine no particular etiology was found. Past Medical History Cardiac Medical History: Reports: Congestive Heart Failure, Coronary Artery Disease, Myocardial Infarction, Hyperlipidema, Hypertension Hematology: Reports: Anemia Past Surgical History Past Surgical History: Reports: Tonsillectomy Social History Smoking Status: Current Some Day Smoker Frequency of Alcohol Use: None Hx Recreational Drug Use: No Drugs: None Hx Prescription Drug Abuse: No Family History Family History: Hypertension Parental Family History Reviewed: Yes Children Family History Reviewed: Yes Sibling(s) Family History Reviewed.: Yes Medication/Allergy Home Medications: Acetaminophen [Tylenol 325 mg Tablet] 650 mg PO Q6HP PRN 11/08/17 Atorvastatin Calcium [Lipitor 10 mg Tablet] 10 mg PO QHS 11/08/17 Carvedilol [Coreg 12.5 mg Tablet] 12.5 mg PO Q12 11/08/17 Clonidine HCl [Catapres 0.2 mg Tablet] 0.2 mg PO Q12 11/08/17 Furosemide [Lasix 20 mg Tablet] 20 mg PO DAILY 11/08/17 Nitroglycerin [Nitrostat] 0.4 mg SL Q5MP PRN 11/08/17 Nystatin [Mycostatin Topical Powder 15 gm] 1 applic TOP BID 11/08/17 Ondansetron HCl [Zofran 4 mg Tablet] 4 mg PO Q8HP PRN 11/08/17 Polyethylene Glycol 3350 [Miralax Powder 17 gm/Packet] 17 gm PO DAILY 11/08/17 Ranolazine [Ranexa] 500 mg PO Q12 11/08/17 Sacubitril/Valsartan [Entresto 49 mg-51 mg Tablet] 1 tab PO Q12 11/08/17 Allergies/Adverse Reactions: Penicillins Allergy (Verified 08/15/17 18:01) Review of Systems Constitutional: ABSENT: chills, fever(s), headache(s), weight gain, weight loss Eyes: ABSENT: visual disturbances Ears: ABSENT: hearing changes Cardiovascular: PRESENT: dyspnea on exertion Respiratory: ABSENT: cough, hemoptysis Gastrointestinal: ABSENT: abdominal pain, constipation, diarrhea, hematemesis, hematochezia, nausea, vomiting Genitourinary: ABSENT: dysuria, hematuria Musculoskeletal: ABSENT: joint swelling Integumentary: ABSENT: rash, wounds Neurological: ABSENT: abnormal gait, abnormal speech, confusion, dizziness, focal weakness, syncope Psychiatric: ABSENT: anxiety, depression, homidical ideation, suicidal ideation Endocrine: ABSENT: cold intolerance, heat intolerance, menstrual abnormalities, polydipsia, polyuria Hematologic/Lymphatic: ABSENT: easy bleeding, easy bruising, lymphadenopathy Physical Exam Vital Signs: Temp Pulse Resp BP Pulse Ox 97.5 F 72 14 174/95 H 98 11/08/17 16:07 11/08/17 16:07 11/08/17 16:50 11/08/17 16:07 11/08/17 16:50 Intake & Output 11/07/17 11/08/17 11/09/17 06:59 06:59 06:59 Intake Total 5 447 Output Total 0 1100 Balance 5 -653 Weight 112.5 kg 112.5 kg General appearance: PRESENT: mild distress Head exam: PRESENT: atraumatic, normocephalic Eye exam: PRESENT: PERRLA Ear exam: PRESENT: normal external ear exam Mouth exam: PRESENT: moist, tongue midline Neck exam: PRESENT: full ROM Respiratory exam: PRESENT: rales Cardiovascular exam: PRESENT: RRR, +S1, +S2, systolic murmur Vascular exam: PRESENT: normal capillary refill GI/Abdominal exam: PRESENT: normal bowel sounds, soft Rectal exam: PRESENT: deferred Neurological exam: PRESENT: alert, motor sensory deficit Psychiatric exam: PRESENT: appropriate affect, normal mood Skin exam: PRESENT: dry, intact, warm Results Laboratory Results: 11/08/17 11/08/17 11/08/17 01:50 12:50 20:25 Carbonic Acid 2.13 H Cancelled HCO3/H2CO3 Ratio 16:1 Cancelled ABG pH 7.32 L Cancelled ABG pCO2 70.9 H* Cancelled ABG pO2 91.7 Cancelled ABG HCO3 35.5 H Cancelled ABG O2 Saturation 96.1 Cancelled ABG Base Excess 7.8 Cancelled VBG pH VBG pCO2 VBG HCO3 VBG Base Excess FiO2 2L Cancelled Urine Color YELLOW Urine Appearance SLIGHTLY-CLOUDY Urine pH 5.0 Ur Specific [place] 1.014 Urine Protein 30 H Urine Glucose (UA) NEGATIVE Urine Ketones NEGATIVE Urine Blood SMALL H Urine Nitrite NEGATIVE Ur Leukocyte Esterase MODERATE H Urine WBC (Auto) 14 Urine RBC (Auto) 2 11/08/17 20:25 Carbonic Acid HCO3/H2CO3 Ratio ABG pH ABG pCO2 ABG pO2 ABG HCO3 ABG O2 Saturation ABG Base Excess VBG pH 7.32 VBG pCO2 69.8 H* VBG HCO3 34.9 H VBG Base Excess 7.1 FiO2 Urine Color Urine Appearance Urine pH Ur Specific [place] Urine Protein Urine Glucose (UA) Urine Ketones Urine Blood Urine Nitrite Ur Leukocyte Esterase Urine WBC (Auto) Urine RBC (Auto) Impressions: Chest X-Ray 11/07/17 23:33 IMPRESSION: 1. Cardiomegaly with pulmonary vascular congestion and bilateral pleural effusions. Underlying consolidation not excluded. Continued follow-up to resolution recommended. Assessment & Plan - Diagnosis (1) Acute combined systolic (congestive) and diastolic (congestive) heart failure Is this a current diagnosis for this admission?: Yes Plan: She has decompensated chronic systolic and diastolic heart failure, she is admitted for management (2) Acute hypercapnic respiratory failure Is this a current diagnosis for this admission?: Yes Plan: The etiology of the acute hypercapnic respiratory failure is most likely multifactorial, partly due to CHF, presently on noninvasive positive pressure ventilation, BiPAP (3) Paraplegia Is this a current diagnosis for this admission?: Yes
[2017-11-08] MEDS ORDERED: NORMAL SALINE 250 ML with FUROSEMIDE 250 MG IV PRN ×4 (21:10→22:00)
[2017-11-08 22:16] LABS: CREATINE KINASE MB 1.08 ng/mL (<4.55); TROPONIN I 0.051 ng/mL
[2017-11-09] MEDS: SACUBITRIL/VALSARTAN 49 MG/51 MG TABLET PO SCH ×3 (03:14→21:03)
[2017-11-09] MEDS: ATORVASTATIN CALCIUM 10 MG TABLET PO SCH ×2 (03:15→21:02)
[2017-11-09] MEDS: CLONIDINE HCL 0.2 MG TABLET PO SCH ×3 (03:15→21:03)
[2017-11-09] MEDS: RANOLAZINE 500 MG TAB.SR.12H PO SCH ×3 (03:15→21:04)
[2017-11-09] MEDS: CARVEDILOL 12.5 MG TABLET PO SCH ×3 (03:16→21:04)
[2017-11-09] MEDS: POLYETHYLENE GLYCOL 3350 POWDER 17 GM/1 PACKET PO SCH ×2 (03:25→21:06)
[2017-11-09] MEDS ORDERED: NITROGLYCERIN/D5W 50 MG/250 ML RTUINJ IV PRN ×2 (03:50)
[2017-11-09] MEDS ORDERED: LIDOCAINE 0.5% INJ-PF (5 MG/ML) 50 ML SDV ONE (04:38)
--- NOTE | 2017-11-09 07:29 | RADIOLOGY REPORT (SQ) ---
EXAM DESCRIPTION: CHEST SINGLE VIEW CLINICAL HISTORY: CENTRAL LINE PLACEMENT COMPARISON: 08/15/2017 FINDINGS: Single frontal view of the chest. Interval placement of right subclavian catheter. Tip projects medially across the mediastinum. Atherosclerotic calcification tortuosity of the thoracic aorta. Cardiomegaly. Leads overlie the chest. Small bilateral pleural effusions with pulmonary vascular congestion. No pneumothorax. No acute osseous abnormality. Upper abdominal soft tissues are unremarkable. IMPRESSION: 1. Interval placement of right subclavian central venous catheter. Tip projects across the midline. Tip could be in the left brachiocephalic vein however other locations not excluded. Recommend clinical correlation and possible repositioning. 2. Otherwise stable appearance of the chest. Electronically signed by: Jonathan Pedraza 11/09/2017 6:28 AM
--- NOTE | 2017-11-09 07:34 | OPERATIVE REPORT E ---
Operative Report NAME: NEIDA YEPEZ : 1940 AGE: 77Y DATE OF SURGERY: 11/09/2017 ROOM: 317 PREOPERATIVE DIAGNOSIS: Poor veins for intravenous access. POSTOPERATIVE DIAGNOSIS: Poor veins for intravenous access. OPERATION: Placement of right subclavian vein triple-lumen catheter. SURGEON: PEDRO CROSS M.D. ANESTHESIA: Local. INDICATIONS: This 77-year-old female who needed IV medications for hypertension and has had poor veins for peripheral IV access. PROCEDURE: The patient was placed in slight Trendelenburg position and the right infraclavicular and neck areas were then prepped and draped in the usual sterile fashion. Local anesthesia infiltrated and the right subclavian vein punctured and guidewire passed through the needle towards the direction of the superior vena cava. The insertion site was then dilated and a triple-lumen catheter inserted through the guidewire to a distance about 15 cm. Next, the guidewire was removed and all the three ports aspirated blood easily and instilled saline easily. Next, the catheter was then anchored to the skin with 3-0 silk and Biopatch placed at the insertion site and transparent sterile dressing was placed over the Biopatch and catheter. A chest x-ray will be obtained for placement. The patient tolerated the procedure well. DICTATING PHYSICIAN: PEDRO CROSS M.D. [id number] Y#: [id number] ID: [id number] JOB#: [id number] ACCT: [id number] cc:PEDRO CROSS M.D. >
[2017-11-09 08:57] LABS: HEMATOCRIT 26.6 % (36.0-47.0); HEMOGLOBIN 8.5 g/dL (12.0-15.5); MEAN CORPUSCULAR HEMOGLOBIN 30.6 pg (27.0-33.4); MEAN CORPUSCULAR HGB CONC 32.1 g/dL (32.0-36.0); MEAN CORPUSCULAR VOLUME 95 fl (80-97); PLATELET COUNT 172 10^3/uL (150-450); RED BLOOD COUNT 2.79 10^6/uL (3.72-5.28); RED CELL DISTRIBUTION WIDTH 15.9 % (11.5-14.0); WHITE BLOOD COUNT 2.5 10^3/uL (4.0-10.5)
[2017-11-09 09:13] LABS: ARTERIAL BLOOD H2CO3 1.64 mmol/L (1.05-1.35); ARTERIAL BLOOD HCO3 33.8 mmol/L (20-26); ARTERIAL BLOOD O2 SATURATION 96.1 % (94-98); ARTERIAL BLOOD PCO2 54.4 mmHg (35-45); ARTERIAL BLOOD PH 7.41 (7.35-7.45); ARTERIAL BLOOD PO2 82.9 mmHg (80-100); ARTERIAL BLOOD TOTAL CO2 35.5 mmol/L (21-25)
[2017-11-09 09:14] LABS: ARTERIAL BLOOD FIO2 30%
[2017-11-09 09:15] LABS: BLOOD UREA NITROGEN 27 mg/dL (7-20); CALCIUM 9.1 mg/dL (8.4-10.2); CHLORIDE 97 mmol/L (98-107); GLUCOSE 108 mg/dL (75-110); SODIUM 145.9 mmol/L (137-145)
[2017-11-09 09:16] LABS: POTASSIUM 4.2 mmol/L (3.6-5.0)
[2017-11-09 09:21] LABS: ANION GAP 10 (5-19); CARBON DIOXIDE 39 mmol/L (22-30)
[2017-11-09] MEDS: NYSTATIN TOPICAL POWDER 15 GM TOP SCH ×2 (11:20→17:48)
[2017-11-09] MEDS: CIPROFLOXACIN 400 MG/D5W RTU 400 MG/200 ML RTUPB IV SCH ×2 (11:20→21:05)
--- NOTE | 2017-11-09 19:57 | PDOC PROGRESS REPORT ---
Subjective Progress Note for:: 11/09/17 Subjective:: Patient was admitted for the management of acute systolic heart failure associated with hypertensive emergency, presently on furosemide infusion started on nitro infusion Reason For Visit: OBESITY, CLASS II BMI 35-39.9, WITH COMORBIDITY Physical Exam Vital Signs: Temp Pulse Resp BP Pulse Ox 97.4 F 98 18 166/75 H 96 11/09/17 15:31 11/09/17 18:45 11/09/17 15:31 11/09/17 18:45 11/09/17 12:00 Intake & Output 11/08/17 11/09/17 11/10/17 06:59 06:59 06:59 Intake Total 5 667 656 Output Total 0 2300 1900 Balance 5 -9925 -1244 Weight 112.5 kg 115.7 kg General appearance: PRESENT: no acute distress Eye exam: PRESENT: PERRLA Respiratory exam: PRESENT: clear to auscultation kishan Cardiovascular exam: PRESENT: +S1, +S2 GI/Abdominal exam: PRESENT: soft Extremities exam: PRESENT: pedal edema Neurological exam: PRESENT: alert Results Laboratory Results: 11/09/17 08:37 11/09/17 08:37 11/08/17 11/08/17 11/09/17 20:25 20:25 08:37 WBC RBC Hgb Hct MCV MCH MCHC RDW Plt Count Carbonic Acid Cancelled HCO3/H2CO3 Ratio Cancelled ABG pH Cancelled ABG pCO2 Cancelled ABG pO2 Cancelled ABG HCO3 Cancelled ABG O2 Saturation Cancelled ABG Base Excess Cancelled VBG pH 7.32 VBG pCO2 69.8 H* VBG HCO3 34.9 H VBG Base Excess 7.1 FiO2 Cancelled Sodium 145.9 H Potassium 4.2 Chloride 97 L Carbon Dioxide 39 H Anion Gap 10 BUN 27 H Creatinine 1.22 Est GFR ( Amer) 52 L Est GFR (Non-Af Amer) 43 L Glucose 108 Calcium 9.1 11/09/17 11/09/17 08:37 08:55 WBC 2.5 L RBC 2.79 L Hgb 8.5 L Hct 26.6 L MCV 95 MCH 30.6 MCHC 32.1 RDW 15.9 H Plt Count 172 Carbonic Acid 1.64 H HCO3/H2CO3 Ratio 20:1 ABG pH 7.41 ABG pCO2 54.4 H ABG pO2 82.9 ABG HCO3 33.8 H ABG O2 Saturation 96.1 ABG Base Excess 8.0 VBG pH VBG pCO2 VBG HCO3 VBG Base Excess FiO2 30% Sodium Potassium Chloride Carbon Dioxide Anion Gap BUN Creatinine Est GFR ( Amer) Est GFR (Non-Af Amer) Glucose Calcium 11/08/17 11/08/17 21:35 21:35 Creatine Kinase 29 L CK-MB (CK-2) 1.08 Troponin I 0.051 Impressions: Chest X-Ray 11/09/17 00:00 IMPRESSION: 1. Interval placement of right subclavian central venous catheter. Tip projects across the midline. Tip could be in the left brachiocephalic vein however other locations not excluded. Recommend clinical correlation and possible repositioning. 2. Otherwise stable appearance of the chest. Assessment & Plan - Diagnosis (1) Acute combined systolic (congestive) and diastolic (congestive) heart failure Is this a current diagnosis for this admission?: Yes (2) Acute hypercapnic respiratory failure Is this a current diagnosis for this admission?: Yes (3) Paraplegia Is this a current diagnosis for this admission?: Yes (4) Hypertensive emergency Is this a current diagnosis for this admission?: Yes Plan: Start nitro drip
[2017-11-09] MEDS: PHARMACY COMMUNICATION ORDER MC SCH (21:06)
[2017-11-10 05:05] LABS: ABSOLUTE LYMPHOCYTES (AUTO) 0.5 10^3/uL (0.5-4.7); ABSOLUTE MONOCYTES (AUTO) 0.4 10^3/uL (0.1-1.4); BASOPHILS % (AUTO) 0.7 % (0-2); EOSINOPHILS % (AUTO) 1.2 % (0-6); HEMATOCRIT 25.7 % (36.0-47.0); HEMOGLOBIN 8.2 g/dL (12.0-15.5); LYMPHOCYTES % (AUTO) 17.9 % (13-45); MEAN CORPUSCULAR HEMOGLOBIN 30.5 pg (27.0-33.4); MEAN CORPUSCULAR HGB CONC 32.1 g/dL (32.0-36.0); MEAN CORPUSCULAR VOLUME 95 fl (80-97); MONOCYTES % (AUTO) 13.8 % (3-13); PLATELET COUNT 172 10^3/uL (150-450); RED BLOOD COUNT 2.71 10^6/uL (3.72-5.28); RED CELL DISTRIBUTION WIDTH 16.4 % (11.5-14.0); SEGMENTED NEUTROPHILS % (AUTO) 66.4 % (42-78); TOTAL CELLS COUNTED % (AUTO) 100 %
[2017-11-10 05:35] LABS: ALANINE AMINOTRANSFERASE 17 U/L (9-52); ALBUMIN 3.2 g/dL (3.5-5.0); ALKALINE PHOSPHATASE 45 U/L (38-126); ASPARTATE AMINO TRANSFERASE 12 U/L (14-36); BILIRUBIN,DIRECT 0.4 mg/dL (0.0-0.4); BILIRUBIN,TOTAL 0.6 mg/dL (0.2-1.3); BLOOD UREA NITROGEN 25 mg/dL (7-20); CHLORIDE 96 mmol/L (98-107); GLUCOSE 119 mg/dL (75-110); POTASSIUM 3.6 mmol/L (3.6-5.0); SODIUM 143.6 mmol/L (137-145); TOTAL PROTEIN 6.3 g/dL (6.3-8.2)
[2017-11-10 05:58] LABS: ANION GAP 7 (5-19)
[2017-11-10 05:59] LABS: CARBON DIOXIDE 41 mmol/L (22-30)
[2017-11-10] MEDS: CIPROFLOXACIN 400 MG/D5W RTU 400 MG/200 ML RTUPB IV SCH (09:46)
[2017-11-10] MEDS: RANOLAZINE 500 MG TAB.SR.12H PO SCH (09:47)
[2017-11-10] MEDS: FUROSEMIDE 20 MG TABLET PO SCH (09:48)
[2017-11-10] MEDS: CARVEDILOL 12.5 MG TABLET PO SCH (09:48)
[2017-11-10] MEDS: ONDANSETRON 4 MG TAB.RAPDIS PO PRN (09:48)
[2017-11-10] MEDS: CLONIDINE HCL 0.2 MG TABLET PO SCH (09:49)
[2017-11-10] MEDS: OXYCODONE-ACETAMINOPHEN 5-325 MG TABLET PO PRN ×2 (09:49→14:48)
[2017-11-10] MEDS: SACUBITRIL/VALSARTAN 49 MG/51 MG TABLET PO SCH (09:53)
[2017-11-10] MEDS: NYSTATIN TOPICAL POWDER 15 GM TOP SCH ×2 (09:59→19:15)
--- NOTE | 2017-11-10 12:19 | Physician Advisory Note ---
Physician Advisor ProgressNote .: Pursuant to the plan for [facility], I have reviewed the medical record for this patient. Physician Advisor Statement: Please consider documenting, if you agree: 1. "obesity with BMI 44" 2. "Acute hypernatremia, suspect due to " Thanks! CK
[2017-11-10 16:26] LABS: ARTERIAL BLOOD BASE EXCESS 9.9 mmol/L; ARTERIAL BLOOD H2CO3 1.81 mmol/L (1.05-1.35); ARTERIAL BLOOD HCO3 36.2 mmol/L (20-26); ARTERIAL BLOOD O2 SATURATION 95.7 % (94-98); ARTERIAL BLOOD PCO2 60.2 mmHg (35-45); ARTERIAL BLOOD PO2 81.5 mmHg (80-100); ARTERIAL BLOOD TOTAL CO2 38.1 mmol/L (21-25)
[2017-11-10 16:28] LABS: ARTERIAL BLOOD FIO2 30%
[2017-11-10 16:56] LABS: CREATINE KINASE MB 0.63 ng/mL (<4.55); TROPONIN I 0.042 ng/mL
[2017-11-10 17:24] LABS: ABSOLUTE LYMPHOCYTES (AUTO) 0.4 10^3/uL (0.5-4.7); ABSOLUTE MONOCYTES (AUTO) 0.4 10^3/uL (0.1-1.4); ABSOLUTE NEUT (AUTO) 2.1 10^3/uL (1.7-8.2); BASOPHILS % (AUTO) 0.2 % (0-2); EOSINOPHILS % (AUTO) 1.4 % (0-6); HEMATOCRIT 23.9 % (36.0-47.0); LYMPHOCYTES % (AUTO) 15.2 % (13-45); MEAN CORPUSCULAR HEMOGLOBIN 30.6 pg (27.0-33.4); MEAN CORPUSCULAR HGB CONC 32.3 g/dL (32.0-36.0); MEAN CORPUSCULAR VOLUME 95 fl (80-97); PLATELET COUNT 157 10^3/uL (150-450); RED BLOOD COUNT 2.52 10^6/uL (3.72-5.28); RED CELL DISTRIBUTION WIDTH 16.3 % (11.5-14.0); SEGMENTED NEUTROPHILS % (AUTO) 70.2 % (42-78); TOTAL CELLS COUNTED % (AUTO) 100 %; WHITE BLOOD COUNT 2.9 10^3/uL (4.0-10.5)
[2017-11-10 17:26] LABS: HEMOGLOBIN 7.7 g/dL (12.0-15.5)
[2017-11-10 17:31] LABS: BLOOD UREA NITROGEN 25 mg/dL (7-20); CALCIUM 8.5 mg/dL (8.4-10.2); CHLORIDE 94 mmol/L (98-107); GLUCOSE 172 mg/dL (75-110); POTASSIUM 3.5 mmol/L (3.6-5.0); SODIUM 140.5 mmol/L (137-145)
[2017-11-10 17:37] LABS: ANION GAP 8 (5-19)
[2017-11-10 17:41] LABS: CARBON DIOXIDE 39 mmol/L (22-30)
[2017-11-10] MEDS: PHARMACY COMMUNICATION ORDER MC SCH (19:22)
--- NOTE | 2017-11-10 22:22 | PDOC PROGRESS REPORT ---
Subjective Progress Note for:: 11/10/17 Subjective:: Patient is seen by the bedside,, still requiring BiPAP Reason For Visit: OBESITY, CLASS II BMI 35-39.9, WITH COMORBIDITY Physical Exam Vital Signs: Temp Pulse Resp BP Pulse Ox 98.0 F 67 16 147/72 H 100 11/10/17 20:29 11/10/17 20:29 11/10/17 20:29 11/10/17 20:29 11/10/17 20:29 Intake & Output 11/09/17 11/10/17 11/11/17 06:59 06:59 06:59 Intake Total 667 1173 788 Output Total 2300 3200 1150 Balance -1632 Weight 115.7 kg 116.9 kg General appearance: PRESENT: no acute distress Eye exam: PRESENT: PERRLA Respiratory exam: PRESENT: crackles Cardiovascular exam: PRESENT: +S1, +S2 GI/Abdominal exam: PRESENT: soft Neurological exam: PRESENT: alert Results Laboratory Results: 11/10/17 16:15 11/10/17 16:15 11/10/17 11/10/17 11/10/17 04:55 04:55 16:15 WBC 3.0 L RBC 2.71 L Hgb 8.2 L Hct 25.7 L MCV 95 MCH 30.5 MCHC 32.1 RDW 16.4 H Plt Count 172 Seg Neutrophils % 66.4 Lymphocytes % 17.9 Monocytes % 13.8 H Eosinophils % 1.2 Basophils % 0.7 Absolute Neutrophils 2.0 Absolute Lymphocytes 0.5 Absolute Monocytes 0.4 Absolute Eosinophils 0.0 Absolute Basophils 0.0 Carbonic Acid 1.81 H HCO3/H2CO3 Ratio 20:1 ABG pH 7.40 ABG pCO2 60.2 H ABG pO2 81.5 ABG HCO3 36.2 H ABG O2 Saturation 95.7 ABG Base Excess 9.9 FiO2 30% Sodium 143.6 Potassium 3.6 Chloride 96 L Carbon Dioxide 41 H* Anion Gap 7 BUN 25 H Creatinine 1.32 H Est GFR ( Amer) 47 L Est GFR (Non-Af Amer) 39 L Glucose 119 H Calcium 9.0 Total Bilirubin 0.6 AST 12 L ALT 17 Alkaline Phosphatase 45 Total Protein 6.3 Albumin 3.2 L 11/10/17 11/10/17 16:15 16:15 WBC 2.9 L RBC 2.52 L Hgb 7.7 L Hct 23.9 L MCV 95 MCH 30.6 MCHC 32.3 RDW 16.3 H Plt Count 157 Seg Neutrophils % 70.2 Lymphocytes % 15.2 Monocytes % 13.0 Eosinophils % 1.4 Basophils % 0.2 Absolute Neutrophils 2.1 Absolute Lymphocytes 0.4 L Absolute Monocytes 0.4 Absolute Eosinophils 0.0 Absolute Basophils 0.0 Carbonic Acid HCO3/H2CO3 Ratio ABG pH ABG pCO2 ABG pO2 ABG HCO3 ABG O2 Saturation ABG Base Excess FiO2 Sodium 140.5 Potassium 3.5 L Chloride 94 L Carbon Dioxide 39 H Anion Gap 8 BUN 25 H Creatinine 1.29 H Est GFR ( Amer) 49 L Est GFR (Non-Af Amer) 40 L Glucose 172 H Calcium 8.5 Total Bilirubin AST ALT Alkaline Phosphatase Total Protein Albumin 11/08/17 11/08/17 11/10/17 21:35 21:35 16:15 Creatine Kinase 29 L 21 L CK-MB (CK-2) 1.08 Troponin I 0.051 11/10/17 16:15 Creatine Kinase CK-MB (CK-2) 0.63 Troponin I 0.042 Impressions: Chest X-Ray 11/09/17 00:00 IMPRESSION: 1. Interval placement of right subclavian central venous catheter. Tip projects across the midline. Tip could be in the left brachiocephalic vein however other locations not excluded. Recommend clinical correlation and possible repositioning. 2. Otherwise stable appearance of the chest. Assessment & Plan - Diagnosis (1) Acute combined systolic (congestive) and diastolic (congestive) heart failure Is this a current diagnosis for this admission?: Yes Plan: Discontinue Lasix infusion, (2) Acute hypercapnic respiratory failure Is this a current diagnosis for this admission?: Yes Plan: Continue BiPAP (3) Paraplegia Is this a current diagnosis for this admission?: Yes (4) Hypertensive emergency Is this a current diagnosis for this admission?: Yes
[2017-11-11] MEDS: SACUBITRIL/VALSARTAN 49 MG/51 MG TABLET PO SCH ×3 (00:53→21:54)
[2017-11-11] MEDS: ATORVASTATIN CALCIUM 10 MG TABLET PO SCH ×2 (00:55→21:54)
[2017-11-11] MEDS: CARVEDILOL 12.5 MG TABLET PO SCH ×3 (00:55→21:54)
[2017-11-11] MEDS: CIPROFLOXACIN 400 MG/D5W RTU 400 MG/200 ML RTUPB IV SCH ×2 (00:56→10:12)
[2017-11-11] MEDS: CLONIDINE HCL 0.2 MG TABLET PO SCH ×3 (00:56→21:53)
[2017-11-11] MEDS: RANOLAZINE 500 MG TAB.SR.12H PO SCH ×3 (00:58→21:53)
[2017-11-11] MEDS: POLYETHYLENE GLYCOL 3350 POWDER 17 GM/1 PACKET PO SCH ×2 (01:00→21:55)
[2017-11-11] MEDS ORDERED: NORMAL SALINE 250 ML IV PRN ×2 (08:13)
[2017-11-11] MEDS ORDERED: POTASSIUM CHLORIDE 10 MEQ TABLET.SA PO ONE (08:13)
[2017-11-11] MEDS: FUROSEMIDE 20 MG TABLET PO SCH (10:12)
[2017-11-11] MEDS: OXYCODONE-ACETAMINOPHEN 5-325 MG TABLET PO PRN ×2 (10:14→14:21)
[2017-11-11] MEDS: NYSTATIN TOPICAL POWDER 15 GM TOP SCH ×2 (10:19→21:46)
[2017-11-11 10:21] LABS: ABSOLUTE LYMPHOCYTES (AUTO) 0.6 10^3/uL (0.5-4.7); ABSOLUTE MONOCYTES (AUTO) 0.4 10^3/uL (0.1-1.4); ABSOLUTE NEUT (AUTO) 1.8 10^3/uL (1.7-8.2); BASOPHILS % (AUTO) 0.3 % (0-2); EOSINOPHILS % (AUTO) 1.3 % (0-6); HEMATOCRIT 24.7 % (36.0-47.0); HEMOGLOBIN 8.1 g/dL (12.0-15.5); LYMPHOCYTES % (AUTO) 20.5 % (13-45); MEAN CORPUSCULAR HEMOGLOBIN 30.8 pg (27.0-33.4); MEAN CORPUSCULAR HGB CONC 32.7 g/dL (32.0-36.0); MEAN CORPUSCULAR VOLUME 94 fl (80-97); MONOCYTES % (AUTO) 14.7 % (3-13); PLATELET COUNT 171 10^3/uL (150-450); RED BLOOD COUNT 2.62 10^6/uL (3.72-5.28); RED CELL DISTRIBUTION WIDTH 16.1 % (11.5-14.0); SEGMENTED NEUTROPHILS % (AUTO) 63.2 % (42-78); TOTAL CELLS COUNTED % (AUTO) 100 %; WHITE BLOOD COUNT 2.9 10^3/uL (4.0-10.5)
[2017-11-11] MEDS: CEFTRIAXONE SODIUM 1,000 MG in DEXTROSE 5%-WATER 50 ML IV SCH (14:25)
[2017-11-11] MEDS: PHARMACY COMMUNICATION ORDER MC SCH (19:49)
--- NOTE | 2017-11-11 21:00 | PDOC PROGRESS REPORT ---
Subjective Progress Note for:: 11/11/17 Subjective:: She was seen at the bedside, she was admitted for acute combined systolic and diastolic heart failure, she is well diuresed, she has a UTI Reason For Visit: OBESITY, CLASS II BMI 35-39.9, WITH COMORBIDITY Physical Exam Vital Signs: Temp Pulse Resp BP Pulse Ox 98.3 F 52 L 18 119/55 L 100 11/11/17 15:53 11/11/17 15:53 11/11/17 11:32 11/11/17 15:53 11/11/17 15:53 Intake & Output 11/10/17 11/11/17 11/12/17 06:59 06:59 06:59 Intake Total 1173 1218 900 Output Total 3200 1450 300 Balance -2026 600 Weight 116.9 kg 114.8 kg General appearance: PRESENT: no acute distress Eye exam: PRESENT: PERRLA Respiratory exam: PRESENT: clear to auscultation kishan Cardiovascular exam: PRESENT: +S1, +S2 GI/Abdominal exam: PRESENT: soft Extremities exam: PRESENT: pedal edema Neurological exam: PRESENT: alert Results Laboratory Results: 11/11/17 10:00 11/10/17 16:15 11/11/17 11/11/17 09:20 10:00 WBC 2.9 L RBC 2.62 L Hgb 8.1 L Hct 24.7 L MCV 94 MCH 30.8 MCHC 32.7 RDW 16.1 H Plt Count 171 Seg Neutrophils % 63.2 Lymphocytes % 20.5 Monocytes % 14.7 H Eosinophils % 1.3 Basophils % 0.3 Absolute Neutrophils 1.8 Absolute Lymphocytes 0.6 Absolute Monocytes 0.4 Absolute Eosinophils 0.0 Absolute Basophils 0.0 Blood Type A POSITIVE Antibody Screen NEGATIVE 11/08/17 01:50 Malhotra Catheter Urine Culture - Final Providencia Stuartii 11/09/17 05:30 Malhotra Catheter Urine Culture - Final Providencia Stuartii 11/08/17 11/08/17 11/10/17 21:35 21:35 16:15 Creatine Kinase 29 L 21 L CK-MB (CK-2) 1.08 Troponin I 0.051 11/10/17 16:15 Creatine Kinase CK-MB (CK-2) 0.63 Troponin I 0.042 Impressions: Chest X-Ray 11/09/17 00:00 IMPRESSION: 1. Interval placement of right subclavian central venous catheter. Tip projects across the midline. Tip could be in the left brachiocephalic vein however other locations not excluded. Recommend clinical correlation and possible repositioning. 2. Otherwise stable appearance of the chest. Assessment & Plan - Diagnosis (1) Acute combined systolic (congestive) and diastolic (congestive) heart failure Is this a current diagnosis for this admission?: Yes (2) Acute hypercapnic respiratory failure Is this a current diagnosis for this admission?: Yes (3) Paraplegia Is this a current diagnosis for this admission?: Yes (4) Hypertensive emergency Is this a current diagnosis for this admission?: Yes (5) Urinary tract infection Qualifiers: Urinary tract infection type: catheter-associated UTI Indwelling urinary catheter type: unspecified Encounter type: initial encounter Qualified Code( s): T83.511A - Infection and inflammatory reaction due to indwelling urethral catheter, initial encounter; N39.0 - Urinary tract infection, site not specified ; N39.0 - Urinary tract infection, site not specified Is this a current diagnosis for this admission?: Yes - Plan Summary Plan Summary: Continue treatment
[2017-11-12 06:38] LABS: ABSOLUTE EOSINOPHILS # (AUTO) 0.1 10^3/uL (0.0-0.6); ABSOLUTE LYMPHOCYTES (AUTO) 0.7 10^3/uL (0.5-4.7); ABSOLUTE MONOCYTES (AUTO) 0.5 10^3/uL (0.1-1.4); ABSOLUTE NEUT (AUTO) 1.9 10^3/uL (1.7-8.2); BASOPHILS % (AUTO) 0.4 % (0-2); EOSINOPHILS % (AUTO) 1.9 % (0-6); HEMATOCRIT 24.9 % (36.0-47.0); LYMPHOCYTES % (AUTO) 22.7 % (13-45); MEAN CORPUSCULAR HEMOGLOBIN 30.5 pg (27.0-33.4); MEAN CORPUSCULAR HGB CONC 32.3 g/dL (32.0-36.0); MEAN CORPUSCULAR VOLUME 95 fl (80-97); PLATELET COUNT 171 10^3/uL (150-450); RED BLOOD COUNT 2.63 10^6/uL (3.72-5.28); RED CELL DISTRIBUTION WIDTH 16.3 % (11.5-14.0); TOTAL CELLS COUNTED % (AUTO) 100 %; WHITE BLOOD COUNT 3.2 10^3/uL (4.0-10.5)
[2017-11-12 06:56] LABS: ALANINE AMINOTRANSFERASE 20 U/L (9-52); ALBUMIN 2.9 g/dL (3.5-5.0); ALKALINE PHOSPHATASE 45 U/L (38-126); ASPARTATE AMINO TRANSFERASE 12 U/L (14-36); BILIRUBIN,DIRECT 0.4 mg/dL (0.0-0.4); BILIRUBIN,TOTAL 0.4 mg/dL (0.2-1.3); BLOOD UREA NITROGEN 27 mg/dL (7-20); CALCIUM 8.6 mg/dL (8.4-10.2); CHLORIDE 93 mmol/L (98-107); GLUCOSE 110 mg/dL (75-110); POTASSIUM 4.1 mmol/L (3.6-5.0); SODIUM 139.9 mmol/L (137-145); TOTAL PROTEIN 5.9 g/dL (6.3-8.2)
[2017-11-12 07:03] LABS: ANION GAP 7 (5-19)
[2017-11-12 07:16] LABS: CARBON DIOXIDE 40 mmol/L (22-30)
[2017-11-12] MEDS: CARVEDILOL 12.5 MG TABLET PO SCH ×2 (09:27→21:21)
[2017-11-12] MEDS: RANOLAZINE 500 MG TAB.SR.12H PO SCH ×2 (09:27→21:21)
[2017-11-12] MEDS: CLONIDINE HCL 0.2 MG TABLET PO SCH ×2 (09:27→21:21)
[2017-11-12] MEDS: NYSTATIN TOPICAL POWDER 15 GM TOP SCH ×2 (09:28→17:13)
[2017-11-12] MEDS: SACUBITRIL/VALSARTAN 49 MG/51 MG TABLET PO SCH ×2 (09:28→21:21)
[2017-11-12] MEDS: FUROSEMIDE 20 MG TABLET PO SCH (09:28)
[2017-11-12] MEDS: CEFTRIAXONE SODIUM 1,000 MG in DEXTROSE 5%-WATER 50 ML IV SCH (11:40)
--- NOTE | 2017-11-12 16:26 | PDOC PROGRESS REPORT ---
Subjective Progress Note for:: 11/12/17 Subjective:: Patient denied any chest pain or difficulty with breathing. No fever or chills. Her P.O intake is down including water with associated decrease urine output. Reason For Visit: OBESITY, CLASS II BMI 35-39.9, WITH COMORBIDITY Physical Exam Vital Signs: Temp Pulse Resp BP Pulse Ox 97.8 F 71 18 135/53 H 97 11/12/17 11:24 11/12/17 13:44 11/12/17 11:24 11/12/17 11:24 11/12/17 11:24 Intake & Output 11/11/17 11/12/17 11/13/17 06:59 06:59 06:59 Intake Total 1218 1197 410 Output Total 1450 550 100 Balance -232 647 310 Weight 114.8 kg 115.4 kg General appearance: PRESENT: no acute distress, morbidly obese Head exam: PRESENT: atraumatic, normocephalic Mouth exam: PRESENT: moist Respiratory exam: PRESENT: clear to auscultation kishan Cardiovascular exam: PRESENT: RRR. ABSENT: diastolic murmur, rubs, systolic murmur GI/Abdominal exam: PRESENT: normal bowel sounds, soft Extremities exam: ABSENT: pedal edema Musculoskeletal exam: PRESENT: deformity - related to multiple joints involvemnet with arthritis. Neurological exam: PRESENT: alert, awake, oriented to person, oriented to place , oriented to time, oriented to situation, CN II-XII grossly intact. ABSENT: motor sensory deficit Psychiatric exam: PRESENT: appropriate affect, normal mood. ABSENT: homicidal ideation, suicidal ideation Skin exam: PRESENT: dry, warm Results Laboratory Results: 11/12/17 06:00 11/12/17 06:00 11/12/17 11/12/17 06:00 06:00 WBC 3.2 L RBC 2.63 L Hgb 8.0 L Hct 24.9 L MCV 95 MCH 30.5 MCHC 32.3 RDW 16.3 H Plt Count 171 Seg Neutrophils % 60.0 Lymphocytes % 22.7 Monocytes % 15.0 H Eosinophils % 1.9 Basophils % 0.4 Absolute Neutrophils 1.9 Absolute Lymphocytes 0.7 Absolute Monocytes 0.5 Absolute Eosinophils 0.1 Absolute Basophils 0.0 Sodium 139.9 Potassium 4.1 Chloride 93 L Carbon Dioxide 40 H* Anion Gap 7 BUN 27 H Creatinine 1.46 H Est GFR ( Amer) 42 L Est GFR (Non-Af Amer) 35 L Glucose 110 Calcium 8.6 Total Bilirubin 0.4 AST 12 L ALT 20 Alkaline Phosphatase 45 Total Protein 5.9 L Albumin 2.9 L 11/08/17 11/08/17 11/10/17 21:35 21:35 16:15 Creatine Kinase 29 L 21 L CK-MB (CK-2) 1.08 Troponin I 0.051 11/10/17 16:15 Creatine Kinase CK-MB (CK-2) 0.63 Troponin I 0.042 Impressions: Chest X-Ray 11/09/17 00:00 IMPRESSION: 1. Interval placement of right subclavian central venous catheter. Tip projects across the midline. Tip could be in the left brachiocephalic vein however other locations not excluded. Recommend clinical correlation and possible repositioning. 2. Otherwise stable appearance of the chest. Assessment & Plan - Diagnosis (1) Acute hypercapnic respiratory failure Is this a current diagnosis for this admission?: Yes Plan: Probably secondary to obesity related hypoventilation and diuretic therapy. Obtain ABG for further evaluation. (2) Combined systolic and diastolic congestive heart failure Qualifiers: Heart failure chronicity: acute Qualified Code(s): I50.41 - Acute combined systolic (congestive) and diastolic (congestive) heart failure Is this a current diagnosis for this admission?: Yes Plan: Continue current medication management. D/C Furosemide. Start on Diamox 250 mg p.o daily. (3) Hypertensive emergency Is this a current diagnosis for this admission?: Yes Plan: Improving. Echocardiogram on 08/18/2017 suggested low LVEF in 25 - 30% range. (4) Urinary tract infection Qualifiers: Urinary tract infection type: catheter-associated UTI Indwelling urinary catheter type: unspecified Encounter type: initial encounter Qualified Code( s): T83.511A - Infection and inflammatory reaction due to indwelling urethral catheter, initial encounter; N39.0 - Urinary tract infection, site not specified ; N39.0 - Urinary tract infection, site not specified Is this a current diagnosis for this admission?: Yes Plan: Continue IV Ceftriaxone therapy. Follow up on blood culture findings. (5) Morbid obesity Is this a current diagnosis for this admission?: Yes Plan: Continue encouragement to loss weight by avoiding excess calorie intake. - Time Time Spent with patient: 25-34 minutes Medications reviewed and adjusted accordingly: Yes Anticipated discharge: SNF Within: Other - Inpatient Certification Based on my medical assessment, after consideration of the patient's comorbidities, presenting symptoms, or acuity I expect that the services needed warrant INPATIENT care.: Yes I certify that my determination is in accordance with my understanding of Medicare's requirements for reasonable and necessary INPATIENT services [42 CFR 412.3e].: Yes Medical Necessity: Need Close Monitoring Due to Risk of Patient Decompensation, Need For Continuous Telemetry Monitoring, Need for IV Antibiotics, Risk of Complication if Not Cared For in Hospital Post Hospital Care: D/C 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
[2017-11-12] MEDS: ACETAZOLAMIDE 250 MG TABLET PO SCH (17:13)
[2017-11-12 18:10] LABS: ARTERIAL BLOOD BASE EXCESS 10.9 mmol/L; ARTERIAL BLOOD FIO2 2L; ARTERIAL BLOOD H2CO3 1.91 mmol/L (1.05-1.35); ARTERIAL BLOOD HCO3 37.7 mmol/L (20-26); ARTERIAL BLOOD O2 SATURATION 97.5 % (94-98); ARTERIAL BLOOD PCO2 63.6 mmHg (35-45); ARTERIAL BLOOD PH 7.39 (7.35-7.45); ARTERIAL BLOOD PO2 103.3 mmHg (80-100); ARTERIAL BLOOD TOTAL CO2 39.7 mmol/L (21-25)
[2017-11-12] MEDS: ATORVASTATIN CALCIUM 10 MG TABLET PO SCH (21:21)
[2017-11-12] MEDS: POLYETHYLENE GLYCOL 3350 POWDER 17 GM/1 PACKET PO SCH (21:30)
[2017-11-13] MEDS: RANOLAZINE 500 MG TAB.SR.12H PO SCH ×2 (09:46→22:25)
[2017-11-13] MEDS: ONDANSETRON 4 MG TAB.RAPDIS PO PRN (09:46)
[2017-11-13] MEDS: CARVEDILOL 12.5 MG TABLET PO SCH ×2 (09:46→22:24)
[2017-11-13] MEDS: SACUBITRIL/VALSARTAN 49 MG/51 MG TABLET PO SCH ×2 (09:47→22:25)
[2017-11-13] MEDS: OXYCODONE-ACETAMINOPHEN 5-325 MG TABLET PO PRN (09:48)
[2017-11-13] MEDS: CLONIDINE HCL 0.2 MG TABLET PO SCH ×2 (09:48→22:25)
[2017-11-13] MEDS: NYSTATIN TOPICAL POWDER 15 GM TOP SCH ×2 (09:51→19:05)
[2017-11-13] MEDS: CEFTRIAXONE SODIUM 1,000 MG in DEXTROSE 5%-WATER 50 ML IV SCH (14:39)
--- NOTE | 2017-11-13 15:24 | PDOC PROGRESS REPORT ---
Subjective Progress Note for:: 11/13/17 Subjective:: Patient reported intermittent left sided chest pain. She denied difficulty with breathing. No fever or chills. No abdominal pain, nausea or vomiting. Reason For Visit: OBESITY, CLASS II BMI 35-39.9, WITH COMORBIDITY Physical Exam Vital Signs: Temp Pulse Resp BP Pulse Ox 97.7 F 72 18 135/64 H 100 11/13/17 11:09 11/13/17 11:09 11/13/17 11:09 11/13/17 11:09 11/13/17 11:09 Intake & Output 11/12/17 11/13/17 11/14/17 06:59 06:59 06:59 Intake Total 1197 935 300 Output Total 550 775 175 Balance 647 160 125 Weight 115.4 kg 115 kg Physical Exam: General appearance: PRESENT: no acute distress, morbidly obese Head exam: PRESENT: atraumatic, normocephalic Mouth exam: PRESENT: moist Respiratory exam: PRESENT: clear to auscultation kishan Cardiovascular exam: PRESENT: RRR. ABSENT: diastolic murmur, rubs, systolic murmur GI/Abdominal exam: PRESENT: normal bowel sounds, soft Extremities exam: ABSENT: pedal edema Musculoskeletal exam: PRESENT: deformity - related to multiple joints involvemnet with arthritis. Neurological exam: PRESENT: alert, awake, oriented to person, oriented to place , oriented to time, oriented to situation, CN II-XII grossly intact. ABSENT: motor sensory deficit Psychiatric exam: PRESENT: appropriate affect, normal mood. ABSENT: homicidal ideation, suicidal ideation Skin exam: PRESENT: dry, warm Results Laboratory Results: 11/12/17 06:00 11/12/17 06:00 11/12/17 17:43 Carbonic Acid 1.91 H HCO3/H2CO3 Ratio 19:1 ABG pH 7.39 ABG pCO2 63.6 H ABG pO2 103.3 H ABG HCO3 37.7 H ABG O2 Saturation 97.5 ABG Base Excess 10.9 FiO2 2L 11/08/17 11/08/17 11/10/17 21:35 21:35 16:15 Creatine Kinase 29 L 21 L CK-MB (CK-2) 1.08 Troponin I 0.051 11/10/17 16:15 Creatine Kinase CK-MB (CK-2) 0.63 Troponin I 0.042 Impressions: Chest X-Ray 11/09/17 00:00 IMPRESSION: 1. Interval placement of right subclavian central venous catheter. Tip projects across the midline. Tip could be in the left brachiocephalic vein however other locations not excluded. Recommend clinical correlation and possible repositioning. 2. Otherwise stable appearance of the chest. Assessment & Plan - Diagnosis (1) Acute hypercapnic respiratory failure Is this a current diagnosis for this admission?: Yes (2) Combined systolic and diastolic congestive heart failure Qualifiers: Heart failure chronicity: acute Qualified Code(s): I50.41 - Acute combined systolic (congestive) and diastolic (congestive) heart failure Is this a current diagnosis for this admission?: Yes (3) Hypertensive emergency Is this a current diagnosis for this admission?: Yes (4) Urinary tract infection Qualifiers: Urinary tract infection type: catheter-associated UTI Indwelling urinary catheter type: unspecified Encounter type: initial encounter Qualified Code( s): T83.511A - Infection and inflammatory reaction due to indwelling urethral catheter, initial encounter; N39.0 - Urinary tract infection, site not specified ; N39.0 - Urinary tract infection, site not specified Is this a current diagnosis for this admission?: Yes (5) Morbid obesity Is this a current diagnosis for this admission?: Yes - Time Time Spent with patient: 25-34 minutes Medications reviewed and adjusted accordingly: Yes Anticipated discharge: SNF Within: Other - Inpatient Certification Based on my medical assessment, after consideration of the patient's comorbidities, presenting symptoms, or acuity I expect that the services needed warrant INPATIENT care.: Yes I certify that my determination is in accordance with my understanding of Medicare's requirements for reasonable and necessary INPATIENT services [42 CFR 412.3e].: Yes Medical Necessity: Need Close Monitoring Due to Risk of Patient Decompensation, Need For Continuous Telemetry Monitoring, Need for Pain Control, Risk of Complication if Not Cared For in Hospital Post Hospital Care: D/C or Transfer Summary - Plan Summary Plan Summary: See covering attending physician orders.
[2017-11-13 16:42] LABS: CREATINE KINASE MB 1.3 ng/mL (<4.55); TROPONIN I 0.022 ng/mL
[2017-11-13] MEDS: NITROGLYCERIN 5 MG (0.2 MG/HR) PATCH.TD24 TD SCH (19:05)
[2017-11-13] MEDS: ACETAZOLAMIDE 250 MG TABLET PO SCH (19:05)
--- NOTE | 2017-11-13 19:07 | EKG REPORT ---
SEVERITY:- ABNORMAL ECG - SINUS RHYTHM FIRST DEGREE AV BLOCK PROBABLE LEFT ATRIAL ABNORMALITY BORDERLINE R WAVE PROGRESSION, ANTERIOR LEADS : Confirmed by: Hudson Walker 13-Nov-2017 19:07:02
[2017-11-13] MEDS: POLYETHYLENE GLYCOL 3350 POWDER 17 GM/1 PACKET PO SCH (22:24)
[2017-11-13] MEDS: ATORVASTATIN CALCIUM 10 MG TABLET PO SCH (22:25)
[2017-11-14 07:40] LABS: ANION GAP 9 (5-19); BLOOD UREA NITROGEN 25 mg/dL (7-20); CALCIUM 8.9 mg/dL (8.4-10.2); CARBON DIOXIDE 38 mmol/L (22-30); CHLORIDE 93 mmol/L (98-107); GLUCOSE 116 mg/dL (75-110); POTASSIUM 4.1 mmol/L (3.6-5.0); SODIUM 140.1 mmol/L (137-145)
[2017-11-14 07:43] LABS: ABSOLUTE EOSINOPHILS # (AUTO) 0.1 10^3/uL (0.0-0.6); ABSOLUTE LYMPHOCYTES (AUTO) 0.6 10^3/uL (0.5-4.7); ABSOLUTE MONOCYTES (AUTO) 0.4 10^3/uL (0.1-1.4); ABSOLUTE NEUT (AUTO) 1.9 10^3/uL (1.7-8.2); BASOPHILS % (AUTO) 0.5 % (0-2); EOSINOPHILS % (AUTO) 2.1 % (0-6); HEMATOCRIT 25.7 % (36.0-47.0); HEMOGLOBIN 8.4 g/dL (12.0-15.5); LYMPHOCYTES % (AUTO) 19.1 % (13-45); MEAN CORPUSCULAR HEMOGLOBIN 30.9 pg (27.0-33.4); MEAN CORPUSCULAR HGB CONC 32.7 g/dL (32.0-36.0); MEAN CORPUSCULAR VOLUME 95 fl (80-97); MONOCYTES % (AUTO) 14.8 % (3-13); PLATELET COUNT 181 10^3/uL (150-450); RED BLOOD COUNT 2.71 10^6/uL (3.72-5.28); RED CELL DISTRIBUTION WIDTH 16.1 % (11.5-14.0); SEGMENTED NEUTROPHILS % (AUTO) 63.5 % (42-78); TOTAL CELLS COUNTED % (AUTO) 100 %
[2017-11-14] MEDS: CLONIDINE HCL 0.2 MG TABLET PO SCH ×2 (10:29→22:32)
[2017-11-14] MEDS: CARVEDILOL 12.5 MG TABLET PO SCH ×2 (10:30→22:32)
[2017-11-14] MEDS: RANOLAZINE 500 MG TAB.SR.12H PO SCH ×2 (10:30→22:32)
[2017-11-14] MEDS: SACUBITRIL/VALSARTAN 49 MG/51 MG TABLET PO SCH ×2 (10:31→22:32)
[2017-11-14] MEDS: NYSTATIN TOPICAL POWDER 15 GM TOP SCH ×2 (10:32→19:25)
[2017-11-14] MEDS: OXYCODONE-ACETAMINOPHEN 5-325 MG TABLET PO PRN (10:45)
[2017-11-14] MEDS: CEFTRIAXONE SODIUM 1,000 MG in DEXTROSE 5%-WATER 50 ML IV SCH (14:33)
[2017-11-14] MEDS: NITROGLYCERIN 5 MG (0.2 MG/HR) PATCH.TD24 TD SCH (19:24)
[2017-11-14] MEDS: ACETAZOLAMIDE 250 MG TABLET PO SCH (19:25)
--- NOTE | 2017-11-14 21:47 | PDOC PROGRESS REPORT ---
Subjective Progress Note for:: 11/14/17 Subjective:: Patient with occasional confusion she needed to be a DNR status, there is no immediate family member to discuss CODE STATUS for this patient, she has underlining dementia, chronic diastolic and systolic heart failure, paraplegic, multiple hospital admission, the CODE STATUS need to be addressed STEPHEN I spoke to patient about CODE STATUS I am not sure she understood exactly what this all about Reason For Visit: OBESITY, CLASS II BMI 35-39.9, WITH COMORBIDITY Physical Exam Vital Signs: Temp Pulse Resp BP Pulse Ox 97.6 F 67 21 H 146/73 H 100 11/14/17 05:06 11/14/17 19:00 11/14/17 05:06 11/14/17 05:06 11/14/17 05:06 Intake & Output 11/13/17 11/14/17 11/15/17 06:59 06:59 06:59 Intake Total 935 1392 1004 Output Total 775 900 475 Balance 160 492 529 Weight 115 kg 114.3 kg General appearance: PRESENT: no acute distress Eye exam: PRESENT: PERRLA Respiratory exam: PRESENT: clear to auscultation kishan Cardiovascular exam: PRESENT: +S1, +S2 GI/Abdominal exam: PRESENT: soft Neurological exam: PRESENT: alert Results Laboratory Results: 11/14/17 06:45 11/14/17 06:45 11/14/17 11/14/17 06:45 06:45 WBC 3.0 L RBC 2.71 L Hgb 8.4 L Hct 25.7 L MCV 95 MCH 30.9 MCHC 32.7 RDW 16.1 H Plt Count 181 Seg Neutrophils % 63.5 Lymphocytes % 19.1 Monocytes % 14.8 H Eosinophils % 2.1 Basophils % 0.5 Absolute Neutrophils 1.9 Absolute Lymphocytes 0.6 Absolute Monocytes 0.4 Absolute Eosinophils 0.1 Absolute Basophils 0.0 Sodium 140.1 Potassium 4.1 Chloride 93 L Carbon Dioxide 38 H Anion Gap 9 BUN 25 H Creatinine 1.56 H Est GFR ( Amer) 39 L Est GFR (Non-Af Amer) 32 L Glucose 116 H Calcium 8.9 11/08/17 11/08/17 11/10/17 21:35 21:35 16:15 Creatine Kinase 29 L 21 L CK-MB (CK-2) 1.08 Troponin I 0.051 11/10/17 11/13/17 11/13/17 16:15 15:45 15:45 Creatine Kinase 40 CK-MB (CK-2) 0.63 1.30 Troponin I 0.042 0.022 Impressions: Chest X-Ray 11/09/17 00:00 IMPRESSION: 1. Interval placement of right subclavian central venous catheter. Tip projects across the midline. Tip could be in the left brachiocephalic vein however other locations not excluded. Recommend clinical correlation and possible repositioning. 2. Otherwise stable appearance of the chest. Assessment & Plan - Diagnosis (1) Acute combined systolic (congestive) and diastolic (congestive) heart failure Is this a current diagnosis for this admission?: Yes (2) Acute hypercapnic respiratory failure Is this a current diagnosis for this admission?: Yes (3) Paraplegia Is this a current diagnosis for this admission?: Yes (4) Hypertensive emergency Is this a current diagnosis for this admission?: Yes (5) Urinary tract infection Qualifiers: Urinary tract infection type: catheter-associated UTI Indwelling urinary catheter type: unspecified Encounter type: initial encounter Qualified Code( s): T83.511A - Infection and inflammatory reaction due to indwelling urethral catheter, initial encounter; N39.0 - Urinary tract infection, site not specified ; N39.0 - Urinary tract infection, site not specified Is this a current diagnosis for this admission?: Yes
[2017-11-14] MEDS: ATORVASTATIN CALCIUM 10 MG TABLET PO SCH (22:32)
[2017-11-14] MEDS: POLYETHYLENE GLYCOL 3350 POWDER 17 GM/1 PACKET PO SCH (22:32)
[2017-11-15] MEDS: CLONIDINE HCL 0.2 MG TABLET PO SCH ×2 (09:53→22:47)
[2017-11-15] MEDS: RANOLAZINE 500 MG TAB.SR.12H PO SCH ×2 (09:54→22:56)
[2017-11-15] MEDS: CARVEDILOL 12.5 MG TABLET PO SCH ×2 (09:54→22:47)
[2017-11-15] MEDS: OXYCODONE-ACETAMINOPHEN 5-325 MG TABLET PO PRN ×3 (09:55→19:04)
[2017-11-15] MEDS: SACUBITRIL/VALSARTAN 49 MG/51 MG TABLET PO SCH ×2 (10:06→22:48)
[2017-11-15] MEDS: NYSTATIN TOPICAL POWDER 15 GM TOP SCH ×2 (10:07→19:07)
[2017-11-15] MEDS: CEFTRIAXONE SODIUM 1,000 MG in DEXTROSE 5%-WATER 50 ML IV SCH (13:21)
[2017-11-15] MEDS: NITROGLYCERIN 5 MG (0.2 MG/HR) PATCH.TD24 TD SCH (19:03)
[2017-11-15] MEDS: ACETAZOLAMIDE 250 MG TABLET PO SCH (19:05)
[2017-11-15] MEDS: POLYETHYLENE GLYCOL 3350 POWDER 17 GM/1 PACKET PO SCH (22:46)
[2017-11-15] MEDS: ATORVASTATIN CALCIUM 10 MG TABLET PO SCH (22:48)
[2017-11-16] MEDS: SACUBITRIL/VALSARTAN 49 MG/51 MG TABLET PO SCH (10:09)
[2017-11-16] MEDS: RANOLAZINE 500 MG TAB.SR.12H PO SCH (10:09)
[2017-11-16] MEDS: CARVEDILOL 12.5 MG TABLET PO SCH (10:10)
[2017-11-16] MEDS: NYSTATIN TOPICAL POWDER 15 GM TOP SCH ×2 (10:10→18:31)
[2017-11-16] MEDS: CLONIDINE HCL 0.2 MG TABLET PO SCH (10:10)
[2017-11-16] MEDS: CEFTRIAXONE SODIUM 1,000 MG in DEXTROSE 5%-WATER 50 ML IV SCH (13:30)
--- NOTE | 2017-11-16 16:16 | PDOC DISCHARGE SUMMARY ---
General - Admit/Disc Date/PCP Admission Date/Primary Care Provider: 11/08/17 01:18 MIKO GOMEZ MD Discharge Date: 11/16/17 - Discharge Diagnosis (1) Acute combined systolic (congestive) and diastolic (congestive) heart failure Is this a current diagnosis for this admission?: Yes (2) Acute hypercapnic respiratory failure Is this a current diagnosis for this admission?: Yes (3) Paraplegia Is this a current diagnosis for this admission?: Yes (4) Hypertensive emergency Is this a current diagnosis for this admission?: Yes (5) Urinary tract infection Is this a current diagnosis for this admission?: Yes - Additional Information Prescriptions: Eplerenone 50 mg PO DAILY #90 tablet Torsemide [Demadex 20 mg Tablet] 20 mg PO DAILY #90 tablet Home Medications: Acetaminophen [Tylenol 325 mg Tablet] 650 mg PO Q6HP PRN 11/08/17 Atorvastatin Calcium [Lipitor 10 mg Tablet] 10 mg PO QHS 11/08/17 Clonidine HCl [Catapres 0.2 mg Tablet] 0.2 mg PO Q12 11/08/17 Nitroglycerin [Nitrostat] 0.4 mg SL Q5MP PRN 11/08/17 Nystatin [Mycostatin Topical Powder 15 gm] 1 applic TOP BID 11/08/17 Ondansetron HCl [Zofran 4 mg Tablet] 4 mg PO Q8HP PRN 11/08/17 Polyethylene Glycol 3350 [Miralax Powder 17 gm/Packet] 17 gm PO DAILY 11/08/17 Ranolazine [Ranexa] 500 mg PO Q12 11/08/17 Sacubitril/Valsartan [Entresto 49 mg-51 mg Tablet] 1 tab PO Q12 11/08/17 Carvedilol [Coreg 12.5 mg Tablet] 25 mg PO Q12 #0 11/16/17 Eplerenone 50 mg PO DAILY #90 tablet 11/16/17 Torsemide [Demadex 20 mg Tablet] 20 mg PO DAILY #90 tablet 11/16/17 History of Present Illness History of Present Illness: NEIDA YEPEZ is a 77 year old female,She has a history of chronic systolic and diastolic heart failure, paraplegia, resident of the half-way at [facility] she came to the emergency room last night for evaluation of shortness of breath , she was found to be in congestive heart failure, the blood gas that was done showed hypercapnic respiratory acidosis, the breathing was supported with noninvasive positive pressure ventilation ,BiPAP. She is admitted to intermediate care unit. I discussed CODE STATUS with the patient, she has a history of multiple hospital admission for decompensated chronic systolic heart failure but patient insisted she wanted to be a full code she has always maintained that stance on CODE STATUS. She is paraplegic she is nonambulatory essentially bedbound the last time she was admitted she was evaluated for the paraplegia MRI brain was done and also lumbar spine no particular etiology was found. Hospital Course Hospital Course: Patient has chronic systolic and diastolic heart failure, she presented with decompensated chronic systolic and diastolic heart failure, there was associated hypertensive emergency with acute hypercapnic respiratory distress. She required noninvasive positive pressure ventilation with BiPAP she was treated with nitroglycerin drip to control blood pressure and ultimately this was normalized. She also had UTI requiring IV antibiotic, Rocephin she grew providentia organism. Patient is a full code, I discussed CODE STATUS with the patient she has no POA, she had episode of confusion in the hospital, history of recurrent hospital admission no family member available to make medical decision for this patient. At the present time she has optimized inpatient care , the plan is to transfer back to half-way, I anticipate the patient might return back again to the hospital from the half-way. On this admission she was taken off furosemide, it seems that she may have furosemide resistance, she is started on Demadex and Eplerenone Physical Exam Vital Signs: Temp Pulse Resp BP Pulse Ox 97.8 F 71 17 147/78 H 95 11/16/17 11:39 11/16/17 11:39 11/16/17 11:39 11/16/17 11:39 11/16/17 11:39 Intake & Output 11/15/17 11/16/17 11/17/17 06:59 06:59 06:59 Intake Total 1764 1356 236 Output Total 1325 700 200 Balance 439 656 36 Weight 116.6 kg 117.3 kg General appearance: PRESENT: no acute distress Eye exam: PRESENT: PERRLA Respiratory exam: PRESENT: clear to auscultation kishan Cardiovascular exam: PRESENT: +S1, +S2 GI/Abdominal exam: PRESENT: soft Neurological exam: PRESENT: alert Results Laboratory Results: 11/14/17 06:45 11/14/17 06:45 11/08/17 11/08/17 11/10/17 21:35 21:35 16:15 Creatine Kinase 29 L 21 L CK-MB (CK-2) 1.08 Troponin I 0.051 11/10/17 11/13/17 11/13/17 16:15 15:45 15:45 Creatine Kinase 40 CK-MB (CK-2) 0.63 1.30 Troponin I 0.042 0.022 Impressions: Chest X-Ray 11/09/17 00:00 IMPRESSION: 1. Interval placement of right subclavian central venous catheter. Tip projects across the midline. Tip could be in the left brachiocephalic vein however other locations not excluded. Recommend clinical correlation and possible repositioning. 2. Otherwise stable appearance of the chest. Qualifiers - * PATIENT BEING DISCHARGED WITH ANY OF THE FOLLOWING DIAGNOSIS: Heart Failure HF Pt being discharged on ACEI for LVEF less than 40%?: Yes HF Pt being discharged on ARBS for LVEF less than 40%?: Yes HF Pt with Afib discharged with Warfarin?: No Reason(s) for not prescribing Warfarin:: Not indicated HF Pt discharged on evidence-based Beta Juan:: Yes
--- NOTE | 2017-11-16 16:19 | PDOC PROGRESS REPORT ---
Subjective Progress Note for:: 11/15/17 Subjective:: Patient with occasional confusion she needed to be a DNR status, there is no immediate family member to discuss CODE STATUS for this patient, she has underlining dementia, chronic diastolic and systolic heart failure, paraplegic, multiple hospital admission, the CODE STATUS need to be addressed STEPHEN I spoke to patient about CODE STATUS I am not sure she understood exactly what this all about Reason For Visit: OBESITY, CLASS II BMI 35-39.9, WITH COMORBIDITY Physical Exam Vital Signs: Temp Pulse Resp BP Pulse Ox 97.8 F 71 17 147/78 H 95 11/16/17 11:39 11/16/17 11:39 11/16/17 11:39 11/16/17 11:39 11/16/17 11:39 Intake & Output 11/15/17 11/16/17 11/17/17 06:59 06:59 06:59 Intake Total 1764 1356 236 Output Total 1325 700 200 Balance 439 656 36 Weight 116.6 kg 117.3 kg General appearance: PRESENT: no acute distress Eye exam: PRESENT: PERRLA Respiratory exam: PRESENT: clear to auscultation kishan Cardiovascular exam: PRESENT: +S1, +S2 Results Laboratory Results: 11/14/17 06:45 11/14/17 06:45 11/08/17 11/08/17 11/10/17 21:35 21:35 16:15 Creatine Kinase 29 L 21 L CK-MB (CK-2) 1.08 Troponin I 0.051 11/10/17 11/13/17 11/13/17 16:15 15:45 15:45 Creatine Kinase 40 CK-MB (CK-2) 0.63 1.30 Troponin I 0.042 0.022 Impressions: Chest X-Ray 11/09/17 00:00 IMPRESSION: 1. Interval placement of right subclavian central venous catheter. Tip projects across the midline. Tip could be in the left brachiocephalic vein however other locations not excluded. Recommend clinical correlation and possible repositioning. 2. Otherwise stable appearance of the chest. Assessment & Plan - Diagnosis (1) Acute combined systolic (congestive) and diastolic (congestive) heart failure Is this a current diagnosis for this admission?: Yes (2) Acute hypercapnic respiratory failure Is this a current diagnosis for this admission?: Yes (3) Paraplegia Is this a current diagnosis for this admission?: Yes (4) Hypertensive emergency Is this a current diagnosis for this admission?: Yes (5) Urinary tract infection Qualifiers: Urinary tract infection type: catheter-associated UTI Indwelling urinary catheter type: unspecified Encounter type: initial encounter Qualified Code( s): T83.511A - Infection and inflammatory reaction due to indwelling urethral catheter, initial encounter; N39.0 - Urinary tract infection, site not specified ; N39.0 - Urinary tract infection, site not specified Is this a current diagnosis for this admission?: Yes
[2017-11-16 16:45] VITALS: BP 146/68
[2017-11-16] MEDS: NITROGLYCERIN 5 MG (0.2 MG/HR) PATCH.TD24 TD SCH (18:30)
[2017-11-16] MEDS: ACETAZOLAMIDE 250 MG TABLET PO SCH (18:31)
== END 2017-11-16 20:30 | DRG 291 ==
LOC: ER 23:29 → EH 11-08 01:18 → 3W 11-08 04:45
PROVIDERS: ADMIT Internal Medicine; ATTEND Internal Medicine
PROC: 02HV33Z Insertion of Infusion Device into Superior Vena Cava, Percutaneous Approach (ICD-10-PCS; principal; 2017-11-09)
DX: I11.0 Hypertensive heart disease with heart failure (principal); J96.02 Acute respiratory failure with hypercapnia; G93.41 Metabolic encephalopathy; T83.511A Infection and inflammatory reaction due to indwelling urethral catheter, initial encounter; I16.1 Hypertensive emergency; N39.0 Urinary tract infection, site not specified; G82.20 Paraplegia, unspecified; Z68.41 Body mass index [BMI] 40.0-44.9, adult; I50.43 Acute on chronic combined systolic (congestive) and diastolic (congestive) heart failure; I25.10 Atherosclerotic heart disease of native coronary artery without angina pectoris; E78.5 Hyperlipidemia, unspecified; B96.89 Other specified bacterial agents as the cause of diseases classified elsewhere; E66.01 Morbid (severe) obesity due to excess calories; F17.210 Nicotine dependence, cigarettes, uncomplicated; I25.2 Old myocardial infarction; Z79.01 Long term (current) use of anticoagulants; Z79.899 Other long term (current) drug therapy
CPT/HCPCS: 36415; 36600; 71045; 80048; 80053; 81001; 82550; 82553; 82803; 82962; 83605; 83880; 84484; 85025; 85027; 85610; 86850; 86900; 86901; 86920; 87040; 87086; 87088; 87186; 93005; 93010; 94660; 99285; G8978-GP; G8979-GP; J0696; J0744; J1642; J1940; J3490; J7050; S0119

== ENCOUNTER 2017-11-17 20:03 | Inpatient (IN) | payer MEDICARE, MEDICAID ==
[2017-11-17 20:41] LABS: ABSOLUTE LYMPHOCYTES (AUTO) 0.7 10^3/uL (0.5-4.7); ABSOLUTE MONOCYTES (AUTO) 0.4 10^3/uL (0.1-1.4); ABSOLUTE NEUT (AUTO) 1.6 10^3/uL (1.7-8.2); BASOPHILS % (AUTO) 0.7 % (0-2); EOSINOPHILS % (AUTO) 0.3 % (0-6); HEMATOCRIT 25.4 % (36.0-47.0); HEMOGLOBIN 8.4 g/dL (12.0-15.5); MEAN CORPUSCULAR HEMOGLOBIN 30.5 pg (27.0-33.4); MEAN CORPUSCULAR HGB CONC 32.9 g/dL (32.0-36.0); MEAN CORPUSCULAR VOLUME 93 fl (80-97); MONOCYTES % (AUTO) 14.9 % (3-13); PLATELET COUNT 190 10^3/uL (150-450); RED BLOOD COUNT 2.74 10^6/uL (3.72-5.28); RED CELL DISTRIBUTION WIDTH 16.1 % (11.5-14.0); SEGMENTED NEUTROPHILS % (AUTO) 59.1 % (42-78); TOTAL CELLS COUNTED % (AUTO) 100 %; WHITE BLOOD COUNT 2.8 10^3/uL (4.0-10.5)
--- NOTE | 2017-11-17 20:42 | ER Document Report ---
ED General - General Mode of Arrival: Medic Information source: [facility] Records Cannot obtain history due to: Altered mental status TRAVEL OUTSIDE OF THE [place] IN LAST 30 DAYS: No <ALVARO CATALAN - Last Filed: 11/18/17 01:49> <HAYLIE COTTO - Last Filed: 11/18/17 03:19> - General Chief Complaint: Altered Mental Status Stated Complaint: ALTERED MENTAL STATUS Time Seen by Provider: 11/17/17 20:19 Notes: Patient is a 77 year old female with a history of CHF, CAD, [place], HTN, high cholesterol presents to the emergency department via EMS from [facility] due to altered mental status per EMS note. No history is obtained from patient at bedside. When asked what was wrong she responds incoherently. Patient is on 3 L of nasal cannula at bedside. (ALVARO CATALAN) - Related Data Allergies/Adverse Reactions: Penicillins Allergy (Unknown, Verified 11/11/17 11:08) Pruritis Past Medical History - General Information source: [facility] Records - Social History Smoking Status: Current Some Day Smoker Frequency of alcohol use: None Family History: Hypertension - Past Medical History Cardiac Medical History: Reports: Hx Congestive Heart Failure, Hx Coronary Artery Disease, Hx Heart Attack, Hx Hypercholesterolemia, Hx Hypertension Past Surgical History: Reports: Hx Tonsillectomy - Immunizations Hx Diphtheria, Pertussis, Tetanus Vaccination: - unknown <ALVARO CATALAN - Last Filed: 11/18/17 01:49> Review of Systems - Review of Systems Constitutional: No symptoms reported EENT: No symptoms reported Cardiovascular: No symptoms reported Respiratory: No symptoms reported Gastrointestinal: No symptoms reported Genitourinary: No symptoms reported Female Genitourinary: No symptoms reported Musculoskeletal: No symptoms reported Skin: No symptoms reported Hematologic/Lymphatic: No symptoms reported Neurological/Psychological: See HPI -: Yes All other systems reviewed and negative <ALVARO CATALAN - Last Filed: 11/18/17 01:49> Physical Exam <ALVARO CATALAN - Last Filed: 11/18/17 01:49> <HAYLIE COTTO - Last Filed: 11/18/17 03:19> - Vital signs Vitals: Temp Pulse Resp BP Pulse Ox 98.3 F 70 20 122/71 98 11/17/17 20:26 11/17/17 20:26 11/17/17 20:26 11/17/17 20:26 11/17/17 20:26 - Notes Notes: GENERAL: Awake. Does not answer questions. HEAD: Normocephalic, atraumatic. EYES: Pupils equal, round, and reactive to light. Extraocular movements intact. ENT: Oral mucosa moist, tongue midline. NECK: Full range of motion. Supple. Trachea midline. LUNGS: Dry cough, rhonchi, congesiton. No respiratory distress. HEART: Regular rate and rhythm. No murmurs, gallops, or rubs. ABDOMEN: Soft, does not appear tender to palpation. Non-distended. Morbidly obese. Bowel sounds present in all 4 quadrants. EXTREMITIES: Moves all 4 extremities spontaneously. Pitting edema to the BLE. No cyanosis. NEUROLOGICAL: Awake. Does not answer questions. PSYCH: Does not answer questions. SKIN: Warm, dry, normal turgor. No rashes or lesions noted. (ALVARO CATALAN) Course - Laboratory Result Diagrams: 11/17/17 19:55 11/17/17 19:55 <ALVARO CATALAN - Last Filed: 11/18/17 01:49> - Laboratory Result Diagrams: 11/17/17 19:55 11/17/17 19:55 - Diagnostic Test Radiology reviewed: Image reviewed, Reports reviewed - Chest x-ray shows small to moderate bibasilar effusions with the left being greater than the right, no significant change from previous chest x-rays. - EKG Interpretation by [place] EKG shows normal: Sinus rhythm, [place], Intervals, QRS Complexes, ST-T Waves Rate: Normal - 79 Voltage: Decreased voltage P Waves: LAE Heart block present: 1st Degree When compared to previous EKG there are: No significant change - Consults Dr. Valiente Time consulted: 00:05 Consulted provider: will see as inpatient - Medical floor admit <HAYLIE COTTO - Last Filed: 11/18/17 03:19> - Re-evaluation Re-evalutation: 11/18/17 00:13 The patient's blood gas appeared to be a venous gas until I was told that the oxygen tank the patient was on was empty at the time the gas was drawn. After the patient was placed back on oxygen, her O2 saturations 100%. Her PCO2 is actually better than it had been this whole past week during her admission. 11/18/17 03:17 The patient's urinalysis suggests possible urinary tract infection, however it is much better than the previous UAs recently done that grew Providencia stuartii species. The patient has a neutropenia which is a chronic finding. (HAYLIE COTTO) - Vital Signs Vital signs: Temp Pulse Resp BP Pulse Ox 98.3 F 70 20 122/71 98 11/17/17 20:26 11/17/17 20:26 11/17/17 20:26 11/17/17 20:26 11/17/17 20:26 - Laboratory Laboratory results interpreted by tx: 11/17/17 11/17/17 11/17/17 19:55 19:55 19:55 WBC 2.8 L RBC 2.74 L Hgb 8.4 L Hct 25.4 L RDW 16.1 H Monocytes % 14.9 H Absolute Neutrophils 1.6 L Carbonic Acid ABG pCO2 ABG pO2 ABG HCO3 ABG Total CO2 ABG O2 Saturation Chloride 93 L Carbon Dioxide 35 H BUN 31 H Creatinine 1.64 H Est GFR ( Amer) 37 L Est GFR (Non-Af Amer) 30 L Glucose 133 H AST 48 H CK-MB (CK-2) 10.50 H NT-Pro-B Natriuret Pep Albumin 3.1 L Urine Protein Urine Urobilinogen Ur Leukocyte Esterase 11/17/17 11/17/17 11/18/17 19:55 22:25 00:22 WBC RBC Hgb Hct RDW Monocytes % Absolute Neutrophils Carbonic Acid 1.77 H ABG pCO2 58.7 H ABG pO2 41.0 L ABG HCO3 32.6 H ABG Total CO2 34.4 H ABG O2 Saturation 73.1 L Chloride Carbon Dioxide BUN Creatinine Est GFR ( Amer) Est GFR (Non-Af Amer) Glucose AST CK-MB (CK-2) NT-Pro-B Natriuret Pep 34310 H Albumin Urine Protein 100 H Urine Urobilinogen 2.0 H Ur Leukocyte Esterase SMALL H Critical Care Note - Critical Care Note Total time excluding time spent on procedures (mins): 35 <HAYLIE COTTO - Last Filed: 11/18/17 03:19> Discharge <ALVARO CATALAN - Last Filed: 11/18/17 01:49> - Discharge Admitting Provider: Rocco Unit Admitted: Medical Floor <HAYLIE COTTO - Last Filed: 11/18/17 03:19> - Discharge Clinical Impression: Elevated troponin I level, Elevated brain natriuretic peptide (BNP) level Altered mental status Qualifiers: Altered mental status type: unspecified Qualified Code(s): R41.82 - Altered mental status, unspecified Chronic congestive heart failure Qualifiers: Heart failure type: unspecified Qualified Code(s): I50.9 - Heart failure, unspecified Neutropenia Qualifiers: Neutropenia type: other Qualified Code(s): D70.8 - Other neutropenia Anemia Qualifiers: Anemia type: unspecified type Qualified Code(s): D64.9 - Anemia, unspecified Condition: Stable Disposition: ADMITTED INPATIENT Scribe Attestation: 11/17/17 22:11 I personally performed the services described in the documentation, reviewed and edited the documentation which was dictated to the scribe in my presence, and it accurately records my words and actions. (HAYLIE COTTO) Scribe Documentation - Scribe Written by Scribe:: Willie Grant, 11/17/2017 20:49 acting as scribe for :: Tomasz <ALVARO CATALAN - Last Filed: 11/18/17 01:49>
[2017-11-17 21:03] LABS: ALANINE AMINOTRANSFERASE 18 U/L (9-52); ALBUMIN 3.1 g/dL (3.5-5.0); ALKALINE PHOSPHATASE 49 U/L (38-126); ANION GAP 10 (5-19); ASPARTATE AMINO TRANSFERASE 48 U/L (14-36); BILIRUBIN,DIRECT 0.4 mg/dL (0.0-0.4); BILIRUBIN,TOTAL 0.4 mg/dL (0.2-1.3); BLOOD UREA NITROGEN 31 mg/dL (7-20); CALCIUM 9.2 mg/dL (8.4-10.2); CARBON DIOXIDE 35 mmol/L (22-30); CHLORIDE 93 mmol/L (98-107); CREATINE KINASE 115 U/L (30-135); GLUCOSE 133 mg/dL (75-110); POTASSIUM 4.2 mmol/L (3.6-5.0); SODIUM 137.6 mmol/L (137-145); TOTAL PROTEIN 6.4 g/dL (6.3-8.2)
[2017-11-17 22:38] LABS: ARTERIAL BLOOD BASE EXCESS 6.2 mmol/L; ARTERIAL BLOOD H2CO3 1.77 mmol/L (1.05-1.35); ARTERIAL BLOOD HCO3 32.6 mmol/L (20-26); ARTERIAL BLOOD O2 SATURATION 73.1 % (94-98); ARTERIAL BLOOD PCO2 58.7 mmHg (35-45); ARTERIAL BLOOD PH 7.36 (7.35-7.45); ARTERIAL BLOOD TOTAL CO2 34.4 mmol/L (21-25)
[2017-11-17 22:39] LABS: ARTERIAL BLOOD FIO2 ROOM AIR
--- NOTE | 2017-11-17 23:19 | RADIOLOGY REPORT (SQ) ---
EXAM DESCRIPTION: XR CHEST 1 VIEW CLINICAL HISTORY: 77 years Female, AMS,CO2 retention, elevated troponin COMPARISON: 11/09/2017 NUMBER OF VIEWS/TECHNIQUE: 1/AP FINDINGS: Small-moderate bibasilar opacity-effusion, left more than right, moderate central edema pattern, mild cardiac enlargement, atherosclerosis, no pneumothorax, and no acute bone defect. IMPRESSION: No significant change.
[2017-11-18 00:49] LABS: APPEARANCE,URINE SLIGHTLY-CLOUDY; BILIRUBIN,URINE NEGATIVE (NEGATIVE); COLOR,URINE AMBER; GLUCOSE, URINE NEGATIVE (NEGATIVE); KETONES,URINE NEGATIVE (NEGATIVE); LEUKOCYTE ESTERASE,URINE SMALL (NEGATIVE); NITRITE,URINE NEGATIVE (NEGATIVE); PROTEIN,URINE 100 mg/dL (NEGATIVE); URINE SPECIFIC GRAVITY 1.019
[2017-11-18] MEDS ORDERED: ACETAMINOPHEN 325 MG TABLET PO PRN (03:46)
[2017-11-18] MEDS ORDERED: ONDANSETRON 4 MG TAB.RAPDIS PO PRN (03:46)
[2017-11-18] MEDS ORDERED: NITROGLYCERIN 0.4 MG/TAB 25 TAB/BOTTLE SL PRN (03:46)
[2017-11-18 06:12] LABS: CREATINE KINASE MB 8.35 ng/mL (<4.55)
[2017-11-18 06:19] LABS: TROPONIN I 4.14 ng/mL
--- NOTE | 2017-11-18 07:45 | EKG REPORT ---
SEVERITY:- ABNORMAL ECG - SINUS RHYTHM FIRST DEGREE AV BLOCK LEFT ATRIAL ABNORMALITY LOW VOLTAGE IN FRONTAL LEADS : Confirmed by: Braulio Damon MD 18-Nov-2017 07:44:30
[2017-11-18 08:31] LABS: HEMATOCRIT 28.1 % (36.0-47.0); HEMOGLOBIN 9.1 g/dL (12.0-15.5); MEAN CORPUSCULAR HEMOGLOBIN 29.9 pg (27.0-33.4); MEAN CORPUSCULAR HGB CONC 32.4 g/dL (32.0-36.0); MEAN CORPUSCULAR VOLUME 92 fl (80-97); PLATELET COUNT 198 10^3/uL (150-450); RED BLOOD COUNT 3.05 10^6/uL (3.72-5.28); RED CELL DISTRIBUTION WIDTH 16.2 % (11.5-14.0); WHITE BLOOD COUNT 3.6 10^3/uL (4.0-10.5)
[2017-11-18 09:35] LABS: INTERNATIONAL RATION (INR) 1.19; PROTHROMBIN TIME 15.7 SEC (11.4-15.4)
[2017-11-18 09:36] LABS: PARTIAL THROMBOPLASTIN TIME 32.2 SEC (23.5-35.8)
[2017-11-18] MEDS ORDERED: CARVEDILOL 12.5 MG TABLET PO SCH (10:00)
[2017-11-18] MEDS: RANOLAZINE 500 MG TAB.SR.12H PO SCH ×2 (10:56→21:11)
[2017-11-18] MEDS: EPLERENONE 25 MG TABLET PO SCH (10:57)
[2017-11-18] MEDS: SACUBITRIL/VALSARTAN 49 MG/51 MG TABLET PO SCH ×2 (10:58→21:07)
[2017-11-18] MEDS: TORSEMIDE 20 MG TABLET PO SCH (10:58)
[2017-11-18] MEDS: NYSTATIN TOPICAL POWDER 15 GM TOP SCH ×2 (10:59→17:04)
[2017-11-18] MEDS: POLYETHYLENE GLYCOL 3350 POWDER 17 GM/1 PACKET PO SCH (10:59)
[2017-11-18] MEDS: CLONIDINE HCL 0.2 MG TABLET PO SCH ×2 (10:59→21:11)
[2017-11-18 12:52] LABS: CREATINE KINASE MB 6.04 ng/mL (<4.55)
[2017-11-18 12:59] LABS: TROPONIN I 3.24 ng/mL
[2017-11-18] MEDS: HEPARIN SOD (PORCINE) 5,000 UNIT/ML 1 ML SYRINGE SUBCUT SCH ×2 (14:25→21:10)
[2017-11-18 18:23] LABS: CREATINE KINASE MB 4.83 ng/mL (<4.55)
[2017-11-18 18:28] LABS: TROPONIN I 2.56 ng/mL
--- NOTE | 2017-11-18 18:37 | XCELERA REPORT ---
[address] [address] Transthoracic Echocardiogram Report Name: NEIDA YEPEZ Age: 77 yrs Gender: Female : 1940 Patient Status: Inpatient Patient Location: [address] [place], [place] [id number] Study Date: 11/18/2017 11:02 AM Height: 63 in Weight: 247 lb BSA: 2.1 m2 Procedure: A complete two-dimensional transthoracic echocardiogram was performed (2D, M-mode, spectral and color flow Doppler). The study was technically difficult with many images being suboptimal in quality. Reason For Study: NSTEMI Ordering Physician: HUDSON BENZ Performed By: George Brito Interpretation Summary LV EF is 30-35% Left ventricular systolic function is severely reduced. There is mild concentric left ventricular hypertrophy. The left ventricle is mildly dilated. Doppler measurements suggest reversible restrictive left ventricular relaxation, which is associated with grade III/IV or moderate diastolic dysfunction There is mid to distal septal wall akinesis There is mid to distal anterior wall akinesis There is apical wall akinesis The right ventricle is mildly dilated. The right ventricular systolic function is mildly reduced. The right atrium is borderline dilated. The left atrium is moderately dilated. There is no mitral valve stenosis. There is a moderate amount of mitral regurgitation There is no aortic valve stenosis There is a trace amount of aortic regurgitation There is a mild amount of tricuspid regurgitation There is moderate pulmonary hypertension by echo Right ventricular systolic pressure is estimated to be elevated at 50- 60mmHg. The aortic root is not well visualized but is probably normal size. The inferior vena cava appeared normal and decreased > 50% with respiration (RAP 5-10 mmHg) MMode/2D Measurements & Calculations RVDd: 3.9 cm LVIDd: 6.4 cm FS: 18.6 % Ao root diam: IVSd: 0.86 cm LVIDs: 5.2 cm EDV(Teich): 205.5 ml 2.7 cm LVPWd: 1.1 cm ESV(Teich): 128.1 ml Ao root area: EF(Teich): 37.7 % 5.9 cm2 LA dimension: 4.3 cm LVOT diam: LVLd ap4: 7.8 cm SV(MOD-sp4): 38.0 ml 1.7 cm EDV(MOD-sp4): LA A2Cs: 23.2 cm2 LVOT area: 106.0 ml LVLs ap4: 7.7 cm 2.3 cm2 ESV(MOD-sp4): 68.0 ml EF(MOD-sp4): 35.8 % LA A4Cs: LA length: 5.6 cm LA Vol Index (BP): LA Volume: 109.3 ml 31.1 cm2 51.7 ml/m2 Doppler Measurements & Calculations MV E max mallorie: MV P1/2t max mallorie: Ao V2 max: LV V1 max P.1 cm/sec 109.1 cm/sec 93.5 cm/sec 1.6 mmHg MV A max mallorie: MV P1/2t: 39.5 msec Ao max PG: LV V1 max: 71.6 cm/sec MVA(P1/2t): 5.6 cm2 3.5 mmHg 62.3 cm/sec MV E/A: 1.5 MV dec slope: GERMAN(V,D): 1.5 cm2 LV dP/dt: 606.0 mmHg/s 807.9 cm/sec2 PA V2 max: PI end-d mallorie: TR max mallorie: 62.7 cm/sec 223.7 cm/sec 338.8 cm/sec PA max PG: TR max P.6 mmHg 45.9 mmHg Left Ventricle The left ventricle is mildly dilated. There is mild concentric left ventricular hypertrophy. Left ventricular systolic function is severely reduced. LV EF is 30-35%. Doppler measurements suggest reversible restrictive left ventricular relaxation, which is associated with grade III/IV or moderate diastolic dysfunction. There is mid to distal septal wall akinesis. There is mid to distal anterior wall akinesis. There is apical wall akinesis. Right Ventricle The right ventricle is mildly dilated. The right ventricular systolic function is mildly reduced. Atria The right atrium is borderline dilated. The left atrium is moderately dilated. Interarterial septum not well visualized and not well dopplered. Cannot comment on ASD/PFO presence. Mitral Valve The mitral valve leaflets are sclerotic, but show no functional abnormalities. There is no mitral valve stenosis. There is a moderate amount of mitral regurgitation. Aortic Valve The aortic valve is sclerotic, but shows no functional abnormality. There is no aortic valve stenosis. There is a trace amount of aortic regurgitation. Tricuspid Valve The tricuspid valve is not well visualized, but is grossly normal. There is no tricuspid stenosis. There is a mild amount of tricuspid regurgitation. There is moderate pulmonary hypertension by echo. Right ventricular systolic pressure is estimated to be elevated at 50-60mmHg. Pulmonic Valve The pulmonic valve is not well visualized. There is a mild amount of pulmonic regurgitation. Great Vessels The aortic root is not well visualized but is probably normal size. The inferior vena cava appeared normal and decreased > 50% with respiration (RAP 5-10 mmHg). Effusions There is no pericardial effusion. : HUDSON BENZ > Hudson Benz
--- NOTE | 2017-11-18 19:16 | PDOC CONSULTATION ---
Consultation Consult Date: 11/18/17 Attending physician:: MIKO GOMEZ Consult reason:: CHF and non-STEMI History of Present Illness Admission Date/PCP: 11/18/17 00:41 MIKO GOMEZ MD Patient complains of: Shortness of breath. Patient has dementia History of Present Illness: NEIDA YEPEZ is a 77 year old female with a history of CHF, CAD, NH, HTN, high cholesterol presents to the emergency department via EMS from [facility] due to altered mental status per EMS note. No history is obtained from patient at bedside. When asked what was wrong she responds incoherently. This history obtained by the emergency room physician was reviewed. Today patient remains confused and not able to add anything. It seems patient has advanced dementia. No family member available to add to the history. Talked with the nurse and chart was reviewed. Previous hospitalization records reviewed. Patient has history of severe LV systolic dysfunction from a prior echocardiogram. Past Medical History Cardiac Medical History: Reports: Congestive Heart Failure, Coronary Artery Disease, Myocardial Infarction, Hyperlipidema, Hypertension Psychiatric Medical History: Denies: Depression Hematology: Reports: Anemia Past Surgical History Past Surgical History: Reports: Tonsillectomy Social History Information Source: [facility] Records Smoking Status: Unknown if Ever Smoked Frequency of Alcohol Use: None Hx Recreational Drug Use: No Drugs: None Hx Prescription Drug Abuse: No - Advance Directive Resuscitation Status: Full Code Family History Family History: Hypertension Parental Family History Reviewed: No - Not available Children Family History Reviewed: NA Sibling(s) Family History Reviewed.: NA Medication/Allergy Home Medications: RX: Atorvastatin Calcium [Lipitor 10 mg Tablet] 10 mg PO QHS 11/08/17 RX: Clonidine HCl [Catapres 0.2 mg Tablet] 0.2 mg PO Q12 11/08/17 RX: Nitroglycerin [Nitrostat] 0.4 mg SL Q5MP PRN 11/08/17 RX: Ranolazine [Ranexa] 500 mg PO Q12 11/08/17 RX: Sacubitril/Valsartan [Entresto 49 mg-51 mg Tablet] 1 tab PO Q12 11/08/17 Torsemide [Demadex 20 mg Tablet] 20 mg PO DAILY #90 tablet 11/16/17 Carvedilol [Coreg 12.5 mg Tablet] 12.5 mg PO Q12 11/18/17 Allergies/Adverse Reactions: Penicillins Allergy (Unknown, Verified 11/11/17 11:08) Pruritis Review of Systems ROS unobtainable: Due to mental status Physical Exam Vital Signs: Temp Pulse Resp BP Pulse Ox 97.7 F 66 23 H 151/91 H 100 11/18/17 15:51 11/18/17 18:50 11/18/17 17:00 11/18/17 15:51 11/18/17 17:00 Intake & Output 11/17/17 11/18/17 11/19/17 06:59 06:59 06:59 Intake Total 5 20 Output Total 0 Balance 5 20 Weight 112.2 kg 112.2 kg Exam: GENERAL: well-nourished and in no acute distress. Patient is alert but not oriented to place time or person. HEAD: Atraumatic, normocephalic. EYES: Pupils equal round and reactive to light, extraocular movements intact, sclera anicteric, conjunctiva are normal. ENT: TMs normal, nares patent, oropharynx clear without exudates. Moist mucous membranes. No oral ulcerations or bleeding gums noted NECK: supple without lymphadenopathy or JVD. Trachea is central. No cervical or axillary lymphadenopathy noted. Carotids are 2+ LUNGS: Breath sounds bibasilar fine crackles at bases. No significant dullness noted. CHEST: Palpation of chest wall shows no significant chest wall tenderness. HEART: [place] [employer], No PSH, 2/6 DARCI aortic area, 1/6 messina systolic murmur mitral area, rubs or gallops. ABDOMEN: Soft, no significant tenderness appreciated, normoactive bowel sounds. No guarding, no rebound. No rigidity noted . No masses appreciated. EXTREMITIES: Pedal pulses are 1-2+, no calf tenderness noted, Trace + pedal edema noted. No clubbing or cyanosis. NEUROLOGICAL: Patient is alert but is not able to participate in neurological exam because of patient's current mental status PSYCH: Patient cannot participate in a neurologic and psych exam because of the patient's current mental status SKIN: No significant ecchymosis, rash, ulcerations or signs of pruritus noted. MUSCULOSKELETAL EXAM: No significant joint swelling noted. Results Laboratory Results: 11/18/17 05:17 11/18/17 05:17 11/18/17 11/18/17 05:17 05:17 WBC 3.6 L RBC 3.05 L Hgb 9.1 L Hct 28.1 L MCV 92 MCH 29.9 MCHC 32.4 RDW 16.2 H Plt Count 198 Creatinine 1.74 H Est GFR ( Amer) 34 L Est GFR (Non-Af Amer) 28 L 11/18/17 11/18/17 11/18/17 05:17 05:17 12:05 Creatine Kinase 102 84 CK-MB (CK-2) 8.35 H Troponin I 4.140 11/18/17 11/18/17 11/18/17 12:05 17:30 17:30 Creatine Kinase 69 CK-MB (CK-2) 6.04 H 4.83 H Troponin I 3.240 2.560 EKG Comments: Sinus rhythm, no acute ST-T wave changes are noted. Impressions: Chest X-Ray 11/17/17 22:13 IMPRESSION: No significant change. Assessment & Plan - Diagnosis (1) Non-STEMI (non-ST elevated myocardial infarction) Is this a current diagnosis for this admission?: Yes (2) Elevated troponin I level Is this a current diagnosis for this admission?: Yes (3) Acute exacerbation of CHF (congestive heart failure) Is this a current diagnosis for this admission?: Yes (4) Chronic kidney disease Qualifiers: Chronic kidney disease stage: stage 3 (moderate) Qualified Code(s): N18.3 - Chronic kidney disease, stage 3 (moderate) Is this a current diagnosis for this admission?: Yes (5) Coronary artery disease Qualifiers: Coronary Disease-Associated Artery/Lesion type: [place] artery [place] vs. transplanted heart: [place] heart Associated angina: angina presence unspecified Qualified Code(s): I25.10 - Atherosclerotic heart disease of [place] coronary artery without angina pectoris Is this a current diagnosis for this admission?: Yes (6) Acute respiratory failure Qualifiers: Respiratory failure complication: hypoxia and hypercapnia Qualified Code(s) : J96.01 - Acute respiratory failure with hypoxia; J96.02 - Acute respiratory failure with hypercapnia; J96.02 - Acute respiratory failure with hypercapnia; J96.02 - Acute respiratory failure with hypercapnia Is this a current diagnosis for this admission?: Yes - Notes Notes: Non-STEMI: Patient has significant elevation of troponin I in the non-STEMI range. EKG however not showing any acute ST-T wave changes. At this point, recommend heparin, aspirin, Plavix, beta-magdalena, entresto therapy, Ranexa therapy. Do not feel patient will be a candidate for heart catheterization due to advanced dementia. Will start patient on low-dose beta-magdalena. We will also consider low-dose digoxin therapy after a few days. Continue Ranexa therapy. Elevated troponin I: Feel that patient most likely sustained a non-STEMI. Possibility of this amount of troponin I elevation is also possible just from CHF. Acute exacerbation of CHF: 2D echo was reviewed. It showed severe systolic dysfunction with large area of akinetic area. Patient however on the good regimen. Continue with diuretic therapy, entresto therapy, beta-magdalena therapy. Consider adding spironolactone. Chronic kidney disease: Currently is stage III and seems stable. Coronary artery disease: This is present. Recommend high potency statin therapy , dual antiplatelet therapy if no contraindication, beta-magdalena, entresto therapy. Acute respiratory failure: Patient noted to be oxygen dependent with acute respiratory failure. Patient also retaining CO2 and has low O2 sat. Patient to be treated with noninvasive positive pressure ventilation to maintain oxygenation and to wash off CO2. Patient has very poor baseline status therefore overall prognosis is guarded and possibly on the poor side. Will repeat an EKG in the morning. - Time Time Spent: 30 to 50 Minutes - More than 50% of the time spent coordinating care , discussing management plans with involved caregivers. Management plans discussed with involved personnels. Medical decision making was of moderate to high complexity, patient's has multiple comorbidities. Medications reviewed and adjusted accordingly: Yes
[2017-11-18 19:33] LABS: ARTERIAL BLOOD BASE EXCESS 5.4 mmol/L; ARTERIAL BLOOD H2CO3 1.63 mmol/L (1.05-1.35); ARTERIAL BLOOD HCO3 31.3 mmol/L (20-26); ARTERIAL BLOOD O2 SATURATION 99.1 % (94-98); ARTERIAL BLOOD PCO2 54.2 mmHg (35-45); ARTERIAL BLOOD PH 7.38 (7.35-7.45); ARTERIAL BLOOD PO2 166.2 mmHg (80-100)
[2017-11-18 19:38] LABS: ARTERIAL BLOOD FIO2 35%
--- NOTE | 2017-11-18 20:33 | PDOC H&P ---
History of Present Illness Admission Date/PCP: 11/18/17 00:41 MIKO GOMEZ MD History of Present Illness: NEIDA YEPEZ is a 77 year old female, She was just discharged on 11/16/2017, she has a history of chronic systolic and diastolic heart failure, resident of the prison at [place], she was transferred from the prison to the emergency room for evaluation of altered mental status, in the emergency room she was evaluated she was found to have elevated troponin, she was also in congestive heart failure no reasonable history could be obtained from the patient.It was felt that patient needed to be DNR, myself and the liaison officer on consultation, Dr. Denise Muller agreed that patient should be a DNR status, she is not in a position to cognitively give a consent to DNR status, there is no next of kin or any family member that could make such decision for her.She has chronic systolic and diastolic heart failure, she continues to require noninvasive positive pressure ventilation with BiPAP Past Medical History Cardiac Medical History: Reports: Congestive Heart Failure, Coronary Artery Disease, Myocardial Infarction, Hyperlipidema, Hypertension Psychiatric Medical History: Reports: Dementia Hematology: Reports: Anemia Past Surgical History Past Surgical History: Reports: Tonsillectomy Social History Smoking Status: Unknown if Ever Smoked Frequency of Alcohol Use: None Hx Recreational Drug Use: No Drugs: None Hx Prescription Drug Abuse: No - Advance Directive Resuscitation Status: Full Code Family History Family History: Hypertension Parental Family History Reviewed: Yes Children Family History Reviewed: Yes Sibling(s) Family History Reviewed.: Yes Medication/Allergy Home Medications: Atorvastatin Calcium [Lipitor 10 mg Tablet] 10 mg PO QHS 11/08/17 Clonidine HCl [Catapres 0.2 mg Tablet] 0.2 mg PO Q12 11/08/17 Nitroglycerin [Nitrostat] 0.4 mg SL Q5MP PRN 11/08/17 Ranolazine [Ranexa] 500 mg PO Q12 11/08/17 Sacubitril/Valsartan [Entresto 49 mg-51 mg Tablet] 1 tab PO Q12 11/08/17 Torsemide [Demadex 20 mg Tablet] 20 mg PO DAILY #90 tablet 11/16/17 Carvedilol [Coreg 12.5 mg Tablet] 12.5 mg PO Q12 11/18/17 Allergies/Adverse Reactions: Penicillins Allergy (Unknown, Verified 11/11/17 11:08) Pruritis Review of Systems ROS unobtainable: Due to mental status Physical Exam Vital Signs: Temp Pulse Resp BP Pulse Ox 97.8 F 66 14 164/74 H 100 11/18/17 19:42 11/18/17 19:56 11/18/17 19:42 11/18/17 19:42 11/18/17 19:42 Intake & Output 11/17/17 11/18/17 11/19/17 06:59 06:59 06:59 Intake Total 5 20 Output Total 0 Balance 5 20 Weight 112.2 kg 112.2 kg General appearance: PRESENT: severe distress Eye exam: PRESENT: PERRLA Neck exam: PRESENT: JVD Respiratory exam: PRESENT: rales Cardiovascular exam: PRESENT: irregular rhythm, +S1, +S2 GI/Abdominal exam: PRESENT: soft Extremities exam: PRESENT: pedal edema Neurological exam: PRESENT: altered Results Laboratory Results: 11/18/17 05:17 11/18/17 05:17 11/18/17 11/18/17 11/18/17 05:17 05:17 18:59 WBC 3.6 L RBC 3.05 L Hgb 9.1 L Hct 28.1 L MCV 92 MCH 29.9 MCHC 32.4 RDW 16.2 H Plt Count 198 Carbonic Acid 1.63 H HCO3/H2CO3 Ratio 19:1 ABG pH 7.38 ABG pCO2 54.2 H ABG pO2 166.2 H ABG HCO3 31.3 H ABG O2 Saturation 99.1 H ABG Base Excess 5.4 FiO2 35% Creatinine 1.74 H Est GFR ( Amer) 34 L Est GFR (Non-Af Amer) 28 L 11/18/17 11/18/17 11/18/17 05:17 05:17 12:05 Creatine Kinase 102 84 CK-MB (CK-2) 8.35 H Troponin I 4.140 11/18/17 11/18/17 11/18/17 12:05 17:30 17:30 Creatine Kinase 69 CK-MB (CK-2) 6.04 H 4.83 H Troponin I 3.240 2.560 Impressions: Chest X-Ray 11/17/17 22:13 IMPRESSION: No significant change. Assessment & Plan - Diagnosis (1) Non-STEMI (non-ST elevated myocardial infarction) Is this a current diagnosis for this admission?: Yes Plan: Consultation obtained for oncology (2) Acute systolic (congestive) heart failure Is this a current diagnosis for this admission?: Yes Plan: Continue anti-CHF regimen (3) Hypercapnic respiratory failure Qualifiers: Chronicity: acute on chronic Qualified Code(s): J96.22 - Acute and chronic respiratory failure with hypercapnia Is this a current diagnosis for this admission?: Yes Plan: Continue noninvasive positive pressure ventilation (4) Dementia Qualifiers: Dementia type: unspecified type Dementia behavioral disturbance: without behavioral disturbance Qualified Code(s): F03.90 - Unspecified dementia without behavioral disturbance Is this a current diagnosis for this admission?: Yes
[2017-11-18] MEDS: CARVEDILOL 3.125 MG TABLET PO SCH (21:10)
[2017-11-18] MEDS: ATORVASTATIN CALCIUM 10 MG TABLET PO SCH (21:11)
[2017-11-19] MEDS: HEPARIN SOD (PORCINE) 5,000 UNIT/ML 1 ML SYRINGE SUBCUT SCH ×3 (05:22→22:56)
--- NOTE | 2017-11-19 08:46 | EKG REPORT ---
SEVERITY:- BORDERLINE ECG - SINUS RHYTHM PROBABLE LEFT ATRIAL ABNORMALITY LOW VOLTAGE IN FRONTAL LEADS : Confirmed by: Braulio Damon MD 19-Nov-2017 08:45:54
[2017-11-19] MEDS: CARVEDILOL 3.125 MG TABLET PO SCH (10:33)
[2017-11-19] MEDS: CLONIDINE HCL 0.2 MG TABLET PO SCH ×2 (10:33→22:56)
[2017-11-19] MEDS: RANOLAZINE 500 MG TAB.SR.12H PO SCH ×2 (10:33→22:57)
[2017-11-19] MEDS: POLYETHYLENE GLYCOL 3350 POWDER 17 GM/1 PACKET PO SCH (10:34)
[2017-11-19] MEDS: EPLERENONE 25 MG TABLET PO SCH (10:34)
[2017-11-19] MEDS: NYSTATIN TOPICAL POWDER 15 GM TOP SCH ×2 (10:34→17:25)
[2017-11-19] MEDS: SACUBITRIL/VALSARTAN 49 MG/51 MG TABLET PO SCH ×2 (10:34→22:56)
[2017-11-19] MEDS: TORSEMIDE 20 MG TABLET PO SCH (10:34)
--- NOTE | 2017-11-19 11:13 | PDOC PROGRESS REPORT ---
Subjective Progress Note for:: 11/19/17 Subjective:: Feeling better but still very short of breath. Cosigned DNR status. Patient seems to be doing better with gradual improvement. Pt is denying any chest arm or neck discomfort. Still short of breath on bilevel therapy. Patient denied any sustained palpitations, dizziness, syncope, near syncope. Patient denying any fever chills. Patient denying any other significant discomfort. Patient is maintaining sinus rhythm. Review of systems: Rest review of systems negative. Medications: Medications have been reviewed. Reason For Visit: ALTERED MENTAL STATUS ELEVATED TROPONIN Physical Exam Vital Signs: Temp Pulse Resp BP Pulse Ox 97.4 F 71 20 167/69 H 98 11/19/17 08:05 11/19/17 08:05 11/19/17 09:44 11/19/17 08:05 11/19/17 09:44 Intake & Output 11/18/17 11/19/17 11/20/17 06:59 06:59 06:59 Intake Total 5 23 Output Total 0 Balance 5 23 Weight 112.2 kg 115.2 kg Exam: GENERAL: well-nourished and in no acute distress. Patient is alert but not oriented to place time or person. HEAD: Atraumatic, normocephalic. EYES: Pupils equal round and reactive to light, extraocular movements intact, sclera anicteric, conjunctiva are normal. ENT: TMs normal, nares patent, oropharynx clear without exudates. Moist mucous membranes. No oral ulcerations or bleeding gums noted NECK: supple without lymphadenopathy or JVD. Trachea is central. No cervical or axillary lymphadenopathy noted. Carotids are 2+ LUNGS: Breath sounds bibasilar fine crackles at bases. No significant dullness noted. CHEST: Palpation of chest wall shows no significant chest wall tenderness. HEART: [place] [employer], No PSH, 2/6 DARCI aortic area, 1/6 messina systolic murmur mitral area, rubs or gallops. ABDOMEN: Soft, no significant tenderness appreciated, normoactive bowel sounds. No guarding, no rebound. No rigidity noted . No masses appreciated. EXTREMITIES: Pedal pulses are 1-2+, no calf tenderness noted, 1 + pedal edema noted. No clubbing or cyanosis. NEUROLOGICAL: Patient is alert but is not able to participate in neurological exam because of patient's current mental status PSYCH: Patient cannot participate in a neurologic and psych exam because of the patient's current mental status SKIN: No significant ecchymosis, rash, ulcerations or signs of pruritus noted. MUSCULOSKELETAL EXAM: No significant joint swelling noted. Results Laboratory Results: 11/18/17 05:17 11/18/17 05:17 11/18/17 18:59 Carbonic Acid 1.63 H HCO3/H2CO3 Ratio 19:1 ABG pH 7.38 ABG pCO2 54.2 H ABG pO2 166.2 H ABG HCO3 31.3 H ABG O2 Saturation 99.1 H ABG Base Excess 5.4 FiO2 35% 11/18/17 11/18/17 11/18/17 05:17 05:17 12:05 Creatine Kinase 102 84 CK-MB (CK-2) 8.35 H Troponin I 4.140 11/18/17 11/18/17 11/18/17 12:05 17:30 17:30 Creatine Kinase 69 CK-MB (CK-2) 6.04 H 4.83 H Troponin I 3.240 2.560 EKG Comments: Telemetry strips shows sinus rhythm without any sustained tacky or bradycardia. Twelve-lead EKG from this morning reviewed. No acute ST-T wave changes are noted. Impressions: Chest X-Ray 11/17/17 22:13 IMPRESSION: No significant change. Assessment & Plan - Diagnosis (1) Non-STEMI (non-ST elevated myocardial infarction) Is this a current diagnosis for this admission?: Yes (2) Elevated troponin I level Is this a current diagnosis for this admission?: Yes (3) Acute exacerbation of CHF (congestive heart failure) Is this a current diagnosis for this admission?: Yes (4) Chronic kidney disease Qualifiers: Chronic kidney disease stage: stage 3 (moderate) Qualified Code(s): N18.3 - Chronic kidney disease, stage 3 (moderate) Is this a current diagnosis for this admission?: Yes (5) Coronary artery disease Qualifiers: Coronary Disease-Associated Artery/Lesion type: [place] artery [place] vs. transplanted heart: [place] heart Associated angina: angina presence unspecified Qualified Code(s): I25.10 - Atherosclerotic heart disease of [place] coronary artery without angina pectoris Is this a current diagnosis for this admission?: Yes - Notes Notes: EKG from this morning shows no acute ST-T wave changes or evolving signs of DC. Patient has improved to some extent. She is more alert but still confused. Increased carvedilol to 6.25 mg p.o. every 12 and started patient on Imdur 30 mg p.o. daily. 2D echo results reviewed. Non-STEMI: Patient has significant elevation of troponin I in the non-STEMI range. EKG however not showing any acute ST-T wave changes. At this point, recommend heparin, aspirin, Plavix, beta-magdalena, entresto therapy, Ranexa therapy. Do not feel patient will be a candidate for heart catheterization due to advanced dementia. Will start patient on low-dose beta-magdalena. We will also consider low-dose digoxin therapy after a few days. Continue Ranexa therapy. Elevated troponin I: Feel that patient most likely sustained a non-STEMI. Possibility of this amount of troponin I elevation is also possible just from CHF. Acute exacerbation of CHF: 2D echo was reviewed. It showed severe systolic dysfunction with large area of akinetic area. Patient however on the good regimen. Continue with diuretic therapy, entresto therapy, beta-magdalena therapy. Consider adding spironolactone. Chronic kidney disease: Currently is stage III and seems stable. Coronary artery disease: This is present. Recommend high potency statin therapy , dual antiplatelet therapy if no contraindication, beta-magdalena, entresto therapy. Patient has very poor baseline status therefore overall prognosis is guarded and possibly on the poor side. Will repeat an EKG in the morning. - Time Time with patient: Greater than 35 minutes - CODE STATUS : was discussed, patient remains DO NOT RESUSCITATE. More than 50% of the time spent coordinating care, discussing management plans with involved caregivers. Management plans discussed with involved personnels. Medical decision making was of high complexity, patient's has multiple comorbidities. Medications reviewed and adjusted accordingly: Yes
[2017-11-19] MEDS ORDERED: ISOSORBIDE MONONITRATE 30 MG TAB.ER.24H PO ONE (12:00)
--- NOTE | 2017-11-19 15:25 | PDOC PROGRESS REPORT ---
Subjective Progress Note for:: 11/19/17 Subjective:: She was seen by the bedside, she is somewhat better today though very confused she is trying to speak but speech is not understandable Reason For Visit: ALTERED MENTAL STATUS ELEVATED TROPONIN Physical Exam Vital Signs: Temp Pulse Resp BP Pulse Ox 97.5 F 72 15 157/84 H 100 11/19/17 12:21 11/19/17 12:21 11/19/17 12:21 11/19/17 12:21 11/19/17 12:21 Intake & Output 11/18/17 11/19/17 11/20/17 06:59 06:59 06:59 Intake Total 5 23 0 Output Total 0 Balance 5 23 0 Weight 112.2 kg 115.2 kg General appearance: PRESENT: mild distress Eye exam: PRESENT: PERRLA Respiratory exam: PRESENT: rhonchi Cardiovascular exam: PRESENT: +S1, +S2 GI/Abdominal exam: PRESENT: soft Neurological exam: PRESENT: alert Results Laboratory Results: 11/18/17 05:17 11/18/17 05:17 11/18/17 18:59 Carbonic Acid 1.63 H HCO3/H2CO3 Ratio 19:1 ABG pH 7.38 ABG pCO2 54.2 H ABG pO2 166.2 H ABG HCO3 31.3 H ABG O2 Saturation 99.1 H ABG Base Excess 5.4 FiO2 35% 11/18/17 11/18/17 11/18/17 05:17 05:17 12:05 Creatine Kinase 102 84 CK-MB (CK-2) 8.35 H Troponin I 4.140 11/18/17 11/18/17 11/18/17 12:05 17:30 17:30 Creatine Kinase 69 CK-MB (CK-2) 6.04 H 4.83 H Troponin I 3.240 2.560 Impressions: Chest X-Ray 11/17/17 22:13 IMPRESSION: No significant change. Assessment & Plan - Diagnosis (1) Non-STEMI (non-ST elevated myocardial infarction) Is this a current diagnosis for this admission?: Yes (2) Acute systolic (congestive) heart failure Is this a current diagnosis for this admission?: Yes (3) Hypercapnic respiratory failure Qualifiers: Chronicity: acute on chronic Qualified Code(s): J96.22 - Acute and chronic respiratory failure with hypercapnia Is this a current diagnosis for this admission?: Yes (4) Dementia Qualifiers: Dementia type: unspecified type Dementia behavioral disturbance: without behavioral disturbance Qualified Code(s): F03.90 - Unspecified dementia without behavioral disturbance Is this a current diagnosis for this admission?: Yes - Plan Summary Plan Summary: Continue present treatment
[2017-11-19] MEDS: ATORVASTATIN CALCIUM 10 MG TABLET PO SCH (22:56)
[2017-11-19] MEDS: CARVEDILOL 6.25 MG TABLET PO SCH (22:57)
[2017-11-20] MEDS: HEPARIN SOD (PORCINE) 5,000 UNIT/ML 1 ML SYRINGE SUBCUT SCH ×3 (05:16→23:18)
[2017-11-20] MEDS: TORSEMIDE 20 MG TABLET PO SCH (10:53)
[2017-11-20] MEDS: RANOLAZINE 500 MG TAB.SR.12H PO SCH ×2 (10:53→23:16)
[2017-11-20] MEDS: ISOSORBIDE MONONITRATE 30 MG TAB.ER.24H PO SCH (10:54)
[2017-11-20] MEDS: SACUBITRIL/VALSARTAN 49 MG/51 MG TABLET PO SCH ×2 (10:54→23:17)
[2017-11-20] MEDS: EPLERENONE 25 MG TABLET PO SCH (10:54)
[2017-11-20] MEDS: CARVEDILOL 6.25 MG TABLET PO SCH ×2 (10:54→23:17)
[2017-11-20] MEDS: CLONIDINE HCL 0.2 MG TABLET PO SCH ×2 (10:54→23:17)
[2017-11-20] MEDS: POLYETHYLENE GLYCOL 3350 POWDER 17 GM/1 PACKET PO SCH (10:55)
[2017-11-20] MEDS: NYSTATIN TOPICAL POWDER 15 GM TOP SCH ×2 (10:55→17:27)
--- NOTE | 2017-11-20 11:18 | PDOC PROGRESS REPORT ---
Subjective Progress Note for:: 11/20/17 Subjective:: Patient seems to be doing better with gradual improvement. Pt is denying any chest arm or neck discomfort. Still short of breath on bilevel therapy. Patient however noted to be more alert patient denied any sustained palpitations , dizziness, syncope, near syncope. Patient denying any fever chills. Patient denying any other significant discomfort. Patient is maintaining sinus rhythm. Review of systems: Rest review of systems negative. Medications: Medications have been reviewed. Reason For Visit: ALTERED MENTAL STATUS ELEVATED TROPONIN Physical Exam Vital Signs: Temp Pulse Resp BP Pulse Ox 97.5 F 66 22 H 146/78 H 96 11/20/17 07:29 11/20/17 07:29 11/20/17 08:04 11/20/17 07:29 11/20/17 08:04 Intake & Output 11/19/17 11/20/17 11/21/17 06:59 06:59 06:59 Intake Total 23 8 Balance 23 8 Weight 115.2 kg 114.8 kg Exam: GENERAL: well-nourished and in no acute distress. Patient is alert, today she is oriented to person. HEAD: Atraumatic, normocephalic. EYES: Pupils equal round and reactive to light, extraocular movements intact, sclera anicteric, conjunctiva are normal. ENT: TMs normal, nares patent, oropharynx clear without exudates. Moist mucous membranes. No oral ulcerations or bleeding gums noted NECK: supple without lymphadenopathy. JVD mildly elevated at 10 cm. Trachea is central. No cervical or axillary lymphadenopathy noted. Carotids are 2+ LUNGS: Breath sounds bibasilar fine crackles at bases. No significant dullness noted. CHEST: Palpation of chest wall shows no significant chest wall tenderness. HEART: [place] [employer], No PSH, 2/6 DARCI aortic area, 1/6 [place] systolic murmur mitral area, rubs or gallops. ABDOMEN: Soft, no significant tenderness appreciated, normoactive bowel sounds. No guarding, no rebound. No rigidity noted . No masses appreciated. EXTREMITIES: Pedal pulses are 1-2+, no calf tenderness noted, Trace + pedal edema noted. No clubbing or cyanosis. NEUROLOGICAL: Patient is alert, no definite focal deficit noted. PSYCH: Patient cannot participate in a neurologic and psych exam because of the patient's current mental status SKIN: No significant ecchymosis, rash, ulcerations or signs of pruritus noted. MUSCULOSKELETAL EXAM: No significant joint swelling noted. Results Laboratory Results: 11/18/17 05:17 11/18/17 05:17 11/18/17 11/18/17 11/18/17 05:17 05:17 12:05 Creatine Kinase 102 84 CK-MB (CK-2) 8.35 H Troponin I 4.140 11/18/17 11/18/17 11/18/17 12:05 17:30 17:30 Creatine Kinase 69 CK-MB (CK-2) 6.04 H 4.83 H Troponin I 3.240 2.560 EKG Comments: Telemetry shows sinus rhythm without any sustained tachycardia or bradycardia. Impressions: Chest X-Ray 11/17/17 22:13 IMPRESSION: No significant change. Assessment & Plan - Diagnosis (1) Non-STEMI (non-ST elevated myocardial infarction) Is this a current diagnosis for this admission?: Yes (2) Elevated troponin I level Is this a current diagnosis for this admission?: Yes (3) Acute exacerbation of CHF (congestive heart failure) Is this a current diagnosis for this admission?: Yes (4) Chronic kidney disease Qualifiers: Chronic kidney disease stage: stage 3 (moderate) Qualified Code(s): N18.3 - Chronic kidney disease, stage 3 (moderate) Is this a current diagnosis for this admission?: Yes (5) Coronary artery disease Qualifiers: Coronary Disease-Associated Artery/Lesion type: [place] artery [place] vs. transplanted heart: [place] heart Associated angina: angina presence unspecified Qualified Code(s): I25.10 - Atherosclerotic heart disease of [place] coronary artery without angina pectoris Is this a current diagnosis for this admission?: Yes - Notes Notes: Non-STEMI: Patient has significant elevation of troponin I in the non-STEMI range. EKG however not showing any acute ST-T wave changes. Will repeat EKG in a.m. to look at any evolving changes. Continue patient on aspirin, Plavix, beta-magdalena, entresto therapy, Ranexa therapy. Do not feel patient will be a candidate for heart catheterization due to advanced dementia. We will also consider low-dose digoxin therapy after a few days. Continue Ranexa therapy. Elevated troponin I: Feel that patient most likely sustained a non-STEMI. Possibility of this amount of troponin I elevation is also possible just from CHF. Acute exacerbation of CHF: 2D echo was reviewed. It showed severe systolic dysfunction with large area of akinetic area. Patient however on the good regimen. Continue with diuretic therapy, entresto therapy, beta-magdalena therapy. Consider adding spironolactone. Chronic kidney disease: Currently is stage III and seems stable. Coronary artery disease: This is present. Recommend high potency statin therapy , dual antiplatelet therapy if no contraindication, beta-magdalena, entresto therapy. Patient has very poor baseline status therefore overall prognosis is guarded and possibly on the poor side. Will repeat an EKG in the morning. - Time Time with patient: Greater than 35 minutes - Patient remains DNR. More than 50 % of the time spent coordinating care, discussing management plans with involved caregivers. Management plans discussed with involved personnels. Medical decision making was of moderate to high complexity, patient's has multiple comorbidities. Medications reviewed and adjusted accordingly: Yes
--- NOTE | 2017-11-20 16:24 | PDOC PROGRESS REPORT ---
Subjective Progress Note for:: 11/20/17 Subjective:: Patient was seen by the bedside, she continues to require noninvasive positive pressure ventilation, BiPAP, still confused Reason For Visit: ALTERED MENTAL STATUS ELEVATED TROPONIN Physical Exam Vital Signs: Temp Pulse Resp BP Pulse Ox 97.4 F 65 14 158/79 H 96 11/20/17 11:31 11/20/17 11:31 11/20/17 11:57 11/20/17 11:31 11/20/17 11:57 Intake & Output 11/19/17 11/20/17 11/21/17 06:59 06:59 06:59 Intake Total 23 8 50 Balance 23 8 50 Weight 115.2 kg 114.8 kg General appearance: PRESENT: mild distress, obese Eye exam: PRESENT: PERRLA Respiratory exam: PRESENT: rhonchi Cardiovascular exam: PRESENT: +S1, +S2 GI/Abdominal exam: PRESENT: soft Neurological exam: PRESENT: alert Results Laboratory Results: 11/18/17 05:17 11/18/17 05:17 11/18/17 11/18/17 11/18/17 05:17 05:17 12:05 Creatine Kinase 102 84 CK-MB (CK-2) 8.35 H Troponin I 4.140 11/18/17 11/18/17 11/18/17 12:05 17:30 17:30 Creatine Kinase 69 CK-MB (CK-2) 6.04 H 4.83 H Troponin I 3.240 2.560 Impressions: Chest X-Ray 11/17/17 22:13 IMPRESSION: No significant change. Assessment & Plan - Diagnosis (1) Non-STEMI (non-ST elevated myocardial infarction) Is this a current diagnosis for this admission?: Yes (2) Acute systolic (congestive) heart failure Is this a current diagnosis for this admission?: Yes (3) Hypercapnic respiratory failure Qualifiers: Chronicity: acute on chronic Qualified Code(s): J96.22 - Acute and chronic respiratory failure with hypercapnia Is this a current diagnosis for this admission?: Yes (4) Dementia Qualifiers: Dementia type: unspecified type Dementia behavioral disturbance: without behavioral disturbance Qualified Code(s): F03.90 - Unspecified dementia without behavioral disturbance Is this a current diagnosis for this admission?: Yes - Plan Summary Plan Summary: Continue present treatment, BiPAP, anti-ischemic medications
[2017-11-20] MEDS: ATORVASTATIN CALCIUM 10 MG TABLET PO SCH (23:17)
[2017-11-21] MEDS: HEPARIN SOD (PORCINE) 5,000 UNIT/ML 1 ML SYRINGE SUBCUT SCH ×3 (05:55→21:41)
[2017-11-21] MEDS: CLONIDINE HCL 0.2 MG TABLET PO SCH ×2 (09:59→21:40)
[2017-11-21] MEDS: POLYETHYLENE GLYCOL 3350 POWDER 17 GM/1 PACKET PO SCH (09:59)
[2017-11-21] MEDS: TORSEMIDE 20 MG TABLET PO SCH (09:59)
[2017-11-21] MEDS: SACUBITRIL/VALSARTAN 49 MG/51 MG TABLET PO SCH ×2 (10:00→21:40)
[2017-11-21] MEDS: ISOSORBIDE MONONITRATE 30 MG TAB.ER.24H PO SCH (10:00)
[2017-11-21] MEDS: CARVEDILOL 6.25 MG TABLET PO SCH ×2 (10:00→21:40)
[2017-11-21] MEDS: RANOLAZINE 500 MG TAB.SR.12H PO SCH ×2 (10:00→21:40)
[2017-11-21] MEDS: EPLERENONE 25 MG TABLET PO SCH (10:00)
[2017-11-21] MEDS: NYSTATIN TOPICAL POWDER 15 GM TOP SCH ×2 (10:01→17:17)
--- NOTE | 2017-11-21 18:04 | PROGRESS NOTE E ---
Progress Note NAME: NEIDA YEPEZ : 1940 AGE: 77Y DATE: 11/21/2017 ROOM: 317 SUBJECTIVE: Note that the patient does have dementia, but denies any chest pain or discomfort. She is on a nasal cannula, and at times, she uses BiPAP. She, at present, is on nasal cannula and appears to be slightly short of breath, although she does not appear to be uncomfortable. As mentioned earlier, she denies any chest pain or discomfort. There is no PND, orthopnea or leg edema. There is no arrhythmia on the monitor. The patient denies any symptoms suggestive of TIA or CVA, but the patient is unreliable, due to dementia. Monitor strips show that the patient is in sinus rhythm, with no ventricular or atrial arrhythmias. REVIEW OF SYMPTOMS: Negative. Note that the patient's chart was reviewed, since today is my first day of following up the patient. OBJECTIVE: GENERAL: The patient is morbidly obese, slightly short of breath, but does not appear to be uncomfortable. VITAL SIGNS: She is afebrile, with a temperature of 97.4 degrees Fahrenheit. Pulse is 73 beats per minute, blood pressure 165/67, respirations 20 per minute. O2 sat is 100% on 3 liters nasal cannula. HEENT: Head is atraumatic, normocephalic. Eyes: Pupils are equal, round, regular. Reactive to light and accommodation. Extraocular movements are normal. There is no conjunctival pallor. There is no scleral icterus. ENT is negative. NECK: Supple. There is no JVD. Carotids are equal. There is no bruit. There is no lymphadenopathy. There is no goiter. Trachea is central. LUNGS: Show a few fine crackles in the bases, which are very minimal. There is no rhonchi or wheezing. There is no chest wall tenderness. HEART: S1, S2 are heard. There is no S3 gallop. There is no S4 gallop. There is a systolic murmur at the left sternal border, at the apex. There is no rub. ABDOMEN: Soft, obese, nontender. There is no hepatosplenomegaly. Bowel sounds are well-heard. EXTREMITIES: Pulses are diminished. There are no femoral bruits. Leg pulses are diminished. There is trace pedal edema bilaterally. There is no DVT or cellulitis. There is no calf tenderness. CENTRAL NERVOUS SYSTEM: The patient is conscious, but confused, due to her dementia. There are no focal deficits. She moves all 4 extremities. PSYCHIATRIC: The patient is presently confused and is not agitated. Note that the patient is a DNR, as per the chart. Rima, her cousin, is her surrogate healthcare decision maker. The patient's intake and output are not recorded accurately. The patient's blood sugar is 130. IMPRESSION: 1. NON-ST ELEVATION IN. At present, patient is symptomatic and remains stable. 2. ELEVATED TROPONIN I LEVEL, WHICH HAS TRENDED DOWN. 3. ACUTE EXACERBATION OF CHF. At present, compensated. 4. CHRONIC KIDNEY DISEASE, STAGE 3, MODERATE. 5. CORONARY ARTERY DISEASE. Patient without any anginal symptoms. 6. CARDIOMYOPATHY, WHICH IS ACUTE ON CHRONIC SYSTOLIC HEART FAILURE, WITH SEVERELY REDUCED LV SYSTOLIC FUNCTION AND ALSO LV DIASTOLIC DYSFUNCTION. At present, seems to be compensated. 7. HYPERTENSION. RECOMMENDATIONS: Would recommend continuing the patient's Coreg, Ranexa and Entresto. Will continue the patient on Demadex. Continue the patient on isosorbide mononitrate. Would recommend adding Paxil, if there is no contraindication. Will discuss with the attending physician. Will increase the patient's clonidine to 0.2 mg p.o. q.8 hours, since the blood pressure is still high. Continue nasal O2 support with bilevel therapy when needed. Note, 30 minutes spent on the patient, with more than 50% of the time spent on direct patient care. Medications have been reviewed. Also discussed with other care-giving providers on this case. Note, in view of the patient's comorbidities, the patient has a moderate risk assessment. DICTATING PHYSICIAN: RADHA RAHMAN M.D. [id number] PHY#: [id number] ID: [id number] JOB#: [id number] ACCT: [id number] cc: >
--- NOTE | 2017-11-21 19:40 | PDOC PROGRESS REPORT ---
Subjective Progress Note for:: 11/28/17 Subjective:: Patient is seen by the bedside, she is more alert and oriented today Reason For Visit: ALTERED MENTAL STATUS ELEVATED TROPONIN Physical Exam Vital Signs: Temp Pulse Resp BP Pulse Ox 97.4 F 73 20 165/67 H 94 11/21/17 07:38 11/21/17 07:38 11/21/17 07:38 11/21/17 07:38 11/21/17 16:29 Intake & Output 11/20/17 11/21/17 11/22/17 06:59 06:59 06:59 Intake Total 8 58 710 Balance 8 58 710 Weight 114.8 kg 110 kg General appearance: PRESENT: no acute distress Eye exam: PRESENT: PERRLA Respiratory exam: PRESENT: clear to auscultation kishan Cardiovascular exam: PRESENT: +S1, +S2 GI/Abdominal exam: PRESENT: soft Neurological exam: PRESENT: alert Results Laboratory Results: 11/18/17 05:17 11/18/17 05:17 11/18/17 11/18/17 11/18/17 05:17 05:17 12:05 Creatine Kinase 102 84 CK-MB (CK-2) 8.35 H Troponin I 4.140 11/18/17 11/18/17 11/18/17 12:05 17:30 17:30 Creatine Kinase 69 CK-MB (CK-2) 6.04 H 4.83 H Troponin I 3.240 2.560 Impressions: Chest X-Ray 11/17/17 22:13 IMPRESSION: No significant change. Assessment & Plan - Diagnosis (1) Non-STEMI (non-ST elevated myocardial infarction) Is this a current diagnosis for this admission?: Yes (2) Acute systolic (congestive) heart failure Is this a current diagnosis for this admission?: Yes (3) Hypercapnic respiratory failure Qualifiers: Chronicity: acute on chronic Qualified Code(s): J96.22 - Acute and chronic respiratory failure with hypercapnia Is this a current diagnosis for this admission?: Yes (4) Dementia Qualifiers: Dementia type: unspecified type Dementia behavioral disturbance: without behavioral disturbance Qualified Code(s): F03.90 - Unspecified dementia without behavioral disturbance Is this a current diagnosis for this admission?: Yes
[2017-11-21] MEDS: ATORVASTATIN CALCIUM 10 MG TABLET PO SCH (21:40)
[2017-11-22] MEDS: HEPARIN SOD (PORCINE) 5,000 UNIT/ML 1 ML SYRINGE SUBCUT SCH ×3 (05:34→22:49)
[2017-11-22] MEDS: CLONIDINE HCL 0.2 MG TABLET PO SCH ×3 (05:34→22:48)
[2017-11-22] MEDS: SACUBITRIL/VALSARTAN 49 MG/51 MG TABLET PO SCH ×2 (09:40→22:48)
[2017-11-22] MEDS: EPLERENONE 25 MG TABLET PO SCH (09:40)
[2017-11-22] MEDS: TORSEMIDE 20 MG TABLET PO SCH (09:41)
[2017-11-22] MEDS: CARVEDILOL 6.25 MG TABLET PO SCH ×2 (09:41→22:48)
[2017-11-22] MEDS: ISOSORBIDE MONONITRATE 30 MG TAB.ER.24H PO SCH (09:41)
[2017-11-22] MEDS: RANOLAZINE 500 MG TAB.SR.12H PO SCH ×2 (09:41→22:47)
[2017-11-22] MEDS: POLYETHYLENE GLYCOL 3350 POWDER 17 GM/1 PACKET PO SCH (09:41)
[2017-11-22] MEDS: NYSTATIN TOPICAL POWDER 15 GM TOP SCH ×2 (09:41→17:02)
--- NOTE | 2017-11-22 19:54 | PROGRESS NOTE E ---
Progress Note NAME: NEIDA YEPEZ : 1940 AGE: 77Y DATE: 11/22/2017 ROOM: 317 SUBJECTIVE: Note that the patient, although demented, denies any chest pain or discomfort. She does not appear to be short of breath today. There is no arrhythmia seen on the monitor. The patient has no PND or orthopnea. She claims that her shortness of breath is much improved, but the patient is not a reliable historian, in view of her dementia. There is no pedal edema. There is no arrhythmia seen on the monitor. There are no TIA or CVA symptoms. Her blood pressure is much better with the increase in the patient's clonidine. OBJECTIVE: GENERAL: The patient is morbidly obese at present, in no acute distress. VITAL SIGNS: She is afebrile, with a temperature of 97.3 degrees Fahrenheit, pulse is 69 beats per minute, blood pressure is 131/62, respirations 20 per minute. O2 sats are 98% on 2 liters nasal cannula. HEENT: Head is atraumatic, normocephalic. Eyes: Pupils are equal, round, reactive to light and accommodation. There is no conjunctival pallor. There is no scleral icterus. ENT is negative. NECK: Supple. There is no JVD. Carotids are equal/ There is no bruit. There is no lymphadenopathy. There is no goiter. Trachea is central. LUNGS: Fairly clear. There is no chest wall tenderness. There is no rhonchi, wheezing or rales or crackles. HEART: S1, S2 are heard. There is no S3 gallop. There is a systolic murmur at the left sternal border and apex. There is no rub. ABDOMEN: Soft, obese, nontender. There is no hepatosplenomegaly. Bowel sounds are well-heard. EXTREMITIES: Pulses are diminished. There are no femoral bruits. Leg pulses are diminished. There is no pedal edema today. There is no DVT or cellulitis. There is no calf tenderness. NEUROLOGIC: The patient is conscious, awake, confused, due to her dementia, but there is no focal deficit. She moves all 4 extremities. PSYCHIATRIC: The patient is presently confused, but is not agitated. IMPRESSION: 1. NON-ST ELEVATION PA. The patient is asymptomatic. 2. ELEVATED TROPONIN I, WHICH IS TRENDING DOWN. 3. ACUTE EXACERBATION OF CONGESTIVE HEART FAILURE, AT PRESENT COMPENSATED. 4. CHRONIC KIDNEY DISEASE, STAGE III, MODERATE. 5. CORONARY ARTERY DISEASE. Patient without any anginal symptoms. Note that the patient was not on aspirin, and I spoke with Dr. Valiente, the attending physician, and he said there was no contraindication. He said that the patient should be on aspirin; hence, I restarted the patient's aspirin. Also I have increased the patient's isosorbide mononitrate to 60 mg p.o. daily. The patient is not a candidate for any aggressive treatment, such as stress testing or cardiac catheterization. Would recommend maximizing medical therapy, which is being done. 6. CARDIOMYOPATHY, AT PRESENT COMPENSATED. Patient with reduced LV systolic function and also diastolic dysfunction, at present compensated. Would recommend continuing the patient on Ranexa, Entresto, torsemide, Coreg and Inspra. Note, aspirin has been added to the regimen and the patient's clonidine has been increased to 0.2 mg p.o. q.8 hours. 7. HYPERTENSION. Blood pressure much better controlled. Note, the patient's medications have been maximized, as mentioned above. Would not try to get the blood pressure below 130, since the patient may feel side effects of hypotension. Patient's cardiac status is stable. As mentioned earlier, she is not a candidate for any aggressive treatment of her coronary artery disease or her cardiomyopathy; hence, I have discussed with Dr. Valiente that I will sign off the patient and follow the patient as an outpatient, if she desires to follow up with me. Discussed with Dr. Valiente, the attending physician. Will sign off the case. Thank you. DICTATING PHYSICIAN: RADHA RAHMAN M.D. [id number] PHY#: [id number] ID: [id number] JOB#: [id number] ACCT: [id number] cc: > [facility]
--- NOTE | 2017-11-22 21:42 | PDOC PROGRESS REPORT ---
Subjective Progress Note for:: 11/22/17 Subjective:: Patient was seen by the bedside, she still about the same she was on the bedside commode with nurse assist Reason For Visit: ALTERED MENTAL STATUS ELEVATED TROPONIN Physical Exam Vital Signs: Temp Pulse Resp BP Pulse Ox 97.6 F 74 22 H 148/81 H 94 11/22/17 19:48 11/22/17 19:48 11/22/17 19:48 11/22/17 19:48 11/22/17 19:48 Intake & Output 11/21/17 11/22/17 11/23/17 06:59 06:59 06:59 Intake Total 58 965 719 Balance 58 965 719 Weight 110 kg 110.9 kg General appearance: PRESENT: no acute distress Eye exam: PRESENT: PERRLA Respiratory exam: PRESENT: clear to auscultation kishan Cardiovascular exam: PRESENT: +S1, +S2 GI/Abdominal exam: PRESENT: soft Neurological exam: PRESENT: alert Results Laboratory Results: 11/18/17 05:17 11/18/17 05:17 11/18/17 11/18/17 11/18/17 05:17 05:17 12:05 Creatine Kinase 102 84 CK-MB (CK-2) 8.35 H Troponin I 4.140 11/18/17 11/18/17 11/18/17 12:05 17:30 17:30 Creatine Kinase 69 CK-MB (CK-2) 6.04 H 4.83 H Troponin I 3.240 2.560 Impressions: Chest X-Ray 11/17/17 22:13 IMPRESSION: No significant change. Assessment & Plan - Diagnosis (1) Non-STEMI (non-ST elevated myocardial infarction) Is this a current diagnosis for this admission?: Yes (2) Acute systolic (congestive) heart failure Is this a current diagnosis for this admission?: Yes (3) Hypercapnic respiratory failure Qualifiers: Chronicity: acute on chronic Qualified Code(s): J96.22 - Acute and chronic respiratory failure with hypercapnia Is this a current diagnosis for this admission?: Yes (4) Dementia Qualifiers: Dementia type: unspecified type Dementia behavioral disturbance: without behavioral disturbance Qualified Code(s): F03.90 - Unspecified dementia without behavioral disturbance Is this a current diagnosis for this admission?: Yes - Plan Summary Plan Summary: Continue treatment
[2017-11-22] MEDS: ATORVASTATIN CALCIUM 10 MG TABLET PO SCH (22:48)
[2017-11-22] MEDS: ASPIRIN 81 MG TABLET, CHEWABLE PO SCH (22:48)
[2017-11-23] MEDS: CLONIDINE HCL 0.2 MG TABLET PO SCH ×3 (05:48→21:43)
[2017-11-23] MEDS: HEPARIN SOD (PORCINE) 5,000 UNIT/ML 1 ML SYRINGE SUBCUT SCH ×3 (05:50→21:44)
[2017-11-23] MEDS: SACUBITRIL/VALSARTAN 49 MG/51 MG TABLET PO SCH ×2 (09:44→21:43)
[2017-11-23] MEDS: ISOSORBIDE MONONITRATE 30 MG TAB.ER.24H PO SCH (09:44)
[2017-11-23] MEDS: CARVEDILOL 6.25 MG TABLET PO SCH ×2 (09:45→21:42)
[2017-11-23] MEDS: TORSEMIDE 20 MG TABLET PO SCH (09:45)
[2017-11-23] MEDS: EPLERENONE 25 MG TABLET PO SCH (09:45)
[2017-11-23] MEDS: RANOLAZINE 500 MG TAB.SR.12H PO SCH ×2 (09:45→21:42)
[2017-11-23] MEDS: POLYETHYLENE GLYCOL 3350 POWDER 17 GM/1 PACKET PO SCH (09:45)
[2017-11-23] MEDS: NYSTATIN TOPICAL POWDER 15 GM TOP SCH ×2 (09:52→17:12)
--- NOTE | 2017-11-23 20:26 | PDOC PROGRESS REPORT ---
Subjective Progress Note for:: 11/23/17 Subjective:: Patient was seen by the bedside,condition about the same Reason For Visit: ALTERED MENTAL STATUS ELEVATED TROPONIN Physical Exam Vital Signs: Temp Pulse Resp BP Pulse Ox 97.3 F 76 20 163/72 H 97 11/23/17 20:04 11/23/17 20:04 11/23/17 20:04 11/23/17 20:04 11/23/17 20:04 Intake & Output 11/22/17 11/23/17 11/24/17 06:59 06:59 06:59 Intake Total 800 489 6272 Balance 093 434 9104 Weight 110.9 kg 107.9 kg General appearance: PRESENT: no acute distress Eye exam: PRESENT: PERRLA Respiratory exam: PRESENT: rhonchi Cardiovascular exam: PRESENT: +S1, +S2 GI/Abdominal exam: PRESENT: soft Neurological exam: PRESENT: alert Results Laboratory Results: 11/18/17 05:17 11/18/17 05:17 11/18/17 11/18/17 11/18/17 05:17 05:17 12:05 Creatine Kinase 102 84 CK-MB (CK-2) 8.35 H Troponin I 4.140 11/18/17 11/18/17 11/18/17 12:05 17:30 17:30 Creatine Kinase 69 CK-MB (CK-2) 6.04 H 4.83 H Troponin I 3.240 2.560 Impressions: Chest X-Ray 11/17/17 22:13 IMPRESSION: No significant change. Assessment & Plan - Diagnosis (1) Non-STEMI (non-ST elevated myocardial infarction) Is this a current diagnosis for this admission?: Yes (2) Acute systolic (congestive) heart failure Is this a current diagnosis for this admission?: Yes (3) Hypercapnic respiratory failure Qualifiers: Chronicity: acute on chronic Qualified Code(s): J96.22 - Acute and chronic respiratory failure with hypercapnia Is this a current diagnosis for this admission?: Yes (4) Dementia Qualifiers: Dementia type: unspecified type Dementia behavioral disturbance: without behavioral disturbance Qualified Code(s): F03.90 - Unspecified dementia without behavioral disturbance Is this a current diagnosis for this admission?: Yes
[2017-11-23 20:54] LABS: ABSOLUTE LYMPHOCYTES (AUTO) 0.6 10^3/uL (0.5-4.7); ABSOLUTE MONOCYTES (AUTO) 0.5 10^3/uL (0.1-1.4); BASOPHILS % (AUTO) 0.4 % (0-2); EOSINOPHILS % (AUTO) 1.2 % (0-6); HEMATOCRIT 29.3 % (36.0-47.0); HEMOGLOBIN 9.6 g/dL (12.0-15.5); LYMPHOCYTES % (AUTO) 19.3 % (13-45); MEAN CORPUSCULAR HEMOGLOBIN 30.2 pg (27.0-33.4); MEAN CORPUSCULAR HGB CONC 32.6 g/dL (32.0-36.0); MEAN CORPUSCULAR VOLUME 93 fl (80-97); MONOCYTES % (AUTO) 15.6 % (3-13); PLATELET COUNT 221 10^3/uL (150-450); RED BLOOD COUNT 3.16 10^6/uL (3.72-5.28); RED CELL DISTRIBUTION WIDTH 16.4 % (11.5-14.0); SEGMENTED NEUTROPHILS % (AUTO) 63.5 % (42-78); TOTAL CELLS COUNTED % (AUTO) 100 %; WHITE BLOOD COUNT 3.2 10^3/uL (4.0-10.5)
[2017-11-23 21:13] LABS: ALANINE AMINOTRANSFERASE 17 U/L (9-52); ALBUMIN 3.5 g/dL (3.5-5.0); ALKALINE PHOSPHATASE 59 U/L (38-126); ANION GAP 9 (5-19); ASPARTATE AMINO TRANSFERASE 19 U/L (14-36); BILIRUBIN,DIRECT 0.5 mg/dL (0.0-0.4); BILIRUBIN,TOTAL 0.5 mg/dL (0.2-1.3); BLOOD UREA NITROGEN 30 mg/dL (7-20); CALCIUM 9.3 mg/dL (8.4-10.2); CARBON DIOXIDE 38 mmol/L (22-30); CHLORIDE 91 mmol/L (98-107); GLUCOSE 169 mg/dL (75-110); POTASSIUM 4.2 mmol/L (3.6-5.0); SODIUM 138.2 mmol/L (137-145); TOTAL PROTEIN 6.9 g/dL (6.3-8.2)
[2017-11-23] MEDS: ATORVASTATIN CALCIUM 10 MG TABLET PO SCH (21:43)
[2017-11-23] MEDS: ASPIRIN 81 MG TABLET, CHEWABLE PO SCH (21:43)
[2017-11-24 05:25] LABS: ABSOLUTE EOSINOPHILS # (AUTO) 0.1 10^3/uL (0.0-0.6); ABSOLUTE LYMPHOCYTES (AUTO) 0.8 10^3/uL (0.5-4.7); ABSOLUTE MONOCYTES (AUTO) 0.5 10^3/uL (0.1-1.4); ABSOLUTE NEUT (AUTO) 1.9 10^3/uL (1.7-8.2); BASOPHILS % (AUTO) 0.4 % (0-2); EOSINOPHILS % (AUTO) 1.6 % (0-6); HEMATOCRIT 27.8 % (36.0-47.0); HEMOGLOBIN 9.1 g/dL (12.0-15.5); LYMPHOCYTES % (AUTO) 25.3 % (13-45); MEAN CORPUSCULAR HEMOGLOBIN 30.2 pg (27.0-33.4); MEAN CORPUSCULAR HGB CONC 32.7 g/dL (32.0-36.0); MEAN CORPUSCULAR VOLUME 92 fl (80-97); MONOCYTES % (AUTO) 15.3 % (3-13); PLATELET COUNT 205 10^3/uL (150-450); RED BLOOD COUNT 3.02 10^6/uL (3.72-5.28); RED CELL DISTRIBUTION WIDTH 16.3 % (11.5-14.0); SEGMENTED NEUTROPHILS % (AUTO) 57.4 % (42-78); TOTAL CELLS COUNTED % (AUTO) 100 %; WHITE BLOOD COUNT 3.3 10^3/uL (4.0-10.5)
[2017-11-24 05:52] LABS: ALANINE AMINOTRANSFERASE 16 U/L (9-52); ALBUMIN 3.4 g/dL (3.5-5.0); ALKALINE PHOSPHATASE 61 U/L (38-126); ANION GAP 6 (5-19); ASPARTATE AMINO TRANSFERASE 21 U/L (14-36); BILIRUBIN,DIRECT 0.4 mg/dL (0.0-0.4); BILIRUBIN,TOTAL 0.4 mg/dL (0.2-1.3); BLOOD UREA NITROGEN 30 mg/dL (7-20); CHLORIDE 92 mmol/L (98-107); GLUCOSE 141 mg/dL (75-110); POTASSIUM 3.9 mmol/L (3.6-5.0); SODIUM 138.4 mmol/L (137-145); TOTAL PROTEIN 6.8 g/dL (6.3-8.2)
[2017-11-24 06:07] LABS: CARBON DIOXIDE 40 mmol/L (22-30)
[2017-11-24] MEDS: CLONIDINE HCL 0.2 MG TABLET PO SCH ×3 (06:17→21:34)
[2017-11-24] MEDS: HEPARIN SOD (PORCINE) 5,000 UNIT/ML 1 ML SYRINGE SUBCUT SCH ×3 (06:20→21:35)
[2017-11-24] MEDS: TORSEMIDE 20 MG TABLET PO SCH (10:34)
[2017-11-24] MEDS: NYSTATIN TOPICAL POWDER 15 GM TOP SCH ×2 (10:34→17:38)
[2017-11-24] MEDS: EPLERENONE 25 MG TABLET PO SCH (10:34)
[2017-11-24] MEDS: SACUBITRIL/VALSARTAN 49 MG/51 MG TABLET PO SCH ×2 (10:35→21:33)
[2017-11-24] MEDS: RANOLAZINE 500 MG TAB.SR.12H PO SCH ×2 (10:35→21:32)
[2017-11-24] MEDS: CARVEDILOL 6.25 MG TABLET PO SCH ×2 (10:35→21:34)
[2017-11-24] MEDS: POLYETHYLENE GLYCOL 3350 POWDER 17 GM/1 PACKET PO SCH (10:35)
[2017-11-24] MEDS: ISOSORBIDE MONONITRATE 30 MG TAB.ER.24H PO SCH (10:35)
--- NOTE | 2017-11-24 20:52 | PDOC PROGRESS REPORT ---
Subjective Progress Note for:: 11/24/17 Subjective:: Patient is confused she said "we just showed her the graveyard that the plan to bury her " Reason For Visit: ALTERED MENTAL STATUS ELEVATED TROPONIN Physical Exam Vital Signs: Temp Pulse Resp BP Pulse Ox 98.0 F 81 17 158/82 H 97 11/24/17 17:05 11/24/17 19:48 11/24/17 19:48 11/24/17 19:48 11/24/17 19:48 Intake & Output 11/23/17 11/24/17 11/25/17 06:59 06:59 06:59 Intake Total 857 1667 692 Balance 857 1667 692 Weight 107.9 kg 111.4 kg General appearance: PRESENT: no acute distress Eye exam: PRESENT: PERRLA Respiratory exam: PRESENT: clear to auscultation kishan Cardiovascular exam: PRESENT: +S1, +S2 GI/Abdominal exam: PRESENT: soft Neurological exam: PRESENT: alert Results Laboratory Results: 11/24/17 04:50 11/24/17 04:50 11/23/17 11/23/17 11/24/17 20:38 20:38 04:50 WBC 3.2 L 3.3 L RBC 3.16 L 3.02 L Hgb 9.6 L 9.1 L Hct 29.3 L 27.8 L MCV 93 92 MCH 30.2 30.2 MCHC 32.6 32.7 RDW 16.4 H 16.3 H Plt Count 221 205 Seg Neutrophils % 63.5 57.4 Lymphocytes % 19.3 25.3 Monocytes % 15.6 H 15.3 H Eosinophils % 1.2 1.6 Basophils % 0.4 0.4 Absolute Neutrophils 2.0 1.9 Absolute Lymphocytes 0.6 0.8 Absolute Monocytes 0.5 0.5 Absolute Eosinophils 0.0 0.1 Absolute Basophils 0.0 0.0 Sodium 138.2 Potassium 4.2 Chloride 91 L Carbon Dioxide 38 H Anion Gap 9 BUN 30 H Creatinine 1.51 H Est GFR ( Amer) 41 L Est GFR (Non-Af Amer) 34 L Glucose 169 H Calcium 9.3 Total Bilirubin 0.5 AST 19 ALT 17 Alkaline Phosphatase 59 Total Protein 6.9 Albumin 3.5 11/24/17 04:50 WBC RBC Hgb Hct MCV MCH MCHC RDW Plt Count Seg Neutrophils % Lymphocytes % Monocytes % Eosinophils % Basophils % Absolute Neutrophils Absolute Lymphocytes Absolute Monocytes Absolute Eosinophils Absolute Basophils Sodium 138.4 Potassium 3.9 Chloride 92 L Carbon Dioxide 40 H* Anion Gap 6 BUN 30 H Creatinine 1.53 H Est GFR ( Amer) 40 L Est GFR (Non-Af Amer) 33 L Glucose 141 H Calcium 9.0 Total Bilirubin 0.4 AST 21 ALT 16 Alkaline Phosphatase 61 Total Protein 6.8 Albumin 3.4 L 11/18/17 11/18/17 11/18/17 05:17 05:17 12:05 Creatine Kinase 102 84 CK-MB (CK-2) 8.35 H Troponin I 4.140 11/18/17 11/18/17 11/18/17 12:05 17:30 17:30 Creatine Kinase 69 CK-MB (CK-2) 6.04 H 4.83 H Troponin I 3.240 2.560 Impressions: Chest X-Ray 11/17/17 22:13 IMPRESSION: No significant change. Assessment & Plan - Diagnosis (1) Non-STEMI (non-ST elevated myocardial infarction) Is this a current diagnosis for this admission?: Yes (2) Acute systolic (congestive) heart failure Is this a current diagnosis for this admission?: Yes (3) Hypercapnic respiratory failure Qualifiers: Chronicity: acute on chronic Qualified Code(s): J96.22 - Acute and chronic respiratory failure with hypercapnia Is this a current diagnosis for this admission?: Yes (4) Dementia Qualifiers: Dementia type: unspecified type Dementia behavioral disturbance: without behavioral disturbance Qualified Code(s): F03.90 - Unspecified dementia without behavioral disturbance Is this a current diagnosis for this admission?: Yes
[2017-11-24] MEDS: ATORVASTATIN CALCIUM 10 MG TABLET PO SCH (21:32)
[2017-11-24] MEDS: ASPIRIN 81 MG TABLET, CHEWABLE PO SCH (21:35)
[2017-11-25] MEDS: CLONIDINE HCL 0.2 MG TABLET PO SCH ×3 (05:58→22:45)
[2017-11-25] MEDS: HEPARIN SOD (PORCINE) 5,000 UNIT/ML 1 ML SYRINGE SUBCUT SCH ×3 (05:58→22:46)
[2017-11-25] MEDS: POLYETHYLENE GLYCOL 3350 POWDER 17 GM/1 PACKET PO SCH (10:14)
[2017-11-25] MEDS: EPLERENONE 25 MG TABLET PO SCH (10:14)
[2017-11-25] MEDS: ISOSORBIDE MONONITRATE 30 MG TAB.ER.24H PO SCH (10:15)
[2017-11-25] MEDS: TORSEMIDE 20 MG TABLET PO SCH (10:15)
[2017-11-25] MEDS: CARVEDILOL 6.25 MG TABLET PO SCH ×2 (10:15→22:45)
[2017-11-25] MEDS: RANOLAZINE 500 MG TAB.SR.12H PO SCH ×2 (10:15→22:45)
[2017-11-25] MEDS: SACUBITRIL/VALSARTAN 49 MG/51 MG TABLET PO SCH ×2 (11:55→22:53)
--- NOTE | 2017-11-25 21:08 | PDOC PROGRESS REPORT ---
Subjective Progress Note for:: 11/25/17 Subjective:: Seen by the bedside, no new complaints Reason For Visit: ALTERED MENTAL STATUS ELEVATED TROPONIN Physical Exam Vital Signs: Temp Pulse Resp BP Pulse Ox 97.2 F 81 16 158/79 H 100 11/25/17 11:57 11/25/17 14:00 11/25/17 11:57 11/25/17 11:57 11/25/17 11:57 Intake & Output 11/24/17 11/25/17 11/26/17 06:59 06:59 06:59 Intake Total 1667 857 242 Balance 1667 857 242 Weight 111.4 kg 110.3 kg General appearance: PRESENT: no acute distress Eye exam: PRESENT: PERRLA Respiratory exam: PRESENT: clear to auscultation kishan Cardiovascular exam: PRESENT: +S1, +S2 GI/Abdominal exam: PRESENT: soft Neurological exam: PRESENT: alert Results Laboratory Results: 11/24/17 04:50 11/24/17 04:50 11/18/17 11/18/17 11/18/17 05:17 05:17 12:05 Creatine Kinase 102 84 CK-MB (CK-2) 8.35 H Troponin I 4.140 11/18/17 11/18/17 11/18/17 12:05 17:30 17:30 Creatine Kinase 69 CK-MB (CK-2) 6.04 H 4.83 H Troponin I 3.240 2.560 Impressions: Chest X-Ray 11/17/17 22:13 IMPRESSION: No significant change. Assessment & Plan - Diagnosis (1) Non-STEMI (non-ST elevated myocardial infarction) Is this a current diagnosis for this admission?: Yes (2) Acute systolic (congestive) heart failure Is this a current diagnosis for this admission?: Yes (3) Hypercapnic respiratory failure Qualifiers: Chronicity: acute on chronic Qualified Code(s): J96.22 - Acute and chronic respiratory failure with hypercapnia Is this a current diagnosis for this admission?: Yes (4) Dementia Qualifiers: Dementia type: unspecified type Dementia behavioral disturbance: without behavioral disturbance Qualified Code(s): F03.90 - Unspecified dementia without behavioral disturbance Is this a current diagnosis for this admission?: Yes
[2017-11-25] MEDS: ASPIRIN 81 MG TABLET, CHEWABLE PO SCH (22:45)
[2017-11-25] MEDS: ATORVASTATIN CALCIUM 10 MG TABLET PO SCH (22:45)
[2017-11-26] MEDS: CLONIDINE HCL 0.2 MG TABLET PO SCH ×3 (05:44→22:18)
[2017-11-26] MEDS: HEPARIN SOD (PORCINE) 5,000 UNIT/ML 1 ML SYRINGE SUBCUT SCH ×3 (05:45→21:39)
--- NOTE | 2017-11-26 09:40 | PDOC PROGRESS REPORT ---
Subjective Progress Note for:: 11/26/17 Subjective:: Patient is currently doing fair Patient's denied any chest pain denied any shortness of the breath No other events happens Reason For Visit: ALTERED MENTAL STATUS ELEVATED TROPONIN Physical Exam Vital Signs: Temp Pulse Resp BP Pulse Ox 97.3 F 64 16 140/66 H 100 11/26/17 07:12 11/26/17 07:12 11/26/17 07:12 11/26/17 07:12 11/26/17 07:12 Intake & Output 11/25/17 11/26/17 11/27/17 06:59 06:59 06:59 Intake Total 857 484 Balance 857 484 Weight 110.3 kg 110.6 kg General appearance: PRESENT: no acute distress, well-developed, well-nourished Head exam: PRESENT: atraumatic, normocephalic Eye exam: PRESENT: conjunctiva pink, EOMI, PERRLA. ABSENT: scleral icterus Ear exam: PRESENT: normal external ear exam Mouth exam: PRESENT: moist, tongue midline Neck exam: PRESENT: full ROM. ABSENT: carotid bruit, JVD, lymphadenopathy, thyromegaly Respiratory exam: PRESENT: clear to auscultation kishan Cardiovascular exam: PRESENT: RRR. ABSENT: diastolic murmur, rubs, systolic murmur Pulses: PRESENT: normal dorsalis pedis pul, +2 pedal pulses bilateral Vascular exam: PRESENT: normal capillary refill GI/Abdominal exam: PRESENT: normal bowel sounds, soft. ABSENT: distended, guarding, mass, organolmegaly, rebound, tenderness Rectal exam: PRESENT: deferred Neurological exam: PRESENT: alert, awake, oriented to person. ABSENT: motor sensory deficit Psychiatric exam: PRESENT: appropriate affect, normal mood. ABSENT: homicidal ideation, suicidal ideation Skin exam: PRESENT: dry, intact, warm. ABSENT: cyanosis, rash Results Laboratory Results: 11/24/17 04:50 11/24/17 04:50 11/18/17 11/18/17 11/18/17 05:17 05:17 12:05 Creatine Kinase 102 84 CK-MB (CK-2) 8.35 H Troponin I 4.140 11/18/17 11/18/17 11/18/17 12:05 17:30 17:30 Creatine Kinase 69 CK-MB (CK-2) 6.04 H 4.83 H Troponin I 3.240 2.560 Impressions: Chest X-Ray 11/17/17 22:13 IMPRESSION: No significant change. Assessment & Plan - Diagnosis (1) Non-STEMI (non-ST elevated myocardial infarction) Is this a current diagnosis for this admission?: Yes (2) Chronic congestive heart failure Qualifiers: Heart failure type: unspecified Qualified Code(s): I50.9 - Heart failure, unspecified Is this a current diagnosis for this admission?: Yes (3) Dementia Qualifiers: Dementia type: unspecified type Dementia behavioral disturbance: without behavioral disturbance Qualified Code(s): F03.90 - Unspecified dementia without behavioral disturbance Is this a current diagnosis for this admission?: Yes (4) Hypercapnic respiratory failure Qualifiers: Chronicity: acute on chronic Qualified Code(s): J96.22 - Acute and chronic respiratory failure with hypercapnia Is this a current diagnosis for this admission?: Yes (5) Anemia Qualifiers: Anemia type: unspecified type Qualified Code(s): D64.9 - Anemia, unspecified Is this a current diagnosis for this admission?: Yes - Time Time Spent with patient: Less than 15 minutes Medications reviewed and adjusted accordingly: Yes Anticipated discharge: Other Within: Other - Inpatient Certification Medical Necessity: Need Close Monitoring Due to Risk of Patient Decompensation Post Hospital Care: D/C [employer] Assistant Documentation - Plan Summary Plan Summary: Continues current medication
[2017-11-26] MEDS: TORSEMIDE 20 MG TABLET PO SCH (09:44)
[2017-11-26] MEDS: EPLERENONE 25 MG TABLET PO SCH (09:44)
[2017-11-26] MEDS: POLYETHYLENE GLYCOL 3350 POWDER 17 GM/1 PACKET PO SCH (09:44)
[2017-11-26] MEDS: CARVEDILOL 6.25 MG TABLET PO SCH ×2 (09:44→22:18)
[2017-11-26] MEDS: ISOSORBIDE MONONITRATE 30 MG TAB.ER.24H PO SCH (09:44)
[2017-11-26] MEDS: RANOLAZINE 500 MG TAB.SR.12H PO SCH ×2 (09:45→23:05)
[2017-11-26] MEDS: SACUBITRIL/VALSARTAN 49 MG/51 MG TABLET PO SCH ×2 (09:45→22:18)
[2017-11-26] MEDS: ATORVASTATIN CALCIUM 10 MG TABLET PO SCH (22:18)
[2017-11-26] MEDS: ASPIRIN 81 MG TABLET, CHEWABLE PO SCH (22:19)
[2017-11-27] MEDS: HEPARIN SOD (PORCINE) 5,000 UNIT/ML 1 ML SYRINGE SUBCUT SCH ×3 (06:38→22:05)
[2017-11-27] MEDS: CLONIDINE HCL 0.2 MG TABLET PO SCH ×3 (06:38→22:06)
[2017-11-27] MEDS: ISOSORBIDE MONONITRATE 30 MG TAB.ER.24H PO SCH (09:50)
[2017-11-27] MEDS: EPLERENONE 25 MG TABLET PO SCH (09:51)
[2017-11-27] MEDS: SACUBITRIL/VALSARTAN 49 MG/51 MG TABLET PO SCH ×2 (09:51→22:06)
[2017-11-27] MEDS: RANOLAZINE 500 MG TAB.SR.12H PO SCH ×2 (09:51→22:07)
[2017-11-27] MEDS: CARVEDILOL 6.25 MG TABLET PO SCH ×2 (09:51→22:07)
[2017-11-27] MEDS: TORSEMIDE 20 MG TABLET PO SCH (09:52)
[2017-11-27] MEDS: POLYETHYLENE GLYCOL 3350 POWDER 17 GM/1 PACKET PO SCH (09:53)
--- NOTE | 2017-11-27 09:57 | PDOC PROGRESS REPORT ---
Subjective Progress Note for:: 11/27/17 Subjective:: Is currently doing same Looks like little bit confused today Other than that patient's denied any chest pain denied any shortness of the breath Reason For Visit: ALTERED MENTAL STATUS ELEVATED TROPONIN Physical Exam Vital Signs: Temp Pulse Resp BP Pulse Ox 97.3 F 77 19 144/71 H 100 11/27/17 04:40 11/27/17 07:00 11/27/17 04:40 11/27/17 04:40 11/27/17 04:40 Intake & Output 11/26/17 11/27/17 11/28/17 06:59 06:59 06:59 Intake Total 484 1284 Balance 484 1284 Weight 110.6 kg 109.8 kg General appearance: PRESENT: no acute distress, well-developed, well-nourished Head exam: PRESENT: atraumatic, normocephalic Eye exam: PRESENT: conjunctiva pink, EOMI, PERRLA. ABSENT: scleral icterus Ear exam: PRESENT: normal external ear exam Mouth exam: PRESENT: moist, tongue midline Neck exam: PRESENT: full ROM. ABSENT: carotid bruit, JVD, lymphadenopathy, thyromegaly Respiratory exam: PRESENT: decreased breath sounds Cardiovascular exam: PRESENT: RRR. ABSENT: diastolic murmur, rubs, systolic murmur Pulses: PRESENT: normal dorsalis pedis pul, +2 pedal pulses bilateral Vascular exam: PRESENT: normal capillary refill GI/Abdominal exam: PRESENT: normal bowel sounds, soft. ABSENT: distended, guarding, mass, organolmegaly, rebound, tenderness Rectal exam: PRESENT: deferred Extremities exam: PRESENT: pedal edema Neurological exam: PRESENT: alert, awake, oriented to person, oriented to place. ABSENT: motor sensory deficit Psychiatric exam: PRESENT: appropriate affect, normal mood. ABSENT: homicidal ideation, suicidal ideation Skin exam: PRESENT: dry, intact, warm. ABSENT: cyanosis, rash Results Laboratory Results: 11/24/17 04:50 11/24/17 04:50 11/18/17 11/18/17 11/18/17 05:17 05:17 12:05 Creatine Kinase 102 84 CK-MB (CK-2) 8.35 H Troponin I 4.140 11/18/17 11/18/17 11/18/17 12:05 17:30 17:30 Creatine Kinase 69 CK-MB (CK-2) 6.04 H 4.83 H Troponin I 3.240 2.560 Impressions: Chest X-Ray 11/17/17 22:13 IMPRESSION: No significant change. Assessment & Plan - Diagnosis (1) Non-STEMI (non-ST elevated myocardial infarction) Is this a current diagnosis for this admission?: Yes (2) Chronic congestive heart failure Qualifiers: Heart failure type: unspecified Qualified Code(s): I50.9 - Heart failure, unspecified Is this a current diagnosis for this admission?: Yes Plan: Check a BMP today follow with the cardiology (3) Dementia Qualifiers: Dementia type: unspecified type Dementia behavioral disturbance: without behavioral disturbance Qualified Code(s): F03.90 - Unspecified dementia without behavioral disturbance Is this a current diagnosis for this admission?: Yes (4) Hypercapnic respiratory failure Qualifiers: Chronicity: acute on chronic Qualified Code(s): J96.22 - Acute and chronic respiratory failure with hypercapnia Is this a current diagnosis for this admission?: Yes Plan: Check the ABG consider BiPAP (5) Anemia Qualifiers: Anemia type: unspecified type Qualified Code(s): D64.9 - Anemia, unspecified Is this a current diagnosis for this admission?: Yes - Time Time Spent with patient: 15-24 minutes Medications reviewed and adjusted accordingly: Yes Anticipated discharge: Home Within: Other - Inpatient Certification Medical Necessity: Need Close Monitoring Due to Risk of Patient Decompensation 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
[2017-11-27 10:39] LABS: ARTERIAL BLOOD BASE EXCESS 9.3 mmol/L; ARTERIAL BLOOD FIO2 2.5L; ARTERIAL BLOOD H2CO3 2.06 mmol/L (1.05-1.35); ARTERIAL BLOOD HCO3 36.4 mmol/L (20-26); ARTERIAL BLOOD O2 SATURATION 94.5 % (94-98); ARTERIAL BLOOD PCO2 68.3 mmHg (35-45); ARTERIAL BLOOD PH 7.35 (7.35-7.45); ARTERIAL BLOOD PO2 78.5 mmHg (80-100); ARTERIAL BLOOD TOTAL CO2 38.5 mmol/L (21-25)
[2017-11-27 11:02] LABS: ANION GAP 9 (5-19); BLOOD UREA NITROGEN 32 mg/dL (7-20); CALCIUM 9.4 mg/dL (8.4-10.2); CARBON DIOXIDE 38 mmol/L (22-30); CHLORIDE 90 mmol/L (98-107); GLUCOSE 142 mg/dL (75-110); POTASSIUM 4.2 mmol/L (3.6-5.0); SODIUM 136.8 mmol/L (137-145)
[2017-11-27] MEDS: ASPIRIN 81 MG TABLET, CHEWABLE PO SCH (22:06)
[2017-11-27] MEDS: ATORVASTATIN CALCIUM 10 MG TABLET PO SCH (22:07)
[2017-11-28] MEDS: HEPARIN SOD (PORCINE) 5,000 UNIT/ML 1 ML SYRINGE SUBCUT SCH ×3 (05:49→21:50)
[2017-11-28] MEDS: CLONIDINE HCL 0.2 MG TABLET PO SCH ×3 (05:52→21:49)
[2017-11-28 06:41] LABS: ABSOLUTE LYMPHOCYTES (AUTO) 0.8 10^3/uL (0.5-4.7); ABSOLUTE MONOCYTES (AUTO) 0.4 10^3/uL (0.1-1.4); ABSOLUTE NEUT (AUTO) 1.7 10^3/uL (1.7-8.2); BASOPHILS % (AUTO) 0.5 % (0-2); EOSINOPHILS % (AUTO) 1.6 % (0-6); HEMATOCRIT 26.7 % (36.0-47.0); HEMOGLOBIN 8.7 g/dL (12.0-15.5); MEAN CORPUSCULAR HEMOGLOBIN 30.4 pg (27.0-33.4); MEAN CORPUSCULAR HGB CONC 32.7 g/dL (32.0-36.0); MEAN CORPUSCULAR VOLUME 93 fl (80-97); MONOCYTES % (AUTO) 13.7 % (3-13); PLATELET COUNT 199 10^3/uL (150-450); RED BLOOD COUNT 2.88 10^6/uL (3.72-5.28); RED CELL DISTRIBUTION WIDTH 16.5 % (11.5-14.0); SEGMENTED NEUTROPHILS % (AUTO) 58.2 % (42-78); TOTAL CELLS COUNTED % (AUTO) 100 %
[2017-11-28 07:05] LABS: ANION GAP 11 (5-19); BLOOD UREA NITROGEN 32 mg/dL (7-20); CALCIUM 9.3 mg/dL (8.4-10.2); CARBON DIOXIDE 34 mmol/L (22-30); CHLORIDE 90 mmol/L (98-107); GLUCOSE 122 mg/dL (75-110); SODIUM 135.3 mmol/L (137-145)
[2017-11-28] MEDS: POLYETHYLENE GLYCOL 3350 POWDER 17 GM/1 PACKET PO SCH (10:35)
[2017-11-28] MEDS: ISOSORBIDE MONONITRATE 30 MG TAB.ER.24H PO SCH (10:35)
[2017-11-28] MEDS: SACUBITRIL/VALSARTAN 49 MG/51 MG TABLET PO SCH ×2 (10:35→21:47)
[2017-11-28] MEDS: TORSEMIDE 20 MG TABLET PO SCH (10:36)
[2017-11-28] MEDS: CARVEDILOL 6.25 MG TABLET PO SCH ×2 (10:36→21:49)
[2017-11-28] MEDS: RANOLAZINE 500 MG TAB.SR.12H PO SCH ×2 (10:36→21:57)
[2017-11-28] MEDS: EPLERENONE 25 MG TABLET PO SCH (10:36)
--- NOTE | 2017-11-28 19:32 | PDOC PROGRESS REPORT ---
Subjective Progress Note for:: 11/28/17 Subjective:: Patient condition about the same, patient to be downgraded to floor Reason For Visit: ALTERED MENTAL STATUS ELEVATED TROPONIN Physical Exam Vital Signs: Temp Pulse Resp BP Pulse Ox 97.4 F 67 12 147/76 H 99 11/28/17 15:15 11/28/17 15:15 11/28/17 16:50 11/28/17 15:15 11/28/17 16:50 Intake & Output 11/27/17 11/28/17 11/29/17 06:59 06:59 06:59 Intake Total 1284 965 297 Balance 1284 965 297 Weight 109.8 kg 110.9 kg General appearance: PRESENT: no acute distress Eye exam: PRESENT: PERRLA Respiratory exam: PRESENT: clear to auscultation kishan Cardiovascular exam: PRESENT: +S1, +S2 GI/Abdominal exam: PRESENT: soft Results Laboratory Results: 11/28/17 05:45 11/28/17 05:45 11/28/17 11/28/17 05:45 05:45 WBC 3.0 L RBC 2.88 L Hgb 8.7 L Hct 26.7 L MCV 93 MCH 30.4 MCHC 32.7 RDW 16.5 H Plt Count 199 Seg Neutrophils % 58.2 Lymphocytes % 26.0 Monocytes % 13.7 H Eosinophils % 1.6 Basophils % 0.5 Absolute Neutrophils 1.7 Absolute Lymphocytes 0.8 Absolute Monocytes 0.4 Absolute Eosinophils 0.0 Absolute Basophils 0.0 Sodium 135.3 L Potassium 5.0 Chloride 90 L Carbon Dioxide 34 H Anion Gap 11 BUN 32 H Creatinine 1.50 H Est GFR ( Amer) 41 L Est GFR (Non-Af Amer) 34 L Glucose 122 H Calcium 9.3 11/18/17 11/18/17 11/18/17 05:17 05:17 12:05 Creatine Kinase 102 84 CK-MB (CK-2) 8.35 H Troponin I 4.140 11/18/17 11/18/17 11/18/17 12:05 17:30 17:30 Creatine Kinase 69 CK-MB (CK-2) 6.04 H 4.83 H Troponin I 3.240 2.560 Impressions: Chest X-Ray 11/17/17 22:13 IMPRESSION: No significant change. Assessment & Plan - Diagnosis (1) Non-STEMI (non-ST elevated myocardial infarction) Is this a current diagnosis for this admission?: Yes (2) Acute systolic (congestive) heart failure Is this a current diagnosis for this admission?: Yes (3) Hypercapnic respiratory failure Qualifiers: Chronicity: acute on chronic Qualified Code(s): J96.22 - Acute and chronic respiratory failure with hypercapnia Is this a current diagnosis for this admission?: Yes (4) Dementia Qualifiers: Dementia type: unspecified type Dementia behavioral disturbance: without behavioral disturbance Qualified Code(s): F03.90 - Unspecified dementia without behavioral disturbance Is this a current diagnosis for this admission?: Yes
[2017-11-28] MEDS: ATORVASTATIN CALCIUM 10 MG TABLET PO SCH (21:50)
[2017-11-28] MEDS: ASPIRIN 81 MG TABLET, CHEWABLE PO SCH (21:50)
[2017-11-29 05:52] LABS: ANION GAP 9 (5-19); BLOOD UREA NITROGEN 30 mg/dL (7-20); CALCIUM 9.4 mg/dL (8.4-10.2); CARBON DIOXIDE 38 mmol/L (22-30); CHLORIDE 91 mmol/L (98-107); GLUCOSE 113 mg/dL (75-110); POTASSIUM 4.7 mmol/L (3.6-5.0); SODIUM 137.7 mmol/L (137-145)
[2017-11-29] MEDS: CLONIDINE HCL 0.2 MG TABLET PO SCH ×3 (06:22→22:16)
[2017-11-29] MEDS: HEPARIN SOD (PORCINE) 5,000 UNIT/ML 1 ML SYRINGE SUBCUT SCH ×3 (06:22→22:19)
[2017-11-29] MEDS: POLYETHYLENE GLYCOL 3350 POWDER 17 GM/1 PACKET PO SCH (09:25)
[2017-11-29] MEDS: EPLERENONE 25 MG TABLET PO SCH (09:26)
[2017-11-29] MEDS: ISOSORBIDE MONONITRATE 30 MG TAB.ER.24H PO SCH (09:26)
[2017-11-29] MEDS: CARVEDILOL 6.25 MG TABLET PO SCH ×2 (09:26→22:16)
[2017-11-29] MEDS: TORSEMIDE 20 MG TABLET PO SCH (09:27)
[2017-11-29] MEDS: SACUBITRIL/VALSARTAN 49 MG/51 MG TABLET PO SCH ×2 (09:27→22:17)
[2017-11-29] MEDS: RANOLAZINE 500 MG TAB.SR.12H PO SCH ×2 (09:30→22:24)
--- NOTE | 2017-11-29 18:28 | PDOC PROGRESS REPORT ---
Subjective Progress Note for:: 11/29/17 Subjective:: She was seen by the bedside, no new complaints Reason For Visit: ALTERED MENTAL STATUS ELEVATED TROPONIN Physical Exam Vital Signs: Temp Pulse Resp BP Pulse Ox 97.1 F 70 14 148/80 H 100 11/29/17 15:15 11/29/17 15:15 11/29/17 15:15 11/29/17 15:15 11/29/17 15:15 Intake & Output 11/28/17 11/29/17 11/30/17 06:59 06:59 06:59 Intake Total 965 891 494 Balance 965 891 494 Weight 110.9 kg 110.4 kg General appearance: PRESENT: no acute distress Eye exam: PRESENT: PERRLA Respiratory exam: PRESENT: clear to auscultation kishan Cardiovascular exam: PRESENT: +S1, +S2 GI/Abdominal exam: PRESENT: soft Results Laboratory Results: 11/28/17 05:45 11/29/17 04:34 11/29/17 04:34 Sodium 137.7 Potassium 4.7 Chloride 91 L Carbon Dioxide 38 H Anion Gap 9 BUN 30 H Creatinine 1.65 H Est GFR ( Amer) 37 L Est GFR (Non-Af Amer) 30 L Glucose 113 H Calcium 9.4 11/18/17 11/18/17 11/18/17 05:17 05:17 12:05 Creatine Kinase 102 84 CK-MB (CK-2) 8.35 H Troponin I 4.140 11/18/17 11/18/17 11/18/17 12:05 17:30 17:30 Creatine Kinase 69 CK-MB (CK-2) 6.04 H 4.83 H Troponin I 3.240 2.560 Impressions: Chest X-Ray 11/17/17 22:13 IMPRESSION: No significant change. Assessment & Plan - Diagnosis (1) Non-STEMI (non-ST elevated myocardial infarction) Is this a current diagnosis for this admission?: Yes (2) Acute systolic (congestive) heart failure Is this a current diagnosis for this admission?: Yes (3) Hypercapnic respiratory failure Qualifiers: Chronicity: acute on chronic Qualified Code(s): J96.22 - Acute and chronic respiratory failure with hypercapnia Is this a current diagnosis for this admission?: Yes (4) Dementia Qualifiers: Dementia type: unspecified type Dementia behavioral disturbance: without behavioral disturbance Qualified Code(s): F03.90 - Unspecified dementia without behavioral disturbance Is this a current diagnosis for this admission?: Yes
[2017-11-29] MEDS: ASPIRIN 81 MG TABLET, CHEWABLE PO SCH (22:16)
[2017-11-29] MEDS: ATORVASTATIN CALCIUM 10 MG TABLET PO SCH (22:16)
[2017-11-30] MEDS: HEPARIN SOD (PORCINE) 5,000 UNIT/ML 1 ML SYRINGE SUBCUT SCH ×3 (06:02→21:44)
[2017-11-30] MEDS: CLONIDINE HCL 0.2 MG TABLET PO SCH ×3 (06:02→21:46)
[2017-11-30 06:03] LABS: ANION GAP 10 (5-19); BLOOD UREA NITROGEN 32 mg/dL (7-20); CALCIUM 9.8 mg/dL (8.4-10.2); CARBON DIOXIDE 34 mmol/L (22-30); CHLORIDE 91 mmol/L (98-107); GLUCOSE 111 mg/dL (75-110); POTASSIUM 4.9 mmol/L (3.6-5.0); SODIUM 134.9 mmol/L (137-145)
[2017-11-30] MEDS: POLYETHYLENE GLYCOL 3350 POWDER 17 GM/1 PACKET PO SCH (10:26)
[2017-11-30] MEDS: EPLERENONE 25 MG TABLET PO SCH (10:26)
[2017-11-30] MEDS: ISOSORBIDE MONONITRATE 30 MG TAB.ER.24H PO SCH (10:27)
[2017-11-30] MEDS: CARVEDILOL 6.25 MG TABLET PO SCH ×2 (10:27→21:46)
[2017-11-30] MEDS: SACUBITRIL/VALSARTAN 49 MG/51 MG TABLET PO SCH ×2 (10:27→21:46)
[2017-11-30] MEDS: RANOLAZINE 500 MG TAB.SR.12H PO SCH ×2 (12:30→21:45)
[2017-11-30] MEDS: TORSEMIDE 20 MG TABLET PO SCH (12:30)
--- NOTE | 2017-11-30 17:40 | PDOC PROGRESS REPORT ---
Subjective Progress Note for:: 11/30/17 Subjective:: Patient is condition about the same, palliative care consult ordered Reason For Visit: ALTERED MENTAL STATUS ELEVATED TROPONIN Physical Exam Vital Signs: Temp Pulse Resp BP Pulse Ox 97.4 F 72 14 146/77 H 100 11/30/17 16:00 11/30/17 16:00 11/30/17 16:00 11/30/17 16:00 11/30/17 16:00 Intake & Output 11/29/17 11/30/17 12/01/17 06:59 06:59 06:59 Intake Total 891 494 Balance 891 494 Weight 110.4 kg 109.4 kg General appearance: PRESENT: no acute distress Eye exam: PRESENT: PERRLA Cardiovascular exam: PRESENT: +S1, +S2 GI/Abdominal exam: PRESENT: soft Neurological exam: PRESENT: alert Results Laboratory Results: 11/28/17 05:45 11/30/17 04:51 11/30/17 04:51 Sodium 134.9 L Potassium 4.9 Chloride 91 L Carbon Dioxide 34 H Anion Gap 10 BUN 32 H Creatinine 1.37 H Est GFR ( Amer) 45 L Est GFR (Non-Af Amer) 37 L Glucose 111 H Calcium 9.8 11/18/17 11/18/17 11/18/17 05:17 05:17 12:05 Creatine Kinase 102 84 CK-MB (CK-2) 8.35 H Troponin I 4.140 11/18/17 11/18/17 11/18/17 12:05 17:30 17:30 Creatine Kinase 69 CK-MB (CK-2) 6.04 H 4.83 H Troponin I 3.240 2.560 Impressions: Chest X-Ray 11/17/17 22:13 IMPRESSION: No significant change. Assessment & Plan - Diagnosis (1) Non-STEMI (non-ST elevated myocardial infarction) Is this a current diagnosis for this admission?: Yes (2) Acute systolic (congestive) heart failure Is this a current diagnosis for this admission?: Yes (3) Hypercapnic respiratory failure Qualifiers: Chronicity: acute on chronic Qualified Code(s): J96.22 - Acute and chronic respiratory failure with hypercapnia Is this a current diagnosis for this admission?: Yes (4) Dementia Qualifiers: Dementia type: unspecified type Dementia behavioral disturbance: without behavioral disturbance Qualified Code(s): F03.90 - Unspecified dementia without behavioral disturbance Is this a current diagnosis for this admission?: Yes
[2017-11-30] MEDS: ASPIRIN 81 MG TABLET, CHEWABLE PO SCH (21:46)
[2017-11-30] MEDS: ATORVASTATIN CALCIUM 10 MG TABLET PO SCH (21:46)
[2017-12-01] MEDS: HEPARIN SOD (PORCINE) 5,000 UNIT/ML 1 ML SYRINGE SUBCUT SCH ×3 (05:32→21:46)
[2017-12-01] MEDS: CLONIDINE HCL 0.2 MG TABLET PO SCH ×3 (05:32→21:45)
[2017-12-01] MEDS: ISOSORBIDE MONONITRATE 30 MG TAB.ER.24H PO SCH (09:28)
[2017-12-01] MEDS: TORSEMIDE 20 MG TABLET PO SCH (09:28)
[2017-12-01] MEDS: SACUBITRIL/VALSARTAN 49 MG/51 MG TABLET PO SCH ×2 (09:29→21:46)
[2017-12-01] MEDS: EPLERENONE 25 MG TABLET PO SCH (09:29)
[2017-12-01] MEDS: CARVEDILOL 6.25 MG TABLET PO SCH ×2 (09:29→21:46)
[2017-12-01] MEDS: RANOLAZINE 500 MG TAB.SR.12H PO SCH ×2 (09:29→21:46)
[2017-12-01] MEDS: POLYETHYLENE GLYCOL 3350 POWDER 17 GM/1 PACKET PO SCH (09:31)
--- NOTE | 2017-12-01 18:16 | PDOC PROGRESS REPORT ---
Subjective Progress Note for:: 12/01/17 Subjective:: Patient was seen by the bedside, the condition is about the same, palliative care consult ordered Reason For Visit: ALTERED MENTAL STATUS ELEVATED TROPONIN Physical Exam Vital Signs: Temp Pulse Resp BP Pulse Ox 97.5 F 83 20 162/85 H 98 12/01/17 16:00 12/01/17 16:00 12/01/17 16:00 12/01/17 16:00 12/01/17 16:00 Intake & Output 11/30/17 12/01/17 12/02/17 06:59 06:59 06:59 Intake Total 494 1159 746 Balance 494 1159 746 Weight 109.4 kg 109.7 kg General appearance: PRESENT: no acute distress Eye exam: PRESENT: PERRLA Respiratory exam: PRESENT: rhonchi Cardiovascular exam: PRESENT: +S1, +S2 GI/Abdominal exam: PRESENT: soft Neurological exam: PRESENT: alert Results Laboratory Results: 11/28/17 05:45 11/30/17 04:51 11/18/17 11/18/17 11/18/17 05:17 05:17 12:05 Creatine Kinase 102 84 CK-MB (CK-2) 8.35 H Troponin I 4.140 11/18/17 11/18/17 11/18/17 12:05 17:30 17:30 Creatine Kinase 69 CK-MB (CK-2) 6.04 H 4.83 H Troponin I 3.240 2.560 Impressions: Chest X-Ray 11/17/17 22:13 IMPRESSION: No significant change. Assessment & Plan - Diagnosis (1) Non-STEMI (non-ST elevated myocardial infarction) Is this a current diagnosis for this admission?: Yes (2) Acute systolic (congestive) heart failure Is this a current diagnosis for this admission?: Yes (3) Hypercapnic respiratory failure Qualifiers: Chronicity: acute on chronic Qualified Code(s): J96.22 - Acute and chronic respiratory failure with hypercapnia Is this a current diagnosis for this admission?: Yes (4) Dementia Qualifiers: Dementia type: unspecified type Dementia behavioral disturbance: without behavioral disturbance Qualified Code(s): F03.90 - Unspecified dementia without behavioral disturbance Is this a current diagnosis for this admission?: Yes
[2017-12-01] MEDS: ATORVASTATIN CALCIUM 10 MG TABLET PO SCH (21:44)
[2017-12-01] MEDS: ASPIRIN 81 MG TABLET, CHEWABLE PO SCH (21:45)
--- NOTE | 2017-12-01 23:18 | Palliative Consultation Report ---
Consultation From:: ARNULFO PERALES Consult Reason: CHF and non-STEMI - HPI HPI: Palliative Care Consultation Visit 12/01/17 9:30 AM Appreciate palliative referral with this 77 year old woman who has had an interesting history for the past six months. She is alert today and able to talk with me, but her conversation is limited and her mentation is still a little slow. She could tell me that she lives at [facility] now and she cannot walk. She said she likes it there , "most" of the people are nice to her and the food is good. I asked her if she had any family members that help with her care and she could tell me that she has some cousins who visit and bring her things. She could not tell me if anyone is her health care power of securities attorney or can make legal decisions for her. She says she wants to go back to [facility] and she feels better than when she came to hospital. Her appetite is good. Per her records at [facility], Ms. Ledezma has been admitted 5 times before this admission since May of 2017. Her admission 06/01/17- 06/09/17 was due to a fall she suffered at home and was not able to get up alone. She was not found for about 3 days. Since that time, she has not been able to stand or walk and I could not find a definite etiology for this paraplegia problem. She has recently had spinal tap to check for Guillian Felton' syndrome, but it CSF was normal at this time. She has been receiving physical therapy but has not improved. The other 5 admissions have been for CHF and respiratory distress. Patient uses Bipap at night. This admission was for Altered mental status in addition to her usual symptoms and she was found to have elevated troponins and NonSTEMI was diagnosed. She deserves During this admission, she has had DNR ordered which is very appropriate for her total condition. Apparently she has resisted this in the past, but as her mental status has declined along with her physical status, aggressive resuscitation and intubation would most likely be futile and would not have good outcome. Today, Ms. Ledezma denies pain or shortness of breath and says she feels ready to go back to [facility]. Onset: Just prior to arrival Onset/Duration: Gradual Quality of Pain: No pain Associated Symptoms: Shortness of breath Exacerbated by: Movement Past Medical History(Consults) - General Home Medications: Atorvastatin Calcium [Lipitor 10 mg Tablet] 10 mg PO QHS 11/08/17 Clonidine HCl [Catapres 0.2 mg Tablet] 0.2 mg PO Q12 11/08/17 Nitroglycerin [Nitrostat] 0.4 mg SL Q5MP PRN 11/08/17 Ranolazine [Ranexa] 500 mg PO Q12 11/08/17 Sacubitril/Valsartan [Entresto 49 mg-51 mg Tablet] 1 tab PO Q12 11/08/17 Torsemide [Demadex 20 mg Tablet] 20 mg PO DAILY #90 tablet 11/16/17 Carvedilol [Coreg 12.5 mg Tablet] 12.5 mg PO Q12 11/18/17 Allergies/Adverse Reactions: Penicillins Allergy (Unknown, Verified 11/11/17 11:08) Pruritis - Social History Lives with: Assisted Family History: Hypertension Parental Family History Reviewed: No Children Family History Reviewed: No Sibling(s) Family History Reviewed.: No Smoking Status: Unknown if Ever Smoked Frequency of Alcohol Use: None Hx Recreational Drug Use: No Drugs: None Hx Prescription Drug Abuse: No - Past Medical History Cardiac Medical History: Reports: Hx Congestive Heart Failure, Hx Coronary Artery Disease, Hx Heart Attack, Hx Hypercholesterolemia, Hx Hypertension Pulmonary Medical History: Reports: Hx Respiratory Failure Renal/ Medical History: Denies: Hx Peritoneal Dialysis Psychiatric Medical History: Reports: Hx Dementia Denies: Hx Depression Hematology: Reports: Anemia - Surgical History Past Surgical History: Reports: Hx Tonsillectomy Review of systems Constitutional: Weakness, Recent illness Cardiovascular: Orthopnea, Dyspnea Respiratory: Short of breath Neurological/Psychological: Weakness, Paralysis Ojective:Exam Vital Signs: Temp Pulse Resp BP Pulse Ox 97.7 F 83 13 160/80 H 100 12/01/17 19:36 12/01/17 19:36 12/01/17 19:36 12/01/17 19:36 12/01/17 19:36 Intake & Output 11/30/17 12/01/17 12/02/17 06:59 06:59 06:59 Intake Total 494 7562 746 Balance 494 1152 748 Weight 109.4 kg 109.7 kg - General General Appearance: Alert In distress: None - Awake, alert, speech clear, eating breakfast with no swallowing difficulty. - HEENT Head: Normocephalic, Atraumatic Eyes: Normal - Neck Neck: Normal - Respiratory Respiratory Status: No respiratory distress Chest Status: Nontender Breath sounds: Clear - Cardiovascular Rhythm: Regular Heart Sounds: S1 appreciated, S2 appreciated - Neurological Cognition: Normal Orientation: Alert, Oriented to person, Oriented to place, Oriented to time - Psychological Associated symptoms: Normal affect Objective-Diagnostic Laboratory: 11/28/17 05:45 11/30/17 04:51 11/18/17 11/18/17 11/18/17 05:17 05:17 12:05 Creatine Kinase 102 84 CK-MB (CK-2) 8.35 H Troponin I 4.140 11/18/17 11/18/17 11/18/17 12:05 17:30 17:30 Creatine Kinase 69 CK-MB (CK-2) 6.04 H 4.83 H Troponin I 3.240 2.560 Plan and Recommendation Plan and Recommendation: Ms. Ledezma states that she wants to go back to [facility] for care. She is a good candidate for hospice if Dr. Valiente agrees. She also needs to name a health care power of securities attorney as soon as Dr. Valiente feels she is mentally competant to do so. I will be happy to speak to her about these things if OK with Dr. Sue. She does respond well when she comes to the hospital and returns to [facility] in a better condition. However, the stabilty does not last long. If she is agreeable to avoiding return to hospital, hospice will be appropriate. Perhaps with regular nursing visits and proactive medication changes the episodes of CHF can be controlled before she needs hospitalizaiton. This is a difficult decision because she does improve with hospital treatment and seems to have a good quality of life with no chronic pain in spite of her inabiltiy to walk or stand. However, the episodes are very frequent and are becoming more severe . I will talk with her tomorrow about her wishes for care and about HCPOA determination. Appreciate opportunity to participate with care . - Time Spent with Patient Time spent with patient: 40 to 60 Minutes Time: 45 min
[2017-12-02] MEDS: CLONIDINE HCL 0.2 MG TABLET PO SCH ×3 (05:49→21:23)
[2017-12-02] MEDS: HEPARIN SOD (PORCINE) 5,000 UNIT/ML 1 ML SYRINGE SUBCUT SCH ×3 (05:49→21:24)
[2017-12-02] MEDS: CARVEDILOL 6.25 MG TABLET PO SCH ×2 (09:18→21:24)
[2017-12-02] MEDS: POLYETHYLENE GLYCOL 3350 POWDER 17 GM/1 PACKET PO SCH (09:18)
[2017-12-02] MEDS: SACUBITRIL/VALSARTAN 49 MG/51 MG TABLET PO SCH ×2 (09:18→21:23)
[2017-12-02] MEDS: ISOSORBIDE MONONITRATE 30 MG TAB.ER.24H PO SCH (09:18)
[2017-12-02] MEDS: EPLERENONE 25 MG TABLET PO SCH (09:18)
[2017-12-02] MEDS: TORSEMIDE 20 MG TABLET PO SCH (09:18)
[2017-12-02] MEDS: RANOLAZINE 500 MG TAB.SR.12H PO SCH ×2 (09:18→21:23)
--- NOTE | 2017-12-02 19:37 | PDOC PROGRESS REPORT ---
Subjective Progress Note for:: 12/02/17 Subjective:: She was seen by palliative care, no new complaints Reason For Visit: ALTERED MENTAL STATUS ELEVATED TROPONIN Physical Exam Vital Signs: Temp Pulse Resp BP Pulse Ox 98.2 F 77 19 150/71 H 99 12/02/17 15:06 12/02/17 15:06 12/02/17 15:06 12/02/17 15:06 12/02/17 15:06 Intake & Output 12/01/17 12/02/17 12/03/17 06:59 06:59 06:59 Intake Total 1159 1066 630 Balance 1159 1066 630 Weight 109.7 kg 111.3 kg General appearance: PRESENT: no acute distress Eye exam: PRESENT: PERRLA Respiratory exam: PRESENT: clear to auscultation kishan Cardiovascular exam: PRESENT: +S2 Murmur grade: 3 Neurological exam: PRESENT: alert Results Laboratory Results: 11/28/17 05:45 11/30/17 04:51 11/18/17 11/18/17 11/18/17 05:17 05:17 12:05 Creatine Kinase 102 84 CK-MB (CK-2) 8.35 H Troponin I 4.140 11/18/17 11/18/17 11/18/17 12:05 17:30 17:30 Creatine Kinase 69 CK-MB (CK-2) 6.04 H 4.83 H Troponin I 3.240 2.560 Impressions: Chest X-Ray 11/17/17 22:13 IMPRESSION: No significant change. Assessment & Plan - Diagnosis (1) Non-STEMI (non-ST elevated myocardial infarction) Is this a current diagnosis for this admission?: Yes (2) Acute systolic (congestive) heart failure Is this a current diagnosis for this admission?: Yes (3) Hypercapnic respiratory failure Qualifiers: Chronicity: acute on chronic Qualified Code(s): J96.22 - Acute and chronic respiratory failure with hypercapnia Is this a current diagnosis for this admission?: Yes (4) Dementia Qualifiers: Dementia type: unspecified type Dementia behavioral disturbance: without behavioral disturbance Qualified Code(s): F03.90 - Unspecified dementia without behavioral disturbance Is this a current diagnosis for this admission?: Yes
[2017-12-02] MEDS: ATORVASTATIN CALCIUM 10 MG TABLET PO SCH (21:24)
[2017-12-02] MEDS: ASPIRIN 81 MG TABLET, CHEWABLE PO SCH (21:24)
--- NOTE | 2017-12-03 00:45 | Progress Note ---
Provider Note Provider Note: Palliative care follow up visit 12/02/17 1:15 PM Follow up visit with Mrs Ledezma who is more alert today and talkative. She is finishing her lunch. No cough or sign of aspiration. She was willing to talk and was following conversation well. I talked with Ms Ledezma about having someone named to make decisions for her if she ever gets so sick that she cannot make decisions for herself. She said she has two cousins that she would trust to do this, Kathie and Rima. She was agreeable to signing a Health care power of trademark attorney document. I tried to call her cousin Rima to discuss this with her and to get Chary number, but there was no answer. I left her a message asking her to call me back on patients request. We completed the HCPOA form in front of the [facility] and she notarized it for patient. I asked to have the document scanned into EMR and left original on chart with note to send it to [facility]. I also discussed hospice with her and told her they could follow her at [facility] and help her to stay there and be comfortable instead of having to come back to the hospital so often. She said she didnt want that because she didnt mind coming to the hospital and she always gets better when she comes here. She denies pain today or any new symptoms and said she is ready to go back to [facility] today. Breath sounds are still diminished in bases bilaterally and patient is weak. However, her speech is clear and she answers all questions appropriately. She denies pain and is able to rest well in her bed. Will follow.
[2017-12-03] MEDS: HEPARIN SOD (PORCINE) 5,000 UNIT/ML 1 ML SYRINGE SUBCUT SCH ×3 (05:37→22:13)
[2017-12-03] MEDS: CLONIDINE HCL 0.2 MG TABLET PO SCH ×3 (05:37→22:14)
[2017-12-03] MEDS: RANOLAZINE 500 MG TAB.SR.12H PO SCH ×2 (10:21→22:14)
[2017-12-03] MEDS: POLYETHYLENE GLYCOL 3350 POWDER 17 GM/1 PACKET PO SCH (10:21)
[2017-12-03] MEDS: CARVEDILOL 6.25 MG TABLET PO SCH ×2 (10:21→22:13)
[2017-12-03] MEDS: TORSEMIDE 20 MG TABLET PO SCH (10:22)
[2017-12-03] MEDS: EPLERENONE 25 MG TABLET PO SCH (10:22)
[2017-12-03] MEDS: ISOSORBIDE MONONITRATE 30 MG TAB.ER.24H PO SCH (10:22)
[2017-12-03] MEDS: SACUBITRIL/VALSARTAN 49 MG/51 MG TABLET PO SCH ×2 (10:22→22:14)
--- NOTE | 2017-12-03 19:00 | PDOC PROGRESS REPORT ---
Subjective Progress Note for:: 12/03/17 Subjective:: Patient denied chest pain. Remain on supplemental oxygen via nasal cannula. No abdominal pain, nausea or vomiting. No fever or chills. Reason For Visit: ALTERED MENTAL STATUS ELEVATED TROPONIN Physical Exam Vital Signs: Temp Pulse Resp BP Pulse Ox 97.5 F 74 20 132/72 H 97 12/03/17 15:52 12/03/17 15:52 12/03/17 15:52 12/03/17 15:52 12/03/17 16:06 Intake & Output 12/02/17 12/03/17 12/04/17 06:59 06:59 06:59 Intake Total 1066 630 480 Balance 1066 630 480 Weight 111.3 kg 112.3 kg General appearance: PRESENT: no acute distress, morbidly obese Head exam: PRESENT: atraumatic, normocephalic Mouth exam: PRESENT: moist - fairly Respiratory exam: PRESENT: decreased breath sounds - at lung bases Cardiovascular exam: PRESENT: RRR. ABSENT: diastolic murmur, rubs, systolic murmur Murmur grade: 3 GI/Abdominal exam: PRESENT: normal bowel sounds, soft. ABSENT: organolmegaly, tenderness Extremities exam: ABSENT: pedal edema Musculoskeletal exam: PRESENT: deformity - related to multiple joints involvement with arthritis Neurological exam: PRESENT: alert, awake Psychiatric exam: PRESENT: appropriate affect, normal mood. ABSENT: homicidal ideation, suicidal ideation Skin exam: PRESENT: dry, intact, warm. ABSENT: cyanosis, rash Results Laboratory Results: 11/28/17 05:45 11/30/17 04:51 11/18/17 11/18/17 11/18/17 05:17 05:17 12:05 Creatine Kinase 102 84 CK-MB (CK-2) 8.35 H Troponin I 4.140 11/18/17 11/18/17 11/18/17 12:05 17:30 17:30 Creatine Kinase 69 CK-MB (CK-2) 6.04 H 4.83 H Troponin I 3.240 2.560 Impressions: Chest X-Ray 11/17/17 22:13 IMPRESSION: No significant change. Assessment & Plan - Diagnosis (1) Non-STEMI (non-ST elevated myocardial infarction) Is this a current diagnosis for this admission?: Yes Plan: See covering attending physician orders. (2) Acute systolic (congestive) heart failure Is this a current diagnosis for this admission?: Yes Plan: See covering attending physician orders. (3) Hypertension Qualifiers: Hypertension type: essential hypertension Qualified Code(s): I10 - Essential (primary) hypertension Is this a current diagnosis for this admission?: Yes Plan: See covering attending physician orders. (4) Hypercapnic respiratory failure Qualifiers: Chronicity: acute on chronic Qualified Code(s): J96.22 - Acute and chronic respiratory failure with hypercapnia Is this a current diagnosis for this admission?: Yes Plan: See covering attending physician orders. (5) Dementia Qualifiers: Dementia type: Alzheimer's disease Dementia behavioral disturbance: without behavioral disturbance Is this a current diagnosis for this admission?: Yes Plan: See covering attending physician orders. (6) Morbid obesity Is this a current diagnosis for this admission?: Yes Plan: See covering attending physician orders. - Time Time Spent with patient: 25-34 minutes Medications reviewed and adjusted accordingly: Yes Anticipated discharge: SNF Within: Other - Inpatient Certification Based on my medical assessment, after consideration of the patient's comorbidities, presenting symptoms, or acuity I expect that the services needed warrant INPATIENT care.: Yes I certify that my determination is in accordance with my understanding of Medicare's requirements for reasonable and necessary INPATIENT services [42 CFR 412.3e].: Yes Medical Necessity: Need Close Monitoring Due to Risk of Patient Decompensation, Need For Continuous Telemetry Monitoring, Risk of Complication if Not Cared For in Hospital Post Hospital Care: D/C or Transfer Summary - Plan Summary Plan Summary: See covering attending physician orders.
[2017-12-03] MEDS: ASPIRIN 81 MG TABLET, CHEWABLE PO SCH (22:05)
[2017-12-03] MEDS: ATORVASTATIN CALCIUM 10 MG TABLET PO SCH (22:14)
[2017-12-04 05:41] LABS: ABSOLUTE LYMPHOCYTES (AUTO) 0.7 10^3/uL (0.5-4.7); ABSOLUTE MONOCYTES (AUTO) 0.5 10^3/uL (0.1-1.4); ABSOLUTE NEUT (AUTO) 1.3 10^3/uL (1.7-8.2); BASOPHILS % (AUTO) 0.7 % (0-2); EOSINOPHILS % (AUTO) 1.4 % (0-6); HEMATOCRIT 25.8 % (36.0-47.0); HEMOGLOBIN 8.5 g/dL (12.0-15.5); LYMPHOCYTES % (AUTO) 27.2 % (13-45); MEAN CORPUSCULAR HEMOGLOBIN 30.1 pg (27.0-33.4); MEAN CORPUSCULAR HGB CONC 32.8 g/dL (32.0-36.0); MEAN CORPUSCULAR VOLUME 92 fl (80-97); MONOCYTES % (AUTO) 18.3 % (3-13); PLATELET COUNT 181 10^3/uL (150-450); RED BLOOD COUNT 2.81 10^6/uL (3.72-5.28); SEGMENTED NEUTROPHILS % (AUTO) 52.4 % (42-78); TOTAL CELLS COUNTED % (AUTO) 100 %; WHITE BLOOD COUNT 2.5 10^3/uL (4.0-10.5)
[2017-12-04] MEDS: CLONIDINE HCL 0.2 MG TABLET PO SCH ×3 (06:10→22:48)
[2017-12-04] MEDS: HEPARIN SOD (PORCINE) 5,000 UNIT/ML 1 ML SYRINGE SUBCUT SCH ×3 (06:10→22:47)
[2017-12-04 06:22] LABS: ALANINE AMINOTRANSFERASE 18 U/L (9-52); ALBUMIN 3.3 g/dL (3.5-5.0); ALKALINE PHOSPHATASE 56 U/L (38-126); ANION GAP 10 (5-19); ASPARTATE AMINO TRANSFERASE 18 U/L (14-36); BILIRUBIN,DIRECT 0.6 mg/dL (0.0-0.4); BILIRUBIN,TOTAL 0.8 mg/dL (0.2-1.3); BLOOD UREA NITROGEN 31 mg/dL (7-20); CALCIUM 9.3 mg/dL (8.4-10.2); CARBON DIOXIDE 38 mmol/L (22-30); CHLORIDE 88 mmol/L (98-107); GLUCOSE 105 mg/dL (75-110); POTASSIUM 5.1 mmol/L (3.6-5.0); SODIUM 135.7 mmol/L (137-145); TOTAL PROTEIN 6.8 g/dL (6.3-8.2)
[2017-12-04] MEDS: SACUBITRIL/VALSARTAN 49 MG/51 MG TABLET PO SCH ×2 (11:30→22:48)
[2017-12-04] MEDS: ISOSORBIDE MONONITRATE 30 MG TAB.ER.24H PO SCH (11:30)
[2017-12-04] MEDS: RANOLAZINE 500 MG TAB.SR.12H PO SCH ×2 (11:31→22:48)
[2017-12-04] MEDS: TORSEMIDE 20 MG TABLET PO SCH (11:31)
[2017-12-04] MEDS: CARVEDILOL 6.25 MG TABLET PO SCH ×2 (11:31→22:48)
[2017-12-04] MEDS: EPLERENONE 25 MG TABLET PO SCH (11:32)
[2017-12-04] MEDS: POLYETHYLENE GLYCOL 3350 POWDER 17 GM/1 PACKET PO SCH (11:32)
--- NOTE | 2017-12-04 17:00 | PDOC PROGRESS REPORT ---
Subjective Progress Note for:: 12/04/17 Subjective:: Patient denied chest pain or difficulty with breathing. No abdominal pain, nausea or vomiting. No fever or chills. Reason For Visit: ALTERED MENTAL STATUS ELEVATED TROPONIN Physical Exam Vital Signs: Temp Pulse Resp BP Pulse Ox 97.9 F 77 21 H 149/72 H 98 12/04/17 16:05 12/04/17 16:05 12/04/17 16:05 12/04/17 16:05 12/04/17 16:05 Intake & Output 12/03/17 12/04/17 12/05/17 06:59 06:59 06:59 Intake Total 630 480 Balance 630 480 Weight 112.3 kg 114.1 kg Physical Exam: General appearance: PRESENT: no acute distress, morbidly obese Head exam: PRESENT: atraumatic, normocephalic Mouth exam: PRESENT: moist - fairly Respiratory exam: PRESENT: decreased breath sounds - at lung bases Cardiovascular exam: PRESENT: RRR. ABSENT: diastolic murmur, rubs, systolic murmur Murmur grade: 3 GI/Abdominal exam: PRESENT: normal bowel sounds, soft. ABSENT: organomegaly, tenderness Extremities exam: ABSENT: pedal edema Musculoskeletal exam: PRESENT: deformity - related to multiple joints involvement with arthritis Neurological exam: PRESENT: alert, awake Psychiatric exam: PRESENT: appropriate affect, normal mood. ABSENT: homicidal ideation, suicidal ideation Skin exam: PRESENT: dry, intact, warm. ABSENT: cyanosis, rash Murmur grade: 3 Results Laboratory Results: 12/04/17 04:11 12/04/17 04:11 12/04/17 12/04/17 04:11 04:11 WBC 2.5 L RBC 2.81 L Hgb 8.5 L Hct 25.8 L MCV 92 MCH 30.1 MCHC 32.8 RDW 16.0 H Plt Count 181 Seg Neutrophils % 52.4 Lymphocytes % 27.2 Monocytes % 18.3 H Eosinophils % 1.4 Basophils % 0.7 Absolute Neutrophils 1.3 L Absolute Lymphocytes 0.7 Absolute Monocytes 0.5 Absolute Eosinophils 0.0 Absolute Basophils 0.0 Sodium 135.7 L Potassium 5.1 H Chloride 88 L Carbon Dioxide 38 H Anion Gap 10 BUN 31 H Creatinine 1.14 Est GFR ( Amer) 56 L Est GFR (Non-Af Amer) 46 L Glucose 105 Calcium 9.3 Total Bilirubin 0.8 AST 18 ALT 18 Alkaline Phosphatase 56 Total Protein 6.8 Albumin 3.3 L 11/18/17 11/18/17 11/18/17 05:17 05:17 12:05 Creatine Kinase 102 84 CK-MB (CK-2) 8.35 H Troponin I 4.140 11/18/17 11/18/17 11/18/17 12:05 17:30 17:30 Creatine Kinase 69 CK-MB (CK-2) 6.04 H 4.83 H Troponin I 3.240 2.560 Impressions: Chest X-Ray 11/17/17 22:13 IMPRESSION: No significant change. Assessment & Plan - Diagnosis (1) Non-STEMI (non-ST elevated myocardial infarction) Is this a current diagnosis for this admission?: Yes (2) Acute systolic (congestive) heart failure Is this a current diagnosis for this admission?: Yes (3) Hypertension Qualifiers: Hypertension type: essential hypertension Qualified Code(s): I10 - Essential (primary) hypertension Is this a current diagnosis for this admission?: Yes (4) Hypercapnic respiratory failure Qualifiers: Chronicity: acute on chronic Qualified Code(s): J96.22 - Acute and chronic respiratory failure with hypercapnia Is this a current diagnosis for this admission?: Yes (5) Dementia Qualifiers: Dementia type: Alzheimer's disease Dementia behavioral disturbance: without behavioral disturbance Is this a current diagnosis for this admission?: Yes (6) Morbid obesity Is this a current diagnosis for this admission?: Yes - Time Time Spent with patient: 25-34 minutes Medications reviewed and adjusted accordingly: Yes Anticipated discharge: SNF Within: Other - Inpatient Certification Based on my medical assessment, after consideration of the patient's comorbidities, presenting symptoms, or acuity I expect that the services needed warrant INPATIENT care.: Yes I certify that my determination is in accordance with my understanding of Medicare's requirements for reasonable and necessary INPATIENT services [42 CFR 412.3e].: Yes Medical Necessity: Need Close Monitoring Due to Risk of Patient Decompensation, Need For Continuous Telemetry Monitoring, Risk of Complication if Not Cared For in Hospital Post Hospital Care: D/C or Transfer Summary - Plan Summary Plan Summary: See covering attending physician coverage. Continue on all current medication management.
[2017-12-04] MEDS: ATORVASTATIN CALCIUM 10 MG TABLET PO SCH (22:48)
[2017-12-04] MEDS: ASPIRIN 81 MG TABLET, CHEWABLE PO SCH (22:48)
[2017-12-05] MEDS: HEPARIN SOD (PORCINE) 5,000 UNIT/ML 1 ML SYRINGE SUBCUT SCH ×3 (05:23→22:08)
[2017-12-05] MEDS: CLONIDINE HCL 0.2 MG TABLET PO SCH ×3 (05:23→22:10)
[2017-12-05] MEDS: EPLERENONE 25 MG TABLET PO SCH (09:52)
[2017-12-05] MEDS: RANOLAZINE 500 MG TAB.SR.12H PO SCH ×2 (09:52→22:09)
[2017-12-05] MEDS: POLYETHYLENE GLYCOL 3350 POWDER 17 GM/1 PACKET PO SCH (09:52)
[2017-12-05] MEDS: CARVEDILOL 6.25 MG TABLET PO SCH ×2 (09:53→22:08)
[2017-12-05] MEDS: TORSEMIDE 20 MG TABLET PO SCH (09:53)
[2017-12-05] MEDS: ISOSORBIDE MONONITRATE 30 MG TAB.ER.24H PO SCH (09:53)
[2017-12-05] MEDS: SACUBITRIL/VALSARTAN 49 MG/51 MG TABLET PO SCH ×2 (09:53→22:09)
--- NOTE | 2017-12-05 16:38 | PDOC PROGRESS REPORT ---
Subjective Progress Note for:: 12/05/17 Subjective:: Patient denied chest pain or difficulty with breathing. No abdominal pain, nausea or vomiting. No fever or chills. Reason For Visit: ALTERED MENTAL STATUS ELEVATED TROPONIN Physical Exam Vital Signs: Temp Pulse Resp BP Pulse Ox 97.5 F 91 20 154/85 H 94 12/05/17 11:03 12/05/17 11:03 12/05/17 11:03 12/05/17 11:03 12/05/17 11:03 Intake & Output 12/04/17 12/05/17 12/06/17 06:59 06:59 06:59 Intake Total 480 1059 Balance 480 1059 Weight 114.1 kg 115.3 kg Physical Exam: General appearance: PRESENT: no acute distress, morbidly obese Head exam: PRESENT: atraumatic, normocephalic Mouth exam: PRESENT: moist - fairly Respiratory exam: PRESENT: decreased breath sounds - at lung bases Cardiovascular exam: PRESENT: RRR. ABSENT: diastolic murmur, rubs, systolic murmur Murmur grade: 3 GI/Abdominal exam: PRESENT: normal bowel sounds, soft. ABSENT: organomegaly, tenderness Extremities exam: ABSENT: pedal edema Musculoskeletal exam: PRESENT: deformity - related to multiple joints involvement with arthritis Neurological exam: PRESENT: alert, awake Psychiatric exam: PRESENT: appropriate affect, normal mood. ABSENT: homicidal ideation, suicidal ideation Skin exam: PRESENT: dry, intact, warm. ABSENT: cyanosis, rash Murmur grade: 3 Results Laboratory Results: 12/04/17 04:11 12/04/17 04:11 11/18/17 11/18/17 11/18/17 05:17 05:17 12:05 Creatine Kinase 102 84 CK-MB (CK-2) 8.35 H Troponin I 4.140 11/18/17 11/18/17 11/18/17 12:05 17:30 17:30 Creatine Kinase 69 CK-MB (CK-2) 6.04 H 4.83 H Troponin I 3.240 2.560 Impressions: Chest X-Ray 11/17/17 22:13 IMPRESSION: No significant change. Assessment & Plan - Diagnosis (1) Non-STEMI (non-ST elevated myocardial infarction) Is this a current diagnosis for this admission?: Yes (2) Acute systolic (congestive) heart failure Is this a current diagnosis for this admission?: Yes (3) Hypertension Qualifiers: Hypertension type: essential hypertension Qualified Code(s): I10 - Essential (primary) hypertension Is this a current diagnosis for this admission?: Yes (4) Hypercapnic respiratory failure Qualifiers: Chronicity: acute on chronic Qualified Code(s): J96.22 - Acute and chronic respiratory failure with hypercapnia Is this a current diagnosis for this admission?: Yes (5) Dementia Qualifiers: Dementia type: Alzheimer's disease Dementia behavioral disturbance: without behavioral disturbance Is this a current diagnosis for this admission?: Yes (6) Morbid obesity Is this a current diagnosis for this admission?: Yes - Time Time Spent with patient: 25-34 minutes Medications reviewed and adjusted accordingly: Yes Anticipated discharge: SNF Within: Other - Inpatient Certification Based on my medical assessment, after consideration of the patient's comorbidities, presenting symptoms, or acuity I expect that the services needed warrant INPATIENT care.: Yes I certify that my determination is in accordance with my understanding of Medicare's requirements for reasonable and necessary INPATIENT services [42 CFR 412.3e].: Yes Medical Necessity: Need Close Monitoring Due to Risk of Patient Decompensation, Need For IV Fluids, Need For Continuous Telemetry Monitoring, Risk of Complication if Not Cared For in Hospital Post Hospital Care: D/C or Transfer Summary - Plan Summary Plan Summary: See covering attending physician orders.
[2017-12-05] MEDS: ATORVASTATIN CALCIUM 10 MG TABLET PO SCH (22:08)
[2017-12-05] MEDS: ASPIRIN 81 MG TABLET, CHEWABLE PO SCH (22:08)
[2017-12-06] MEDS: HEPARIN SOD (PORCINE) 5,000 UNIT/ML 1 ML SYRINGE SUBCUT SCH ×3 (06:24→22:18)
[2017-12-06] MEDS: CLONIDINE HCL 0.2 MG TABLET PO SCH ×3 (06:24→22:18)
[2017-12-06 06:29] LABS: ABSOLUTE LYMPHOCYTES (AUTO) 0.6 10^3/uL (0.5-4.7); ABSOLUTE MONOCYTES (AUTO) 0.4 10^3/uL (0.1-1.4); ABSOLUTE NEUT (AUTO) 1.3 10^3/uL (1.7-8.2); BASOPHILS % (AUTO) 0.7 % (0-2); EOSINOPHILS % (AUTO) 0.7 % (0-6); HEMATOCRIT 25.3 % (36.0-47.0); HEMOGLOBIN 8.5 g/dL (12.0-15.5); LYMPHOCYTES % (AUTO) 27.4 % (13-45); MEAN CORPUSCULAR HEMOGLOBIN 30.7 pg (27.0-33.4); MEAN CORPUSCULAR HGB CONC 33.5 g/dL (32.0-36.0); MEAN CORPUSCULAR VOLUME 92 fl (80-97); MONOCYTES % (AUTO) 14.8 % (3-13); PLATELET COUNT 159 10^3/uL (150-450); RED BLOOD COUNT 2.76 10^6/uL (3.72-5.28); RED CELL DISTRIBUTION WIDTH 16.4 % (11.5-14.0); SEGMENTED NEUTROPHILS % (AUTO) 56.4 % (42-78); TOTAL CELLS COUNTED % (AUTO) 100 %; WHITE BLOOD COUNT 2.4 10^3/uL (4.0-10.5)
[2017-12-06 07:02] LABS: BLOOD UREA NITROGEN 33 mg/dL (7-20); CALCIUM 9.6 mg/dL (8.4-10.2); CHLORIDE 87 mmol/L (98-107); GLUCOSE 116 mg/dL (75-110); POTASSIUM 4.8 mmol/L (3.6-5.0); SODIUM 135.7 mmol/L (137-145)
[2017-12-06 07:08] LABS: ANION GAP 10 (5-19); CARBON DIOXIDE 39 mmol/L (22-30)
[2017-12-06] MEDS: ISOSORBIDE MONONITRATE 30 MG TAB.ER.24H PO SCH (10:56)
[2017-12-06] MEDS: CARVEDILOL 6.25 MG TABLET PO SCH ×2 (10:57→22:18)
[2017-12-06] MEDS: RANOLAZINE 500 MG TAB.SR.12H PO SCH ×2 (10:58→22:18)
[2017-12-06] MEDS: POLYETHYLENE GLYCOL 3350 POWDER 17 GM/1 PACKET PO SCH (10:58)
[2017-12-06] MEDS: SACUBITRIL/VALSARTAN 49 MG/51 MG TABLET PO SCH ×2 (10:58→22:18)
[2017-12-06] MEDS: EPLERENONE 25 MG TABLET PO SCH (10:58)
[2017-12-06] MEDS: TORSEMIDE 20 MG TABLET PO SCH (10:58)
--- NOTE | 2017-12-06 18:56 | PDOC TRANSFER SUMMARY ---
General - Admit/Disc Date/PCP Admission Date/Primary Care Provider: 11/18/17 00:41 MIKO GOMEZ MD Discharge Date: 12/06/17 - Discharge Diagnosis (1) Non-STEMI (non-ST elevated myocardial infarction) Is this a current diagnosis for this admission?: Yes (2) Acute systolic (congestive) heart failure Is this a current diagnosis for this admission?: Yes (3) Hypercapnic respiratory failure Is this a current diagnosis for this admission?: Yes (4) Dementia Is this a current diagnosis for this admission?: Yes - Additional Information Resuscitation Status: Do Not Resuscitate Home Medications: Atorvastatin Calcium [Lipitor 10 mg Tablet] 10 mg PO QHS 11/08/17 Clonidine HCl [Catapres 0.2 mg Tablet] 0.2 mg PO Q12 11/08/17 Nitroglycerin [Nitrostat] 0.4 mg SL Q5MP PRN 11/08/17 Ranolazine [Ranexa] 500 mg PO Q12 11/08/17 Sacubitril/Valsartan [Entresto 49 mg-51 mg Tablet] 1 tab PO Q12 11/08/17 Torsemide [Demadex 20 mg Tablet] 20 mg PO DAILY #90 tablet 11/16/17 Carvedilol [Coreg 12.5 mg Tablet] 12.5 mg PO Q12 11/18/17 Aspirin [Aspirin 81 mg Chewable Tablet] 81 mg PO QHS tab.chew 12/06/17 Isosorbide Mononitrate [Imdur 30 mg Tablet.er] 60 mg PO DAILY tab.er.24h History of Present Illness Admission Date/PCP: 11/18/17 00:41 MIKO GOMEZ MD History of Present Illness: NEIDA YEPEZ is a 77 year old female, She was just discharged on 11/16/2017, she has a history of chronic systolic and diastolic heart failure, resident of the skilled nursing at [facility], she was transferred from the skilled nursing to the emergency room for evaluation of altered mental status, in the emergency room she was evaluated she was found to have elevated troponin, she was also in congestive heart failure no reasonable history could be obtained from the patient.It was felt that patient needed to be DNR, myself and the body make up artist on consultation, Dr. Walker I agreed that patient should be a DNR status, she is not in a position to cognitively give a consent to DNR status, there is no next of kin or any family member that could make such decision for her.She has chronic systolic and diastolic heart failure, she continues to require noninvasive positive pressure ventilation with BiPAP Hospital Course Hospital Course: She has chronic systolic and diastolic heart failure she was admitted for the management of acute non-ST elevated [place], she was seen by cardiology, Dr. Walker and Dr. Lazaro. She required noninvasive ventilation with BiPAP because of hypercapnic respiratory failure due to combination of pulmonary edema and obesity. She was seen in consultation by palliative care, she has no POA, it was felt that patient was not particularly in the state of mind to make reasonable medical decision. The concept of hospice was discussed with this patient but she is not particularly interested. She has had multiple hospital admission for similar indication the last time she was admitted and discharged back to skilled nursing she was readmitted in 24 hours of discharge I anticipate the same phenomenon happen again I hope the social work case manager the skilled nursing can get the state involved to take over guardianship of this patient since there is no next of kin available to be the POA. At this point she has maximized hospital stay she be transferred to skilled nursing for continuity of care. It is to be noted that she was made a DNR on this admission by 2 physicians because it was felt that she has irreversible chronic CHF and other comorbidity including morbid obesity, sedentary with weakness of the lower extremities Physical Exam Vital Signs: Temp Pulse Resp BP Pulse Ox 97.6 F 86 21 H 133/75 H 100 12/06/17 15:50 12/06/17 15:50 12/06/17 15:50 12/06/17 15:50 12/06/17 15:50 Intake & Output 12/05/17 12/06/17 12/07/17 06:59 06:59 06:59 Intake Total 1059 585 480 Balance 1059 585 480 Weight 115.3 kg 105.3 kg General appearance: PRESENT: obese Eye exam: PRESENT: PERRLA Respiratory exam: PRESENT: clear to auscultation kishan Cardiovascular exam: PRESENT: +S1, +S2 GI/Abdominal exam: PRESENT: soft Neurological exam: PRESENT: alert Results Laboratory Results: 12/06/17 05:43 12/06/17 05:43 12/06/17 12/06/17 05:43 05:43 WBC 2.4 L RBC 2.76 L Hgb 8.5 L Hct 25.3 L MCV 92 MCH 30.7 MCHC 33.5 RDW 16.4 H Plt Count 159 Seg Neutrophils % 56.4 Lymphocytes % 27.4 Monocytes % 14.8 H Eosinophils % 0.7 Basophils % 0.7 Absolute Neutrophils 1.3 L Absolute Lymphocytes 0.6 Absolute Monocytes 0.4 Absolute Eosinophils 0.0 Absolute Basophils 0.0 Sodium 135.7 L Potassium 4.8 Chloride 87 L Carbon Dioxide 39 H Anion Gap 10 BUN 33 H Creatinine 1.35 H Est GFR ( Amer) 46 L Est GFR (Non-Af Amer) 38 L Glucose 116 H Calcium 9.6 11/18/17 11/18/17 11/18/17 05:17 05:17 12:05 Creatine Kinase 102 84 CK-MB (CK-2) 8.35 H Troponin I 4.140 11/18/17 11/18/17 11/18/17 12:05 17:30 17:30 Creatine Kinase 69 CK-MB (CK-2) 6.04 H 4.83 H Troponin I 3.240 2.560 Impressions: Chest X-Ray 11/17/17 22:13 IMPRESSION: No significant change. Qualifiers - * PATIENT BEING DISCHARGED WITH ANY OF THE FOLLOWING DIAGNOSIS: Heart Failure, [place] Stroke Pt being discharged on Anti-thrombolytic therapy?: Yes Stroke Pt being discharged on Anti-coagulation therapy?: Yes Stroke Pt being discharged on Statins?: Yes WA Pt being discharged on Aspirin therapy?: Yes WA Pt being discharged on Statins?: Yes WA Pt discharged ACEI/ARBS?: Yes HF Pt being discharged on ACEI for LVEF less than 40%?: Yes HF Pt being discharged on ARBS for LVEF less than 40%?: Yes HF Pt with Afib discharged with Warfarin?: Yes HF Pt discharged on evidence-based Beta Juan:: Yes
[2017-12-06] MEDS: ASPIRIN 81 MG TABLET, CHEWABLE PO SCH (22:18)
[2017-12-06] MEDS: ATORVASTATIN CALCIUM 10 MG TABLET PO SCH (22:18)
[2017-12-07] MEDS: HEPARIN SOD (PORCINE) 5,000 UNIT/ML 1 ML SYRINGE SUBCUT SCH (06:30)
[2017-12-07] MEDS: CLONIDINE HCL 0.2 MG TABLET PO SCH ×2 (06:30→14:23)
[2017-12-07] MEDS: CARVEDILOL 6.25 MG TABLET PO SCH (10:04)
[2017-12-07] MEDS: ISOSORBIDE MONONITRATE 30 MG TAB.ER.24H PO SCH (10:04)
[2017-12-07] MEDS: POLYETHYLENE GLYCOL 3350 POWDER 17 GM/1 PACKET PO SCH (10:08)
[2017-12-07] MEDS: EPLERENONE 25 MG TABLET PO SCH (10:08)
[2017-12-07] MEDS: SACUBITRIL/VALSARTAN 49 MG/51 MG TABLET PO SCH (10:09)
[2017-12-07] MEDS: TORSEMIDE 20 MG TABLET PO SCH (10:09)
[2017-12-07] MEDS: RANOLAZINE 500 MG TAB.SR.12H PO SCH (10:09)
[2017-12-07 12:12] VITALS: BP 141/74
== END 2017-12-07 14:53 | DRG 280 ==
LOC: ER 20:03 → EH 11-18 00:41 → 3W 11-18 04:37 → 4S 11-30 00:05
PROVIDERS: ADMIT Internal Medicine; ATTEND Internal Medicine
DX: I21.4 Non-ST elevation (NSTEMI) myocardial infarction (principal); J96.22 Acute and chronic respiratory failure with hypercapnia; I50.23 Acute on chronic systolic (congestive) heart failure; I13.0 Hypertensive heart and chronic kidney disease with heart failure and stage 1 through stage 4 chronic kidney disease, or unspecified chronic kidney disease; N39.0 Urinary tract infection, site not specified; Z68.41 Body mass index [BMI] 40.0-44.9, adult; Z66 Do not resuscitate; N18.3 Chronic kidney disease, stage 3 (moderate); D70.9 Neutropenia, unspecified; D64.9 Anemia, unspecified; I25.10 Atherosclerotic heart disease of native coronary artery without angina pectoris; E78.5 Hyperlipidemia, unspecified; B96.89 Other specified bacterial agents as the cause of diseases classified elsewhere; F17.210 Nicotine dependence, cigarettes, uncomplicated; I25.2 Old myocardial infarction; E66.01 Morbid (severe) obesity due to excess calories
CPT/HCPCS: 36415; 36600; 71045; 80048; 80053; 81001; 82550; 82553; 82565; 82803; 82962; 83605; 83880; 84484; 85025; 85027; 85610; 85730; 87086; 93005; 93010; 93306; 94660; 99285; G8978-GP; G8979-GP; G8996-GN; G8997-GN; J1644; J3490

== ENCOUNTER 2018-02-26 20:14 | Emergency (ER) | payer MEDICARE, MEDICAID ==
[2018-02-26] MEDS ORDERED: CARVEDILOL 12.5 MG TABLET PO ONE (20:32)
[2018-02-26] MEDS ORDERED: TORSEMIDE 20 MG TABLET PO ONE (20:32)
[2018-02-26] MEDS ORDERED: CLONIDINE HCL 0.2 MG TABLET PO ONE (20:33)
--- NOTE | 2018-02-26 20:36 | ER Document Report ---
ED General - General Stated Complaint: NAUSEA/VOMITING Time Seen by Provider: 02/26/18 20:23 Notes: Patient is a 78-year-old female that comes from [facility] by EMS for chief complaint of vomiting. Reportedly patient vomited 3 times a day, unable to take her medications, subsequently she has become hypertensive. Patient denies any complaints on evaluation, she denies abdominal pain, chest pain, or any symptoms out of the ordinary. She has a history of dementia, CHF, CAD, NE, and on most recent admission was listed as a DNR status. No abdominal surgeries listed, patient unable to tell me if she has had any. TRAVEL OUTSIDE OF THE [place] IN LAST 30 DAYS: No - Related Data Allergies/Adverse Reactions: Penicillins Allergy (Unknown, Verified 11/11/17 11:08) Pruritis Past Medical History - General Information source: Patient, Emergency Med Personnel - Social History Smoking Status: Never Smoker Frequency of alcohol use: None Drug Abuse: None Lives with: Prison Family History: Hypertension - Past Medical History Cardiac Medical History: Reports: Hx Congestive Heart Failure, Hx Coronary Artery Disease, Hx Heart Attack, Hx Hypercholesterolemia, Hx Hypertension Pulmonary Medical History: Reports: Hx Respiratory Failure Renal/ Medical History: Denies: Hx Peritoneal Dialysis Psychiatric Medical History: Reports: Hx Dementia Denies: Hx Depression Past Surgical History: Reports: Hx Tonsillectomy - Immunizations Hx Diphtheria, Pertussis, Tetanus Vaccination: Yes - unknown Review of Systems - Review of Systems Constitutional: No symptoms reported EENT: No symptoms reported Cardiovascular: No symptoms reported Respiratory: No symptoms reported Gastrointestinal: See HPI Genitourinary: No symptoms reported Female Genitourinary: No symptoms reported Musculoskeletal: No symptoms reported Skin: No symptoms reported Hematologic/Lymphatic: No symptoms reported Neurological/Psychological: No symptoms reported Physical Exam - Vital signs Vitals: Temp Pulse Resp BP Pulse Ox 98.3 F 95 16 157/100 H 100 02/26/18 20:15 02/26/18 20:15 02/26/18 20:15 02/26/18 20:15 02/26/18 20:15 - Notes Notes: GENERAL: Alert, interacts well. No acute distress. HEAD: Normocephalic, atraumatic. EYES: Pupils equal, round, and reactive to light. Extraocular movements intact. ENT: Oral mucosa moist, tongue midline. NECK: Full range of motion. Supple. Trachea midline. LUNGS: Clear to auscultation bilaterally, basilar rales bilaterally, no tachypnea, no respiratory distress HEART: Regular rate and rhythm. Extrasystoles. No murmur. ABDOMEN: Soft, non-tender. Non-distended. Bowel sounds present in all 4 quadrants. EXTREMITIES: Moves all 4 extremities spontaneously. Minimal bilateral edema, normal radial and dorsalis pedis pulses bilaterally. No cyanosis. BACK: no cervical, thoracic, lumbar midline tenderness. No saddle anesthesia, normal distal neurovascular exam. NEUROLOGICAL: Alert but not oriented to place or events. Normal speech. [ cranial nerves II through XII grossly intact]. PSYCH: Normal affect, normal mood. SKIN: Warm, dry, normal turgor. No rashes or lesions noted. Course - Re-evaluation Re-evalutation: Patient is actually smiling and well-appearing, alert and responsive. She denies any complaints. Her abdomen is benign. She does have some rales in the bases of her lungs, no tachypnea, no hypoxia, no signs of distress. No tachycardia or fever. Patient was given Zofran initially, afterwards she was given her blood pressure medications. CBC shows minimal leukopenia, generally unremarkable, chemistry generally unremarkable with mild renal insufficiency but no significant change from prior. Troponin came back is elevated at 0.2, however this is very significantly down from her previous levels. Patient has not had any chest pain complaints. She denies any complaints again on evaluation. Chest x-ray does some some vascular congestion. Patient was given dose of her torsemide. Abdominal series does not indicate obstruction or acute finding. Urinalysis has white blood cells, leukocyte esterase, culture placed, placing on Keflex for this. Patient monitored, did not have any additional vomiting, tolerates p.o. without any difficulty. Discussed with Dr. Bejarano. Recommends discussion with Dr. Gomez, Dr. Iglesias is radiology receptionist for him. I called Dr. Ilgesias. Discussed patient's presentation, history, previous laboratory evaluation, and current workup including labs, x-ray, vital signs. Discussed how patient was placed on maximal medical therapy including Ranexa and aspirin and she is currently taking this, he does not recommend additional evaluation here for cardiac purposes, recommends treatment of her nausea and urinary tract infection and discharged back to the nursing care facility with strict return precautions. - Vital Signs Vital signs: Temp Pulse Resp BP Pulse Ox 98.3 F 95 13 169/96 H 98 02/26/18 20:15 02/26/18 20:15 02/27/18 01:31 02/27/18 01:31 02/27/18 01:31 - Laboratory Result Diagrams: 02/26/18 21:13 02/26/18 21:13 Laboratory results interpreted by me: 02/26/18 02/26/18 02/26/18 21:13 21:13 21:43 WBC 3.7 L Hgb 10.5 L Hct 33.6 L MCHC 31.4 L RDW 18.3 H Sodium 145.3 H Chloride 93 L Carbon Dioxide 39 H BUN 21 H Creatinine 1.36 H Est GFR ( Amer) 46 L Est GFR (Non-Af Amer) 38 L Direct Bilirubin 0.8 H ALT 8 L Urine Protein 100 H Urine Blood SMALL H Urine Urobilinogen 4.0 H Ur Leukocyte Esterase SMALL H Discharge - Discharge Clinical Impression: Nausea & vomiting Qualifiers: Vomiting type: unspecified Vomiting Intractability: non-intractable Qualified Code(s): R11.2 - Nausea with vomiting, unspecified Hypertension Qualifiers: Hypertension type: unspecified Qualified Code(s): I10 - Essential (primary) hypertension Condition: Stable Disposition: HOME, SELF-CARE Additional Instructions: Imaging, laboratory workup, evaluation suggest possible developing urinary tract infection and some pulmonary vascular congestion, give torsemide as previously prescribed (given tonight), give Keflex as prescribed. Give nausea medicine if needed, continue current medications, follow-up with primary care within the next 1-2 days. Return for any concerning worsening symptoms including fever, returned vomiting, shortness of breath, abdominal pain/swelling , passing out, or any other concerning or worsening symptoms. Prescriptions: Cephalexin Monohydrate [Keflex 500 mg Capsule] 500 mg PO BID #14 capsule Ondansetron [Zofran Odt 4 mg Tablet] 1 tab PO Q4H PRN #15 tab.rapdis PRN Reason: For Nausea/Vomiting Referrals: MIKO GOMEZ MD [Primary Care Provider] - Follow up as needed
[2018-02-26] MEDS ORDERED: TORSEMIDE 20 MG TABLET ONE (21:06)
--- NOTE | 2018-02-26 21:12 | RADIOLOGY REPORT (SQ) ---
EXAM DESCRIPTION: CHEST SINGLE VIEW COMPLETED DATE/TIME: 02/26/2018 9:03 pm REASON FOR STUDY: rales on exam COMPARISON: 11/17/2017 NUMBER OF VIEWS: One view. TECHNIQUE: Single frontal radiographic view of the chest acquired. LIMITATIONS: None. FINDINGS: LUNGS AND PLEURA: No opacities, masses or pneumothorax. Right pleural effusion. . MEDIASTINUM AND HILAR STRUCTURES: No masses or contour abnormality. HEART AND VASCULATURE: Cardiac enlargement. Vascular congestion. BONES: No acute findings. HARDWARE: None in the chest. OTHER: No other significant finding. IMPRESSION: CARDIAC ENLARGEMENT. VASCULAR CONGESTION. Small right pleural effusion. TECHNICAL DOCUMENTATION: JOB ID: [id number] [employer]- All Rights Reserved Reading location - IP/workstation name: [email or web address]
[2018-02-26 21:27] LABS: ABSOLUTE LYMPHOCYTES (AUTO) 0.9 10^3/uL (0.5-4.7); ABSOLUTE MONOCYTES (AUTO) 0.5 10^3/uL (0.1-1.4); ABSOLUTE NEUT (AUTO) 2.3 10^3/uL (1.7-8.2); BASOPHILS % (AUTO) 0.9 % (0-2); EOSINOPHILS % (AUTO) 0.9 % (0-6); HEMATOCRIT 33.6 % (36.0-47.0); HEMOGLOBIN 10.5 g/dL (12.0-15.5); LYMPHOCYTES % (AUTO) 23.7 % (13-45); MEAN CORPUSCULAR HGB CONC 31.4 g/dL (32.0-36.0); MEAN CORPUSCULAR VOLUME 89 fl (80-97); MONOCYTES % (AUTO) 12.3 % (3-13); PLATELET COUNT 272 10^3/uL (150-450); RED BLOOD COUNT 3.77 10^6/uL (3.72-5.28); RED CELL DISTRIBUTION WIDTH 18.3 % (11.5-14.0); SEGMENTED NEUTROPHILS % (AUTO) 62.2 % (42-78); TOTAL CELLS COUNTED % (AUTO) 100 %; WHITE BLOOD COUNT 3.7 10^3/uL (4.0-10.5)
[2018-02-26 21:39] LABS: ALANINE AMINOTRANSFERASE 8 U/L (9-52); ALBUMIN 3.6 g/dL (3.5-5.0); ALKALINE PHOSPHATASE 75 U/L (38-126); ASPARTATE AMINO TRANSFERASE 20 U/L (14-36); BILIRUBIN,DIRECT 0.8 mg/dL (0.0-0.4); BILIRUBIN,TOTAL 1.3 mg/dL (0.2-1.3); BLOOD UREA NITROGEN 21 mg/dL (7-20); CHLORIDE 93 mmol/L (98-107); GLUCOSE 96 mg/dL (75-110); LIPASE 25.8 U/L (23-300); POTASSIUM 3.7 mmol/L (3.6-5.0); SODIUM 145.3 mmol/L (137-145); TOTAL PROTEIN 7.9 g/dL (6.3-8.2)
[2018-02-26 21:58] LABS: ANION GAP 13 (5-19)
[2018-02-26 22:04] LABS: CARBON DIOXIDE 39 mmol/L (22-30)
--- NOTE | 2018-02-26 22:16 | EKG REPORT ---
SEVERITY:- ABNORMAL ECG - SINUS RHYTHM FIRST DEGREE AV BLOCK PROBABLE LEFT ATRIAL ABNORMALITY LEFT VENTRICULAR HYPERTROPHY CONSIDER ANTERIOR INFARCT : Confirmed by: Braulio Damon MD 26-Feb-2018 22:16:18
[2018-02-26 22:17] LABS: APPEARANCE,URINE SLIGHTLY-CLOUDY; BILIRUBIN,URINE NEGATIVE (NEGATIVE); COLOR,URINE DARK YELLOW; GLUCOSE, URINE NEGATIVE (NEGATIVE); KETONES,URINE NEGATIVE (NEGATIVE); LEUKOCYTE ESTERASE,URINE SMALL (NEGATIVE); NITRITE,URINE NEGATIVE (NEGATIVE); PROTEIN,URINE 100 mg/dL (NEGATIVE); URINE SPECIFIC GRAVITY 1.014
[2018-02-26] MEDS ORDERED: NORMAL SALINE 1000 ML 500 ML IV ONE (22:30)
--- NOTE | 2018-02-26 23:50 | RADIOLOGY REPORT (SQ) ---
EXAM DESCRIPTION: XR ABDOMEN 2 VIEWS SUPINE ERECT COMPLETED DATE/TME: 02/26/2018 22:32 CLINICAL HISTORY: 78 years Female, vomiting COMPARISON: Same day, report only. August 15, 2017. NUMBER OF VIEWS/TECHNIQUE: 2 FINDINGS: Intestinal gas pattern is within normal limits. Estimated 19 cm hepatic megaly. Paucity of bowel gas. No suspicious calcification. Atherosclerosis, moderate disc desiccation, and spondylosis. CR chest reported separately. IMPRESSION: 19 cm hepatomegaly. Else, no acute abdominal findings.
[2018-02-27] MEDS ORDERED: CEPHALEXIN 500 MG CAPSULE PO ONE (00:17)
[2018-02-27] MEDS ORDERED: ONDANSETRON ODT 4 MG TAB (6 TAB/ER DISP) PO PRN (00:18)
[2018-02-27 01:55] VITALS: BP 169/96
== END 2018-02-27 02:15 | disposition home or self-care (01) ==
LOC: ER 20:14
DX: R11.2 Nausea with vomiting, unspecified (principal); I11.0 Hypertensive heart disease with heart failure; I50.9 Heart failure, unspecified; I25.10 Atherosclerotic heart disease of native coronary artery without angina pectoris; E78.00 Pure hypercholesterolemia, unspecified; I25.2 Old myocardial infarction; Z88.0 Allergy status to penicillin
CPT/HCPCS: 93005; 99285; 36415; 87086; 83690; 85025; 87088; 80053; 81001; 84484; 87186; 74019; 71045; 93010; A9270 ×5

== ENCOUNTER 2018-06-21 04:01 | Inpatient (IN) | payer MEDICARE, MEDICAID ==
[2018-06-21] MEDS ORDERED: FUROSEMIDE INJ/PF 20 MG/2 ML SDV IV ONE (04:26)
--- NOTE | 2018-06-21 04:50 | ER Document Report ---
ED General - General Cannot obtain history due to: Dementia TRAVEL OUTSIDE OF THE [place] IN LAST 30 DAYS: No <MARLON SINGER Chani - Last Filed: 06/21/18 07:52> <JUDITH LEVIN - Last Filed: 06/22/18 00:12> - General Stated Complaint: ABNORMAL LAB VALUES Time Seen by Provider: 06/21/18 04:23 Notes: Patient is a 78-year-old female who presents to the emergency department for abnormal lab values. Her primary care doctor is Dr. Valiente and 2 days ago she had a BNP ordered and the result was 98,600. She is unable to provide any meaningful history due to dementia. She denies any shortness of breath at this time. She has no complaints at this time. Denies pain. According to her medical record, she is a DO NOT RESUSCITATE from her last visit. She has a past medical history of an NSTEMI in November of this year, hypercapnic respiratory failure and systolic CHF. She unfortunately does not have any family to help make medical decisions. She resides at [facility]. (MARLON SINGER ) - Related Data Allergies/Adverse Reactions: Penicillins Allergy (Unknown, Verified 11/11/17 11:08) Pruritis Past Medical History - Social History Smoking Status: Unknown if Ever Smoked Frequency of alcohol use: None Drug Abuse: None Lives with: [facility] Family History: Hypertension - Past Medical History Cardiac Medical History: Reports: Hx Congestive Heart Failure, Hx Coronary Artery Disease, Hx Heart Attack, Hx Hypercholesterolemia, Hx Hypertension Pulmonary Medical History: Reports: Hx Respiratory Failure Renal/ Medical History: Denies: Hx Peritoneal Dialysis Psychiatric Medical History: Reports: Hx Dementia Denies: Hx Depression Past Surgical History: Reports: Hx Tonsillectomy - Immunizations Hx Diphtheria, Pertussis, Tetanus Vaccination: Yes - unknown <LUCRECIAZOEMARLON M - Last Filed: 06/21/18 07:52> Review of Systems <MARLON SINGER - Last Filed: 06/21/18 07:52> <JUDITH LEVIN - Last Filed: 06/22/18 00:12> - Review of Systems Notes: Unable to obtain due to patient's dementia. (MARLON SINGER) Physical Exam <MARLON SINGER - Last Filed: 06/21/18 07:52> <JUDITH LEVIN - Last Filed: 06/22/18 00:12> - Vital signs Vitals: Resp Pulse Ox 16 100 06/21/18 04:14 06/21/18 04:14 - Notes Notes: PHYSICAL EXAMINATION: GENERAL: Morbidly obese, no acute distress. HEAD: Normocephalic, atraumatic. EYES: PERRL, conjunctiva normal, all extraocular movements intact, sclera nonicteric ENT: Moist mucous membranes. NECK: Supple, no noticeable swelling, redness, rash. Normal range of motion. LUNGS: Crackles and coarse breath sounds noted to left base. Normal respiratory rate. Symmetrical chest expansion. CARDIOVASCULAR: S1-S2, regular rate, regular rhythm. Radial pulses 2+, normal. ABDOMEN: Normoactive bowel sounds. Soft, nontender, no guarding, no rebound tenderness, and no masses palpated. EXTREMITIES: Normal strength and range of motion, No cyanosis. 2+ pitting edema bilateral lower extremities. NEUROLOGICAL: Moves all extremities upon command. Strength 3/5 in all extremities. PSYCH: Normal mood, normal affect. SKIN: Warm, dry. Stage II decubitus ulcer present to sacrum. Normal skin turgor. (MARLON SINGER) Course - Laboratory Result Diagrams: 06/21/18 04:45 06/21/18 05:57 <MARLON SINGER - Last Filed: 06/21/18 07:52> - Laboratory Result Diagrams: 06/21/18 10:35 06/21/18 17:18 <JUDITH LEVIN - Last Filed: 06/22/18 00:12> - Re-evaluation Re-evalutation: 06/21/18 04:15 Patient has crackles to the left base. Dr. Levin has accompanied me to assess the patient. She has a stage II decubitus ulcer to her sacrum. She is incontinent and is bedbound at [facility]. An Allevyn dressing was placed to her sacrum by the nursing staff. 06/21/18 05:38 Patient's chest x-ray shows cardiomegaly with bibasilar pleural effusions. Nitropaste has been ordered to help with her blood pressure. She will also be placed on BiPAP. 06/21/18 06:09 Patient's urinalysis has resulted. He will be given 1 g of Rocephin IV and urine cultures will be sent. Her hematology is unremarkable. Will wait for chemistries and BNP due to hemolyzed specimen. She denies any dysuria or abdominal pain. 06/21/18 06:22 Have been informed by the primary nurse that the patient is asking for the BiPAP to come off. She will be given 0.5 milligrams of Ativan to keep her calm well the BiPAP is on. I have assessed the patient and she says she does not want to wear the mask. 06/21/18 06:48 Patient's chemistries have resulted and she is hypokalemic. She will be given 20 M EQ's of oral potassium. Magnesium level will also be drawn. Her bilirubin is elevated at this time, but she denies abdominal pain and her abdominal assessment is benign. I have discussed this case with Dr. Dubose and he recommends I called Dr. Valiente for admission. Her blood pressure has improved to 123/67. Her Nitropaste was wiped off. 06/21/18 06:[address] Valiente for admission. He has excepted her to [facility]. 06/21/18 07:01 Patient's troponin is 21 and BNP is 126,000. I have attempted to call Dr. Valiente to inform him of the patient having an DC. The ion exchange operator said there was no answer. Will await callback. I have also attempted to call Rima Arenas , her next of kin. But there was no response. I reassessed the patient and she denies any chest pain at this time. Lung sounds are improving on BiPAP. 06/21/18 07:36 I was able to contact Dr. Valiente. I informed him of her troponin of 21. He stated that he still wanted to admit her to his services. I had asked him about her next of kin and he states that he knows her very well and will manage her care. (LUCRECIAMARLON Wilde) - Vital Signs Vital signs: Temp Pulse Resp BP Pulse Ox 97.4 F 66 14 146/72 H 100 06/21/18 18:58 06/21/18 18:58 06/21/18 18:58 06/21/18 18:58 06/21/18 18:58 - Laboratory Laboratory results interpreted by me: 06/21/18 06/21/18 06/21/18 04:45 05:00 05:00 RDW 20.9 H VBG HCO3 Potassium Chloride BUN Creatinine Est GFR ( Amer) Est GFR (Non-Af Amer) Total Bilirubin Direct Bilirubin AST Creatine Kinase CK-MB (CK-2) NT-Pro-B Natriuret Pep Albumin Urine Protein >=500 H Urine Blood SMALL H Urine Bilirubin SMALL H Urine Urobilinogen 4.0 H Ur Leukocyte Esterase LARGE H Protein/Creatinin Ratio 2.0 H Urine Total Protein 281.2 H 06/21/18 06/21/18 06/21/18 05:57 05:57 05:57 RDW VBG HCO3 32.1 H Potassium 3.2 L Chloride 95 L BUN 35 H Creatinine 2.13 H Est GFR ( Amer) 27 L Est GFR (Non-Af Amer) 22 L Total Bilirubin 3.4 H Direct Bilirubin 2.6 H AST 124 H Creatine Kinase 216 H CK-MB (CK-2) 6.74 H NT-Pro-B Natriuret Pep [id number] H Albumin 3.2 L Urine Protein Urine Blood Urine Bilirubin Urine Urobilinogen Ur Leukocyte Esterase Protein/Creatinin Ratio Urine Total Protein - EKG Interpretation by Me Additional EKG results interpreted by me: 06/21/18 Sinus rhythm with first-degree heart block. Rate 76. DC 244; QRS 114; QT 440; QTC 495. (MARLON SINGER) Critical Care Note - Critical Care Note Total time excluding time spent on procedures (mins): 45 - Critical care time spent obtaining history from patient or surrogate, discussions with consultants , development of treatment plan with patient or surrogate, evaluation of patient 's response to treatment, examination of patient, ordering and performing treatments and interventions, ordering and review of laboratory studies, re- evaluation of patient's condition, ordering and review of radiographic studies and review of old charts <JUDITH LEVIN - Last Filed: 06/22/18 00:12> Discharge - Discharge Admitting Provider: Rocco Unit Admitted: [facility] <MARLON SINGER - Last Filed: 06/21/18 07:52> <JUDITH LEVIN - Last Filed: 06/22/18 00:12> - Discharge Clinical Impression: Elevated brain natriuretic peptide (BNP) level, Hypokalemia, Increased bilirubin level, Elevated troponin Congestive heart failure Qualifiers: Heart failure type: systolic Heart failure chronicity: chronic Qualified Code(s ): I50.22 - Chronic systolic (congestive) heart failure Urinary tract infection Qualifiers: Urinary tract infection type: site unspecified Hematuria presence: without hematuria Qualified Code(s): N39.0 - Urinary tract infection, site not specified Myocardial infarction Qualifiers: Myocardial infarction type: non-ST elevation myocardial infarction Qualified Code(s): I21.4 - Non-ST elevation (NSTEMI) myocardial infarction Condition: Serious Disposition: ADMITTED INPATIENT
[2018-06-21] MEDS ORDERED: NITROGLYCERIN 2% OINTMENT 1 GM PACKET TP ONE (05:25)
--- NOTE | 2018-06-21 05:28 | RADIOLOGY REPORT (SQ) ---
EXAM DESCRIPTION: XR CHEST 1 VIEW COMPLETED DATE/TME: 06/21/2018 04:24 CLINICAL HISTORY: 78 years, Female, Shortness of breath COMPARISON: 02/26/2018 chest x-ray NUMBER OF VIEWS: 1 TECHNIQUE: AP portable chest LIMITATIONS: None. FINDINGS: Cardiomegaly with atheromatous change of the thoracic aorta. Osteopenia. No pneumothorax. Small bibasilar effusions/pleural thickening. IMPRESSION: Cardiomegaly with small bibasilar pleural effusions/pleural thickening copyright 2010 [employer]- All Rights Reserved
[2018-06-21 05:33] LABS: HEMATOCRIT 36.4 % (36.0-47.0); MEAN CORPUSCULAR HEMOGLOBIN 30.7 pg (27.0-33.4); MEAN CORPUSCULAR HGB CONC 32.9 g/dL (32.0-36.0); MEAN CORPUSCULAR VOLUME 93 fl (80-97); PLATELET COUNT 243 10^3/uL (150-450); RED CELL DISTRIBUTION WIDTH 20.9 % (11.5-14.0)
[2018-06-21 05:35] LABS: ABSOLUTE LYMPHOCYTES# (MANUAL) 1.2 10^3/uL (0.5-4.7); ABSOLUTE MONOCYTES # (MANUAL) 0.3 10^3/uL (0.1-1.4); ABSOLUTE NEUTROPHILS# (MANUAL) 2.4 10^3/uL (1.7-8.2); BASOPHILS % (MANUAL) 0 % (0-2); EOSINOPHILS % (MANUAL) 0 % (0-6); LYMPHOCYTES % (MANUAL) 30 % (13-45); MONOCYTES % (MANUAL) 8 % (3-13); SEGMENTED NEUTROPHILS % (MAN) 61 % (42-78); TOTAL CELLS COUNTED 100
[2018-06-21 05:36] LABS: TOXIC VACUOLATION PRESENT
[2018-06-21 05:37] LABS: APPEARANCE,URINE TURBID; BILIRUBIN,URINE SMALL (NEGATIVE); COLOR,URINE AMBER; GLUCOSE, URINE NEGATIVE (NEGATIVE); KETONES,URINE NEGATIVE (NEGATIVE); LEUKOCYTE ESTERASE,URINE LARGE (NEGATIVE); NITRITE,URINE NEGATIVE (NEGATIVE); PROTEIN,URINE >=500 mg/dL (NEGATIVE); URINE SPECIFIC GRAVITY 1.015
[2018-06-21 05:37] LABS: ANISOCYTOSIS 2+; BURR CELLS 1+; PLATELET COMMENT ADEQUATE; POIKILOCYTOSIS 1+; POLYCHROMASIA SLIGHT; SCHISTOCYTES SLIGHT; TARGET CELLS SLIGHT
[2018-06-21] MEDS ORDERED: CEFTRIAXONE INJ 1000 MG VIAL IV ONE (06:07)
[2018-06-21] MEDS ORDERED: LORAZEPAM INJ 2 MG/1 ML VIAL IV ONE (06:22)
[2018-06-21 06:23] LABS: VENOUS BLOOD BASE EXCESS 6.4 mmol/L; VENOUS BLOOD HCO3 32.1 mmol/L (20-32); VENOUS BLOOD PCO2 51.4 mmHg (35-63); VENOUS BLOOD PH 7.41 (7.30-7.42)
[2018-06-21 06:26] LABS: ALANINE AMINOTRANSFERASE 13 U/L (9-52); ALBUMIN 3.2 g/dL (3.5-5.0); ALKALINE PHOSPHATASE 66 U/L (38-126); ANION GAP 15 (5-19); ASPARTATE AMINO TRANSFERASE 124 U/L (14-36); BILIRUBIN,DIRECT 2.6 mg/dL (0.0-0.4); BILIRUBIN,TOTAL 3.4 mg/dL (0.2-1.3); BLOOD UREA NITROGEN 35 mg/dL (7-20); CALCIUM 8.9 mg/dL (8.4-10.2); CARBON DIOXIDE 30 mmol/L (22-30); CHLORIDE 95 mmol/L (98-107); CREATINE KINASE 216 U/L (30-135); GLUCOSE 78 mg/dL (75-110); POTASSIUM 3.2 mmol/L (3.6-5.0); SODIUM 140.3 mmol/L (137-145)
[2018-06-21] MEDS ORDERED: POTASSIUM CHLORIDE 20 MEQ/15 ML UDCUP PO ONE (06:31)
[2018-06-21 06:37] LABS: CREATINE KINASE MB 6.74 ng/mL (<4.55)
[2018-06-21 07:09] LABS: TROPONIN I 21.1 ng/mL
[2018-06-21] MEDS ORDERED: HEPARIN SOD (PORCINE) 1,000 UNIT/ML 10 ML VIAL IV ONE (08:45)
[2018-06-21] MEDS ORDERED: CLOPIDOGREL BISULFATE 300 MG TABLET PO ONE (08:46)
[2018-06-21] MEDS ORDERED: NORMAL SALINE 250 ML with FUROSEMIDE 250 MG IV PRN ×2 (08:47)
[2018-06-21 10:56] LABS: HEMATOCRIT 38.5 % (36.0-47.0); HEMOGLOBIN 12.8 g/dL (12.0-15.5); MEAN CORPUSCULAR HEMOGLOBIN 30.9 pg (27.0-33.4); MEAN CORPUSCULAR HGB CONC 33.2 g/dL (32.0-36.0); MEAN CORPUSCULAR VOLUME 93 fl (80-97); PLATELET COUNT 198 10^3/uL (150-450); RED BLOOD COUNT 4.13 10^6/uL (3.72-5.28); RED CELL DISTRIBUTION WIDTH 21.1 % (11.5-14.0); WHITE BLOOD COUNT 3.4 10^3/uL (4.0-10.5)
[2018-06-21 11:05] LABS: INTERNATIONAL RATION (INR) 1.34; PROTHROMBIN TIME 17.3 SEC (11.4-15.4)
[2018-06-21 11:06] LABS: PARTIAL THROMBOPLASTIN TIME 32.6 SEC (23.5-35.8)
[2018-06-21] MEDS: SACUBITRIL/VALSARTAN 49 MG/51 MG TABLET PO SCH ×2 (11:13→21:01)
[2018-06-21] MEDS: ASPIRIN 81 MG TABLET, ENT COATED PO SCH (11:14)
[2018-06-21] MEDS: CARVEDILOL 12.5 MG TABLET PO SCH ×2 (11:14→21:01)
[2018-06-21] MEDS: ATORVASTATIN CALCIUM 80 MG TABLET PO SCH ×2 (11:15→21:01)
[2018-06-21 11:16] LABS: ABSOLUTE LYMPHOCYTES# (MANUAL) 0.9 10^3/uL (0.5-4.7); ABSOLUTE MONOCYTES # (MANUAL) 0.2 10^3/uL (0.1-1.4); ABSOLUTE NEUTROPHILS# (MANUAL) 2.3 10^3/uL (1.7-8.2); ANISOCYTOSIS 2+; BASOPHILS % (MANUAL) 0 % (0-2); BURR CELLS SLIGHT; EOSINOPHILS % (MANUAL) 0 % (0-6); HYPOCHROMASIA 1+; LYMPHOCYTES % (MANUAL) 27 % (13-45); MONOCYTES % (MANUAL) 5 % (3-13); OVALOCYTES SLIGHT; PLATELET COMMENT ADEQUATE; POIKILOCYTOSIS 1+; POLYCHROMASIA 1+; SCHISTOCYTES SLIGHT; SEGMENTED NEUTROPHILS % (MAN) 68 % (42-78); TARGET CELLS SLIGHT; TOTAL CELLS COUNTED 100; TOXIC GRANULATION SLIGHT; TOXIC VACUOLATION PRESENT
[2018-06-21] MEDS ORDERED: HEPARIN SOD (PORCINE) 1,000 UNIT/ML 10 ML VIAL IV PRN (11:46)
[2018-06-21] MEDS: HEPARIN SODIUM,PORCINE/D5W 25,000 UNIT/250 ML RTUINJ IV PRN (11:50)
[2018-06-21] MEDS ORDERED: CARVEDILOL 12.5 MG TABLET PO SCH (14:00)
[2018-06-21] MEDS ORDERED: SACUBITRIL/VALSARTAN 49 MG/51 MG TABLET PO SCH (15:00)
[2018-06-21] MEDS: ISOSORBIDE MONONITRATE 60 MG TAB.ER.24H PO SCH (17:56)
[2018-06-21] MEDS: RANOLAZINE 500 MG TAB.SR.12H PO SCH (17:57)
[2018-06-21 18:07] LABS: ALANINE AMINOTRANSFERASE 12 U/L (9-52); ALBUMIN 3.1 g/dL (3.5-5.0); ALKALINE PHOSPHATASE 67 U/L (38-126); ANION GAP 16 (5-19); ASPARTATE AMINO TRANSFERASE 96 U/L (14-36); BILIRUBIN,DIRECT 1.9 mg/dL (0.0-0.4); BILIRUBIN,TOTAL 2.5 mg/dL (0.2-1.3); BLOOD UREA NITROGEN 36 mg/dL (7-20); CALCIUM 8.9 mg/dL (8.4-10.2); CARBON DIOXIDE 31 mmol/L (22-30); CHLORIDE 94 mmol/L (98-107); GLUCOSE 82 mg/dL (75-110); POTASSIUM 3.5 mmol/L (3.6-5.0); SODIUM 141.2 mmol/L (137-145); TOTAL PROTEIN 6.7 g/dL (6.3-8.2)
[2018-06-21 18:19] LABS: CREATINE KINASE MB 4.64 ng/mL (<4.55); TROPONIN I 18.5 ng/mL
--- NOTE | 2018-06-21 18:51 | PDOC H&P ---
History of Present Illness Admission Date/PCP: 06/21/18 08:28 MIKO GOMEZ MD History of Present Illness: NEIDA YEPEZ is a 78 year old female, She has underlying dementia, chronic systolic and diastolic heart failure, morbid obesity, chronic kidney disease stage III, secondary hyper parathyroidism, she is a resident of the residential at [facility]. She was noticed to have increased lower extremity swelling with generalized anasarca ,the residential staff called me to advise me of the clinical findings, outpatient BNP was ordered, this was found to be elevated, she was referred to the emergency room for further evaluation. In the ER she was evaluated, the troponin was drawn it was 20, the 12-lead EKG did not demonstrate any ST elevation SC.The last time she was admitted she also had a non-ST elevated myocardial infarction. At that time a 2D echocardiogram was done, the ejection fraction of the left ventricle was 20% to 30%, she was found to have grade 3 diastolic dysfunction of left ventricle. Past Medical History Cardiac Medical History: Reports: Congestive Heart Failure, Coronary Artery Disease, Myocardial Infarction, Hyperlipidema, Hypertension Pulmonary Medical History: Reports: Respiratory Failure Psychiatric Medical History: Reports: Dementia, Depression Hematology: Reports: Anemia Past Surgical History Past Surgical History: Reports: Tonsillectomy Social History Lives with: [facility] Smoking Status: Unknown if Ever Smoked Frequency of Alcohol Use: None Hx Recreational Drug Use: No Drugs: None Hx Prescription Drug Abuse: No - Advance Directive Resuscitation Status: Do Not Resuscitate Family History Family History: Hypertension Parental Family History Reviewed: Yes Children Family History Reviewed: Yes Sibling(s) Family History Reviewed.: Yes Medication/Allergy Home Medications: Aspirin [Aspirin 81 mg Chewable Tablet] 81 mg PO QPM 06/21/18 Atorvastatin Calcium [Lipitor 10 mg Tablet] 10 mg PO QPM 06/21/18 Carvedilol [Coreg 12.5 mg Tablet] 12.5 mg PO Q12 06/21/18 Clonidine HCl [Catapres 0.2 mg Tablet] 0.2 mg PO Q12 06/21/18 Isosorbide Mononitrate [Imdur 60 mg Tablet.er] 60 mg PO QAM 06/21/18 Ondansetron [Zofran Odt 4 mg Tablet] 4 mg PO Q4HP PRN 06/21/18 Ranolazine [Ranexa 500 mg Tab.sr] 500 mg PO Q12 06/21/18 Sacubitril/Valsartan [Entresto 49 mg/51 mg Tablet] 1 tab PO Q12 06/21/18 Sertraline HCl [Zoloft] 25 mg PO QHS 06/21/18 Torsemide [Demadex 20 mg Tablet] 20 mg PO QAM 06/21/18 Allergies/Adverse Reactions: Penicillins Allergy (Unknown, Verified 11/11/17 11:08) Pruritis Review of Systems Constitutional: ABSENT: chills, fever(s), headache(s), weight gain, weight loss Eyes: ABSENT: visual disturbances Ears: ABSENT: hearing changes Cardiovascular: PRESENT: chest pain, dyspnea on exertion, edema. ABSENT: orthropnea, palpitations Respiratory: ABSENT: cough, hemoptysis Gastrointestinal: ABSENT: abdominal pain, constipation, diarrhea, hematemesis, hematochezia, nausea, vomiting Genitourinary: ABSENT: dysuria, hematuria Musculoskeletal: ABSENT: joint swelling Integumentary: ABSENT: rash, wounds Neurological: ABSENT: abnormal gait, abnormal speech, confusion, dizziness, focal weakness, syncope Psychiatric: ABSENT: anxiety, depression, homidical ideation, suicidal ideation Endocrine: ABSENT: cold intolerance, heat intolerance, menstrual abnormalities, polydipsia, polyuria Hematologic/Lymphatic: ABSENT: easy bleeding, easy bruising, lymphadenopathy Physical Exam Vital Signs: Temp Pulse Resp BP Pulse Ox 97.2 F 65 16 141/76 H 100 06/21/18 15:36 06/21/18 15:36 06/21/18 15:36 06/21/18 15:36 06/21/18 15:36 Intake & Output 06/20/18 06/21/18 06/22/18 06:59 06:59 06:59 Output Total 100 Balance -100 Weight 89.1 kg General appearance: PRESENT: mild distress Head exam: PRESENT: atraumatic, normocephalic Eye exam: PRESENT: PERRLA Ear exam: PRESENT: normal external ear exam Neck exam: PRESENT: full ROM Respiratory exam: PRESENT: rhonchi Cardiovascular exam: PRESENT: RRR, +S1, +S2 Vascular exam: PRESENT: normal capillary refill GI/Abdominal exam: PRESENT: normal bowel sounds, soft Rectal exam: PRESENT: deferred Extremities exam: PRESENT: pedal edema Neurological exam: PRESENT: alert Psychiatric exam: PRESENT: appropriate affect, normal mood Results Laboratory Results: 06/21/18 10:35 06/21/18 17:18 06/21/1818 06/21/18 10:35 10:35 17:18 WBC 3.4 L RBC 4.13 Hgb 12.8 Hct 38.5 MCV 93 MCH 30.9 MCHC 33.2 RDW 21.1 H Plt Count 198 Seg Neutrophils % Not Reportable Lymphocytes % Not Reportable Monocytes % Not Reportable Eosinophils % Not Reportable Basophils % Not Reportable Absolute Neutrophils Not Reportable Absolute Lymphocytes Not Reportable Absolute Monocytes Not Reportable Absolute Eosinophils Not Reportable Absolute Basophils Not Reportable Sodium 141.2 Potassium 3.5 L Chloride 94 L Carbon Dioxide 31 H Anion Gap 16 BUN 36 H Creatinine 2.29 H Est GFR ( Amer) 25 L Est GFR (Non-Af Amer) 21 L Glucose 82 Calcium 8.9 Total Bilirubin 2.5 H AST 96 H ALT 12 Alkaline Phosphatase 67 Total Protein 6.7 Albumin 3.1 L PTH Intact 122.4 H 06/21/18 17:18 CK-MB (CK-2) 4.64 H Troponin I 18.500 Impressions: Chest X-Ray 06/21/18 04:24 IMPRESSION: Cardiomegaly with small bibasilar pleural effusions/pleural thickening copyright 2011 [employer]- All Rights Reserved Assessment & Plan - Diagnosis (1) Non-ST elevated myocardial infarction Is this a current diagnosis for this admission?: Yes Plan: She is not a candidate for coronary intervention, she has underlying dementia, sedentary, she will be treated medically with IV pain, antiplatelet statin therapy beta-magdalena ACEI/ARB (2) Acute combined systolic and diastolic heart failure Is this a current diagnosis for this admission?: Yes Plan: History of chronic systolic diastolic heart failure presently in CHF exacerbated by acute SC continue entresto, treat edema with IV furosemide (3) Chronic kidney disease, stage III (moderate) Is this a current diagnosis for this admission?: Yes (4) Secondary hyperparathyroidism Is this a current diagnosis for this admission?: Yes Plan: Start calcitriol (5) Dementia Is this a current diagnosis for this admission?: Yes (6) Urinary tract infection Qualifiers: Urinary tract infection type: site unspecified Hematuria presence: without hematuria Qualified Code(s): N39.0 - Urinary tract infection, site not specified Is this a current diagnosis for this admission?: Yes Plan: She has grossly abnormal urinalysis with bacteriuria
--- NOTE | 2018-06-21 20:55 | EKG REPORT ---
SEVERITY:- ABNORMAL ECG - SINUS RHYTHM FIRST DEGREE AV BLOCK LEFT ATRIAL ABNORMALITY NONSPECIFIC IVCD WITH LAD LOW VOLTAGE IN FRONTAL LEADS BORDERLINE R WAVE PROGRESSION, ANTERIOR LEADS : Confirmed by: Cat Lazaro MD 21-Jun-2018 20:54:45
--- NOTE | 2018-06-21 20:55 | EKG REPORT ---
SEVERITY:- ABNORMAL ECG - SINUS RHYTHM FIRST DEGREE AV BLOCK PROBABLE LEFT ATRIAL ABNORMALITY NONSPECIFIC INTRAVENTRICULAR CONDUCTION DELAY LOW VOLTAGE IN FRONTAL LEADS : Confirmed by: Cat Lazaro MD 21-Jun-2018 20:54:49
[2018-06-21 20:58] LABS: URINE CREATININE 137.8 mg/dL (15-278)
[2018-06-21] MEDS: CALCITRIOL 0.25 MCG CAPSULE PO SCH (21:01)
[2018-06-21] MEDS: SERTRALINE HCL 50 MG TABLET PO SCH (21:03)
[2018-06-21 21:09] LABS: URINE PROTEIN 281.2 mg/dL (<12)
[2018-06-21] MEDS: CIPROFLOXACIN 400 MG/D5W RTU 400 MG/200 ML RTUPB IV SCH (21:51)
[2018-06-21] MEDS ORDERED: (PENDING PHARMACY ID) (Sertraline Hcl [Zoloft] 25 MG) PO SCH (22:00)
[2018-06-22 00:16] LABS: CREATINE KINASE MB 3.84 ng/mL (<4.55)
[2018-06-22 00:18] LABS: TROPONIN I 14.8 ng/mL
[2018-06-22 03:19] LABS: APPEARANCE,URINE CLOUDY; BILIRUBIN,URINE NEGATIVE (NEGATIVE); COLOR,URINE AMBER; GLUCOSE, URINE NEGATIVE (NEGATIVE); KETONES,URINE NEGATIVE (NEGATIVE); LEUKOCYTE ESTERASE,URINE LARGE (NEGATIVE); NITRITE,URINE NEGATIVE (NEGATIVE); PROTEIN,URINE 100 mg/dL (NEGATIVE); URINE SPECIFIC GRAVITY 1.013
[2018-06-22] MEDS: RANOLAZINE 500 MG TAB.SR.12H PO SCH ×2 (05:28→17:08)
[2018-06-22 05:33] LABS: HEMOGLOBIN 11.6 g/dL (12.0-15.5); MEAN CORPUSCULAR HEMOGLOBIN 30.7 pg (27.0-33.4); MEAN CORPUSCULAR HGB CONC 33.1 g/dL (32.0-36.0); MEAN CORPUSCULAR VOLUME 93 fl (80-97); PLATELET COUNT 178 10^3/uL (150-450); RED BLOOD COUNT 3.78 10^6/uL (3.72-5.28); RED CELL DISTRIBUTION WIDTH 20.2 % (11.5-14.0); WHITE BLOOD COUNT 3.6 10^3/uL (4.0-10.5)
[2018-06-22 05:54] LABS: ANION GAP 15 (5-19); BLOOD UREA NITROGEN 35 mg/dL (7-20); CALCIUM 8.7 mg/dL (8.4-10.2); CARBON DIOXIDE 31 mmol/L (22-30); CHLORIDE 95 mmol/L (98-107); CHOLESTEROL 173.05 mg/dL (0-200); GLUCOSE 72 mg/dL (75-110); POTASSIUM 3.2 mmol/L (3.6-5.0); SODIUM 140.9 mmol/L (137-145); TRIGLYCERIDES 119 mg/dL (<150)
[2018-06-22 06:04] LABS: DIRECT LDL 118 mg/dL (<100)
[2018-06-22 06:12] LABS: ABSOLUTE LYMPHOCYTES# (MANUAL) 0.9 10^3/uL (0.5-4.7); ABSOLUTE MONOCYTES # (MANUAL) 0.2 10^3/uL (0.1-1.4); ABSOLUTE NEUTROPHILS# (MANUAL) 2.5 10^3/uL (1.7-8.2); ANISOCYTOSIS 2+; BASOPHILS % (MANUAL) 0 % (0-2); BURR CELLS 1+; EOSINOPHILS % (MANUAL) 0 % (0-6); LYMPHOCYTES % (MANUAL) 24 % (13-45); MONOCYTES % (MANUAL) 6 % (3-13); POIKILOCYTOSIS 2+; POLYCHROMASIA SLIGHT; SEGMENTED NEUTROPHILS % (MAN) 70 % (42-78); TOTAL CELLS COUNTED 100; TOXIC GRANULATION 1+
[2018-06-22 06:13] LABS: PLATELET CLUMPS PRESENT; PLATELET COMMENT ADEQUATE; PLATELET GIANT PRESENT; PLATELET LARGE PRESENT; SCHISTOCYTES 1+; TARGET CELLS 1+; TEAR DROP CELLS 1+
[2018-06-22] MEDS: CIPROFLOXACIN 400 MG/D5W RTU 400 MG/200 ML RTUPB IV SCH (10:30)
[2018-06-22] MEDS: SACUBITRIL/VALSARTAN 49 MG/51 MG TABLET PO SCH ×2 (10:30→21:28)
[2018-06-22] MEDS: ASPIRIN 81 MG TABLET, ENT COATED PO SCH (10:31)
[2018-06-22] MEDS: CALCITRIOL 0.25 MCG CAPSULE PO SCH (10:31)
[2018-06-22] MEDS: CARVEDILOL 12.5 MG TABLET PO SCH ×2 (10:31→21:29)
[2018-06-22] MEDS: ISOSORBIDE MONONITRATE 60 MG TAB.ER.24H PO SCH (11:30)
--- NOTE | 2018-06-22 17:04 | XCELERA REPORT ---
[address] [address] Transthoracic Echocardiogram Report Name: NEIDA YEPEZ Age: 78 yrs Gender: Female : 1940 Patient Status: Inpatient Patient Location: [address] [place] [address] Study Date: 06/22/2018 03:43 PM Height: 65 in Weight: 194 lb BSA: 2.0 m2 Procedure: A two-dimensional transthoracic echocardiogram with color flow Doppler was performed. Study Quality: Good. Reason For Study: LV Function, size, wall thickness,Valve Function History: CHF. Ordering Physician: MIKO GOMEZ Performed By: Marlena Man Interpretation Summary The left ventricle is moderately to severly dilated. There is normal left ventricular wall thickness. LV EF is 10% Left ventricular systolic function is severely reduced. There is severe global hypokinesis of the left ventricle. Paradoxical septal motion is consistent with right ventricular volume overload There is no thrombus. There is no ventricular septal defect visualized. The right ventricle is mildly dilated. The right ventricular systolic function is mild to moderately reduced. The right atrium is mildly dilated. The left atrium is mildly dilated. A patent foramen ovale is present. There is no evidence of mitral valve prolapse. There is no vegetation seen on the mitral valve. There is no mitral valve stenosis. There is a moderate amount of mitral regurgitation There is no aortic valvular vegetation. There is no aortic valve stenosis There is no LVOT obstruction. No aortic regurgitation is present. There is no tricuspid stenosis. There is a moderate amount of tricuspid regurgitation RVSP IS ATLEAST 56 MM OF hG WITH ra MEAN OF 20.THERE IS ATLEAST MODERATE PULMONARY HYPERTENSI... There is no pulmonic valvular stenosis. There is a mild to moderate amount of pulmonic regurgitation The aortic root is normal size. The inferior vena cava appeared dilated and did not change with respiration (RAP > 20 mmHg) There is no pericardial effusion. MMode/2D Measurements & Calculations RVDd: 3.8 cm Ao root diam: 2.8 cm EDV(MOD-sp4): 105.6 ml SV(MOD-sp4): 30.2 ml Ao root area: 6.0 cm2ESV(MOD-sp4): 75.3 ml EF(MOD-sp4): 28.6 % Doppler Measurements & Calculations MV E max mallorie: MV dec slope: Ao V2 max: LV V1 max P.1 cm/sec 472.1 cm/sec2 101.3 cm/sec 3.1 mmHg MV A max mallorie: MV dec time: 0.14 secAo max P.1 mmHgLV V1 max: 43.5 cm/sec 88.4 cm/sec MV E/A: 1.6 PA V2 max: PI end-d mallorie: TR max mallorie: 68.4 cm/sec 167.9 cm/sec 291.8 cm/sec PA max P.9 mmHg TR max P.1 mmHg Left Ventricle The left ventricle is moderately to severly dilated. There is normal left ventricular wall thickness. LV EF is 10%. Left ventricular systolic function is severely reduced. There is severe global hypokinesis of the left ventricle. Paradoxical septal motion is consistent with right ventricular volume overload. There is no thrombus. There is no ventricular septal defect visualized. Right Ventricle The right ventricle is mildly dilated. The right ventricular systolic function is mild to moderately reduced. Atria The right atrium is mildly dilated. The left atrium is mildly dilated. A patent foramen ovale is present. Mitral Valve There is no evidence of mitral valve prolapse. There is no vegetation seen on the mitral valve. There is no mitral valve stenosis. There is a moderate amount of mitral regurgitation. Aortic Valve There is no aortic valvular vegetation. There is no aortic valve stenosis. There is no LVOT obstruction. No aortic regurgitation is present. Tricuspid Valve There is no tricuspid stenosis. There is a moderate amount of tricuspid regurgitation. RVSP IS ATLEAST 56 MM OF hG WITH ra MEAN OF 20.THERE IS ATLEAST MODERATE PULMONARY HYPERTENSI... Pulmonic Valve There is no pulmonic valvular stenosis. There is a mild to moderate amount of pulmonic regurgitation. Great Vessels The aortic root is normal size. The inferior vena cava appeared dilated and did not change with respiration (RAP > 20 mmHg). Effusions There is no pericardial effusion. : MIKO GOMEZ > Cat Lazaro
--- NOTE | 2018-06-22 19:19 | PDOC CONSULTATION ---
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 She is followed in the office by me for her CKD 3. Last appointment was in January 2018, where her creatinine was at 1.5. At the time she also had 2+ pitting edema. After that appointment she was lost to follow up. Patient was sent from [facility] to [facility] ER. She was sent because they noticed increasing lower extremity swelling with generalized anasarca. In the ER she was labs were drawn the troponin was 20, the 12-lead EKG did not demonstrate any ST elevation NC. She has previous history of an an admission for non-ST elevated myocardial infarction. She was started on a heparin drip. Creatinine was also elevated to 2.1 and the BNP was elevated. Chest x-ray was done that found cardiomegaly and bilateral pleural effusions. It was also noted that at the time she has not been urinating. A bender catheter was placed and she was started on a furosemide drip at 2mg/hr. Upon examination today it was discovered that in 24 hours of the furosemide drip that she has only produced a little over 200mL. She is currently not eating or drinking much. Patient was also altered at the time of examination so she could not give a good history or ROS. Past Medical History Cardiac Medical History: Reports: Coronary Artery Disease, Hyperlipidemia, Myocardial Infarction Pulmonary Medical History: Reports: Respiratory Failure Psychiatric Medical History: Reports: Dementia, Depression Past Surgical History Past Surgical History: Reports: Tonsillectomy Social History Lives with: Skilled Nursing Smoking Status: Unknown if Ever Smoked Frequency of Alcohol Use: None Hx Recreational Drug Use: No Drugs: None Hx Prescription Drug Abuse: No - Advance Directive Resuscitation Status: Do Not Resuscitate Family History Parental Family History Reviewed: No Children Family History Reviewed: Unknown Sibling(s) Family History Reviewed.: Unknown Medication/Allergy Home Medications: Aspirin [Aspirin 81 mg Chewable Tablet] 81 mg PO QPM 06/21/18 Atorvastatin Calcium [Lipitor 10 mg Tablet] 10 mg PO QPM 06/21/18 Carvedilol [Coreg 12.5 mg Tablet] 12.5 mg PO Q12 06/21/18 Clonidine HCl [Catapres 0.2 mg Tablet] 0.2 mg PO Q12 06/21/18 Isosorbide Mononitrate [Imdur 60 mg Tablet.er] 60 mg PO QAM 06/21/18 Ondansetron [Zofran Odt 4 mg Tablet] 4 mg PO Q4HP PRN 06/21/18 Ranolazine [Ranexa 500 mg Tab.sr] 500 mg PO Q12 06/21/18 Sacubitril/Valsartan [Entresto 49 mg/51 mg Tablet] 1 tab PO Q12 06/21/18 Sertraline HCl [Zoloft] 25 mg PO QHS 06/21/18 Torsemide [Demadex 20 mg Tablet] 20 mg PO QAM 06/21/18 Allergies/Adverse Reactions: Penicillins Allergy (Unknown, Verified 11/11/17 11:08) Pruritis Review of Systems ROS unobtainable: Due to mental status Cardiovascular: ABSENT: chest pain Respiratory: ABSENT: cough, dyspnea Genitourinary: ABSENT: dysuria Physical Exam Vital Signs: Temp Pulse Resp BP Pulse Ox 97.5 F 69 14 138/78 H 100 06/22/18 15:48 06/22/18 15:48 06/22/18 15:48 06/22/18 15:48 06/22/18 15:48 Intake & Output 06/21/18 06/22/18 06/23/18 06:59 06:59 06:59 Intake Total 294 288 Output Total 230 100 Balance 64 188 Weight 92 kg General appearance: PRESENT: no acute distress, disheveled, well-developed Mouth exam: PRESENT: moist, neck supple Neck exam: PRESENT: JVD. ABSENT: tracheal deviation Respiratory exam: PRESENT: crackles, decreased breath sounds, rales. ABSENT: accessory muscle use, clear to auscultation kishan, rhonchi, wheezes Cardiovascular exam: PRESENT: +S1, +S2. ABSENT: rubs GI/Abdominal exam: PRESENT: soft. ABSENT: tenderness Extremities exam: PRESENT: pedal edema, other - +3 pitting edema. ABSENT: tenderness Musculoskeletal exam: ABSENT: normal inspection, tenderness Neurological exam: PRESENT: altered, awake, oriented to place. ABSENT: oriented to person, oriented to time, oriented to situation Psychiatric exam: PRESENT: flat affect. ABSENT: appropriate affect Skin exam: PRESENT: warm. ABSENT: cyanosis, intact Results Laboratory Results: 06/22/18 04:09 06/22/18 15:40 06/21/18 06/22/18 06/22/18 23:39 02:51 02:51 WBC RBC Hgb Hct MCV MCH MCHC RDW Plt Count Seg Neutrophils % Lymphocytes % Monocytes % Eosinophils % Basophils % Absolute Neutrophils Absolute Lymphocytes Absolute Monocytes Absolute Eosinophils Absolute Basophils Sodium Potassium Chloride Carbon Dioxide Anion Gap BUN Creatinine Est GFR ( Amer) Est GFR (Non-Af Amer) Glucose Calcium Total Protein 6.1 L Cancelled Albumin Cancelled Triglycerides Cholesterol LDL Cholesterol Direct VLDL Cholesterol HDL Cholesterol Urine Color ERICA Urine Appearance CLOUDY Urine pH 5.0 Ur Specific [place] 1.013 Urine Protein 100 H Urine Glucose (UA) NEGATIVE Urine Ketones NEGATIVE Urine Blood SMALL H Urine Nitrite NEGATIVE Ur Leukocyte Esterase LARGE H Urine WBC (Auto) >182 Urine RBC (Auto) 9 06/22/18 06/22/18 06/22/18 04:09 04:09 15:40 WBC 3.6 L RBC 3.78 Hgb 11.6 L Hct 35.0 L MCV 93 MCH 30.7 MCHC 33.1 RDW 20.2 H Plt Count 178 Seg Neutrophils % Not Reportable Lymphocytes % Not Reportable Monocytes % Not Reportable Eosinophils % Not Reportable Basophils % Not Reportable Absolute Neutrophils Not Reportable Absolute Lymphocytes Not Reportable Absolute Monocytes Not Reportable Absolute Eosinophils Not Reportable Absolute Basophils Not Reportable Sodium 140.9 Potassium 3.2 L 3.5 L Chloride 95 L Carbon Dioxide 31 H Anion Gap 15 BUN 35 H Creatinine 2.28 H Est GFR ( Amer) 25 L Est GFR (Non-Af Amer) 21 L Glucose 72 L Calcium 8.7 Total Protein Albumin Triglycerides 119 Cholesterol 173.05 LDL Cholesterol Direct 118 H VLDL Cholesterol 24.0 HDL Cholesterol 23 L Urine Color Urine Appearance Urine pH Ur Specific [place] Urine Protein Urine Glucose (UA) Urine Ketones Urine Blood Urine Nitrite Ur Leukocyte Esterase Urine WBC (Auto) Urine RBC (Auto) 06/21/18 06/21/18 06/21/18 17:18 17:46 23:39 CK-MB (CK-2) 4.64 H Cancelled 3.84 Troponin I 18.500 Cancelled 14.800 Impressions: Chest X-Ray 06/21/18 04:24 IMPRESSION: Cardiomegaly with small bibasilar pleural effusions/pleural thickening copyright 2011 [employer]- All Rights Reserved Assessment & Plan - Diagnosis (1) LAMONT (acute kidney injury) Plan: Oliguric, at this time it looks to be cardiorenal/CHF related. Other factors af fecting include current UTI. Will look to increase furosemide drip to 10mg/h. If this is not affective than I will look to add albumin on. Dosing all medications to a GFR of less than 25. With her current condition and her past medical history I do not think she would be a good candidate for dialysis. At this point I think that comfort measures would be my recommenced direction if urine output does not increase. (2) Urinary tract infection Qualifiers: Urinary tract infection type: acute pyelonephritis Qualified Code(s): N10 - Acute pyelonephritis Plan: will look to adjust IV cipro to 400mg daily (3) Acute combined systolic and diastolic heart failure Is this a current diagnosis for this admission?: Yes Plan: Possibly due to current NSTEMI, will look to increase lasix drip to 10mg/h to see if urine output increases. If this is still not affective, then I will look to add albumin on. (4) Chronic kidney disease, stage III (moderate) Is this a current diagnosis for this admission?: Yes Plan: baseline creatinine at last visit was 1.3 to 1.5 (5) Hypokalemia Plan: Redrawing after receiving a replacement today. If still low will look to give 10mEQ of PO potassium (6) Dementia Is this a current diagnosis for this admission?: Yes Plan: per primary (7) Non-ST elevated myocardial infarction Is this a current diagnosis for this admission?: Yes Plan: per primary - Notes Notes: Case was discussed with Dr. Reyes.
[2018-06-22] MEDS ORDERED: POTASSIUM CHLORIDE 20 MEQ/15 ML UDCUP PO ONE (19:45)
--- NOTE | 2018-06-22 20:18 | PDOC PROGRESS REPORT ---
Subjective Progress Note for:: 06/22/18 Subjective:: Patient seen by the bedside, she is oliguric partly due to cardiorenal syndrome , EF is 10% Reason For Visit: NSTMI,ACUTE SYSTOLIC HEART FAILURE Physical Exam Vital Signs: Temp Pulse Resp BP Pulse Ox 97.5 F 69 14 138/78 H 100 06/22/18 15:48 06/22/18 15:48 06/22/18 15:48 06/22/18 15:48 06/22/18 15:48 Intake & Output 06/21/18 06/22/18 06/23/18 06:59 06:59 06:59 Intake Total 294 288 Output Total 230 100 Balance 64 188 Weight 92 kg General appearance: PRESENT: no acute distress Eye exam: PRESENT: PERRLA Respiratory exam: PRESENT: clear to auscultation kishan Cardiovascular exam: PRESENT: +S1, +S2 GI/Abdominal exam: PRESENT: soft Extremities exam: PRESENT: pedal edema Neurological exam: PRESENT: alert Results Laboratory Results: 06/22/18 04:09 06/22/18 15:40 06/21/18 06/22/18 06/22/18 23:39 02:51 02:51 WBC RBC Hgb Hct MCV MCH MCHC RDW Plt Count Seg Neutrophils % Lymphocytes % Monocytes % Eosinophils % Basophils % Absolute Neutrophils Absolute Lymphocytes Absolute Monocytes Absolute Eosinophils Absolute Basophils Sodium Potassium Chloride Carbon Dioxide Anion Gap BUN Creatinine Est GFR ( Amer) Est GFR (Non-Af Amer) Glucose Calcium Total Protein 6.1 L Cancelled Albumin Cancelled Triglycerides Cholesterol LDL Cholesterol Direct VLDL Cholesterol HDL Cholesterol Urine Color ERICA Urine Appearance CLOUDY Urine pH 5.0 Ur Specific [place] 1.013 Urine Protein 100 H Urine Glucose (UA) NEGATIVE Urine Ketones NEGATIVE Urine Blood SMALL H Urine Nitrite NEGATIVE Ur Leukocyte Esterase LARGE H Urine WBC (Auto) >182 Urine RBC (Auto) 9 06/22/18 06/22/18 06/22/18 04:09 04:09 15:40 WBC 3.6 L RBC 3.78 Hgb 11.6 L Hct 35.0 L MCV 93 MCH 30.7 MCHC 33.1 RDW 20.2 H Plt Count 178 Seg Neutrophils % Not Reportable Lymphocytes % Not Reportable Monocytes % Not Reportable Eosinophils % Not Reportable Basophils % Not Reportable Absolute Neutrophils Not Reportable Absolute Lymphocytes Not Reportable Absolute Monocytes Not Reportable Absolute Eosinophils Not Reportable Absolute Basophils Not Reportable Sodium 140.9 Potassium 3.2 L 3.5 L Chloride 95 L Carbon Dioxide 31 H Anion Gap 15 BUN 35 H Creatinine 2.28 H Est GFR ( Amer) 25 L Est GFR (Non-Af Amer) 21 L Glucose 72 L Calcium 8.7 Total Protein Albumin Triglycerides 119 Cholesterol 173.05 LDL Cholesterol Direct 118 H VLDL Cholesterol 24.0 HDL Cholesterol 23 L Urine Color Urine Appearance Urine pH Ur Specific [place] Urine Protein Urine Glucose (UA) Urine Ketones Urine Blood Urine Nitrite Ur Leukocyte Esterase Urine WBC (Auto) Urine RBC (Auto) 06/21/18 06/21/18 06/21/18 17:18 17:46 23:39 CK-MB (CK-2) 4.64 H Cancelled 3.84 Troponin I 18.500 Cancelled 14.800 Impressions: Chest X-Ray 06/21/18 04:24 IMPRESSION: Cardiomegaly with small bibasilar pleural effusions/pleural thickening copyright 2011 [employer]- All Rights Reserved Assessment & Plan - Diagnosis (1) Non-ST elevated myocardial infarction Is this a current diagnosis for this admission?: Yes (2) Acute combined systolic and diastolic heart failure Is this a current diagnosis for this admission?: Yes Plan: EF 10%, consult cardiology, presently optimized on Entresto dose (3) Chronic kidney disease, stage III (moderate) Is this a current diagnosis for this admission?: Yes (4) Secondary hyperparathyroidism Is this a current diagnosis for this admission?: Yes (5) Dementia Is this a current diagnosis for this admission?: Yes (6) Urinary tract infection Qualifiers: Urinary tract infection type: site unspecified Hematuria presence: without hematuria Qualified Code(s): N39.0 - Urinary tract infection, site not specified Is this a current diagnosis for this admission?: Yes (7) Cardiorenal syndrome Qualifiers: Heart failure presence: with heart failure Hypertensive chronic kidney disease stage: stage 1-4 or unspecified chronic kidney disease Qualified Code( s): I13.0 - Hypertensive heart and chronic kidney disease with heart failure and stage 1 through stage 4 chronic kidney disease, or unspecified chronic kidney disease Is this a current diagnosis for this admission?: Yes Plan: Consult nephrology
--- NOTE | 2018-06-22 21:24 | EKG REPORT ---
SEVERITY:- ABNORMAL ECG - SINUS RHYTHM FIRST DEGREE AV BLOCK LEFT ATRIAL ABNORMALITY NONSPECIFIC INTRAVENTRICULAR CONDUCTION DELAY CONSIDER ANTERIOR INFARCT : Confirmed by: Cat Lazaro MD 22-Jun-2018 21:23:21
--- NOTE | 2018-06-22 21:26 | EKG REPORT ---
SEVERITY:- ABNORMAL ECG - SINUS RHYTHM FIRST DEGREE AV BLOCK PROBABLE LEFT ATRIAL ABNORMALITY NONSPECIFIC INTRAVENTRICULAR CONDUCTION DELAY CONSIDER ANTERIOR INFARCT : Confirmed by: Cat Lazaro MD 22-Jun-2018 21:25:33
[2018-06-22] MEDS: ATORVASTATIN CALCIUM 80 MG TABLET PO SCH (21:28)
[2018-06-22] MEDS: SERTRALINE HCL 50 MG TABLET PO SCH (21:29)
[2018-06-22] MEDS: NORMAL SALINE 250 ML with FUROSEMIDE 250 MG IV PRN ×2 (21:45)
[2018-06-22 23:19] LABS: INTERNATIONAL RATION (INR) 1.37; PROTHROMBIN TIME 17.5 SEC (11.4-15.4)
[2018-06-23] MEDS: HEPARIN SODIUM,PORCINE/D5W 25,000 UNIT/250 ML RTUINJ IV PRN (04:51)
[2018-06-23] MEDS: RANOLAZINE 500 MG TAB.SR.12H PO SCH ×2 (05:13→18:44)
[2018-06-23 06:02] LABS: HEMATOCRIT 34.1 % (36.0-47.0); HEMOGLOBIN 11.3 g/dL (12.0-15.5); MEAN CORPUSCULAR HEMOGLOBIN 30.7 pg (27.0-33.4); MEAN CORPUSCULAR HGB CONC 33.1 g/dL (32.0-36.0); MEAN CORPUSCULAR VOLUME 93 fl (80-97); PLATELET COUNT 162 10^3/uL (150-450); RED BLOOD COUNT 3.68 10^6/uL (3.72-5.28); RED CELL DISTRIBUTION WIDTH 20.2 % (11.5-14.0); WHITE BLOOD COUNT 3.7 10^3/uL (4.0-10.5)
[2018-06-23 06:03] LABS: INTERNATIONAL RATION (INR) 1.38; PROTHROMBIN TIME 17.6 SEC (11.4-15.4)
[2018-06-23 06:06] LABS: PARTIAL THROMBOPLASTIN TIME 109.3 SEC (23.5-35.8)
[2018-06-23 06:07] LABS: ANION GAP 9 (5-19); BLOOD UREA NITROGEN 35 mg/dL (7-20); CALCIUM 8.5 mg/dL (8.4-10.2); CARBON DIOXIDE 36 mmol/L (22-30); CHLORIDE 95 mmol/L (98-107); GLUCOSE 83 mg/dL (75-110); POTASSIUM 3.2 mmol/L (3.6-5.0); SODIUM 139.7 mmol/L (137-145)
[2018-06-23 06:24] LABS: ABSOLUTE LYMPHOCYTES# (MANUAL) 1.2 10^3/uL (0.5-4.7); ABSOLUTE MONOCYTES # (MANUAL) 0.5 10^3/uL (0.1-1.4); BASOPHILS % (MANUAL) 0 % (0-2); EOSINOPHILS % (MANUAL) 0 % (0-6); LYMPHOCYTES % (MANUAL) 32 % (13-45); MONOCYTES % (MANUAL) 14 % (3-13); SEGMENTED NEUTROPHILS % (MAN) 54 % (42-78); TOTAL CELLS COUNTED 100
[2018-06-23 06:26] LABS: ANISOCYTOSIS 3+; OVALOCYTES SLIGHT; PLATELET CLUMPS PRESENT; PLATELET COMMENT ADEQUATE; POIKILOCYTOSIS 2+; POLYCHROMASIA SLIGHT; TARGET CELLS 1+
--- NOTE | 2018-06-23 10:00 | EKG REPORT ---
SEVERITY:- ABNORMAL ECG - INCOMPLETE ANALYSIS DUE TO MISSING DATA IN PRECORDIAL LEAD(S) SINUS RHYTHM FIRST DEGREE AV BLOCK PROBABLE LEFT ATRIAL ABNORMALITY NONSPECIFIC INTRAVENTRICULAR CONDUCTION DELAY BORDERLINE R WAVE PROGRESSION, ANTERIOR LEADS : Confirmed by: Cat Lazaro MD 23-Jun-2018 09:59:55
[2018-06-23] MEDS: METOLAZONE 5 MG TABLET PO SCH ×2 (12:25→21:38)
[2018-06-23] MEDS: ASPIRIN 81 MG TABLET, ENT COATED PO SCH (12:25)
[2018-06-23] MEDS: CIPROFLOXACIN 400 MG/D5W RTU 400 MG/200 ML RTUPB IV SCH (12:25)
[2018-06-23] MEDS: SACUBITRIL/VALSARTAN 49 MG/51 MG TABLET PO SCH ×2 (12:26→21:38)
[2018-06-23] MEDS: CALCITRIOL 0.25 MCG CAPSULE PO SCH (12:26)
[2018-06-23] MEDS: CARVEDILOL 12.5 MG TABLET PO SCH ×2 (12:26→21:38)
[2018-06-23] MEDS: ISOSORBIDE MONONITRATE 60 MG TAB.ER.24H PO SCH (12:28)
--- NOTE | 2018-06-23 15:45 | PDOC PROGRESS REPORT ---
Subjective Progress Note for:: 06/23/18 Subjective:: Patient is clinically stable. Her urine output for the last 24 hours still not very good producing only about 300 mL of urine despite increasing the Lasix drip to 10 mL/hour. However this morning I did started her on metolazone and she so far has produced about 250 mL of urine. She denies any chest pains no shortness of breath. She has some nausea but no vomiting yet. Her appetite is very poor. Allegedly her ejection fraction is 10% an echocardiogram has been repeated. Reason For Visit: NSTMI,ACUTE SYSTOLIC HEART FAILURE Physical Exam Vital Signs: Temp Pulse Resp BP Pulse Ox 98.3 F 61 16 122/61 100 06/23/18 11:21 06/23/18 11:21 06/23/18 11:21 06/23/18 11:21 06/23/18 11:21 Intake & Output 06/22/18 06/23/18 06/24/18 06:59 06:59 06:59 Intake Total 294 652 21 Output Total 230 175 300 Balance 64 477 -279 Weight 92 kg 91.3 kg Exam: General appearance: PRESENT: no acute distress, cooperative, well-developed, well-nourished Head exam: PRESENT: atraumatic, normocephalic Eye exam: PRESENT: conjunctiva slightly pale, PERRLA. ABSENT: scleral icterus Neck exam: ABSENT: JVD Respiratory exam: PRESENT: Diminished breath sounds. ABSENT: crackles, rales, rhonchi, unlabored, wheezes Cardiovascular exam: PRESENT: Regular rate rhythm -+S1, +S2. ABSENT: diastolic murmur, systolic murmur GI/Abdominal exam: PRESENT: normal bowel sounds, soft. ABSENT: guarding, mass, tenderness Extremities exam: Grade 1 bilateral lower extremity edema Neurological exam: PRESENT: alert, awake, oriented to person, place but not to time. Skin exam: PRESENT: dry, warm, Cardiovascular exam: PRESENT: +S1, +S2. ABSENT: rubs GI/Abdominal exam: PRESENT: soft. ABSENT: tenderness Results Laboratory Results: 06/23/18 05:22 06/23/18 05:22 06/22/18 06/23/18 06/23/18 15:40 05:22 05:22 WBC 3.7 L RBC 3.68 L Hgb 11.3 L Hct 34.1 L MCV 93 MCH 30.7 MCHC 33.1 RDW 20.2 H Plt Count 162 Seg Neutrophils % Not Reportable Lymphocytes % Not Reportable Monocytes % Not Reportable Eosinophils % Not Reportable Basophils % Not Reportable Absolute Neutrophils Not Reportable Absolute Lymphocytes Not Reportable Absolute Monocytes Not Reportable Absolute Eosinophils Not Reportable Absolute Basophils Not Reportable Sodium 139.7 Potassium 3.5 L 3.2 L Chloride 95 L Carbon Dioxide 36 H Anion Gap 9 BUN 35 H Creatinine 2.13 H Est GFR ( Amer) 27 L Est GFR (Non-Af Amer) 22 L Glucose 83 Calcium 8.5 06/21/18 06/21/18 06/21/18 17:18 17:46 23:39 CK-MB (CK-2) 4.64 H Cancelled 3.84 Troponin I 18.500 Cancelled 14.800 Impressions: Chest X-Ray 06/21/18 04:24 IMPRESSION: Cardiomegaly with small bibasilar pleural effusions/pleural thickening copyright 2011 [employer]- All Rights Reserved Assessment & Plan - Diagnosis (1) Acute kidney injury superimposed on chronic kidney disease Is this a current diagnosis for this admission?: Yes Plan: Patient is oligo anuric. This is due to cardiorenal syndrome with severe dilated cardiomyopathy. Continue Lasix drip at 10 mg/h plus metolazone 5 mg p.o. every 12 hours. Patient is not a good candidate for chronic dialysis treatment which is she probably is going to possibly require if her kidney function does not recover. Currently there is no acute indication for any urgent renal replacement therapy. Her creatinine is even a little bit better today despite oliguria. I did speak to the patient regarding renal replacement therapy or hemodialysis last night and today. Patient has repeatedly said no to dialysis at any time. I discussed with her the consequences of no dialysis treatment if she really needs it due to kidney failure which includes progressive clinical deterioration until . Patient did not change her decision. This is probably appropriate considering that she is not a good candidate for any chronic dialysis treatment and she has an irreversible very severe dilated cardiomyopathy. So at this point will just continue medical management. (2) Cardiorenal syndrome Qualifiers: Heart failure presence: with heart failure Hypertensive chronic kidney disease stage: stage 1-4 or unspecified chronic kidney disease Qualified Code( s): I13.0 - Hypertensive heart and chronic kidney disease with heart failure and stage 1 through stage 4 chronic kidney disease, or unspecified chronic kidney disease Is this a current diagnosis for this admission?: Yes Plan: Defer to primary and cardiology. (3) Acute combined systolic and diastolic heart failure Is this a current diagnosis for this admission?: Yes (4) Chronic kidney disease, stage III (moderate) Is this a current diagnosis for this admission?: Yes (5) Dementia Is this a current diagnosis for this admission?: Yes (6) Hypokalemia Is this a current diagnosis for this admission?: Yes Plan: Potassium replacement as necessary. (7) Non-ST elevated myocardial infarction Is this a current diagnosis for this admission?: Yes (8) Urinary tract infection Qualifiers: Urinary tract infection type: acute pyelonephritis Qualified Code(s): N10 - Acute pyelonephritis Is this a current diagnosis for this admission?: Yes Plan: Due to E. coli. On ciprofloxacin. (9) Dementia Qualifiers: Dementia type: Alzheimer's disease Dementia behavioral disturbance: without behavioral disturbance Is this a current diagnosis for this admission?: Yes - Notes Notes: I discussed the case with Dr. Valietne yesterday as well. - Time Time with patient: Greater than 35 minutes
[2018-06-23] MEDS ORDERED: POTASSIUM CHLORIDE 10 MEQ CAPSULE.ER PO ONE ×2 (16:30→19:00)
[2018-06-23] MEDS: NORMAL SALINE 250 ML with FUROSEMIDE 250 MG IV PRN ×2 (17:27)
[2018-06-23] MEDS: PHARMACY COMMUNICATION ORDER MC SCH (18:44)
--- NOTE | 2018-06-23 21:01 | PDOC PROGRESS REPORT ---
Subjective Progress Note for:: 06/23/18 Subjective:: Patient was seen by the bedside she stated that she feels good Reason For Visit: NSTMI,ACUTE SYSTOLIC HEART FAILURE Physical Exam Vital Signs: Temp Pulse Resp BP Pulse Ox 98.1 F 86 17 121/61 100 06/23/18 15:35 06/23/18 19:00 06/23/18 15:35 06/23/18 15:35 06/23/18 15:35 Intake & Output 06/22/18 06/23/18 06/24/18 06:59 06:59 06:59 Intake Total 294 652 218 Output Total 230 175 600 Balance 64 477 -382 Weight 92 kg 91.3 kg General appearance: PRESENT: no acute distress Eye exam: PRESENT: PERRLA Respiratory exam: PRESENT: clear to auscultation kishan Cardiovascular exam: PRESENT: +S1, +S2 GI/Abdominal exam: PRESENT: soft Neurological exam: PRESENT: alert Results Laboratory Results: 06/23/18 05:22 06/23/18 05:22 06/23/18 06/23/18 05:22 05:22 WBC 3.7 L RBC 3.68 L Hgb 11.3 L Hct 34.1 L MCV 93 MCH 30.7 MCHC 33.1 RDW 20.2 H Plt Count 162 Seg Neutrophils % Not Reportable Lymphocytes % Not Reportable Monocytes % Not Reportable Eosinophils % Not Reportable Basophils % Not Reportable Absolute Neutrophils Not Reportable Absolute Lymphocytes Not Reportable Absolute Monocytes Not Reportable Absolute Eosinophils Not Reportable Absolute Basophils Not Reportable Sodium 139.7 Potassium 3.2 L Chloride 95 L Carbon Dioxide 36 H Anion Gap 9 BUN 35 H Creatinine 2.13 H Est GFR ( Amer) 27 L Est GFR (Non-Af Amer) 22 L Glucose 83 Calcium 8.5 06/21/18 06/21/18 06/21/18 17:18 17:46 23:39 CK-MB (CK-2) 4.64 H Cancelled 3.84 Troponin I 18.500 Cancelled 14.800 Impressions: Chest X-Ray 06/21/18 04:24 IMPRESSION: Cardiomegaly with small bibasilar pleural effusions/pleural thickening copyright 2011 [employer]- All Rights Reserved Assessment & Plan - Diagnosis (1) Non-ST elevated myocardial infarction Is this a current diagnosis for this admission?: Yes Plan: Discontinue IV heparin (2) Acute combined systolic and diastolic heart failure Is this a current diagnosis for this admission?: Yes Plan: Continue present treatment (3) Chronic kidney disease, stage III (moderate) Is this a current diagnosis for this admission?: Yes (4) Secondary hyperparathyroidism Is this a current diagnosis for this admission?: Yes (5) Dementia Is this a current diagnosis for this admission?: Yes (6) Urinary tract infection Qualifiers: Urinary tract infection type: site unspecified Hematuria presence: without hematuria Qualified Code(s): N39.0 - Urinary tract infection, site not specified Is this a current diagnosis for this admission?: Yes (7) Cardiorenal syndrome Qualifiers: Heart failure presence: with heart failure Hypertensive chronic kidney disease stage: stage 1-4 or unspecified chronic kidney disease Qualified Code( s): I13.0 - Hypertensive heart and chronic kidney disease with heart failure and stage 1 through stage 4 chronic kidney disease, or unspecified chronic kidney disease Is this a current diagnosis for this admission?: Yes Plan: There is increased renal output due to increase in furosemide infusion rate
[2018-06-23] MEDS: SERTRALINE HCL 50 MG TABLET PO SCH (21:38)
[2018-06-23] MEDS: ATORVASTATIN CALCIUM 80 MG TABLET PO SCH (21:38)
--- NOTE | 2018-06-23 23:34 | PDOC CONSULTATION ---
Consultation-Blank Consultation: CARDIOLOGY CONSULTATION by Dr. Cat Lazaro on 06/23/2018. Patient seen at 10 AM. 45 minutes spent on this patient with more than 50% of time spent in direct patient care. REASON FOR CONSULTATION: Patient with severely reduced LV ejection fraction, separate significant mitral and tricuspid regurgitant lesions, pulmonary hypertension, with the cardiorenal syndrome, with acute on chronic systolic heart failure, and acute on chronic renal failure, and elevated troponin I suggestive of non-ST elevation [place]. HISTORY of PRESENT ILLNESS: Note the patient has dementia and unable to get a history. But in spite of her labs and clinical condition, the patient appears to be pretty comfortable. As per the medical records patient admitted with Past MEDICAL HISTORY: History of hypertension, history of cardiomyopathy, and history of heart failure. History of myocardial infarction/coronary artery disease. History of hyperlipidemia. There is a history of hypertension. There is no history of diabetes mellitus or thyroid disease. No history of TIA CVA. The patient has severe dementia due to Alzheimer's disease PAST SURGICAL HISTORY: Tonsillectomy, and cardiac catheterization. ALLERGIES: Patient is allergic to penicillin. SOCIAL HISTORY: The patient does not smoke. There is no history of EtOH abuse. DISPOSITION: The patient is a DNR. Her her relative Ms. Rima Arenas is her surrogate healthcare decision maker. FAMILY HISTORY is positive for hypertension. Review OF SYSTEMS: Not Obtainable Due To Patient Dementia. Family Member Not Available. Note That the Patient's Chart Has Been Fully Reviewed, Including Patient's Prior Visits. PHYSICAL EXAMINATION: The patient appears to be older than his stated stated age , and appears to be chronically ill. In spite of that she is in no acute distress. She is well-groomed. Selected Entries 06/23/18 11:21 Temperature 98.3 F Temperature Oral Source Pulse Rate 61 Respiratory 16 Rate Blood Pressure 122/61 Blood Pressure 81 Mean BP Location Right Arm BP Position Supine O2 Sat by Pulse 100 Oximetry Oxygen Flow 2.00 Rate Oxygen Delivery Nasal Cannula Method HEAD: Is atraumatic normocephalic. EYES: Pupils equal round regular reactive to light. ENT is negative. NECK: Is supple. There is JVD present. Carotids equal there is no bruits. There is no lymphadenopathy. There is no goiter. LUNGS: Shows bibasilar rales of CHF. There is no chest wall tenderness. HEART : S1-S2 is heard there is no S3 gallop there is no S4 gallop. There is systolic murmur of mitral regurgitation, and tricuspid regurgitation present. There is no rub. ABDOMEN: Is soft. Nontender. There is no hepatosplenic megaly. Bowel sounds are well heard. There is no tender areas masses. EXTREMITIES: Femorals are diminished. There is no femoral bruits. There is 1+ pedal edema bilaterally. Leg pulses are diminished there is no DVT or cellulitis. There is no cyanosis or clubbing. 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 Psychiatric: Full psychiatric examination not done due to patient's mental status. The patient does not appear to be agitated. 06/21/18 06/21/18 06/21/18 05:57 17:18 23:39 WBC Hgb Hct Plt Count Sodium Potassium Chloride Carbon Dioxide BUN Creatinine Est GFR ( Amer) CK-MB (CK-2) 6.74 H 4.64 H 3.84 Troponin I 21.100 18.500 14.800 NT-Pro-B Natriuret Pep [id number] H Total Protein Triglycerides Cholesterol LDL Cholesterol Direct VLDL Cholesterol HDL Cholesterol 06/21/18 06/22/18 06/23/18 23:39 04:09 05:22 WBC 3.7 L Hgb 11.3 L Hct 34.1 L Plt Count 162 Sodium Potassium Chloride Carbon Dioxide BUN Creatinine Est GFR ( Amer) CK-MB (CK-2) Troponin I NT-Pro-B Natriuret Pep Total Protein 6.1 L Triglycerides 119 Cholesterol 173.05 LDL Cholesterol Direct 118 H VLDL Cholesterol 24.0 HDL Cholesterol 23 L 06/23/18 05:22 WBC Hgb Hct Plt Count Sodium 139.7 Potassium 3.2 L Chloride 95 L Carbon Dioxide 36 H BUN 35 H Creatinine 2.13 H Est GFR ( Amer) 27 L CK-MB (CK-2) Troponin I NT-Pro-B Natriuret Pep Total Protein Triglycerides Cholesterol LDL Cholesterol Direct VLDL Cholesterol HDL Cholesterol 06/21/18 08:45 Atorvastatin Calcium [Lipitor 80 mg Tablet] 80 mg PO QHS 06/21/18 10:00 Aspirin [Ecotrin 81 mg EC Tablet] 162 mg PO DAILY Carvedilol [Coreg 12.5 mg Tablet] 12.5 mg PO Q12 Sacubitril/Valsartan [Entresto 49 mg/51 mg Tablet] 1 tab PO Q12 06/21/18 11:46 Heparin Sodium,Porcine [Heparin Inj 1,000 Unit/ml 10 ml Vial] 0 - 12,000 unit IV .BOLUS PER PROTOCOL PRN 06/21/18 14:00 Normal Saline [Saline Flush 2.5 ml Monoject Prefil Syrin] 2.5 ml IV Q8 06/21/18 15:00 Isosorbide Mononitrate [Imdur 60 mg Tablet.er] 60 mg PO DAILY 06/21/18 16:00 Ranolazine [Ranexa 500 mg Tab.sr] 500 mg PO Q12A 06/21/18 19:30 Calcitriol [Rocaltrol 0.25 Mcg Capsule] 0.25 mcg PO DAILY 06/21/18 22:00 Sertraline HCl [Zoloft 50 mg Tablet] 25 mg PO QHS 06/22/18 17:01 Furosemide [Lasix Inj/Pf 100 mg/10 ml Sdv] 250 mg Normal Saline [NaCl 0.9% 250 ml IV Soln] 250 ml IV CONTINUOUS 06/22/18 19:45 Potassium Chloride [Kaon-Cl 20 Meq/15 ml Udcup] 10 meq PO NOW ONE 06/23/18 10:00 Ciprofloxacin 400 mg/D5w RTU [Cipro RTU 400 mg/D5w 200 ml Premix Bag] 400 mg in 200 ml IV DAILY 06/23/18 16:30 Potassium Chloride [Klor-Con 10 Meq Capsule ER] 40 meq PO NOW ONE 06/23/18 18:00 Pharmacy Communication [Medication Communication Order] 1 each MC QPM 06/23/18 19:00 Potassium Chloride [Klor-Con 10 Meq Capsule ER] 40 meq PO NOW ONE EKG: Sinus rhythm with first-degree AV block old anterior myocardial infarction. ECHO: Shows a dilated left ventricle. With severely depressed LV ejection fraction of 10%. Moderate mitral regurgitation. Moderate tricuspid regurgitation. Moderate pulmonary hypertension with right ventricle systolic pressure of at least 56 mmHg. CHEST X-ray: Cardiomegaly. No acute failure. IMPRESSION/RECOMMENDATION: 1. Non-ST elevation [place]. Note that the patient's CPK-MB and troponin I are significantly elevated. Although this might be due to the patient's congestive heart failure, with severely reduced LV ejection fraction, and the patient's acute renal failure on chronic renal failure, due to lack of being able to obtain a history from the patient need to assume that the patient is having a non-ST elevation [place]. Agree with nitrates. Note that the patient did receive full dose heparin, which has been discontinued. Continue aspirin. 2. Acute on chronic systolic heart failure. Continue diuretics, and beta- blockers. Would recommend holding the patient Entresto in view of the patient' s renal function, and substituting it with hydralazine. 3. Acute on chronic renal failure. Note nephrology on board. Patient urine output is marginally better note that the patient on IV Lasix drip, and also patient is on metolazone. Would recommend stopping the patient Entresto for now and place the patient on hydralazine, and once the renal failure improves then can restart the patient on Entresto. 4. Cardiomyopathy with severely reduced LV ejection fraction of 10%. Continue diuretics as mentioned earlier. Would recommend continue Coreg. Would recommend holding the patient's Entresto for now, and replacing it with hydralazine p.o., until the renal function improves. 5. Coronary artery disease, patient has a prior history of stent placement. Continue nitrates and aspirin. 6. Hypertension: Continue the patient's current antihypertensives. 7. Moderate mitral regurgitation: Would recommend continue the patient on afterload reduction with hydralazine, and later switching to Entresto when the renal function improves. 8. Moderate tricuspid regurgitation, with moderate pulmonary hypertension, as per recent echocardiogram done this admission. Would strongly recommend continue nitrates and anti-heart failure management medic medications and afterload reducing agents. 9. Dyslipidemia with elevated LDL levels, and low HDL levels. 10. Severe dementia secondary to Alzheimer's disease. Medications to be reviewed, and medications adjustments discussed with attending physician. Medical decision making is of high complexity. Note 45 minutes spent on this patient with more than 50% of time spent in direct patient care. Patient's prognosis very poor. Will follow with you.
[2018-06-24] MEDS ORDERED: HYDRALAZINE HCL 50 MG TABLET PO ONE (00:15)
[2018-06-24] MEDS: HYDRALAZINE HCL 50 MG TABLET PO SCH ×3 (05:56→18:30)
[2018-06-24] MEDS: RANOLAZINE 500 MG TAB.SR.12H PO SCH ×2 (05:56→18:30)
[2018-06-24 07:05] LABS: HEMATOCRIT 34.7 % (36.0-47.0); HEMOGLOBIN 11.6 g/dL (12.0-15.5); MEAN CORPUSCULAR HEMOGLOBIN 30.7 pg (27.0-33.4); MEAN CORPUSCULAR HGB CONC 33.3 g/dL (32.0-36.0); MEAN CORPUSCULAR VOLUME 92 fl (80-97); PLATELET COUNT 176 10^3/uL (150-450); RED BLOOD COUNT 3.77 10^6/uL (3.72-5.28); RED CELL DISTRIBUTION WIDTH 20.2 % (11.5-14.0); WHITE BLOOD COUNT 3.3 10^3/uL (4.0-10.5)
[2018-06-24 07:24] LABS: ANION GAP 12 (5-19); BLOOD UREA NITROGEN 33 mg/dL (7-20); CALCIUM 8.7 mg/dL (8.4-10.2); CARBON DIOXIDE 30 mmol/L (22-30); CHLORIDE 95 mmol/L (98-107); GLUCOSE 74 mg/dL (75-110); POTASSIUM 3.7 mmol/L (3.6-5.0)
[2018-06-24 08:31] LABS: ABSOLUTE LYMPHOCYTES# (MANUAL) 0.8 10^3/uL (0.5-4.7); ABSOLUTE MONOCYTES # (MANUAL) 0.3 10^3/uL (0.1-1.4); ABSOLUTE NEUTROPHILS# (MANUAL) 2.2 10^3/uL (1.7-8.2); BASOPHILS % (MANUAL) 0 % (0-2); EOSINOPHILS % (MANUAL) 0 % (0-6); LYMPHOCYTES % (MANUAL) 25 % (13-45); MONOCYTES % (MANUAL) 9 % (3-13); SEGMENTED NEUTROPHILS % (MAN) 66 % (42-78); TOTAL CELLS COUNTED 100
[2018-06-24 08:32] LABS: ANISOCYTOSIS 2+; HYPOCHROMASIA SLIGHT; OVALOCYTES 1+; POIKILOCYTOSIS 2+; TEAR DROP CELLS SLIGHT
[2018-06-24 08:33] LABS: PLATELET COMMENT ADEQUATE
[2018-06-24] MEDS: CIPROFLOXACIN 400 MG/D5W RTU 400 MG/200 ML RTUPB IV SCH (10:22)
[2018-06-24] MEDS: CARVEDILOL 12.5 MG TABLET PO SCH ×2 (10:23→21:15)
[2018-06-24] MEDS: ASPIRIN 81 MG TABLET, ENT COATED PO SCH (10:23)
[2018-06-24] MEDS: METOLAZONE 5 MG TABLET PO SCH ×2 (10:23→21:14)
[2018-06-24] MEDS: ISOSORBIDE MONONITRATE 60 MG TAB.ER.24H PO SCH (10:23)
[2018-06-24] MEDS: CALCITRIOL 0.25 MCG CAPSULE PO SCH (10:23)
[2018-06-24 11:01] LABS: APPEARANCE,URINE CLEAR; BILIRUBIN,URINE NEGATIVE (NEGATIVE); COLOR,URINE YELLOW; GLUCOSE, URINE NEGATIVE (NEGATIVE); KETONES,URINE NEGATIVE (NEGATIVE); LEUKOCYTE ESTERASE,URINE NEGATIVE (NEGATIVE); NITRITE,URINE NEGATIVE (NEGATIVE); PROTEIN,URINE NEGATIVE (NEGATIVE); URINE SPECIFIC GRAVITY 1.006; UROBILINOGEN,URINE NEGATIVE mg/dL (<2.0)
--- NOTE | 2018-06-24 14:50 | Progress Note ---
Provider Note Provider Note: CARDIOLOGY PROGRESS NOTES by Dr. Shelton has been on 06/24/2018. SUBJECTIVE: The patient continues to be confused, but does not seem to be in any acute distress. Her leg edema is much improved. She is also urinating more. There is no arrhythmias seen on the monitor. The patient in spite of her confusion denies chest pain or discomfort and denies shortness of breath. There are no TIA or CVA symptoms.PHYSICAL EXAMINATION: The patient is moderately obese. At present in no acute distress. The patient is confused. She does not seem to be agitated. She is well-groomed. Selected Entries 06/24/18 11:56 Temperature 97.7 F Temperature Oral Source Pulse Rate 69 Blood Pressure 107/58 L Blood Pressure 74 Mean BP Location Right Arm BP Position Sitting O2 Sat by Pulse 100 Oximetry Oxygen Flow 2.00 Rate HEAD: Is atraumatic normocephalic. EYES: Pupils equal round regular reactive to light. ENT is negative. NECK: Is supple. There is JVD present. Carotids equal there is no bruits. There is no lymphadenopathy. There is no goiter. LUNGS: Shows bibasilar rales of CHF. There is no chest wall tenderness. HEART : S1-S2 is heard there is no S3 gallop there is no S4 gallop. There is systolic murmur of mitral regurgitation, and tricuspid regurgitation present. There is no rub. ABDOMEN: Is soft. Nontender. There is no hepatosplenic megaly. Bowel sounds are well heard. There is no tender areas masses. EXTREMITIES: Femorals are diminished. There is no femoral bruits. There is 1+ pedal edema bilaterally. Leg pulses are diminished there is no DVT or cellulitis. There is no cyanosis or clubbing. 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 Psychiatric: Full psychiatric examination not done due to patient's mental status. The patient does not appear to be agitated. 06/24/18 06/24/18 06:29 06:29 WBC 3.3 L RBC 3.77 Hgb 11.6 L Hct 34.7 L MCV 92 Plt Count 176 Sodium 137.0 Potassium 3.7 Chloride 95 L Carbon Dioxide 30 Anion Gap 12 BUN 33 H Est GFR ( Amer) 30 L Est GFR (Non-Af Amer) 25 L Glucose 74 L Calcium 8.7 IMPRESSION/RECOMMENDATION: 1. Non-ST elevation [place]. Note that the patient's CPK-MB and troponin I are significantly elevated. Although this might be due to the patient's congestive heart failure, with severely reduced LV ejection fraction, and the patient's acute renal failure on chronic renal failure, due to lack of being able to obtain a history from the patient need to assume that the patient is having a non-ST elevation [place]. Agree with nitrates. Note that the patient did receive full dose heparin, which has been discontinued. Continue aspirin. 2. Acute on chronic systolic heart failure. Continue diuretics, and beta- blockers. Would recommend holding the patient Entresto in view of the patient' s renal function, and substituting it with hydralazine. 3. Acute on chronic renal failure. Note nephrology on board. Patient urine output is marginally better note that the patient on IV Lasix drip, and also patient is on metolazone. Would recommend stopping the patient Entresto for now and place the patient on hydralazine, and once the renal failure improves then can restart the patient on Entresto. 4. Cardiomyopathy with severely reduced LV ejection fraction of 10%. Continue diuretics as mentioned earlier. Would recommend continue Coreg. Would recommend holding the patient's Entresto for now, and replacing it with hydralazine p.o., until the renal function improves. We will increase the patient's hydralazine to 50 mg p.o. every 6 hours. 5. Coronary artery disease, patient has a prior history of stent placement. Continue nitrates and aspirin. 6. Hypertension: Continue the patient's current antihypertensives. 7. Moderate mitral regurgitation: Would recommend continue the patient on afterload reduction with hydralazine, and later switching to Entresto when the renal function improves. 8. Moderate tricuspid regurgitation, with moderate pulmonary hypertension, as per recent echocardiogram done this admission. Would strongly recommend continue nitrates and anti-heart failure management medic medications and afterload reducing agents. Her medications have been reviewed. Medications adjusted. Discussed management plan with attending physician Dr. sierra Valiente. Medical decision making is of high complexity. 40 minutes spent on this patient more than 50% of time spent on direct patient care.
[2018-06-24] MEDS ORDERED: ONDANSETRON HCL INJ/PF 4 MG/2 ML SDV IV PRN (14:57)
--- NOTE | 2018-06-24 15:07 | PDOC PROGRESS REPORT ---
Subjective Progress Note for:: 06/24/18 Subjective:: Patient had episode single episode of nausea and vomiting this morning. No chest pain or difficulty with breathing. No fever or chills. Reason For Visit: NSTMI,ACUTE SYSTOLIC HEART FAILURE Physical Exam Vital Signs: Temp Pulse Resp BP Pulse Ox 97.7 F 69 16 107/58 L 100 06/24/18 11:56 06/24/18 11:56 06/24/18 11:56 06/24/18 11:56 06/24/18 11:56 Intake & Output 06/23/18 06/24/18 06/25/18 06:59 06:59 06:59 Intake Total 652 418 580 Output Total 175 1350 325 Balance 477 -932 255 Weight 91.3 kg 88.9 kg General appearance: PRESENT: no acute distress Head exam: PRESENT: atraumatic, normocephalic Eye exam: PRESENT: conjunctiva pink, EOMI, PERRLA. ABSENT: scleral icterus Ear exam: PRESENT: normal external ear exam Mouth exam: PRESENT: moist Cardiovascular exam: PRESENT: RRR, +S1, +S2. ABSENT: diastolic murmur, systolic murmur Vascular exam: ABSENT: pallor GI/Abdominal exam: PRESENT: normal bowel sounds, soft. ABSENT: distended, guarding, mass, organolmegaly, rebound, tenderness Extremities exam: PRESENT: pedal edema - 1+ bilaterally Musculoskeletal exam: PRESENT: deformity - related to multiple joints involvement with arthritis Neurological exam: PRESENT: alert, awake, oriented to person, oriented to place , oriented to time, oriented to situation Psychiatric exam: PRESENT: appropriate affect, normal mood. ABSENT: homicidal ideation, suicidal ideation Skin exam: PRESENT: dry, warm Results Laboratory Results: 06/24/18 06:29 06/24/18 06:29 06/24/18 06/24/18 06/24/18 06:29 06:29 10:00 WBC 3.3 L RBC 3.77 Hgb 11.6 L Hct 34.7 L MCV 92 MCH 30.7 MCHC 33.3 RDW 20.2 H Plt Count 176 Seg Neutrophils % Not Reportable Lymphocytes % Not Reportable Monocytes % Not Reportable Eosinophils % Not Reportable Basophils % Not Reportable Absolute Neutrophils Not Reportable Absolute Lymphocytes Not Reportable Absolute Monocytes Not Reportable Absolute Eosinophils Not Reportable Absolute Basophils Not Reportable Sodium 137.0 Potassium 3.7 Chloride 95 L Carbon Dioxide 30 Anion Gap 12 BUN 33 H Creatinine 1.97 H Est GFR ( Amer) 30 L Est GFR (Non-Af Amer) 25 L Glucose 74 L Calcium 8.7 Urine Color YELLOW Urine Appearance CLEAR Urine pH 6.0 Ur Specific [place] 1.006 Urine Protein NEGATIVE Urine Glucose (UA) NEGATIVE Urine Ketones NEGATIVE Urine Blood NEGATIVE Urine Nitrite NEGATIVE Ur Leukocyte Esterase NEGATIVE Urine WBC (Auto) 2 Urine RBC (Auto) 0 06/21/18 06/21/18 06/21/18 17:18 17:46 23:39 CK-MB (CK-2) 4.64 H Cancelled 3.84 Troponin I 18.500 Cancelled 14.800 Impressions: Chest X-Ray 06/21/18 04:24 IMPRESSION: Cardiomegaly with small bibasilar pleural effusions/pleural thickening copyright 2011 [employer]- All Rights Reserved Assessment & Plan - Diagnosis (1) Non-ST elevated myocardial infarction Is this a current diagnosis for this admission?: Yes Plan: Continue on current medication management. (2) Acute combined systolic and diastolic heart failure Is this a current diagnosis for this admission?: Yes Plan: Continue on current medication management. (3) Chronic kidney disease, stage III (moderate) Is this a current diagnosis for this admission?: Yes Plan: Continue on current medication management. (4) Urinary tract infection Qualifiers: Urinary tract infection type: site unspecified Hematuria presence: without hematuria Qualified Code(s): N39.0 - Urinary tract infection, site not specified Is this a current diagnosis for this admission?: Yes Plan: Continue on current IV Ciprofloxacin coverage. (5) Nausea & vomiting Qualifiers: Vomiting type: unspecified Vomiting Intractability: unspecified Qualified Code(s): R11.2 - Nausea with vomiting, unspecified Is this a current diagnosis for this admission?: Yes Plan: Start on IV Zofran 4 mg [id number] [id number] for nausea and vomiting management. - Time Time Spent with patient: 25-34 minutes Medications reviewed and adjusted accordingly: Yes Anticipated discharge: SNF Within: Other - Inpatient Certification Based on my medical assessment, after consideration of the patient's comorbidities, presenting symptoms, or acuity I expect that the services needed warrant INPATIENT care.: Yes I certify that my determination is in accordance with my understanding of Medicare's requirements for reasonable and necessary INPATIENT services [42 CFR 412.3e].: Yes Medical Necessity: Need Close Monitoring Due to Risk of Patient Decompensation, Need For Continuous Telemetry Monitoring, Need for IV Antibiotics, Risk of Complication if Not Cared For in Hospital Post Hospital Care: D/C or Transfer Summary - Plan Summary Plan Summary: See covering attending physician orders as per above outline care plan.
[2018-06-24] MEDS: NORMAL SALINE 250 ML with FUROSEMIDE 250 MG IV PRN ×2 (18:31)
[2018-06-24] MEDS: PHARMACY COMMUNICATION ORDER MC SCH (18:32)
[2018-06-24] MEDS: ATORVASTATIN CALCIUM 80 MG TABLET PO SCH (21:14)
[2018-06-24] MEDS: SERTRALINE HCL 50 MG TABLET PO SCH (21:14)
[2018-06-25] MEDS: HYDRALAZINE HCL 50 MG TABLET PO SCH ×5 (00:17→23:31)
[2018-06-25] MEDS: RANOLAZINE 500 MG TAB.SR.12H PO SCH ×2 (05:07→17:38)
[2018-06-25 07:11] LABS: ALANINE AMINOTRANSFERASE 6 U/L (9-52); ALBUMIN 3.2 g/dL (3.5-5.0); ALKALINE PHOSPHATASE 63 U/L (38-126); ANION GAP 10 (5-19); ASPARTATE AMINO TRANSFERASE 42 U/L (14-36); BILIRUBIN,DIRECT 2.5 mg/dL (0.0-0.4); BILIRUBIN,TOTAL 3.1 mg/dL (0.2-1.3); BLOOD UREA NITROGEN 34 mg/dL (7-20); CALCIUM 8.9 mg/dL (8.4-10.2); CARBON DIOXIDE 33 mmol/L (22-30); CHLORIDE 94 mmol/L (98-107); GLUCOSE 72 mg/dL (75-110); POTASSIUM 3.6 mmol/L (3.6-5.0)
[2018-06-25] MEDS: CALCITRIOL 0.25 MCG CAPSULE PO SCH (10:45)
[2018-06-25] MEDS: ISOSORBIDE MONONITRATE 60 MG TAB.ER.24H PO SCH (10:45)
[2018-06-25] MEDS: ASPIRIN 81 MG TABLET, ENT COATED PO SCH (10:45)
[2018-06-25] MEDS: SACUBITRIL/VALSARTAN 49 MG/51 MG TABLET PO SCH ×2 (10:45→17:38)
[2018-06-25] MEDS: CARVEDILOL 12.5 MG TABLET PO SCH ×2 (10:46→21:58)
[2018-06-25] MEDS: METOLAZONE 5 MG TABLET PO SCH ×2 (10:46→21:58)
[2018-06-25] MEDS: CIPROFLOXACIN 400 MG/D5W RTU 400 MG/200 ML RTUPB IV SCH (10:46)
--- NOTE | 2018-06-25 15:49 | PDOC PROGRESS REPORT ---
Subjective Progress Note for:: 06/25/18 Subjective:: Patient continue to experience post prandial nausea with vomiting that is limiting her PO intake. No abdominal pain. Bowel movement about 2 days ago. No chest pain or difficulty with breathing. Reason For Visit: NSTMI,ACUTE SYSTOLIC HEART FAILURE Physical Exam Vital Signs: Temp Pulse Resp BP Pulse Ox 97.6 F 84 16 141/78 H 100 06/25/18 11:50 06/25/18 11:50 06/25/18 11:50 06/25/18 11:50 06/25/18 11:50 Intake & Output 06/24/18 06/25/18 06/26/18 06:59 06:59 06:59 Intake Total 418 1385 200 Output Total 1350 1450 Balance -932 -65 200 Weight 88.9 kg 88.9 kg Physical Exam: General appearance: PRESENT: no acute distress Head exam: PRESENT: atraumatic, normocephalic Eye exam: PRESENT: conjunctiva pink, EOMI, PERRLA. ABSENT: pallor, scleral icterus Ear exam: PRESENT: normal external ear exam Mouth exam: PRESENT: moist Cardiovascular exam: PRESENT: RRR, +S1, +S2. ABSENT: diastolic murmur, systolic murmur GI/Abdominal exam: PRESENT: normal bowel sounds, soft. ABSENT: distended, guarding, mass, organomegaly, rebound, tenderness Extremities exam: PRESENT: pedal edema - 1+ bilaterally Musculoskeletal exam: PRESENT: deformity - related to multiple joints involvement with arthritis Neurological exam: PRESENT: alert, awake, oriented to person, oriented to place , oriented to time, oriented to situation Psychiatric exam: PRESENT: appropriate affect, normal mood. ABSENT: homicidal ideation, suicidal ideation Skin exam: PRESENT: dry, warm, stage 3 sacral pressure ulcers Results Laboratory Results: 06/24/18 06:29 06/25/18 05:52 06/25/18 05:52 Sodium 137.0 Potassium 3.6 Chloride 94 L Carbon Dioxide 33 H Anion Gap 10 BUN 34 H Creatinine 1.85 H Est GFR ( Amer) 32 L Est GFR (Non-Af Amer) 26 L Glucose 72 L Calcium 8.9 Total Bilirubin 3.1 H AST 42 H ALT 6 L Alkaline Phosphatase 63 Total Protein 7.0 Albumin 3.2 L 06/21/18 06/21/18 06/21/18 17:18 17:46 23:39 CK-MB (CK-2) 4.64 H Cancelled 3.84 Troponin I 18.500 Cancelled 14.800 Impressions: Chest X-Ray 06/21/18 04:24 IMPRESSION: Cardiomegaly with small bibasilar pleural effusions/pleural thickening copyright 2011 [employer]- All Rights Reserved Assessment & Plan - Diagnosis (1) Non-ST elevated myocardial infarction Is this a current diagnosis for this admission?: Yes (2) Acute combined systolic and diastolic heart failure Is this a current diagnosis for this admission?: Yes (3) Chronic kidney disease, stage III (moderate) Is this a current diagnosis for this admission?: Yes (4) Urinary tract infection Qualifiers: Urinary tract infection type: site unspecified Hematuria presence: without hematuria Qualified Code(s): N39.0 - Urinary tract infection, site not specified Is this a current diagnosis for this admission?: Yes (5) Nausea & vomiting Qualifiers: Vomiting type: unspecified Vomiting Intractability: unspecified Qualified Code(s): R11.2 - Nausea with vomiting, unspecified Is this a current diagnosis for this admission?: Yes (6) Constipation by delayed colonic transit Is this a current diagnosis for this admission?: Yes Plan: Obtain KUB X ray for evaluation and possible contribution to her recurrent nausea and vomiting. - Time Time Spent with patient: 25-34 minutes Medications reviewed and adjusted accordingly: Yes Anticipated discharge: SNF Within: Other - Inpatient Certification Based on my medical assessment, after consideration of the patient's comorbidities, presenting symptoms, or acuity I expect that the services needed warrant INPATIENT care.: Yes I certify that my determination is in accordance with my understanding of Medicare's requirements for reasonable and necessary INPATIENT services [42 CFR 412.3e].: Yes Medical Necessity: Need Close Monitoring Due to Risk of Patient Decompensation, Need For Continuous Telemetry Monitoring, Need for IV Antibiotics, Risk of Complication if Not Cared For in Hospital Post Hospital Care: D/C or Transfer Summary - Plan Summary Plan Summary: Continue current medication management with IV Lasix diuretic treatment. Administer IV Zofran premeal for possible benefit for her post prandial nausea and vomiting. Obtain KUB ray evaluation for constipation. Continue allevyn dressing to sacral pressure ulcers.
--- NOTE | 2018-06-25 17:04 | RADIOLOGY REPORT (SQ) ---
EXAM DESCRIPTION: KUB/ABDOMEN (SINGLE VIEW) COMPLETED DATE/TIME: 06/25/2018 4:15 pm REASON FOR STUDY: nausea and vomiting COMPARISON: None. NUMBER OF VIEWS: One view. TECHNIQUE: Supine radiographic image of the abdomen acquired. LIMITATIONS: None. FINDINGS: BOWEL GAS PATTERN: Normal bowel gas pattern. No dilated loops. CALCIFICATIONS: No suspicious calcifications. SOFT TISSUES: No gross mass or suggestion of organomegaly. HARDWARE: None. BONES: No bone lesions or fracture. OTHER: No other significant finding. IMPRESSION: NO RADIOGRAPHIC EVIDENCE FOR ACUTE ABDOMINAL DISEASE. Reading location - IP/workstation name: [email or web address]
[2018-06-25] MEDS: NORMAL SALINE 250 ML with FUROSEMIDE 250 MG IV PRN ×2 (17:39)
[2018-06-25] MEDS: PHARMACY COMMUNICATION ORDER MC SCH (18:11)
[2018-06-25] MEDS: ATORVASTATIN CALCIUM 80 MG TABLET PO SCH (21:59)
[2018-06-25] MEDS: SERTRALINE HCL 50 MG TABLET PO SCH (21:59)
--- NOTE | 2018-06-25 23:33 | Progress Note ---
Provider Note Provider Note: CARDIOLOGY PROGRESS NOTES by Dr. Cat Lazaro on 06/25/2018. OBJECTIVE: The patient appears to be in no acute distress. She is confused, but denies chest pain or discomfort. Her pedal edema is much improved. There is no TIA CVA symptoms or signs by examination. It seems that there is no PND or orthopnea. There is no arrhythmias seen on the monitor. PHYSICAL EXAMINATION: The patient is mild to moderately obese. She appears older than his stated age. She is well-groomed. Selected Entries 06/24/18 06/25/18 11:56 11:50 Temperature 97.7 F 97.6 F Temperature Oral Oral Source Pulse Rate 69 84 Respiratory 16 16 Rate Blood Pressure 107/58 L 141/78 H Blood Pressure 74 99 Mean BP Location Right Arm Right Arm BP Position Sitting Supine O2 Sat by Pulse 100 100 Oximetry Oxygen Flow 2.00 2.00 Rate Oxygen Delivery Nasal Cannula Nasal Cannula Method HEAD: Is atraumatic normocephalic. EYES: Pupils equal round regular reactive to light. ENT is negative. NECK: Is supple. There is JVD present. Carotids equal there is no bruits. There is no lymphadenopathy. There is no goiter. LUNGS: Shows bibasilar rales of CHF. There is no chest wall tenderness. HEART : S1-S2 is heard there is no S3 gallop there is no S4 gallop. There is systolic murmur of mitral regurgitation, and tricuspid regurgitation present. There is no rub. ABDOMEN: Is soft. Nontender. There is no hepatosplenic megaly. Bowel sounds are well heard. There is no tender areas masses. EXTREMITIES: Femorals are diminished. There is no femoral bruits. There is 1- pedal edema bilaterally. Leg pulses are diminished there is no DVT or cellulitis. There is no cyanosis or clubbing. LOW VISION THERAPIST: The patient is conscious confused, but moves all 4 extremities. Psychiatric: Full psychiatric examination not done due to patient's mental status. The patient does not appear to be agitated. 06/24/18 06/24/18 06/25/18 06:29 06:29 05:52 WBC 3.3 L RBC 3.77 Hgb 11.6 L Hct 34.7 L Plt Count 176 Sodium 137.0 137.0 Potassium 3.7 3.6 Chloride 95 L 94 L Carbon Dioxide 30 33 H Anion Gap 12 10 BUN 33 H 34 H Creatinine 1.97 H 1.85 H Est GFR ( Amer) 30 L 32 L Glucose 72 L Calcium 8.9 Total Bilirubin 3.1 H Direct Bilirubin 2.5 H Neonat Total Bilirubin Not Reportable Neonat Direct Bilirubin Not Reportable Neonat Indirect Bili Not Reportable AST 42 H ALT 6 L Alkaline Phosphatase 63 Total Protein 7.0 Albumin 3.2 L The patient's 24-hour intake is 1385 mL. Output is 1450 mL. IMPRESSION/RECOMMENDATION: 1. Non-ST elevation [place]. Note that the patient's CPK-MB and troponin I are significantly elevated. Although this might be due to the patient's congestive heart failure, with severely reduced LV ejection fraction, and the patient's acute renal failure on chronic renal failure, due to lack of being able to obtain a history from the patient need to assume that the patient is having a non-ST elevation GA. Agree with nitrates. Note that the patient did receive full dose heparin, which has been discontinued. Continue aspirin. 2. Acute on chronic systolic heart failure. Continue diuretics, and beta- blockers. Would recommend holding the patient Entresto in view of the patient' s renal function, and substituting it with hydralazine. He is on hydralazine 25 mg p.o. every 6 hours. Renal function have improved her GFR now is 32 mL. Hence we will restart the patient's Entresto at her higher dose than what she was on. 3. Acute on chronic renal failure. Note nephrology on board. Patient urine output is marginally better note that the patient on IV Lasix drip, and also patient is on metolazone. Would recommend stopping the patient Entresto for now and place the patient on hydralazine, and once the renal failure improves then can restart the patient on Entresto. 4. Cardiomyopathy with severely reduced LV ejection fraction of 10%. Continue diuretics as mentioned earlier. Would recommend continue Coreg. Would recommend holding the patient's Entresto for now, and replacing it with hydralazine p.o., until the renal function improves. We will increase the patient's hydralazine to 50 mg p.o. every 6 hours. 5. Coronary artery disease, patient has a prior history of stent placement. Continue nitrates and aspirin. 6. Hypertension: Continue the patient's current antihypertensives. 7. Moderate mitral regurgitation: Would recommend continue the patient on afterload reduction with hydralazine, and later switching to Entresto when the renal function improves. 8. Moderate tricuspid regurgitation, with moderate pulmonary hypertension, as per recent echocardiogram done this admission. Would strongly recommend continue nitrates and anti-heart failure management medic medications and afterload reducing agents. Her medications have been reviewed. Medications adjusted. Discussed management plan with attending physician Dr. sierra Valiente. Medical decision making is of high complexity. 40 minutes spent on this patient more than 50% of time spent on direct patient care.
[2018-06-26] MEDS: HYDRALAZINE HCL 50 MG TABLET PO SCH ×4 (05:33→23:20)
[2018-06-26] MEDS: RANOLAZINE 500 MG TAB.SR.12H PO SCH ×2 (05:33→18:26)
[2018-06-26 08:20] LABS: HEMATOCRIT 38.6 % (36.0-47.0); HEMOGLOBIN 12.6 g/dL (12.0-15.5); MEAN CORPUSCULAR HEMOGLOBIN 30.4 pg (27.0-33.4); MEAN CORPUSCULAR HGB CONC 32.8 g/dL (32.0-36.0); MEAN CORPUSCULAR VOLUME 93 fl (80-97); PLATELET COUNT 160 10^3/uL (150-450); RED BLOOD COUNT 4.15 10^6/uL (3.72-5.28); RED CELL DISTRIBUTION WIDTH 20.3 % (11.5-14.0); WHITE BLOOD COUNT 3.1 10^3/uL (4.0-10.5)
[2018-06-26] MEDS: CARVEDILOL 12.5 MG TABLET PO SCH ×2 (09:36→21:40)
[2018-06-26] MEDS: SACUBITRIL/VALSARTAN 49 MG/51 MG TABLET PO SCH ×2 (09:36→18:30)
[2018-06-26] MEDS: CIPROFLOXACIN 400 MG/D5W RTU 400 MG/200 ML RTUPB IV SCH (09:36)
[2018-06-26] MEDS: ASPIRIN 81 MG TABLET, ENT COATED PO SCH (09:36)
[2018-06-26] MEDS: ISOSORBIDE MONONITRATE 60 MG TAB.ER.24H PO SCH (09:37)
[2018-06-26] MEDS: CALCITRIOL 0.25 MCG CAPSULE PO SCH (09:37)
[2018-06-26] MEDS ORDERED: 1/2 NORMAL SALINE 1,000 ML IV PRN (09:43)
[2018-06-26] MEDS ORDERED: 1/2 NORMAL SALINE 500 ML IV ONE (10:00)
--- NOTE | 2018-06-26 10:15 | PDOC PROGRESS REPORT ---
Subjective Progress Note for:: 06/26/18 Reason For Visit: Patient seen today in the hospital in association with the treating nurse Raudel.Patient has been having intermittent nausea since last night. Very poor intake. Patient denies any history of chest pain or shortness of breath. She seems not well oriented today as she was in the last couple of days according to the nurse. No apparent history of any chest pains or worsening shortness of breath. Labs and medications were reviewed with the patient and the nurse.She still is making decent amounts of urine. Hemodynamically stable. Physical Exam Vital Signs: Temp Pulse Resp BP Pulse Ox 97.7 F 81 12 138/84 H 100 06/26/18 07:54 06/26/18 07:54 06/26/18 07:54 06/26/18 07:54 06/26/18 07:54 Intake & Output 06/25/18 06/26/18 06/27/18 06:59 06:59 06:59 Intake Total 1385 561 Output Total 1450 1300 Balance -65 -739 Weight 88.9 kg 89.2 kg General appearance: PRESENT: no acute distress, morbidly obese Mouth exam: PRESENT: neck supple. ABSENT: moist Neck exam: ABSENT: lymphadenopathy, meningismus Respiratory exam: PRESENT: clear to auscultation kishan. ABSENT: crackles Cardiovascular exam: PRESENT: +S1, +S2. ABSENT: rubs GI/Abdominal exam: PRESENT: soft. ABSENT: tenderness Extremities exam: ABSENT: pedal edema Neurological exam: PRESENT: altered, awake Psychiatric exam: PRESENT: flat affect Skin exam: PRESENT: dry. ABSENT: cyanosis, erythema, petechiae Results Laboratory Results: 06/26/18 08:09 06/25/18 05:52 06/26/18 08:09 WBC 3.1 L RBC 4.15 Hgb 12.6 Hct 38.6 MCV 93 MCH 30.4 MCHC 32.8 RDW 20.3 H Plt Count 160 06/21/18 06/21/18 06/21/18 17:18 17:46 23:39 CK-MB (CK-2) 4.64 H Cancelled 3.84 Troponin I 18.500 Cancelled 14.800 Impressions: Chest X-Ray 06/21/18 04:24 IMPRESSION: Cardiomegaly with small bibasilar pleural effusions/pleural thickening copyright 2011 [employer]- All Rights Reserved KUB X-Ray 06/25/18 00:00 IMPRESSION: NO RADIOGRAPHIC EVIDENCE FOR ACUTE ABDOMINAL DISEASE. Assessment & Plan - Diagnosis (1) LAMONT (acute kidney injury) Is this a current diagnosis for this admission?: Yes Plan: Patient now nonoliguric and producing decent amounts of urine.Lab review shows renal functions slowly improving and almost getting to a baseline of 1.5 with a creatinine now at 1.8.Clinically patient looks rather dehydrated as I believe patient has been over diuresed. Therefore will stop the IV Lasix infusion and the metolazone and start on p.o. Lasix. Will start on gentle hydration and monitor as well. Discussed with the treating nurse Raudel.I agree with Dr. Reyes's assessment earlier that the patient given her overall conditions and morbidities is not a candidate for renal replacement therapy of any kind for obvious reasons. She would do extremely poorly if she were to be put on renal replacements. (2) Acute combined systolic and diastolic heart failure Is this a current diagnosis for this admission?: Yes Plan: Patient has had good diuresis and seems to have improved clinically. Reviewed Dr. Lazaro's notes. Really it to him to at bedtime the cardiac medications including Entresto. (3) Non-ST elevated myocardial infarction Is this a current diagnosis for this admission?: Yes Plan: Stable. As per cardiology. (4) Secondary hyperparathyroidism Is this a current diagnosis for this admission?: Yes (5) Altered mental status Qualifiers: Altered mental status type: unspecified Qualified Code(s): R41.82 - Altered mental status, unspecified Plan: She seems to be a rather bit disoriented. Could be because of her dehydration. Will start on IV fluids gently and see how she is how she does. Monitor for any infections especially UTI. (6) Anemia Qualifiers: Anemia type: other cause Plan: Stable. No indications for erythropoietin. (7) Debility, unspecified Plan: Patient would need rehab post discharge. She is unaware of her previous residency. (8) Dehydration, severe Plan: Stopped IV diuretics. Start gentle hydration. Monitor.
[2018-06-26] MEDS: METOLAZONE 5 MG TABLET PO SCH (10:31)
[2018-06-26 16:38] LABS: ALBUMIN UR 46.3 % (.); ALPHA-1-GLOBULIN URINE 2.7 % (.); ALPHA-2-GLOBULIN URINE 8.3 % (.); M-SPIKE % UR Not Observed % (Not Observ); PROTEIN TOTAL URINE 89.9 mg/dL (Not Estab.)
[2018-06-26 16:38] LABS: A/G RATIO. 0.9 (0.7-1.7); ALBUMIN 3 2.8 g/dL (2.9-4.4); ALPHA-1-GLOBULIN 0.3 g/dL (0.0-0.4); BETA GLOBULIN 0.9 g/dL (0.7-1.3); GAMMA GLOBULINS 1.5 g/dL (0.4-1.8); IMMUNOGLOBULIN A 666 mg/dL (64-422); IMMUNOGLOBULIN G 1597 mg/dL (700-1600); IMMUNOGLOBULIN M 100 mg/dL (26-217); MONOCLONAL-SPIKE Not Observed g/dL (Not Observ); PROTEIN TOTAL SERUM 6.1 g/dL (6.0-8.5)
[2018-06-26] MEDS: FUROSEMIDE 20 MG TABLET PO SCH (18:26)
--- NOTE | 2018-06-26 20:43 | PDOC PROGRESS REPORT ---
Subjective Progress Note for:: 06/26/18 Subjective:: Patient was seen by the bedside, the nurses stated that she vomits whenever she eats food, KUB was done yesterday it was negative. Patient's condition is very poor she has severe cardiomyopathy the 2D echo estimated ejection fraction of left ventricle is 10%, superimposed acute on chronic kidney disease initially oliguric now nonoliguric, she has cardiorenal syndrome, patient also look debilitated. There is slight etiology of the vomiting is not clear, she probably may need upper endoscopy, I am not sure GI will want to do upper endoscopy in this patient that presented with acute CO non-ST type, I will request for upper GI series in a.m. Patient says she feels fine Reason For Visit: NSTMI,ACUTE SYSTOLIC HEART FAILURE Physical Exam Vital Signs: Temp Pulse Resp BP Pulse Ox 97.5 F 73 13 130/69 H 99 06/26/18 15:53 06/26/18 15:53 06/26/18 15:53 06/26/18 15:53 06/26/18 15:53 Intake & Output 06/25/18 06/26/18 06/27/18 06:59 06:59 06:59 Intake Total 1385 561 369 Output Total 1450 1300 200 Balance -65 -739 169 Weight 88.9 kg 89.2 kg General appearance: PRESENT: no acute distress Eye exam: PRESENT: PERRLA Respiratory exam: PRESENT: clear to auscultation kishan Cardiovascular exam: PRESENT: +S1, +S2 GI/Abdominal exam: PRESENT: soft Neurological exam: PRESENT: alert Results Laboratory Results: 06/26/18 08:09 06/25/18 05:52 06/26/18 08:09 WBC 3.1 L RBC 4.15 Hgb 12.6 Hct 38.6 MCV 93 MCH 30.4 MCHC 32.8 RDW 20.3 H Plt Count 160 06/21/18 10:35 Blood Blood Culture - Final NO GROWTH IN 5 DAYS 06/21/18 06/21/18 06/21/18 17:18 17:46 23:39 CK-MB (CK-2) 4.64 H Cancelled 3.84 Troponin I 18.500 Cancelled 14.800 Impressions: Chest X-Ray 06/21/18 04:24 IMPRESSION: Cardiomegaly with small bibasilar pleural effusions/pleural thickening copyright 2011 [employer]- All Rights Reserved KUB X-Ray 06/25/18 00:00 IMPRESSION: NO RADIOGRAPHIC EVIDENCE FOR ACUTE ABDOMINAL DISEASE. Assessment & Plan - Diagnosis (1) Non-ST elevated myocardial infarction Is this a current diagnosis for this admission?: Yes (2) Acute combined systolic and diastolic heart failure Is this a current diagnosis for this admission?: Yes (3) Chronic kidney disease, stage III (moderate) Is this a current diagnosis for this admission?: Yes (4) Secondary hyperparathyroidism Is this a current diagnosis for this admission?: Yes (5) Dementia Is this a current diagnosis for this admission?: Yes (6) Urinary tract infection Qualifiers: Urinary tract infection type: site unspecified Hematuria presence: without hematuria Qualified Code(s): N39.0 - Urinary tract infection, site not specified Is this a current diagnosis for this admission?: Yes (7) Cardiorenal syndrome Qualifiers: Heart failure presence: with heart failure Hypertensive chronic kidney disease stage: stage 1-4 or unspecified chronic kidney disease Qualified Code( s): I13.0 - Hypertensive heart and chronic kidney disease with heart failure and stage 1 through stage 4 chronic kidney disease, or unspecified chronic kidney disease Is this a current diagnosis for this admission?: Yes (8) Vomiting Qualifiers: Vomiting type: unspecified Vomiting Intractability: non-intractable Nausea presence: with nausea Qualified Code(s): R11.2 - Nausea with vomiting, unspecified Is this a current diagnosis for this admission?: Yes Plan: Upper GI series
[2018-06-26] MEDS: ATORVASTATIN CALCIUM 80 MG TABLET PO SCH (21:39)
[2018-06-26] MEDS: SERTRALINE HCL 50 MG TABLET PO SCH (21:39)
--- NOTE | 2018-06-26 23:12 | Progress Note ---
Provider Note Provider Note: CARDIOLOGY PROGRESS NOTES by Dr. Cat Lazaro on 06/26/2018. SUBJECTIVE: The patient is still confused. But she appears to be comfortable. She when questioned states she has no chest pain or shortness of breath. Leg edema is better. There is no arrhythmias seen on the monitor. There is no TIA CVA by exam. There is no ventricular arrhythmia seen on the monitor. PHYSICAL EXAMINATION: The patient is mild to moderately obese. She is well- groomed groomed. She looks older than his stated age. She is well-groomed. Selected Entries 06/26/18 11:27 Temperature 97.5 F Temperature Oral Source Pulse Rate 74 Respiratory 13 Rate Blood Pressure 144/81 H Blood Pressure 102 Mean BP Location Right Arm BP Position Supine O2 Sat by Pulse 100 Oximetry Oxygen Flow 1.00 Rate Oxygen Delivery Nasal Cannula Method HEAD: Is atraumatic normocephalic. EYES: Pupils equal round regular reactive to light. ENT is negative. NECK: Is supple. There is JVD present. Carotids equal there is no bruits. There is no lymphadenopathy. There is no goiter. LUNGS: Shows bibasilar rales of CHF. There is no chest wall tenderness. HEART : S1-S2 is heard there is no S3 gallop there is no S4 gallop. There is systolic murmur of mitral regurgitation, and tricuspid regurgitation present. There is no rub. ABDOMEN: Is soft. Nontender. There is no hepatosplenic megaly. Bowel sounds are well heard. There is no tender areas masses. EXTREMITIES: Femorals are diminished. There is no femoral bruits. There is 1- pedal edema bilaterally. Leg pulses are diminished there is no DVT or cellulitis. There is no cyanosis or clubbing. SYRUP MAKER COOK: The patient is conscious confused, but moves all 4 extremities. Psychiatric: Full psychiatric examination not done due to patient's mental status. The patient does not appear to be agitated. 06/26/18 08:09 WBC 3.1 L Hgb 12.6 Hct 38.6 MCV 93 MCH 30.4 Plt Count 160 IMPRESSION/RECOMMENDATION: 1. Non-ST elevation [place]. Note that the patient's CPK-MB and troponin I are significantly elevated. Although this might be due to the patient's congestive heart failure, with severely reduced LV ejection fraction, and the patient's acute renal failure on chronic renal failure, due to lack of being able to obtain a history from the patient need to assume that the patient is having a non-ST elevation [place]. Agree with nitrates. Note that the patient did receive full dose heparin, which has been discontinued. Continue aspirin. 2. Acute on chronic systolic heart failure. Continue diuretics, and beta- blockers. Would recommend holding the patient Entresto in view of the patient' s renal function, and substituting it with hydralazine. He is on hydralazine 25 mg p.o. every 6 hours. Renal function have improved her GFR now is 32 mL. Hence we will restart the patient's Entresto at her higher dose than what she was on. 3. Acute on chronic renal failure. Note nephrology on board. Patient urine output is marginally better note that the patient on IV Lasix drip, and also patient is on metolazone. Would recommend stopping the patient Entresto for now and place the patient on hydralazine, and once the renal failure improves then can restart the patient on Entresto. 4. Cardiomyopathy with severely reduced LV ejection fraction of 10%. Continue diuretics as mentioned earlier. Would recommend continue Coreg. Would recommend holding the patient's Entresto for now, and replacing it with hydralazine p.o., until the renal function improves. We will increase the patient's hydralazine to 50 mg p.o. every 6 hours. 5. Coronary artery disease, patient has a prior history of stent placement. Continue nitrates and aspirin. 6. Hypertension: Continue the patient's current antihypertensives. 7. Moderate mitral regurgitation: Would recommend continue the patient on afterload reduction with hydralazine, and later switching to Entresto when the renal function improves. 8. Moderate tricuspid regurgitation, with moderate pulmonary hypertension, as per recent echocardiogram done this admission. Would strongly recommend continue nitrates and anti-heart failure management medic medications and afterload reducing agents. Her medications have been reviewed. Medications adjusted. Discussed management plan with attending physician Dr. Valiente. Medical decision making is of high complexity. 40 minutes spent on this patient more than 50% of time spent on direct patient care.
[2018-06-27] MEDS: HYDRALAZINE HCL 50 MG TABLET PO SCH ×4 (05:38→23:10)
[2018-06-27] MEDS: RANOLAZINE 500 MG TAB.SR.12H PO SCH ×2 (05:39→18:27)
[2018-06-27 06:51] LABS: ANION GAP 8 (5-19); BLOOD UREA NITROGEN 34 mg/dL (7-20); CALCIUM 8.7 mg/dL (8.4-10.2); CARBON DIOXIDE 36 mmol/L (22-30); CHLORIDE 93 mmol/L (98-107); GLUCOSE 99 mg/dL (75-110); SODIUM 137.2 mmol/L (137-145)
[2018-06-27 06:58] LABS: POTASSIUM 2.8 mmol/L (3.6-5.0)
[2018-06-27] MEDS: POTASSIUM CHLORIDE 20 MEQ/50 ML RTU IV SCH ×4 (08:31→23:23)
[2018-06-27] MEDS: CALCITRIOL 0.25 MCG CAPSULE PO SCH (10:30)
[2018-06-27] MEDS: FUROSEMIDE 20 MG TABLET PO SCH ×2 (10:30→18:27)
[2018-06-27] MEDS: ASPIRIN 81 MG TABLET, ENT COATED PO SCH (10:30)
[2018-06-27] MEDS: CARVEDILOL 12.5 MG TABLET PO SCH ×2 (10:31→22:11)
[2018-06-27] MEDS: ISOSORBIDE MONONITRATE 60 MG TAB.ER.24H PO SCH (10:31)
[2018-06-27] MEDS: SACUBITRIL/VALSARTAN 49 MG/51 MG TABLET PO SCH ×2 (10:44→18:27)
[2018-06-27] MEDS: CIPROFLOXACIN 400 MG/D5W RTU 400 MG/200 ML RTUPB IV SCH (11:51)
--- NOTE | 2018-06-27 14:33 | RADIOLOGY REPORT (SQ) ---
EXAM DESCRIPTION: UPPER GI/SM BOWEL COMPLETED DATE/TIME: 06/27/2018 REASON FOR STUDY: ? SMALL BOWEL OBSTRUCTION COMPARISON: 06/25/2018, 02/26/2018 KUB TECHNIQUE: Ingestion of thin barium while being imaged with digital spot and plain films. RADIATION DOSE: 3.1 minutes 42 digital images saved to PACS. LIMITATIONS: None FINDINGS: Vacuum Truck Driver films demonstrate moderate stool in the descending colon and rectosigmoid. Otherwis e unremarkable bowel gas pattern. Malhotra catheter drains the bladder. Calcified abdominal aorta with out calcified aneurysm ESOPHAGUS: No structural or mechanical abnormality. STOMACH: No structural or mechanical abnormality. No delay in gastric emptying. Gastric outlet unrem arkable. No pyloric channel ulcer SMALL BOWEL: No evidence of malrotation, stricture, or obstruction. PROXIMAL LARGE BOWEL: Distal ileum, cecum unremarkable. IMPRESSION: Normal gastric emptying. Grossly normal small bowel. Normal small bowel transit time. COMMENT: Quality ID [id number]: Final reports for procedures using fluoroscopy that document radiation exp osure indices, or exposure time and number of fluorographic images (if radiation exposure indices are not available) TECHNICAL DOCUMENTATION: JOB ID: [id number] [employer] All Rights Reserved Reading location - IP/workstation name: [email or web address]
--- NOTE | 2018-06-27 21:17 | Progress Note ---
Provider Note Provider Note: CARDIOLOGY PROGRESS NOTES by Dr. Cat Lazaro on 06/27/2018. SUBJECTIVE: The patient is still confused, but denies chest pain or discomfort or shortness of breath. As per the nurse the patient keeps on throwing up after eating. There is no TIA CVA symptoms. Leg edema is 1+ at present. There is no ventricular arrhythmia seen on the monitor. PHYSICAL EXAMINATION: The patient is moderately obese. In no acute distress. She looks older than his stated age. Selected Entries 06/27/18 15:14 Temperature Axillary Source Pulse Rate 73 Respiratory 16 Rate Blood Pressure 119/70 Blood Pressure 86 Mean BP Location Right Arm BP Position Supine O2 Sat by Pulse 94 Oximetry Oxygen Delivery Room Air Method HEAD: Is atraumatic normocephalic. EYES: Pupils equal round regular reactive to light. ENT is negative. NECK: Is supple. There is JVD present. Carotids equal there is no bruits. There is no lymphadenopathy. There is no goiter. LUNGS: Shows bibasilar rales of CHF. There is no chest wall tenderness. HEART: S1-S2 is heard there is no S3 gallop there is no S4 gallop. There is systolic murmur of mitral regurgitation, and tricuspid regurgitation present. There is no rub. ABDOMEN: Is soft. Nontender. There is no hepatosplenic megaly. Bowel sounds are well heard. There is no tender areas masses. EXTREMITIES: Femorals are diminished. There is no femoral bruits. There is 1- pedal edema bilaterally. Leg pulses are diminished there is no DVT or cellulitis. There is no cyanosis or clubbing. RISK CONSULTING TREASURY DIRECTOR: The patient is conscious confused, but moves all 4 extremities. Psychiatric: Full psychiatric examination not done due to patient's mental status. The patient does not appear to be agitated. 06/27/18 05:26 Sodium 137.2 Potassium 2.8 L* Chloride 93 L Carbon Dioxide 36 H Anion Gap 8 BUN 34 H Creatinine 1.89 H Est GFR ( Amer) 31 L Glucose 99 Calcium 8.7 His upper GI and small bowel x-ray, is normal. The patient's 24-hour intake is 1069 mL. The 24-hour output is 900 mL. IMPRESSION/RECOMMENDATION: 1. Non-ST elevation [place]. Note that the patient's CPK-MB and troponin I are significantly elevated. Although this might be due to the patient's congestive heart failure, with severely reduced LV ejection fraction, and the patient's acute renal failure on chronic renal failure, due to lack of being able to obtain a history from the patient need to assume that the patient is having a non-ST elevation [place]. Agree with nitrates. Note that the patient did receive full dose heparin, which has been discontinued. Continue aspirin. 2. Acute on chronic systolic heart failure. Continue diuretics, and beta- blockers. Would recommend holding the patient Entresto in view of the patient's renal function, and substituting it with hydralazine. He is on hydralazine 25 mg p.o. every 6 hours. Renal function have improved her GFR now is 32 mL. Hence we will restart the patient's Entresto at her higher dose than what she was on. 3. Acute on chronic renal failure. Note nephrology on board. Patient urine output is marginally better note that the patient on IV Lasix drip, and also patient is on metolazone. Would recommend stopping the patient Entresto for now and place the patient on hydralazine, and once the renal failure improves then can restart the patient on Entresto. 4. Cardiomyopathy with severely reduced LV ejection fraction of 10%. Continue diuretics as mentioned earlier. Would recommend continue Coreg. Would recommend holding the patient's Entresto for now, and replacing it with hydralazine p.o., until the renal function improves. We will increase the patient's hydralazine to 50 mg p.o. every 6 hours. 5. Coronary artery disease, patient has a prior history of stent placement. Continue nitrates and aspirin. 6. Hypertension: Continue the patient's current antihypertensives. 7. Moderate mitral regurgitation: Would recommend continue the patient on afterload reduction with hydralazine, and also patient on Entresto, without any untoward effects to the kidney function. 8. Moderate tricuspid regurgitation, with moderate pulmonary hypertension, as per recent echocardiogram done this admission. Would strongly recommend continue nitrates and anti-heart failure management medic medications and afterload reducing agents. 9. Hypokalemia: Replace potassium as per nephrology. Her medications have been reviewed. Medications adjusted. Discussed management plan with attending physician Dr. Valiente. Medical decision making is of high complexity. 40 minutes spent on this patient more than 50% of time spent on direct patient care.Cardiology status is stable on current medication.Will sign off.
--- NOTE | 2018-06-27 21:26 | PDOC PROGRESS REPORT ---
Subjective Progress Note for:: 06/27/18 Subjective:: Patient is seen by the bedside, the upper GI series was negative for an obstruction or intraluminal pathology Reason For Visit: NSTMI,ACUTE SYSTOLIC HEART FAILURE Physical Exam Vital Signs: Temp Pulse Resp BP Pulse Ox 97.4 F 73 16 119/70 94 06/27/18 11:41 06/27/18 15:14 06/27/18 15:14 06/27/18 15:14 06/27/18 15:14 Intake & Output 06/26/18 06/27/18 06/28/18 06:59 06:59 06:59 Intake Total 561 1069 550 Output Total 1300 900 200 Balance -739 169 350 Weight 89.2 kg 90 kg General appearance: PRESENT: no acute distress Eye exam: PRESENT: PERRLA Respiratory exam: PRESENT: clear to auscultation kishan Cardiovascular exam: PRESENT: +S1, +S2, systolic murmur GI/Abdominal exam: PRESENT: soft Neurological exam: PRESENT: alert Results Laboratory Results: 06/26/18 08:09 06/27/18 20:33 06/22/18 06/22/18 06/27/18 02:51 04:09 05:26 Sodium 137.2 Potassium 2.8 L* Chloride 93 L Carbon Dioxide 36 H Anion Gap 8 BUN 34 H Creatinine 1.89 H Est GFR ( Amer) 31 L Est GFR (Non-Af Amer) 26 L Glucose 99 Calcium 8.7 Total Protein Cancelled 6.1 Albumin Cancelled 2.8 L 06/27/18 20:33 Sodium Potassium 2.9 L* Chloride Carbon Dioxide Anion Gap BUN Creatinine Est GFR ( Amer) Est GFR (Non-Af Amer) Glucose Calcium Total Protein Albumin 06/21/18 06/21/18 06/21/18 17:18 17:46 23:39 CK-MB (CK-2) 4.64 H Cancelled 3.84 Troponin I 18.500 Cancelled 14.800 Impressions: Chest X-Ray 06/21/18 04:24 IMPRESSION: Cardiomegaly with small bibasilar pleural effusions/pleural thickening copyright 2011 [employer] All Rights Reserved KUB X-Ray 06/25/18 00:00 IMPRESSION: NO RADIOGRAPHIC EVIDENCE FOR ACUTE ABDOMINAL DISEASE. Upper GI and Small Bowel X-Ray 06/27/18 00:00 IMPRESSION: Normal gastric emptying. Grossly normal small bowel. Normal small bowel transit time. Assessment & Plan - Diagnosis (1) Non-ST elevated myocardial infarction Is this a current diagnosis for this admission?: Yes (2) Acute combined systolic and diastolic heart failure Is this a current diagnosis for this admission?: Yes (3) Chronic kidney disease, stage III (moderate) Is this a current diagnosis for this admission?: Yes (4) Secondary hyperparathyroidism Is this a current diagnosis for this admission?: Yes (5) Dementia Is this a current diagnosis for this admission?: Yes (6) Urinary tract infection Qualifiers: Urinary tract infection type: site unspecified Hematuria presence: without hematuria Qualified Code(s): N39.0 - Urinary tract infection, site not specified Is this a current diagnosis for this admission?: Yes (7) Cardiorenal syndrome Qualifiers: Heart failure presence: with heart failure Hypertensive chronic kidney disease stage: stage 1-4 or unspecified chronic kidney disease Qualified Code( s): I13.0 - Hypertensive heart and chronic kidney disease with heart failure and stage 1 through stage 4 chronic kidney disease, or unspecified chronic kidney disease Is this a current diagnosis for this admission?: Yes (8) Vomiting Qualifiers: Vomiting type: unspecified Vomiting Intractability: non-intractable Nausea presence: with nausea Qualified Code(s): R11.2 - Nausea with vomiting, unspecified Is this a current diagnosis for this admission?: Yes Plan: The upper GI series was negative for any acute pathology start clear liquid diet
[2018-06-27] MEDS: ATORVASTATIN CALCIUM 80 MG TABLET PO SCH (22:08)
[2018-06-27] MEDS: POTASSIUM CHLORIDE 20 MEQ/15 ML UDCUP PO SCH (22:08)
[2018-06-27] MEDS: SERTRALINE HCL 50 MG TABLET PO SCH (22:08)
[2018-06-27] MEDS ORDERED: POTASSI CL 20 MEQ/50 ML RIDER 20 MEQ/50 ML RTUPB IV SCH (23:30)
[2018-06-28] MEDS: POTASSIUM CHLORIDE 20 MEQ/50 ML RTU IV SCH ×2 (01:58→07:22)
[2018-06-28] MEDS: HYDRALAZINE HCL 50 MG TABLET PO SCH ×3 (06:40→17:22)
[2018-06-28] MEDS: RANOLAZINE 500 MG TAB.SR.12H PO SCH ×2 (06:40→17:22)
[2018-06-28 06:55] LABS: HEMATOCRIT 36.6 % (36.0-47.0); MEAN CORPUSCULAR HEMOGLOBIN 30.1 pg (27.0-33.4); MEAN CORPUSCULAR HGB CONC 32.8 g/dL (32.0-36.0); MEAN CORPUSCULAR VOLUME 92 fl (80-97); PLATELET COUNT 137 10^3/uL (150-450); RED BLOOD COUNT 3.98 10^6/uL (3.72-5.28); RED CELL DISTRIBUTION WIDTH 20.7 % (11.5-14.0); WHITE BLOOD COUNT 3.7 10^3/uL (4.0-10.5)
[2018-06-28 07:06] LABS: ANION GAP 12 (5-19); BLOOD UREA NITROGEN 33 mg/dL (7-20); CALCIUM 8.5 mg/dL (8.4-10.2); CARBON DIOXIDE 30 mmol/L (22-30); CHLORIDE 94 mmol/L (98-107); GLUCOSE 75 mg/dL (75-110); POTASSIUM 3.7 mmol/L (3.6-5.0); SODIUM 135.7 mmol/L (137-145)
[2018-06-28] MEDS: CALCITRIOL 0.25 MCG CAPSULE PO SCH (10:09)
[2018-06-28] MEDS: SACUBITRIL/VALSARTAN 49 MG/51 MG TABLET PO SCH ×2 (10:09→17:22)
[2018-06-28] MEDS: CARVEDILOL 12.5 MG TABLET PO SCH ×2 (10:09→22:09)
[2018-06-28] MEDS: ISOSORBIDE MONONITRATE 60 MG TAB.ER.24H PO SCH (10:09)
[2018-06-28] MEDS: ASPIRIN 81 MG TABLET, ENT COATED PO SCH (10:10)
[2018-06-28] MEDS: CIPROFLOXACIN 400 MG/D5W RTU 400 MG/200 ML RTUPB IV SCH (10:10)
[2018-06-28] MEDS: FUROSEMIDE 20 MG TABLET PO SCH (10:10)
[2018-06-28] MEDS: POTASSIUM CHLORIDE 10 MEQ CAPSULE.ER PO SCH ×2 (12:37→22:09)
--- NOTE | 2018-06-28 16:55 | PDOC PROGRESS REPORT ---
Subjective Progress Note for:: 06/28/18 Reason For Visit: Patient seen today in the hospital. She is more awake alert and coherent. She says she feels the best that she has in a few days. She is moribund and in bed. She denies any history of chest pain or shortness of breath. No complaints of any fever or chills. Labs and medications were reviewed with the patient. Physical Exam Vital Signs: Temp Pulse Resp BP Pulse Ox 98.2 F 76 18 115/70 95 06/28/18 11:27 06/28/18 14:00 06/28/18 11:27 06/28/18 11:27 06/28/18 11:27 Intake & Output 06/27/18 06/28/18 06/29/18 06:59 06:59 06:59 Intake Total 1069 682 422 Output Total 900 600 150 Balance 169 82 272 Weight 90 kg 88.7 kg General appearance: PRESENT: no acute distress Respiratory exam: PRESENT: clear to auscultation kishan, decreased breath sounds. ABSENT: crackles Cardiovascular exam: PRESENT: +S1, +S2. ABSENT: rubs GI/Abdominal exam: PRESENT: normal bowel sounds, soft. ABSENT: organomegaly, tenderness Extremities exam: PRESENT: +1 edema Neurological exam: PRESENT: alert, awake, oriented to person, oriented to place Psychiatric exam: PRESENT: appropriate affect Skin exam: ABSENT: cyanosis, erythema, rash Results Laboratory Results: 06/28/18 05:13 06/28/18 05:13 06/27/18 06/28/18 06/28/18 20:33 05:13 05:13 WBC 3.7 L RBC 3.98 Hgb 12.0 Hct 36.6 MCV 92 MCH 30.1 MCHC 32.8 RDW 20.7 H Plt Count 137 L Sodium 135.7 L Potassium 2.9 L* 3.7 Chloride 94 L Carbon Dioxide 30 Anion Gap 12 BUN 33 H Creatinine 1.79 H Est GFR ( Amer) 33 L Est GFR (Non-Af Amer) 27 L Glucose 75 Calcium 8.5 06/21/18 06/21/18 06/21/18 04:45 04:45 05:57 Creatine Kinase Cancelled 216 H CK-MB (CK-2) Cancelled Troponin I Cancelled NT-Pro-B Natriuret Pep Cancelled 06/21/18 06/21/18 06/21/18 05:57 17:18 17:46 Creatine Kinase CK-MB (CK-2) 6.74 H 4.64 H Cancelled Troponin I 21.100 18.500 Cancelled NT-Pro-B Natriuret Pep [id number] H 06/21/18 23:39 Creatine Kinase CK-MB (CK-2) 3.84 Troponin I 14.800 NT-Pro-B Natriuret Pep Impressions: Chest X-Ray 06/21/18 04:24 IMPRESSION: Cardiomegaly with small bibasilar pleural effusions/pleural thickening copyright 2011 [employer]- All Rights Reserved KUB X-Ray 06/25/18 00:00 IMPRESSION: NO RADIOGRAPHIC EVIDENCE FOR ACUTE ABDOMINAL DISEASE. Upper GI and Small Bowel X-Ray 06/27/18 00:00 IMPRESSION: Normal gastric emptying. Grossly normal small bowel. Normal small bowel transit time. Assessment & Plan - Diagnosis (1) LAMONT (acute kidney injury) Is this a current diagnosis for this admission?: Yes Plan: Nonoliguric. Her renal numbers are stable. However clinically she is now getting fluid overloaded. Increase Lasix and add metolazone. Monitor. (2) Acute combined systolic and diastolic heart failure Is this a current diagnosis for this admission?: Yes Plan: Patient has had good diuresis and seems to have improved clinically.Clinically stable at the moment. Monitor. (3) Non-ST elevated myocardial infarction Is this a current diagnosis for this admission?: Yes Plan: Stable. As per cardiology. (4) Secondary hyperparathyroidism Is this a current diagnosis for this admission?: Yes Plan: On replacements. Monitor. (5) Altered mental status Qualifiers: Altered mental status type: unspecified Qualified Code(s): R41.82 - Altered mental status, unspecified Plan: Much improved. (6) Anemia Qualifiers: Anemia type: other cause Plan: Stable. No indications for erythropoietin. (7) Debility, unspecified Plan: Patient would need rehab post discharge.
[2018-06-28] MEDS: FUROSEMIDE 40 MG TABLET PO SCH (17:22)
[2018-06-28] MEDS: METOLAZONE 2.5 MG TABLET PO SCH (17:22)
--- NOTE | 2018-06-28 18:01 | PDOC PROGRESS REPORT ---
Subjective Progress Note for:: 06/28/18 Subjective:: Patient seen by the bedside, she has no new complaints, it seems that she is medically optimized, will start the process of discharge back to halfway, overall prognosis is poor Reason For Visit: NSTMI,ACUTE SYSTOLIC HEART FAILURE Physical Exam Vital Signs: Temp Pulse Resp BP Pulse Ox 97.6 F 79 18 115/70 94 06/28/18 14:59 06/28/18 14:59 06/28/18 14:59 06/28/18 11:27 06/28/18 14:59 Intake & Output 06/27/18 06/28/18 06/29/18 06:59 06:59 06:59 Intake Total 1069 682 422 Output Total 900 600 150 Balance 169 82 272 Weight 90 kg 88.7 kg General appearance: PRESENT: no acute distress Eye exam: PRESENT: PERRLA Respiratory exam: PRESENT: clear to auscultation kishan Cardiovascular exam: PRESENT: +S1, +S2 Neurological exam: PRESENT: alert Results Laboratory Results: 06/28/18 05:13 06/28/18 05:13 06/27/18 06/28/18 06/28/18 20:33 05:13 05:13 WBC 3.7 L RBC 3.98 Hgb 12.0 Hct 36.6 MCV 92 MCH 30.1 MCHC 32.8 RDW 20.7 H Plt Count 137 L Sodium 135.7 L Potassium 2.9 L* 3.7 Chloride 94 L Carbon Dioxide 30 Anion Gap 12 BUN 33 H Creatinine 1.79 H Est GFR ( Amer) 33 L Est GFR (Non-Af Amer) 27 L Glucose 75 Calcium 8.5 06/21/18 06/21/18 06/21/18 04:45 04:45 05:57 Creatine Kinase Cancelled 216 H CK-MB (CK-2) Cancelled Troponin I Cancelled NT-Pro-B Natriuret Pep Cancelled 06/21/18 06/21/18 06/21/18 05:57 17:18 17:46 Creatine Kinase CK-MB (CK-2) 6.74 H 4.64 H Cancelled Troponin I 21.100 18.500 Cancelled NT-Pro-B Natriuret Pep [id number] H 06/21/18 23:39 Creatine Kinase CK-MB (CK-2) 3.84 Troponin I 14.800 NT-Pro-B Natriuret Pep Impressions: Chest X-Ray 06/21/18 04:24 IMPRESSION: Cardiomegaly with small bibasilar pleural effusions/pleural thickening copyright 2011 [employer]- All Rights Reserved KUB X-Ray 06/25/18 00:00 IMPRESSION: NO RADIOGRAPHIC EVIDENCE FOR ACUTE ABDOMINAL DISEASE. Upper GI and Small Bowel X-Ray 06/27/18 00:00 IMPRESSION: Normal gastric emptying. Grossly normal small bowel. Normal small bowel transit time. Assessment & Plan - Diagnosis (1) Non-ST elevated myocardial infarction Is this a current diagnosis for this admission?: Yes (2) Acute combined systolic and diastolic heart failure Is this a current diagnosis for this admission?: Yes (3) Chronic kidney disease, stage III (moderate) Is this a current diagnosis for this admission?: Yes (4) Secondary hyperparathyroidism Is this a current diagnosis for this admission?: Yes (5) Dementia Is this a current diagnosis for this admission?: Yes (6) Urinary tract infection Qualifiers: Urinary tract infection type: site unspecified Hematuria presence: without hematuria Qualified Code(s): N39.0 - Urinary tract infection, site not specified Is this a current diagnosis for this admission?: Yes (7) Cardiorenal syndrome Qualifiers: Heart failure presence: with heart failure Hypertensive chronic kidney disease stage: stage 1-4 or unspecified chronic kidney disease Qualified Code(s): I13.0 - Hypertensive heart and chronic kidney disease with heart failure and stage 1 through stage 4 chronic kidney disease, or unspecified chronic kidney disease Is this a current diagnosis for this admission?: Yes (8) Vomiting Qualifiers: Vomiting type: unspecified Vomiting Intractability: non-intractable Nausea presence: with nausea Qualified Code(s): R11.2 - Nausea with vomiting, unspecified Is this a current diagnosis for this admission?: Yes - Plan Summary Plan Summary: Continue treatment
[2018-06-28] MEDS: POTASSIUM CHLORIDE 20 MEQ/15 ML UDCUP PO SCH (18:10)
[2018-06-28] MEDS: ATORVASTATIN CALCIUM 80 MG TABLET PO SCH (22:10)
[2018-06-28] MEDS: SERTRALINE HCL 50 MG TABLET PO SCH (22:10)
[2018-06-29] MEDS: HYDRALAZINE HCL 50 MG TABLET PO SCH ×2 (00:05→05:06)
[2018-06-29] MEDS: RANOLAZINE 500 MG TAB.SR.12H PO SCH ×2 (05:17→18:02)
[2018-06-29 05:55] LABS: ANION GAP 13 (5-19); BLOOD UREA NITROGEN 34 mg/dL (7-20); CALCIUM 8.4 mg/dL (8.4-10.2); CARBON DIOXIDE 28 mmol/L (22-30); CHLORIDE 94 mmol/L (98-107); GLUCOSE 97 mg/dL (75-110); POTASSIUM 3.2 mmol/L (3.6-5.0); SODIUM 134.9 mmol/L (137-145)
[2018-06-29] MEDS: CALCITRIOL 0.25 MCG CAPSULE PO SCH (09:59)
[2018-06-29] MEDS: POTASSIUM CHLORIDE 10 MEQ CAPSULE.ER PO SCH ×2 (09:59→21:32)
[2018-06-29] MEDS: CARVEDILOL 12.5 MG TABLET PO SCH ×2 (09:59→21:31)
[2018-06-29] MEDS: CIPROFLOXACIN 400 MG/D5W RTU 400 MG/200 ML RTUPB IV SCH (09:59)
[2018-06-29] MEDS: ASPIRIN 81 MG TABLET, ENT COATED PO SCH (10:00)
[2018-06-29] MEDS: METOLAZONE 2.5 MG TABLET PO SCH (10:00)
[2018-06-29] MEDS: FUROSEMIDE 40 MG TABLET PO SCH ×2 (10:00→18:02)
[2018-06-29] MEDS: SACUBITRIL/VALSARTAN 49 MG/51 MG TABLET PO SCH ×2 (10:00→18:02)
[2018-06-29] MEDS: ISOSORBIDE MONONITRATE 60 MG TAB.ER.24H PO SCH (10:00)
--- NOTE | 2018-06-29 10:21 | PDOC PROGRESS REPORT ---
Subjective Progress Note for:: 06/29/18 Reason For Visit: Patient was seen in the hospital today. She states she is continuing to feel better even though she is does not look as good as when I saw her yesterday. She denies any worsening shortness of breath laying down but obviously gets worse if she exerts. No complaints of any chest pain, no history of any fever or chills. Labs and medications were reviewed with the patient. Physical Exam Vital Signs: Temp Pulse Resp BP Pulse Ox 97.6 F 83 18 116/71 96 06/29/18 07:24 06/29/18 07:24 06/29/18 07:24 06/29/18 07:24 06/29/18 07:24 Intake & Output 06/28/18 06/29/18 06/30/18 06:59 06:59 06:59 Intake Total 682 422 Output Total 600 450 Balance 82 -28 Weight 88.7 kg 90.8 kg General appearance: PRESENT: no acute distress Respiratory exam: PRESENT: clear to auscultation kishan, decreased breath sounds. ABSENT: crackles Cardiovascular exam: PRESENT: +S1, +S2. ABSENT: rubs GI/Abdominal exam: PRESENT: normal bowel sounds, soft. ABSENT: organomegaly, tenderness Extremities exam: PRESENT: +1 edema Neurological exam: PRESENT: alert, awake, oriented to person, oriented to place Psychiatric exam: PRESENT: depressed Skin exam: ABSENT: erythema, rash Results Laboratory Results: 06/28/18 05:13 06/29/18 05:01 06/29/18 05:01 Sodium 134.9 L Potassium 3.2 L Chloride 94 L Carbon Dioxide 28 Anion Gap 13 BUN 34 H Creatinine 1.94 H Est GFR ( Amer) 30 L Est GFR (Non-Af Amer) 25 L Glucose 97 Calcium 8.4 06/21/18 06/21/18 06/21/18 04:45 04:45 05:57 Creatine Kinase Cancelled 216 H CK-MB (CK-2) Cancelled Troponin I Cancelled NT-Pro-B Natriuret Pep Cancelled 06/21/18 06/21/18 06/21/18 05:57 17:18 17:46 Creatine Kinase CK-MB (CK-2) 6.74 H 4.64 H Cancelled Troponin I 21.100 18.500 Cancelled NT-Pro-B Natriuret Pep [id number] H 06/21/18 23:39 Creatine Kinase CK-MB (CK-2) 3.84 Troponin I 14.800 NT-Pro-B Natriuret Pep Impressions: Chest X-Ray 06/21/18 04:24 IMPRESSION: Cardiomegaly with small bibasilar pleural effusions/pleural thickening copyright 2011 [employer]- All Rights Reserved KUB X-Ray 06/25/18 00:00 IMPRESSION: NO RADIOGRAPHIC EVIDENCE FOR ACUTE ABDOMINAL DISEASE. Upper GI and Small Bowel X-Ray 06/27/18 00:00 IMPRESSION: Normal gastric emptying. Grossly normal small bowel. Normal small bowel transit time. Assessment & Plan - Diagnosis (1) LAMONT (acute kidney injury) Is this a current diagnosis for this admission?: Yes Plan: Poor intake with poor urine output.However renal numbers are stable.Hypokalemia some worse and needs to be replaced in the blood place orders for thatNo evidences of uremia and no indications for initiation of renal replacements which is however is not a choice for this unfortunate patient with severe c ardiomyopathy. (2) Acute combined systolic and diastolic heart failure Is this a current diagnosis for this admission?: Yes Plan: Clinically stable at the moment. Blood pressure being on the lower side I am going to hold off on the hydralazine but will continue on the Entresto with caution Monitor. (3) Non-ST elevated myocardial infarction Is this a current diagnosis for this admission?: Yes Plan: Stable. As per cardiology. (4) Secondary hyperparathyroidism Is this a current diagnosis for this admission?: Yes Plan: On replacements. Monitor. (5) Altered mental status Qualifiers: Altered mental status type: unspecified Qualified Code(s): R41.82 - Altered mental status, unspecified Plan: Much improved. (6) Anemia Qualifiers: Anemia type: other cause Plan: Stable. No indications for erythropoietin. (7) Debility, unspecified Plan: Patient would need rehab post discharge.
[2018-06-29] MEDS: POTASSI CL 20 MEQ/50 ML RIDER 20 MEQ/50 ML RTUPB IV SCH ×2 (13:38→16:48)
--- NOTE | 2018-06-29 21:07 | PDOC PROGRESS REPORT ---
Subjective Progress Note for:: 06/29/18 Subjective:: Patient seen by the bedside, condition about the same Reason For Visit: NSTMI,ACUTE SYSTOLIC HEART FAILURE Physical Exam Vital Signs: Temp Pulse Resp BP Pulse Ox 98.1 F 73 16 111/52 L 93 06/29/18 19:34 06/29/18 20:17 06/29/18 19:34 06/29/18 19:34 06/29/18 19:34 Intake & Output 06/28/18 06/29/18 06/30/18 06:59 06:59 06:59 Intake Total 682 422 500 Output Total 600 450 125 Balance 82 -28 375 Weight 88.7 kg 90.8 kg General appearance: PRESENT: no acute distress Eye exam: PRESENT: PERRLA Respiratory exam: PRESENT: crackles Cardiovascular exam: PRESENT: +S1, +S2 GI/Abdominal exam: PRESENT: soft Neurological exam: PRESENT: alert Results Laboratory Results: 06/28/18 05:13 06/29/18 05:01 06/29/18 05:01 Sodium 134.9 L Potassium 3.2 L Chloride 94 L Carbon Dioxide 28 Anion Gap 13 BUN 34 H Creatinine 1.94 H Est GFR ( Amer) 30 L Est GFR (Non-Af Amer) 25 L Glucose 97 Calcium 8.4 06/21/18 06/21/18 06/21/18 04:45 04:45 05:57 Creatine Kinase Cancelled 216 H CK-MB (CK-2) Cancelled Troponin I Cancelled NT-Pro-B Natriuret Pep Cancelled 06/21/18 06/21/18 06/21/18 05:57 17:18 17:46 Creatine Kinase CK-MB (CK-2) 6.74 H 4.64 H Cancelled Troponin I 21.100 18.500 Cancelled NT-Pro-B Natriuret Pep [id number] H 06/21/18 23:39 Creatine Kinase CK-MB (CK-2) 3.84 Troponin I 14.800 NT-Pro-B Natriuret Pep Impressions: Chest X-Ray 06/21/18 04:24 IMPRESSION: Cardiomegaly with small bibasilar pleural effusions/pleural thickening copyright 2011 [employer]- All Rights Reserved KUB X-Ray 06/25/18 00:00 IMPRESSION: NO RADIOGRAPHIC EVIDENCE FOR ACUTE ABDOMINAL DISEASE. Upper GI and Small Bowel X-Ray 06/27/18 00:00 IMPRESSION: Normal gastric emptying. Grossly normal small bowel. Normal small bowel transit time. Assessment & Plan - Diagnosis (1) Non-ST elevated myocardial infarction Is this a current diagnosis for this admission?: Yes (2) Acute combined systolic and diastolic heart failure Is this a current diagnosis for this admission?: Yes (3) Chronic kidney disease, stage III (moderate) Is this a current diagnosis for this admission?: Yes (4) Secondary hyperparathyroidism Is this a current diagnosis for this admission?: Yes (5) Dementia Is this a current diagnosis for this admission?: Yes (6) Urinary tract infection Qualifiers: Urinary tract infection type: site unspecified Hematuria presence: without hematuria Qualified Code(s): N39.0 - Urinary tract infection, site not specified Is this a current diagnosis for this admission?: Yes (7) Cardiorenal syndrome Qualifiers: Heart failure presence: with heart failure Hypertensive chronic kidney disease stage: stage 1-4 or unspecified chronic kidney disease Qualified Code(s): I13.0 - Hypertensive heart and chronic kidney disease with heart failure and stage 1 through stage 4 chronic kidney disease, or unspecified chronic kidney disease Is this a current diagnosis for this admission?: Yes (8) Vomiting Qualifiers: Vomiting type: unspecified Vomiting Intractability: non-intractable Nausea presence: with nausea Qualified Code(s): R11.2 - Nausea with vomiting, unspecified Is this a current diagnosis for this admission?: Yes - Plan Summary Plan Summary: Continue present treatment
[2018-06-29] MEDS: ATORVASTATIN CALCIUM 80 MG TABLET PO SCH (21:32)
[2018-06-29] MEDS: SERTRALINE HCL 50 MG TABLET PO SCH (21:32)
[2018-06-29 21:57] LABS: HEMATOCRIT 34.8 % (36.0-47.0); HEMOGLOBIN 11.7 g/dL (12.0-15.5); MEAN CORPUSCULAR HEMOGLOBIN 30.6 pg (27.0-33.4); MEAN CORPUSCULAR HGB CONC 33.7 g/dL (32.0-36.0); MEAN CORPUSCULAR VOLUME 91 fl (80-97); PLATELET COUNT 144 10^3/uL (150-450); RED BLOOD COUNT 3.83 10^6/uL (3.72-5.28); RED CELL DISTRIBUTION WIDTH 20.3 % (11.5-14.0); WHITE BLOOD COUNT 4.4 10^3/uL (4.0-10.5)
[2018-06-29 22:02] LABS: ALANINE AMINOTRANSFERASE 14 U/L (9-52); ALBUMIN 2.8 g/dL (3.5-5.0); ALKALINE PHOSPHATASE 74 U/L (38-126); ANION GAP 9 (5-19); ASPARTATE AMINO TRANSFERASE 53 U/L (14-36); BILIRUBIN,DIRECT 2.5 mg/dL (0.0-0.4); BILIRUBIN,TOTAL 3.1 mg/dL (0.2-1.3); BLOOD UREA NITROGEN 36 mg/dL (7-20); CALCIUM 8.3 mg/dL (8.4-10.2); CARBON DIOXIDE 30 mmol/L (22-30); CHLORIDE 96 mmol/L (98-107); GLUCOSE 109 mg/dL (75-110); POTASSIUM 3.8 mmol/L (3.6-5.0); SODIUM 135.2 mmol/L (137-145)
[2018-06-29 22:30] LABS: ABSOLUTE LYMPHOCYTES# (MANUAL) 0.7 10^3/uL (0.5-4.7); ABSOLUTE MONOCYTES # (MANUAL) 0.2 10^3/uL (0.1-1.4); ABSOLUTE NEUTROPHILS# (MANUAL) 3.4 10^3/uL (1.7-8.2); BASOPHILS % (MANUAL) 0 % (0-2); EOSINOPHILS % (MANUAL) 0 % (0-6); LYMPHOCYTES % (MANUAL) 17 % (13-45); MONOCYTES % (MANUAL) 5 % (3-13); SEGMENTED NEUTROPHILS % (MAN) 78 % (42-78); TOTAL CELLS COUNTED 100
[2018-06-29 22:31] LABS: ACANTHOCYTES 1+; OVALOCYTES SLIGHT; TARGET CELLS 1+
[2018-06-29 22:32] LABS: ANISOCYTOSIS 2+; PLATELET COMMENT ADEQUATE; SCHISTOCYTES SLIGHT
[2018-06-30] MEDS ORDERED: ACETAMINOPHEN 325 MG TABLET PO ONE (01:45)
[2018-06-30 05:06] LABS: ABSOLUTE LYMPHOCYTES (AUTO) 1.8 10^3/uL (0.5-4.7); ABSOLUTE MONOCYTES (AUTO) 0.3 10^3/uL (0.1-1.4); ABSOLUTE NEUT (AUTO) 2.2 10^3/uL (1.7-8.2); BASOPHILS % (AUTO) 0.7 % (0-2); EOSINOPHILS % (AUTO) 0.6 % (0-6); HEMATOCRIT 34.7 % (36.0-47.0); HEMOGLOBIN 11.5 g/dL (12.0-15.5); MEAN CORPUSCULAR HEMOGLOBIN 30.3 pg (27.0-33.4); MEAN CORPUSCULAR HGB CONC 33.1 g/dL (32.0-36.0); MEAN CORPUSCULAR VOLUME 91 fl (80-97); MONOCYTES % (AUTO) 7.2 % (3-13); PLATELET COUNT 130 10^3/uL (150-450); RED BLOOD COUNT 3.79 10^6/uL (3.72-5.28); RED CELL DISTRIBUTION WIDTH 20.3 % (11.5-14.0); SEGMENTED NEUTROPHILS % (AUTO) 50.5 % (42-78); TOTAL CELLS COUNTED % (AUTO) 100 %; WHITE BLOOD COUNT 4.3 10^3/uL (4.0-10.5)
[2018-06-30 05:25] LABS: ALANINE AMINOTRANSFERASE 14 U/L (9-52); ALBUMIN 2.7 g/dL (3.5-5.0); ALKALINE PHOSPHATASE 74 U/L (38-126); ANION GAP 7 (5-19); ASPARTATE AMINO TRANSFERASE 55 U/L (14-36); BILIRUBIN,DIRECT 2.3 mg/dL (0.0-0.4); BILIRUBIN,TOTAL 2.8 mg/dL (0.2-1.3); BLOOD UREA NITROGEN 36 mg/dL (7-20); CALCIUM 8.4 mg/dL (8.4-10.2); CARBON DIOXIDE 31 mmol/L (22-30); CHLORIDE 96 mmol/L (98-107); GLUCOSE 95 mg/dL (75-110); POTASSIUM 3.8 mmol/L (3.6-5.0); SODIUM 133.5 mmol/L (137-145); TOTAL PROTEIN 5.9 g/dL (6.3-8.2)
[2018-06-30] MEDS: RANOLAZINE 500 MG TAB.SR.12H PO SCH ×2 (06:27→17:17)
[2018-06-30] MEDS: CALCITRIOL 0.25 MCG CAPSULE PO SCH (09:44)
[2018-06-30] MEDS: POTASSIUM CHLORIDE 10 MEQ CAPSULE.ER PO SCH ×2 (09:44→21:32)
[2018-06-30] MEDS: ASPIRIN 81 MG TABLET, ENT COATED PO SCH (09:45)
[2018-06-30] MEDS: ISOSORBIDE MONONITRATE 60 MG TAB.ER.24H PO SCH (09:45)
[2018-06-30] MEDS: FUROSEMIDE 40 MG TABLET PO SCH ×2 (09:45→17:17)
[2018-06-30] MEDS: CARVEDILOL 12.5 MG TABLET PO SCH ×2 (09:45→21:31)
[2018-06-30] MEDS: SACUBITRIL/VALSARTAN 49 MG/51 MG TABLET PO SCH ×2 (09:48→17:12)
[2018-06-30] MEDS: METOLAZONE 2.5 MG TABLET PO SCH (10:06)
--- NOTE | 2018-06-30 16:56 | PDOC PROGRESS REPORT ---
Subjective Progress Note for:: 06/30/18 Reason For Visit: Patient seen today. She states she is continuing to feel better. She is stable as long as she is resting. She denies any history of chest pains, fever or chills. She says appetite is still fair. Labs and medications were reviewed with her. Renal numbers are stable. Physical Exam Vital Signs: Temp Pulse Resp BP Pulse Ox 97.6 F 75 18 107/48 L 100 06/30/18 10:46 06/30/18 14:00 06/30/18 10:46 06/30/18 10:46 06/30/18 10:46 Intake & Output 06/29/18 06/30/18 07/01/18 06:59 06:59 06:59 Intake Total 422 500 100 Output Total 450 250 25 Balance -28 250 75 Weight 90.8 kg 89.4 kg General appearance: PRESENT: no acute distress Respiratory exam: PRESENT: clear to auscultation kishan, decreased breath sounds. ABSENT: crackles Cardiovascular exam: PRESENT: +S1, +S2. ABSENT: rubs GI/Abdominal exam: PRESENT: normal bowel sounds, soft. ABSENT: organomegaly, tenderness Extremities exam: PRESENT: +1 edema Neurological exam: PRESENT: alert, awake, oriented to person, oriented to place Skin exam: ABSENT: erythema, rash Results Laboratory Results: 06/30/18 04:40 06/30/18 04:40 06/29/18 06/29/18 06/30/18 21:33 21:33 04:40 WBC 4.4 4.3 RBC 3.83 3.79 Hgb 11.7 L 11.5 L Hct 34.8 L 34.7 L MCV 91 91 MCH 30.6 30.3 MCHC 33.7 33.1 RDW 20.3 H 20.3 H Plt Count 144 L 130 L Seg Neutrophils % Not Reportable 50.5 Lymphocytes % Not Reportable 41.0 Monocytes % Not Reportable 7.2 Eosinophils % Not Reportable 0.6 Basophils % Not Reportable 0.7 Absolute Neutrophils Not Reportable 2.2 Absolute Lymphocytes Not Reportable 1.8 Absolute Monocytes Not Reportable 0.3 Absolute Eosinophils Not Reportable 0.0 Absolute Basophils Not Reportable 0.0 Sodium 135.2 L Potassium 3.8 Chloride 96 L Carbon Dioxide 30 Anion Gap 9 BUN 36 H Creatinine 2.01 H Est GFR ( Amer) 29 L Est GFR (Non-Af Amer) 24 L Glucose 109 Calcium 8.3 L Total Bilirubin 3.1 H AST 53 H ALT 14 Alkaline Phosphatase 74 Total Protein 6.0 L Albumin 2.8 L 06/30/18 04:40 WBC RBC Hgb Hct MCV MCH MCHC RDW Plt Count Seg Neutrophils % Lymphocytes % Monocytes % Eosinophils % Basophils % Absolute Neutrophils Absolute Lymphocytes Absolute Monocytes Absolute Eosinophils Absolute Basophils Sodium 133.5 L Potassium 3.8 Chloride 96 L Carbon Dioxide 31 H Anion Gap 7 BUN 36 H Creatinine 2.08 H Est GFR ( Amer) 28 L Est GFR (Non-Af Amer) 23 L Glucose 95 Calcium 8.4 Total Bilirubin 2.8 H AST 55 H ALT 14 Alkaline Phosphatase 74 Total Protein 5.9 L Albumin 2.7 L 06/21/18 06/21/18 06/21/18 04:45 04:45 05:57 Creatine Kinase Cancelled 216 H CK-MB (CK-2) Cancelled Troponin I Cancelled NT-Pro-B Natriuret Pep Cancelled 06/21/18 06/21/18 06/21/18 05:57 17:18 17:46 Creatine Kinase CK-MB (CK-2) 6.74 H 4.64 H Cancelled Troponin I 21.100 18.500 Cancelled NT-Pro-B Natriuret Pep [id number] H 06/21/18 23:39 Creatine Kinase CK-MB (CK-2) 3.84 Troponin I 14.800 NT-Pro-B Natriuret Pep Impressions: Chest X-Ray 06/21/18 04:24 IMPRESSION: Cardiomegaly with small bibasilar pleural effusions/pleural thickening copyright 2011 [employer]- All Rights Reserved KUB X-Ray 06/25/18 00:00 IMPRESSION: NO RADIOGRAPHIC EVIDENCE FOR ACUTE ABDOMINAL DISEASE. Upper GI and Small Bowel X-Ray 06/27/18 00:00 IMPRESSION: Normal gastric emptying. Grossly normal small bowel. Normal small bowel transit time. Assessment & Plan - Diagnosis (1) LAMONT (acute kidney injury) Is this a current diagnosis for this admission?: Yes Plan: Poor intake with poor urine output.However renal numbers are stable.Hypokalemia is stable currently. No evidences of uremia and no indications for initiation of renal replacements which is however is not a choice for this unfortunate patient with severe cardiomyopathy. (2) Acute combined systolic and diastolic heart failure Is this a current diagnosis for this admission?: Yes Plan: Clinically stable at the moment. Monitor. (3) Non-ST elevated myocardial infarction Is this a current diagnosis for this admission?: Yes Plan: Stable. As per cardiology. (4) Secondary hyperparathyroidism Is this a current diagnosis for this admission?: Yes Plan: On replacements. Monitor. (5) Altered mental status Qualifiers: Altered mental status type: unspecified Qualified Code(s): R41.82 - Altered mental status, unspecified Plan: Much improved. (6) Anemia Qualifiers: Anemia type: other cause Plan: Stable. No indications for erythropoietin.
[2018-06-30] MEDS: ATORVASTATIN CALCIUM 80 MG TABLET PO SCH (21:32)
--- NOTE | 2018-06-30 21:32 | PDOC PROGRESS REPORT ---
Subjective Progress Note for:: 06/30/18 Subjective:: Patient seen by the bedside, condition about the same Reason For Visit: NSTMI,ACUTE SYSTOLIC HEART FAILURE Physical Exam Vital Signs: Temp Pulse Resp BP Pulse Ox 98.3 F 68 18 93/55 L 100 06/30/18 18:54 06/30/18 19:00 06/30/18 18:54 06/30/18 18:54 06/30/18 18:54 Intake & Output 06/29/18 06/30/18 07/01/18 06:59 06:59 06:59 Intake Total 422 500 150 Output Total 450 250 35 Balance -28 250 115 Weight 90.8 kg 89.4 kg General appearance: PRESENT: no acute distress Eye exam: PRESENT: PERRLA Respiratory exam: PRESENT: rhonchi Cardiovascular exam: PRESENT: +S1, +S2 GI/Abdominal exam: PRESENT: soft Neurological exam: PRESENT: alert Results Laboratory Results: 06/30/18 04:40 06/30/18 04:40 06/29/18 06/29/18 06/30/18 21:33 21:33 04:40 WBC 4.4 4.3 RBC 3.83 3.79 Hgb 11.7 L 11.5 L Hct 34.8 L 34.7 L MCV 91 91 MCH 30.6 30.3 MCHC 33.7 33.1 RDW 20.3 H 20.3 H Plt Count 144 L 130 L Seg Neutrophils % Not Reportable 50.5 Lymphocytes % Not Reportable 41.0 Monocytes % Not Reportable 7.2 Eosinophils % Not Reportable 0.6 Basophils % Not Reportable 0.7 Absolute Neutrophils Not Reportable 2.2 Absolute Lymphocytes Not Reportable 1.8 Absolute Monocytes Not Reportable 0.3 Absolute Eosinophils Not Reportable 0.0 Absolute Basophils Not Reportable 0.0 Sodium 135.2 L Potassium 3.8 Chloride 96 L Carbon Dioxide 30 Anion Gap 9 BUN 36 H Creatinine 2.01 H Est GFR ( Amer) 29 L Est GFR (Non-Af Amer) 24 L Glucose 109 Calcium 8.3 L Total Bilirubin 3.1 H AST 53 H ALT 14 Alkaline Phosphatase 74 Total Protein 6.0 L Albumin 2.8 L 06/30/18 04:40 WBC RBC Hgb Hct MCV MCH MCHC RDW Plt Count Seg Neutrophils % Lymphocytes % Monocytes % Eosinophils % Basophils % Absolute Neutrophils Absolute Lymphocytes Absolute Monocytes Absolute Eosinophils Absolute Basophils Sodium 133.5 L Potassium 3.8 Chloride 96 L Carbon Dioxide 31 H Anion Gap 7 BUN 36 H Creatinine 2.08 H Est GFR ( Amer) 28 L Est GFR (Non-Af Amer) 23 L Glucose 95 Calcium 8.4 Total Bilirubin 2.8 H AST 55 H ALT 14 Alkaline Phosphatase 74 Total Protein 5.9 L Albumin 2.7 L 06/21/18 06/21/18 06/21/18 04:45 04:45 05:57 Creatine Kinase Cancelled 216 H CK-MB (CK-2) Cancelled Troponin I Cancelled NT-Pro-B Natriuret Pep Cancelled 06/21/18 06/21/18 06/21/18 05:57 17:18 17:46 Creatine Kinase CK-MB (CK-2) 6.74 H 4.64 H Cancelled Troponin I 21.100 18.500 Cancelled NT-Pro-B Natriuret Pep [id number] H 06/21/18 23:39 Creatine Kinase CK-MB (CK-2) 3.84 Troponin I 14.800 NT-Pro-B Natriuret Pep Impressions: Chest X-Ray 06/21/18 04:24 IMPRESSION: Cardiomegaly with small bibasilar pleural effusions/pleural thickening copyright 2011 [employer]- All Rights Reserved KUB X-Ray 06/25/18 00:00 IMPRESSION: NO RADIOGRAPHIC EVIDENCE FOR ACUTE ABDOMINAL DISEASE. Upper GI and Small Bowel X-Ray 06/27/18 00:00 IMPRESSION: Normal gastric emptying. Grossly normal small bowel. Normal small bowel transit time. Assessment & Plan - Diagnosis (1) Non-ST elevated myocardial infarction Is this a current diagnosis for this admission?: Yes (2) Acute combined systolic and diastolic heart failure Is this a current diagnosis for this admission?: Yes (3) Chronic kidney disease, stage III (moderate) Is this a current diagnosis for this admission?: Yes (4) Secondary hyperparathyroidism Is this a current diagnosis for this admission?: Yes (5) Dementia Is this a current diagnosis for this admission?: Yes (6) Urinary tract infection Qualifiers: Urinary tract infection type: site unspecified Hematuria presence: without hematuria Qualified Code(s): N39.0 - Urinary tract infection, site not specified Is this a current diagnosis for this admission?: Yes (7) Cardiorenal syndrome Qualifiers: Heart failure presence: with heart failure Hypertensive chronic kidney disease stage: stage 1-4 or unspecified chronic kidney disease Qualified Code(s): I13.0 - Hypertensive heart and chronic kidney disease with heart failure and stage 1 through stage 4 chronic kidney disease, or unspecified chronic kidney disease Is this a current diagnosis for this admission?: Yes (8) Vomiting Qualifiers: Vomiting type: unspecified Vomiting Intractability: non-intractable Nausea presence: with nausea Qualified Code(s): R11.2 - Nausea with vomiting, unspecified Is this a current diagnosis for this admission?: Yes (9) LAMONT (acute kidney injury) Is this a current diagnosis for this admission?: Yes
[2018-06-30] MEDS: SERTRALINE HCL 50 MG TABLET PO SCH (21:33)
[2018-07-01 05:52] LABS: ANION GAP 11 (5-19); BLOOD UREA NITROGEN 40 mg/dL (7-20); CALCIUM 8.3 mg/dL (8.4-10.2); CARBON DIOXIDE 29 mmol/L (22-30); CHLORIDE 96 mmol/L (98-107); GLUCOSE 80 mg/dL (75-110); POTASSIUM 4.2 mmol/L (3.6-5.0); SODIUM 135.8 mmol/L (137-145)
[2018-07-01] MEDS: RANOLAZINE 500 MG TAB.SR.12H PO SCH ×2 (06:13→17:29)
[2018-07-01] MEDS: CARVEDILOL 12.5 MG TABLET PO SCH ×2 (09:16→22:04)
[2018-07-01] MEDS: SACUBITRIL/VALSARTAN 49 MG/51 MG TABLET PO SCH ×3 (09:17→17:28)
[2018-07-01] MEDS: METOLAZONE 2.5 MG TABLET PO SCH (09:17)
[2018-07-01] MEDS: ISOSORBIDE MONONITRATE 60 MG TAB.ER.24H PO SCH (09:18)
[2018-07-01] MEDS: FUROSEMIDE 40 MG TABLET PO SCH ×2 (09:18→17:28)
[2018-07-01] MEDS: CALCITRIOL 0.25 MCG CAPSULE PO SCH (09:18)
[2018-07-01] MEDS: POTASSIUM CHLORIDE 10 MEQ CAPSULE.ER PO SCH ×2 (09:19→22:02)
[2018-07-01] MEDS: ASPIRIN 81 MG TABLET, ENT COATED PO SCH (09:19)
--- NOTE | 2018-07-01 16:38 | PDOC TRANSFER SUMMARY ---
General - Admit/Disc Date/PCP Admission Date/Primary Care Provider: 06/21/18 08:28 MIKO GOMEZ MD Discharge Date: 07/01/18 - Discharge Diagnosis (1) Non-ST elevated myocardial infarction Is this a current diagnosis for this admission?: Yes (2) Acute combined systolic and diastolic heart failure Is this a current diagnosis for this admission?: Yes (3) Chronic kidney disease, stage III (moderate) Is this a current diagnosis for this admission?: Yes (4) Secondary hyperparathyroidism Is this a current diagnosis for this admission?: Yes (5) Dementia Is this a current diagnosis for this admission?: Yes (6) Urinary tract infection Is this a current diagnosis for this admission?: Yes (7) Cardiorenal syndrome Is this a current diagnosis for this admission?: Yes (8) Vomiting Is this a current diagnosis for this admission?: Yes (9) LAMONT (acute kidney injury) Is this a current diagnosis for this admission?: Yes - Additional Information Resuscitation Status: Do Not Resuscitate Discharge Diet: Cardiac Home Medications: Aspirin [Aspirin 81 mg Chewable Tablet] 81 mg PO QPM 06/21/18 Carvedilol [Coreg 12.5 mg Tablet] 12.5 mg PO Q12 06/21/18 Clonidine HCl [Catapres 0.2 mg Tablet] 0.2 mg PO Q12 06/21/18 Isosorbide Mononitrate [Imdur 60 mg Tablet.er] 60 mg PO QAM 06/21/18 Ondansetron [Zofran Odt 4 mg Tablet] 4 mg PO Q4HP PRN 06/21/18 Ranolazine [Ranexa 500 mg Tab.sr] 500 mg PO Q12 06/21/18 Sacubitril/Valsartan [Entresto 49 mg/51 mg Tablet] 1 tab PO Q12 06/21/18 Sertraline HCl [Zoloft] 25 mg PO QHS 06/21/18 Atorvastatin Calcium [Lipitor 80 mg Tablet] 80 mg PO QHS tablet 07/01/18 Calcitriol [Rocaltrol 0.25 mcg Capsule] 0.25 mcg PO DAILY capsule 07/01/18 Furosemide [Lasix 40 mg Tablet] 40 mg PO BID tablet 07/01/18 Metolazone [Zaroxolyn 2.5 mg Tablet] 2.5 mg PO DAILY tablet 07/01/18 History of Present Illness Admission Date/PCP: 06/21/18 08:28 MIKO GOMEZ MD History of Present Illness: NEIDA YEPEZ is a 78 year old female, She has underlying dementia, chronic systolic and diastolic heart failure, morbid obesity, chronic kidney disease stage III, secondary hyper parathyroidism, she is a resident of the [facility]. She was noticed to have increased lower extremity swelling with generalized anasarca ,the [facility] staff called me to advise me of the clinical findings, outpatient BNP was ordered, this was found to be elevated, she was referred to the emergency room for further evaluation. In the ER she was evaluated, the troponin was drawn it was 20, the 12-lead EKG did not demonstrate any ST elevation GA.The last time she was admitted she also had a non-ST elevated myocardial infarction. At that time a 2D echocardiogram was done, the ejection fraction of the left ventricle was 20% to 30%, she was found to have grade 3 diastolic dysfunction of left ventricle. Hospital Course Hospital Course: Patient was admitted for the management of acute systolic heart failure due to non-ST elevated GA, she was treated initially with IV heparin, beta-juan, statin therapy. Hospital course was complicated with acute kidney injury initially oliguric, due to cardiorenal syndrome. 2D echo was done, it showed severe dilatation of the left ventricle, the ejection fraction was 10% with severe global hypokinesis of the left ventricle. She was seen in consultation by nephrology and cardiology this CHF was treated with diuretic IV furosemide, medication was adjusted. Patient overall condition is very poor she is very deconditioned, debilitated, she has underlying dementia with episode of lucidity and confusion. Patient with a history of chronic systolic and diastolic heart failure, she was medically optimized with Entresto, beta-juan, she decompensated with very minimal injection fraction of left ventricle, she is not a candidate for coronary intervention, she is not a candidate for hemodialysis, she is hospice appropriate at this time of management. Patient have dementia she is not able to engage in reasonable conversation does not understand the gravity of her disease process. She had episode of vomiting small bowel obstruction was suspected upper GI series that was done was negative. She also had E. coli UTI treated with antibiotic, she has multiple organ disease including end-stage cardiomyopathy, acute on chronic kidney disease ,dementia. She will be transferred back to [facility], I recommend hospice consultation for this patient once she arrives to the [facility] Physical Exam Vital Signs: Temp Pulse Resp BP Pulse Ox 97.3 F 71 16 97/66 L 100 07/01/18 16:00 07/01/18 16:00 07/01/18 16:00 07/01/18 16:00 07/01/18 16:00 Intake & Output 06/30/18 07/01/18 07/02/18 06:59 06:59 06:59 Intake Total 500 210 Output Total 250 35 100 Balance 250 175 -100 Weight 89.4 kg 90.1 kg General appearance: PRESENT: no acute distress Eye exam: PRESENT: PERRLA Respiratory exam: PRESENT: rales Cardiovascular exam: PRESENT: +S1, +S2 GI/Abdominal exam: PRESENT: soft Extremities exam: PRESENT: pedal edema Neurological exam: PRESENT: alert Results Laboratory Results: 06/30/18 04:40 07/01/18 04:29 07/01/18 04:29 Sodium 135.8 L Potassium 4.2 Chloride 96 L Carbon Dioxide 29 Anion Gap 11 BUN 40 H Creatinine 2.32 H Est GFR ( Amer) 25 L Est GFR (Non-Af Amer) 20 L Glucose 80 Calcium 8.3 L 06/21/18 06/21/18 06/21/18 04:45 04:45 05:57 Creatine Kinase Cancelled 216 H CK-MB (CK-2) Cancelled Troponin I Cancelled NT-Pro-B Natriuret Pep Cancelled 06/21/18 06/21/18 06/21/18 05:57 17:18 17:46 Creatine Kinase CK-MB (CK-2) 6.74 H 4.64 H Cancelled Troponin I 21.100 18.500 Cancelled NT-Pro-B Natriuret Pep [id number] H 06/21/18 23:39 Creatine Kinase CK-MB (CK-2) 3.84 Troponin I 14.800 NT-Pro-B Natriuret Pep Impressions: Chest X-Ray 06/21/18 04:24 IMPRESSION: Cardiomegaly with small bibasilar pleural effusions/pleural thickening copyright 2011 [employer]- All Rights Reserved KUB X-Ray 06/25/18 00:00 IMPRESSION: NO RADIOGRAPHIC EVIDENCE FOR ACUTE ABDOMINAL DISEASE. Upper GI and Small Bowel X-Ray 06/27/18 00:00 IMPRESSION: Normal gastric emptying. Grossly normal small bowel. Normal small bowel transit time. Qualifiers - * PATIENT BEING DISCHARGED WITH ANY OF THE FOLLOWING DIAGNOSIS: Heart Failure VTE patient discharged on overlapping Therapy?: Yes HF Pt being discharged on ACEI for LVEF less than 40%?: Yes HF Pt being discharged on ARBS for LVEF less than 40%?: Yes HF Pt with Afib discharged with Warfarin?: Yes HF Pt discharged on evidence-based Beta Juan:: Yes Plan Discharge Plan: Patient is discharged back to [facility] I strongly recommend hospice consultation and care for this patient
[2018-07-01] MEDS: ATORVASTATIN CALCIUM 80 MG TABLET PO SCH (22:03)
[2018-07-01] MEDS: SERTRALINE HCL 50 MG TABLET PO SCH (22:03)
[2018-07-02] MEDS: RANOLAZINE 500 MG TAB.SR.12H PO SCH (05:20)
[2018-07-02] MEDS: ASPIRIN 81 MG TABLET, ENT COATED PO SCH (10:37)
[2018-07-02] MEDS: CARVEDILOL 12.5 MG TABLET PO SCH (10:37)
[2018-07-02] MEDS: SACUBITRIL/VALSARTAN 49 MG/51 MG TABLET PO SCH (10:38)
[2018-07-02] MEDS: CALCITRIOL 0.25 MCG CAPSULE PO SCH (10:38)
[2018-07-02] MEDS: FUROSEMIDE 40 MG TABLET PO SCH (10:38)
[2018-07-02] MEDS: POTASSIUM CHLORIDE 10 MEQ CAPSULE.ER PO SCH (10:39)
[2018-07-02] MEDS: METOLAZONE 2.5 MG TABLET PO SCH (10:40)
[2018-07-02] MEDS: ISOSORBIDE MONONITRATE 60 MG TAB.ER.24H PO SCH (10:40)
[2018-07-02 12:28] VITALS: BP 96/59
== END 2018-07-02 14:09 | DRG 280 ==
LOC: ER 04:01 → EH 08:28 → 3S 13:19 → 3W 06-26 16:39
PROVIDERS: ADMIT Internal Medicine; ATTEND Internal Medicine
PROC: 5A09457 Assistance with Respiratory Ventilation, 24-96 Consecutive Hours, Continuous Positive Airway Pressure (ICD-10-PCS; principal; 2018-06-21)
DX: I21.4 Non-ST elevation (NSTEMI) myocardial infarction (principal); I50.43 Acute on chronic combined systolic (congestive) and diastolic (congestive) heart failure; I13.0 Hypertensive heart and chronic kidney disease with heart failure and stage 1 through stage 4 chronic kidney disease, or unspecified chronic kidney disease; N25.81 Secondary hyperparathyroidism of renal origin; N39.0 Urinary tract infection, site not specified; I42.9 Cardiomyopathy, unspecified; N17.9 Acute kidney failure, unspecified; N18.3 Chronic kidney disease, stage 3 (moderate); E87.6 Hypokalemia; G30.9 Alzheimer's disease, unspecified; F02.80 Dementia in other diseases classified elsewhere, unspecified severity, without behavioral disturbance, psychotic disturbance, mood disturbance, and anxiety; Z68.32 Body mass index [BMI] 32.0-32.9, adult; I25.10 Atherosclerotic heart disease of native coronary artery without angina pectoris; I08.1 Rheumatic disorders of both mitral and tricuspid valves; I27.20 Pulmonary hypertension, unspecified; K59.01 Slow transit constipation; E86.0 Dehydration; D64.9 Anemia, unspecified; E66.01 Morbid (severe) obesity due to excess calories; B96.20 Unspecified Escherichia coli [E. coli] as the cause of diseases classified elsewhere; Z95.5 Presence of coronary angioplasty implant and graft
CPT/HCPCS: 36415; 51702; 71045; 74018; 74249; 80048; 80053; 80061; 81001; 82306; 82550; 82553; 82570; 82803; 83735; 83880; 83970; 84100; 84132; 84155; 84156; 84166; 84484; 85025; 85027; 85610; 85730; 86320; 87040; 87086; 87088; 87186; 93005; 93010; 93306; 94660; 96365; 96375; 99291; J0696; J0744; J1644; J1940; J2060; J2405; J3480; J3490; J7050